=== PATIENT | female | born 1960 | race Caucasian/White ===

== ENCOUNTER → 2017-10-16 12:43 | Outpatient (CLI) | payer BC, SELFPAY ==
--- NOTE | 2017-10-16 12:49 | CT_ITS ---
CT lung screening EXAM: CT LUNG LOW DOSE WO CONTRAST HISTORY: Tobacco abuse, asymptomatic ITS.REASON: HX TOBACCO USE ORDERING PHYSICIAN: Geronimo Mueller MD PATIENT AGE: 56 years COMPARISON: None TECHNIQUE: The exam was performed on a GE Light Speed [address] scanner using 2.90 mGy CTDI. A low dose helical CT CHEST was performed on a multi-detector scanner. All CT scans at the facility use one or more dose reduction, viz: automated exposure control; ma/kV adjustment per patient size (including targeted exams where dose is matched to indication; i.e. head); or iterative reconstruction technique. The LDCT was performed in a facility that meets the criteria for the screening program. Data regarding this exam was submitted to ACR which is an approved registry. The order for this exam indicates that it came as a result of a lung cancer screening counseling shard decision-making visit that included all the elements required of such a visit including smoking cessation. The radiologist interpreting this exam meets the CMS criteria for the LDCT lung cancer screening program. The exam is reported using the Lung-RADS classification scale and reported to the ACR registry. NOTE: This study was performed for the specific purposes of lung cancer screening and is not an alternative to diagnostic chest CT. RADIATION DOSE: CTDI vol(CT dose Index-volume) = 2.90mG DLP (Dose Length Product) = 99.14 mGcm FINDINGS: Centrilobular and paraseptal emphysema No suspicious pulmonary nodules. No effusions or infiltrates. 2 mm well-circumscribed nodule superior segment left lower lobe and appears to contain a small focus of calcification. There are calcified nodes present in the hilum on the right and subcarinal region. IMPRESSION: 1. Lung RADS Category: 2, benign 2. Other findings: Centrilobular and paraseptal emphysema Old granulomatous disease RECOMMENDATIONS: 12 month LDCT follow-up
== END ==
PROVIDERS: Family Provider Family Medicine; PCP Family Medicine; Visit Provider Family Medicine
DX: Z12.2 Encounter for screening for malignant neoplasm of respiratory organs (principal); Z87.891 Personal history of nicotine dependence

== ENCOUNTER 2018-05-15 05:22 | Observation (INO) ==
[2018-05-15 06:02] LABS: Basophils % 0.4 % (0.1-2.0); Eosinophils # 0.1 K/mm3 (0.0-0.4); Eosinophils % 1.6 % (0.1-12.0); Hematocrit 38.4 % (37.0-47.0); Lymphocytes # 1.1 K/mm3 (0.7-4.5); Lymphocytes % 23.5 % (10-50); Mean Corpuscular HGB Conc 31.2 g/dL (31.8-35.4); Mean Corpuscular Hemoglobin 30.7 pg (27.0-31.2); Mean Corpuscular Volume 98.4 fl (81-99); Monocytes # 0.3 K/mm3 (0.1-1.0); Monocytes % 5.7 % (1.7-9.3); Neutrophils # 3.3 K/mm3 (1.8-7.8); Neutrophils % 68.8 % (37.0-80.0); Platelet Count 242 K/mm3 (142-424); Red Cell Distribution Width 12.8 % (11.5-17.5); White Blood Count 4.8 K/mm3 (4.8-10.8)
--- NOTE | 2018-05-15 06:13 | Emergency Department Note ---
ED Disposition Clinical Impression: Vertigo Disposition: Home, Self-Care Condition on Discharge: Good Instructions: DI for Nausea -- Adult Referrals: Geronimo Mueller MD [Primary Care Provider] - - Critical Care Critical Care Time: No Attestation: On 05/15/18, the high probability of a clinically significant, sudden or life threatening deterioration of the following system(s) required my full and direct attention, intervention and personal management. The time I documented below is in addition to time spent performing reported procedures but includes the following listed in this critical care notation. Medical Decision Making - Medical Records Medical records reviewed: Yes: I reviewed the patient's medical records. - [place] Inquiry Pt receiving controlled substance: No Vital Signs: 05/15/18 05:23 05/15/18 06:23 05/15/18 06:51 Temperature 98.9 F Temperature Source Oral Pulse Rate [Right Brachial] 76 56 L 59 L Respiratory Rate 15 Blood Pressure [Right Arm] 123/89 131/74 121/72 Blood Pressure Mean [Right Arm] 100 93 88 02 Sat by Pulse Oximetry 97 97 97 Oxygen Delivery Method Room Air - Lab Data Lab results reviewed: Yes: I reviewed the patient's lab results. Lab Results 05/15/18 05:46: WBC 4.8, RBC 3.90 L, Hgb 12.0 L, Hct 38.4, MCV 98.4, MCH 30.7, MCHC 31.2 L, RDW 12.8, Plt Count 242, MPV 7.0 L, Neut % (Auto) 68.8, Lymph % (Auto) 23.5, [place] % (Auto) 5.7, Eos % (Auto) 1.6, Baso % (Auto) 0.4, Neut # (Auto) 3.3, Lymph # (Auto) 1.1, [place] # (Auto) 0.3, Eos # (Auto) 0.1, Baso # (Auto) 0.0 05/15/18 05:46: Sodium 137, Potassium 3.4 L, Chloride 106, Carbon Dioxide 22, Anion Gap 12.4, BUN 17, Creatinine 0.63, Estimated Creat Clear 132, Estimated GFR 98, Est GFR ( Amer) 118, Glucose 85, Calcium 6.2 L, Total Bilirubin 0.2, AST 12 L, ALT 16, Alkaline Phosphatase 46, Troponin I < 0.02, C-Reactive Protein 0.2, Total Protein 5.0 L D, Albumin 2.3 L, Globulin 2.7, Albumin/Globulin Ratio 0.9 L, Amylase 72, Lipase 193 05/15/18 05:46: Influenza Type A Ag Negative, Influenza Type B Ag Negative 05/15/18 05:46: ESR 10 Result diagrams: 05/15/18 05:46 05/15/18 05:46 Orders (Tests/Meds): ED MEDICATIONS Generic Name Dose Route Start Last Admin Trade Name Freq PRN Reason Stop Dose Admin Sodium Chloride 1,000 mls @ 999 mls/hr 05/15/18 05:30 05/15/18 05:50 Sod Chlor 0.9% 1000ml Bag IV 05/15/18 06:30 999 mls/hr .Q1H1M BOZENA Administration Sodium Chloride 10 ml 05/15/18 05:29 Saline Flush 10ml Syringe IV 06/14/18 05:28 NEEDED PRN Maintain IV Site Discontinued Medications Generic Name Dose Route Start Last Admin Trade Name Freq PRN Reason Stop Dose Admin Famotidine 20 mg 05/15/18 05:30 05/15/18 05:50 Pepcid 20mg/2ml Vial IV 05/15/18 05:31 20 mg ONCE ONE Administration Ketorolac Tromethamine 30 mg 05/15/18 05:30 05/15/18 05:50 Toradol 30mg/Ml Vial IV 05/15/18 05:31 30 mg ONCE ONE Administration Meclizine HCl 25 mg 05/15/18 06:47 05/15/18 06:50 Antivert 25mg Tablet PO 05/15/18 06:48 25 mg ONCE ONE Administration Metoclopramide HCl 10 mg 05/15/18 05:30 05/15/18 05:50 Reglan 10mg/2ml Vial IVP 05/15/18 05:31 10 mg ONCE ONE Administration Ondansetron HCl 4 mg 05/15/18 05:30 05/15/18 05:50 Zofran 4mg/2ml Vial IV 05/15/18 05:31 4 mg ONCE ONE Administration ORDERS Category Date Time Status Urinalysis and Microscopic Stat Lab 05/15/18 05:30 Ordered - CT Data CT Scan: Head Time Received: 07:[address] Reviewed: Yes: I have viewed the radiologist's interpretation Preliminary Findings: Normal/NAD - Physician Consults Physician Consulted: cristina Reason -: Admission Dizzy HPI - General Chief Complaint: Nausea/Vomiting/Diarrhea Stated Complaint: nausea and vomiting, weakness Time Seen by Provider: 05/15/18 05:50 Mode of Arrival: EMS Source of Information: Patient, Spouse, EMS, Medical Record Limitations: No Limitations Description of Symptoms (Recalled from ER Triage Doc. by RN): Reports she woke up with nausea, vomiting, dizziness, and fever. Reports she thinks she could have an inner ear infection, or the flu. Denies abdominal, does c/o headache. Denies any other problems. - History of Present Illness HPI Narrative: acute onset of dizzyness and n/v with sx less on rt side and more moves and supine - no taylor or fever and no trauma or rash - no recent viral illness and no focal or speech or visual sx MD complaint: dizziness Onset (ago): hour(s) Timing: sudden onset Description: "room spinning", difficulty walking History of similar episodes: No History of trauma: No Severity: moderate Relieving factors: remaining still Exacerbating factors: movement Associated symptoms: denies other symptoms - Related Data Home Medications Medication Instructions Recorded Confirmed Citalopram Hydrobromide 20 mg PO DAILY 10/05/17 05/15/18 [Citalopram HBr] Estradiol 1 mg PO DAILY 10/05/17 05/15/18 Oxazepam [Serax 15mg capsule] 15 mg PO TIDP PRN 10/05/17 05/15/18 Rosuvastatin Calcium [Crestor] 20 mg PO HS 10/05/17 05/15/18 Allergies Allergy/AdvReac Type Severity Reaction Status Date / Time amitriptyline AdvReac Intermediate Hallucinati Verified 03/19/18 08:20 ng [facility] History - Hepatitis A Screen Drug use history?: No High risk sexual behaviors?: No History of sexually transmitted infection?: No Currently employed?: No Childcare worker?: No Do you have indoor plumbing?: Yes Do you have electricity?: Yes Attestation statement:: This patient has been screened for Hepatitis A risk factors. I have reviewed the patient's past medical history: Yes Medical History: Reports:: Anxiety, Chronic Obstructive Pulmonary Disease (COPD), Depression, Hyperlipidemia, Lung Disease Denies:: Cancer, Diabetes Mellitus Type 1, Diabetes Mellitus Type 2, Internal Pacemaker, MRSA, Seizures Other Medical History: Denies: Blood Transfusion Reaction Other Surgeries: Yes: Hysterectomy-Partial. No: Pacemaker Amputation: No Fractures: Yes (right wrist. pinky) - Social History Smoking Status: Former smoker Tobacco Type: cigarettes Alcohol Intake: never Alcohol Intake Frequency:: holidays/special occasions only - Psychiatric History Expresses thoughts of harming self/others: None Suicide Plan Description: No Plan Pschychiatric History:: Reports:: Anxiety, Depression Family Hx:: Unable to obtain ROS Obtained: Yes All systems reviewed & no additional complaints - Constitutional Constitutional: Denies fever(s) - Eyes Eyes: Denies change in vision, Denies photophobia - ENT Ears, Nose, Mouth, and Throat: Reports dizziness - Cardiovascular Cardiovascular: Denies chest pain - Respiratory Respiratory: No cough - Gastrointestinal Gastrointestingal: Reports: nausea, vomiting. Denies: abdominal pain, diarrhea - Genitourinary Female Genitourinary: Denies hematuria - Musculoskeletal Musculoskeletal: Denies joint pain, Denies neck pain - Integumentary/Breasts Skin/Breast: Denies rash - Neurologic Neurologic: Denies abnormal speech, Reports dizziness, Denies loss of vision, Denies seizure-like activity Physical Exam - General General appearance: alert, in no apparent distress, obese - Head Head exam: normocephalic - Eye Eye exam: Present: PERRL, EOMI, nystagmus, other (few beats of nystagmus with looking to rt ). Absent: scleral icterus - ENT ENT exam: Present: mucous membranes moist, other (no evid od tongue biting ) - Neck Neck exam: Present: trachea midline - Respiratory Respiratory exam: Absent: respiratory distress - Cardiovascular Cardiovascular exam: Present: regular rate, systolic murmur - Abdominal Exam Abdominal exam: Present: soft - Extremities Exam Extremities exam: Present: full ROM - Neurological Exam Neurological exam: Present: alert, oriented X3, motor sensory deficit - Psychiatric Psychiatric exam: Present: normal affect - Skin Skin exam: Absent: rash
[2018-05-15 06:21] LABS: Alanine Aminotransferase 16 U/L (12-78); Albumin Level 2.3 gm/dL (3.4-5.0); Albumin/Globulin Ratio 0.9 (1.1-1.8); Alkaline Phosphatase 46 U/L (46-116); Amylase 72 U/L (25-115); Anion Gap 12.4 mEq/L (5-15); Aspartate Amino Transferase 12 U/L (15-37); Bilirubin,Total 0.2 mg/dL (0.2-1.0); Blood Urea Nitrogen 17 mg/dL (7-18); C-Reactive Protein 0.2 mg/L (0.0-0.9); Carbon Dioxide 22 mmol/L (21.0-32.0); Chloride 106 mmol/L (98-107); Globulin 2.7 gm/dl (1.3-3.2); Glucose 85 mg/dL (74-106); Lipase 193 u/L (73-393); Potassium 3.4 mmoL/L (3.5-5.1); Sodium 137 mmol/L (136-145)
[2018-05-15 06:31] LABS: Calcium 6.2 mg/dL (8.5-10.1)
--- NOTE | 2018-05-15 09:38 | Progress Note ---
Internal Medicine - PN: Subj *Date: 05/15/18 Interval history: The patient awoke at 3:00 AM with severe dizziness and the room spinning. She has not had such episodes before. She presented in the emergency room where she received fluids and IV medications. She was admitted to the floor. Exam Vital signs and Labs for Last 24 Hours: Temp Pulse Resp BP Pulse Ox 98.4 F 54 L 15 134/73 95 05/15/18 08:37 05/15/18 09:12 05/15/18 09:12 05/15/18 08:37 05/15/18 09:12 Laboratory Results - last 24 hr 05/15/18 05:46: WBC 4.8, RBC 3.90 L, Hgb 12.0 L, Hct 38.4, MCV 98.4, MCH 30.7, MCHC 31.2 L, RDW 12.8, Plt Count 242, MPV 7.0 L, Neut % (Auto) 68.8, Lymph % (Auto) 23.5, [place] % (Auto) 5.7, Eos % (Auto) 1.6, Baso % (Auto) 0.4, Neut # (Auto) 3.3, Lymph # (Auto) 1.1, [place] # (Auto) 0.3, Eos # (Auto) 0.1, Baso # (Auto) 0.0 05/15/18 05:46: Sodium 137, Potassium 3.4 L, Chloride 106, Carbon Dioxide 22, Anion Gap 12.4, BUN 17, Creatinine 0.63, Estimated Creat Clear 132, Estimated GFR 98, Est GFR ( Amer) 118, Glucose 85, Calcium 6.2 L, Total Bilirubin 0 .2, AST 12 L, ALT 16, Alkaline Phosphatase 46, Troponin I < 0.02, C-Reactive Protein 0.2, Total Protein 5.0 L D, Albumin 2.3 L, Globulin 2.7, Albumin/Globulin Ratio 0.9 L, Amylase 72, Lipase 193 05/15/18 05:46: Influenza Type A Ag Negative, Influenza Type B Ag Negative 05/15/18 05:46: ESR 10 I & O for Last 24 hours: Intake & Output 05/12/18 05/13/18 05/14/18 05/15/18 11:59 11:59 11:59 11:59 Weight 172 lb - Constitutional mild distress - *Routine HEENT Exam Eye: Present: PERRL, nystagmus (Left beating nystagmus) ENT: Present: mucous membranes moist - *Routine Respiratory Exam Present: CTA bilaterally - *Routine Cardiovascular Exam Present: RRR Comments: No ectopics - *Routine Abdominal Exam Present: soft. Absent: tenderness - *Routine Neurological Exam Present: alert, oriented X3. Absent: motor deficit She has some left beating nystagmus. Yadiel maneuver was performed and her dizziness seemed to subside. Assessment and Plan (1) Labyrinthitis Current visit: Yes Status: Acute Category: Medical Code(s): H83.09 - Labyrinthitis, unspecified ear (2) Vertigo Current visit: Yes Status: Acute Category: Medical Code(s): R42 - Dizziness and giddiness - Assessment and plan all Dx Assessment and Plan for all problems:: It may be possible to discharge her later on.
--- NOTE | 2018-05-15 09:49 | History & Physical Report ---
*Admission Date: 05/15/18 *Chief complaint: Dizziness *History of present illness: Ms. Bonilla is a 57-year-old female with a history of IBS,GERD,hyperlipidemia and depression who presented to the [facility] emergency room for evaluation after experiencing dizziness. Patient states she awakened about 3 AM with dizzy and the room was spinning. She was unable to resolve this with change of position. She did become nauseated and did vomit. Her thus brought her to the emergency room. With evaluation in the ER she had a negative head CT. The vertigo persisted. She received a bolus of IV fluids, IV Pepcid, Toradol, Reglan, and Zofran as well as meclizine 25 mg p.o. She was then admitted for further evaluation and treatment. Dr. Mueller examined her after admission and performed the Yadiel maneuver with complete resolution of dizziness/vertigo. Nausea had subsided. She was going to eat breakfast. [facility] History Medical History: Reports:: Anxiety, Chronic Obstructive Pulmonary Disease (COPD), Depression, Gastroesophageal Reflux Disease(GERD), Hyperlipidemia, Lung Disease Denies:: Cancer, Diabetes Mellitus Type 1, Diabetes Mellitus Type 2, Internal Pacemaker, MRSA, Seizures Have you ever received a pneumonia vaccine?: No Have you received a flu vaccine this season?: No Other Medical History: Denies: Blood Transfusion Reaction Comment:: IBS Other Surgeries: Yes: Cardiac Catheterization, Hysterectomy-Partial, Tubal Ligation. No: Pacemaker Amputation: No Fractures: Yes (right wrist. pinky) - *Social History Educational Level: Completed High School Smoking Status: Former smoker Tobacco Type: cigarettes Alcohol Intake: never Alcohol Intake Frequency:: holidays/special occasions only Occupational Status: employed Housing: house Household Members: spouse Travel in the last 8 weeks: None - Psychiatric History Expresses thoughts of harming self/others: None Suicide Plan Description: No Plan Pschychiatric History:: Reports:: Anxiety, Depression *Family Hx:: Cancer, Coronary Artery Disease, Diabetes, Heart Attack, Hyperlipidemia, Hypertension Review of Systems - Constitutional Reports lack of energy, Denies fever(s) Comments: has been tired for the past 2 days - ENT Reports dizziness, Reports headache(s), Denies ear pain, Denies sore throat - *Cardiovascular Reports chest pain, Denies rapid, pounding, or irregular heartbeat - *Respiratory Denies chest congestion, Denies cough, Denies shortness of breath - *Gastrointestinal Reports nausea, Reports vomiting, Denies abdominal pain, Denies change in bowel habits - *Genitourinary Denies difficulty urinating, Denies painful urination - *Musculoskeletal Denies joint pain, Denies muscle weakness, Denies body aches - *Neurologic Reports dizziness, Denies abnormal speech, Denies loss of vision, Denies seizure-like activity Meds Home Medications Medication Instructions Recorded Confirmed Type Citalopram Hydrobromide 20 mg PO DAILY 10/05/17 05/15/18 History [Citalopram HBr] Estradiol 1 mg PO DAILY 10/05/17 05/15/18 History Oxazepam [Serax 15mg capsule] 15 mg PO TIDP PRN 10/05/17 05/15/18 History Rosuvastatin Calcium [Crestor] 20 mg PO HS 10/05/17 05/15/18 History Cholecalciferol (Vitamin D3) 1,000 unit PO DAILY 05/15/18 05/15/18 History [Vitamin D3 1,000 Unit Tab] Miscellaneous [Unknown Home 0 each NOTAPPLIC CONSULT PHARMACY 05/15/18 05/15/18 History Medication] Allergies Allergy/AdvReac Type Severity Reaction Status Date / Time amitriptyline AdvReac Intermediate Hallucinati Verified 03/19/18 08:20 ng Exam Vital signs and Labs for Last 24 Hours: Temp Pulse Resp BP Pulse Ox 98.4 F 54 L 15 134/73 95 05/15/18 08:37 05/15/18 09:12 05/15/18 09:12 05/15/18 08:37 05/15/18 09:12 Laboratory Results - last 24 hr 05/15/18 05:46: WBC 4.8, RBC 3.90 L, Hgb 12.0 L, Hct 38.4, MCV 98.4, MCH 30.7, MCHC 31.2 L, RDW 12.8, Plt Count 242, MPV 7.0 L, Neut % (Auto) 68.8, Lymph % (Auto) 23.5, [place] % (Auto) 5.7, Eos % (Auto) 1.6, Baso % (Auto) 0.4, Neut # (Auto) 3.3, Lymph # (Auto) 1.1, [place] # (Auto) 0.3, Eos # (Auto) 0.1, Baso # (Auto) 0.0 05/15/18 05:46: Sodium 137, Potassium 3.4 L, Chloride 106, Carbon Dioxide 22, Anion Gap 12.4, BUN 17, Creatinine 0.63, Estimated Creat Clear 132, Estimated GFR 98, Est GFR ( Amer) 118, Glucose 85, Calcium 6.2 L, Total Bilirubin 0.2, AST 12 L, ALT 16, Alkaline Phosphatase 46, Troponin I < 0.02, C-Reactive Protein 0.2, Total Protein 5.0 L D, Albumin 2.3 L, Globulin 2.7, Albumin/Globulin Ratio 0.9 L, Amylase 72, Lipase 193 05/15/18 05:46: Influenza Type A Ag Negative, Influenza Type B Ag Negative 05/15/18 05:46: ESR 10 I & O for Last 24 hours: Intake & Output 05/12/18 05/13/18 05/14/18 05/15/18 11:59 11:59 11:59 11:59 Weight 172 lb Radiology Reports for the Last 24 Hours: 05/15/2018 CT of the head IMPRESSION: No acute intracranial findings. - Constitutional no acute distress Comments: After Yadiel maneuver she felt fine - *Routine HEENT Exam Head: Present: normocephalic, atraumatic Eye: Present: PERRL, nystagmus (Left beating) ENT: Present: mucous membranes moist, oropharynx clear, nares patent - *Routine Neck Exam Present: supple, full ROM. Absent: carotid bruit, lymphadenopathy, thyromegaly - *Routine Respiratory Exam Present: CTA bilaterally (Anteriorly and posteriorly) - *Routine Cardiovascular Exam Present: RRR - *Routine Abdominal Exam Present: soft. Absent: normoactive bowel sounds, tenderness, distended - *Routine Extremities Exam Present: full ROM, pulses intact. Absent: edema, calf tenderness - *Routine Neurological Exam Present: alert, oriented X3 Assessment and Plan (1) Labyrinthitis Current visit: Yes Status: Acute Category: Medical Code(s): H83.09 - Labyrinthitis, unspecified ear (2) Vertigo Current visit: Yes Status: Acute Category: Medical Code(s): R42 - Dizziness and giddiness - Assessment and plan all Dx Assessment and Plan for all problems:: Will continue with radiation monitor and observe. Possibly home this p.m.. Potassium is 3.4 and will give her 1 dose of KCl 20 mEq p.o.
--- NOTE | 2018-05-15 12:02 | Pharmacy Consult Notes ---
[facility] Pharmacy VTE Monitoring - Patient Demographics Admission date: 05/15/18 Report Date: 05/15/18 Time: 12:02 Allergies/Adverse Reactions: Patient Allergies amitriptyline Adverse Reaction (Intermediate, Verified 03/19/18 08:20) Hallucinating Height: 1.59 m Weight: 78.018 kg Patient Problems: Current Active Problems Vertigo (Acute) Labyrinthitis (Acute) - VTE Risk Labs: VTE Related Lab Results Hgb 12.0 g/dL (12.2-16.2) L 05/15/18 05:46 Hct 38.4 % (37.0-47.0) 05/15/18 05:46 Plt Count 242 K/mm3 (142-424) 05/15/18 05:46 BUN 17 mg/dL (7-18) 05/15/18 05:46 Creatinine 0.63 mg/dL (0.55-1.02) 05/15/18 05:46 Estimated Creat Clear 132 mL/min (50-200) 05/15/18 05:46 VTE Score: 2 - Prophylaxis VTE Prophylaxis Ordered?: Yes Types of VTE Prophylaxis: TEDS Knee High Location of Applied Device: Bilateral Lower Extremeties - VTE Diagnosis Confirmed Treatment or plan recommended: Continue Current Treatment
--- NOTE | 2018-05-16 08:18 | Progress Note ---
Internal Medicine - PN: Subj *Date: 05/16/18 *Time: 08:15 Interval history: Patient states she is still getting dizzy this morning when changing positions however it is much better than it was yesterday. She now has control over her limbs and has been up moving around the room. She slept decently last night and ate breakfast this morning. She wants to go home. Exam Vital signs and Labs for Last 24 Hours: Temp Pulse Resp BP Pulse Ox 98.0 F 56 L 16 142/81 H 98 05/16/18 07:17 05/16/18 07:17 05/16/18 07:17 05/16/18 07:17 05/16/18 07:17 I & O for Last 24 hours: Intake & Output 05/13/18 05/14/18 05/15/18 05/16/18 11:59 11:59 11:59 11:59 Intake Total 240 / 240 2539 / 2539 Balance 240 / 240 2539 / 2539 Weight 172 lb 175 lb - Constitutional no acute distress - *Routine Respiratory Exam Present: CTA bilaterally - *Routine Cardiovascular Exam Present: RRR - *Routine Abdominal Exam Present: soft, normoactive bowel sounds. Absent: tenderness - *Routine Extremities Exam Absent: cyanosis, clubbing, edema - *Routine Neurological Exam Present: alert, oriented X3 Assessment and Plan (1) Labyrinthitis Current visit: Yes Status: Acute Category: Medical Code(s): H83.09 - Labyrinthitis, unspecified ear (2) Vertigo Current visit: Yes Status: Acute Category: Medical Code(s): R42 - Dizziness and giddiness (3) Hypokalemia Current visit: Yes Status: Acute Category: Medical Code(s): E87.6 - Hypokalemia (4) Hypocalcemia Current visit: Yes Status: Acute Category: Medical Code(s): E83.51 - Hypoc alcemia - Assessment and plan all Dx Assessment and Plan for all problems:: Patient symptoms have improved. Possibly discharge home today. She states she is supposed to be taking calcium at home but does not take her supplement. She will likely need to resume this due to hypocalcemia. May also need some potassium.
[2018-05-16 08:52] LABS: Anion Gap 20.1 mEq/L (5-15); Potassium 4.1 mmoL/L (3.5-5.1)
[2018-05-16 09:02] LABS: Basophils % 0.6 % (0.1-2.0); Eosinophils # 0.1 K/mm3 (0.0-0.4); Hematocrit 43.4 % (37.0-47.0); Hemoglobin 13.9 g/dL (12.2-16.2); Lymphocytes # 1.9 K/mm3 (0.7-4.5); Lymphocytes % 35.3 % (10-50); Mean Corpuscular Hemoglobin 31.7 pg (27.0-31.2); Mean Corpuscular Volume 99.1 fl (81-99); Mean Platelet Volume 8.2 fl (7.4-10.4); Monocytes # 0.2 K/mm3 (0.1-1.0); Monocytes % 3.7 % (1.7-9.3); Neutrophils # 3.1 K/mm3 (1.8-7.8); Neutrophils % 58.4 % (37.0-80.0); Platelet Count 293 K/mm3 (142-424); Red Blood Count 4.38 M/mm3 (4.20-5.40); Red Cell Distribution Width 12.9 % (11.5-17.5); White Blood Count 5.3 K/mm3 (4.8-10.8)
[2018-05-16 12:13] LABS: Calcium 8.1 mg/dL (8.5-10.1)
--- NOTE | 2018-05-17 22:04 | Discharge Summary ---
General - General Admission date:: 05/15/18 Discharge date: 05/16/18 HPI HPI: Ms. Bonilla is a 57-year-old female with a history of IBS, GERD, hyperlipidemia and depression who presented to the [facility] emergency room for evaluation after experiencing dizziness. Patient states she awakened about 3 AM with dizziness and the room was spinning. She was unable to resolve this with change of position. She did become nauseated and did vomit. Her thus brought her to the emergency room. With evaluation in the ER she had a negative head CT. The vertigo persisted. She received a bolus of IV fluids, IV Pepcid, Toradol, Reglan, and Zofran as well as meclizine 25 mg p.o. She was then admitted for further evaluation and treatment. Dr. Mueller examined her after admission and performed the Yadiel maneuver with complete resolution of dizziness/vertigo. Nausea had subsided. She was going to eat breakfast. Hospital Course Hospital Course: The patient continued with cardiac monitoring and observation. She was started on some potassium due to hypokalemia. Her calcium was low as well and she mentioned that she had calcium at home, she had just not been taking it. She did continue to become dizzy with change in position, however it was much improved from the dizziness she had on admission. She slept well and was tolerating a diet. She was anxious to go home. She was stable to be discharged home on meclizine and will follow-up in the office. Objective Vital signs: Temp Pulse Resp BP Pulse Ox 98.0 F 56 L 16 142/81 H 98 05/16/18 07:17 05/16/18 07:17 05/16/18 07:17 05/16/18 07:17 05/16/18 07:17 Narrative: - Constitutional no acute distress Comments: After Yadiel maneuver she felt fine - *Routine HEENT Exam Head: Present: normocephalic, atraumatic Eye: Present: PERRL, nystagmus (Left beating) ENT: Present: mucous membranes moist, oropharynx clear, nares patent - *Routine Neck Exam Present: supple, full ROM. Absent: carotid bruit, lymphadenopathy, thyromegaly - *Routine Respiratory Exam Present: CTA bilaterally (Anteriorly and posteriorly) - *Routine Cardiovascular Exam Present: RRR - *Routine Abdominal Exam Present: soft. Absent: normoactive bowel sounds, tenderness, distended - *Routine Extremities Exam Present: full ROM, pulses intact. Absent: edema, calf tenderness - *Routine Neurological Exam Present: alert, oriented X3 DS: Diagnosis - Discharge Diagnosis (1) Labyrinthitis Status: Acute (2) Vertigo Status: Acute (3) Hypokalemia Status: Acute (4) Hypocalcemia Status: Acute Discharge Plan - Patient Discharge Instructions ACTIVITY: Limited activity DIET: continue same diet Patient Instructions: DI for Vertigo, DI for Nausea -- Adult, DI for Vomiting -- Adult - Follow up Plan Follow up with: Geronimo Mueller MD [Primary Care Provider] - 05/18/18 Disposition: Home, Self-Usp Medications: Home Medications Medication Instructions Recorded Confirmed Type Citalopram Hydrobromide 20 mg PO DAILY 10/05/17 05/15/18 History [Citalopram HBr] Estradiol 1 mg PO DAILY 10/05/17 05/15/18 History Oxazepam [Serax 15mg capsule] 15 mg PO TIDP PRN 10/05/17 05/15/18 History Rosuvastatin Calcium [Crestor] 20 mg PO HS 10/05/17 05/15/18 History Cholecalciferol (Vitamin D3) 1,000 unit PO DAILY 05/15/18 05/15/18 History [Vitamin D3 1,000 Unit Tab] Meclizine HCl [Antivert 25mg 25 mg PO TIDP PRN #20 tablet 05/16/18 Rx tablet] Prescriptions/Medication Reconciliation: New Meclizine HCl [Antivert 25mg tablet] 25 mg PO TIDP PRN #20 tablet PRN Reason: dizziness Continue Rosuvastatin Calcium [Crestor] 20 mg PO HS Oxazepam [Serax 15mg capsule] 15 mg PO TIDP PRN PRN Reason: Anxiety Estradiol 1 mg PO DAILY Citalopram Hydrobromide [Citalopram HBr] 20 mg PO DAILY Cholecalciferol (Vitamin D3) [Vitamin D3 1,000 Unit Tab] 1,000 unit PO DAILY
== END 2018-05-16 12:52 | disposition home or self-care (01) ==
LOC: 2ND 05:22 → ER 05:22 → 2ND 08:21
PROVIDERS: ADMIT Family Medicine; ATTEND Family Medicine
CPT/HCPCS: 36415; 70450; 80048; 80053; 82150; 83690; 83735; 84484; 85025; 85651; 86140; 87275; 87276; 90686; 96365; 96375; 99284; G0378; J2405

== ENCOUNTER → 2018-05-22 09:38 | Outpatient (CLI) | payer BC, SELFPAY ==
--- NOTE | 2018-05-22 09:41 | CI_ITS ---
Cerebrovascular Exam Indications: 780.4 Dizziness and giddiness. Labyrinthitis IMPRESSIONS 1. The bilateral vertebral arteries are patent with normal antegrade flow. 2. Study suggests less than 20% stenosis involving the right internal carotid artery. 3. Study suggests 20-49% stenosis involving the left internal carotid artery. 4. Tortuous carotid arteries seen on left ICA Carotid duplex study. Complete study and Doppler flow study including spectral analysis, color and astorga scale imaging. Height: Height: 160cm. Height: 63in. Weight: Weight: 78kg. Weight: 171.6lb. Body mass index: BMI: 30.5kg/m^2. Body surface area: BSA: 1.89m^2. Location: Vascular laboratory. Patient status: Outpatient. Tables: Arterial flow: + +--------+--------+ Location V iris V ed + +--------+--------+ Right CCA - proximal 67.6cm/s 18.9cm/s + +--------+--------+ Right CCA - distal 74.6cm/s 23.6cm/s + +--------+--------+ Right ECA 77cm/s -------- + +--------+--------+ Right ICA - proximal 63.6cm/s 22cm/s + +--------+--------+ Right ICA - mid 53.4cm/s 21.2cm/s + +--------+--------+ Right ICA - distal 65.2cm/s 25.9cm/s + +--------+--------+ Right vertebral 26.7cm/s -------- + +--------+--------+ Left CCA - proximal 67.6cm/s 22.8cm/s + +--------+--------+ Left CCA - distal 82.5cm/s 29.9cm/s + +--------+--------+ Left ECA 69.9cm/s -------- + +--------+--------+ Left ICA - proximal 51.1cm/s 18.1cm/s + +--------+--------+ Left ICA - mid 90.9cm/s 34.1cm/s + +--------+--------+ Left ICA - distal 88.5cm/s 33.3cm/s + +--------+--------+ Left vertebral 39.3cm/s -------- + +--------+--------+ Velocity ratios: + + + + + + Right, V sys Right, V ed Left, V sys Left, V ed + + + + + + Max ICA/dist CCA 0.87 1.1 1.1 1.14 + + + + + + (Report amended ) Electronically signed by: Rafa Feng [id number]
== END ==
PROVIDERS: PCP Family Medicine; Visit Provider Family Medicine
DX: H83.09 Labyrinthitis, unspecified ear (principal)
CPT/HCPCS: 93880

== ENCOUNTER → 2018-06-13 11:28 | Outpatient (CLI) | payer BC, SELFPAY ==
[2018-06-13 15:02] VITALS: PULSE 79; PULSE 80
== END ==
PROVIDERS: PCP Family Medicine; Visit Provider Family Medicine
DX: R06.02 Shortness of breath (principal)
CPT/HCPCS: 94060; 94640; 94726; 94729

== ENCOUNTER → 2018-06-21 08:51 | Outpatient (CLI) | payer BC, SELFPAY ==
--- NOTE | 2018-06-21 08:59 | MM_ITS ---
MM Dig screening mamm BI w/CAD CAD Screening COMPARISON: Digital mammograms with CAD 05/22/2014 and 09/04/2012 INDICATION: There is a history of breast cancer patient maternal aunt and paternal aunt. There has been a previous biopsy left breast for benign disease. TECHNIQUE: Standard CC and MLO images were obtained. R2 CAD reviewed. FINDINGS: The breasts are composed primarily of fat with very minimal scattered fibroglandular densities in each breast. There are couple of benign-appearing calcifications right breast single benign-appearing calcification left breast. There are possible new asymmetric densities upper outer quadrant left breast. Recommend patient return for spot compression views in the MLO and CC projection, ultrasound may be necessary as well. There are no suspicious microcalcifications. IMPRESSION: Fatty type breast parenchyma with possible new asymmetric densities left breast BI-RADS Category: 0 Need Additional Imaging Evaluation RECOMMENDED FOLLOW-UP: IMM - IMMEDIATE FOLLOW-UP RECOMMENDED (A letter has been sent to the patient regarding results of the study.)
== END ==
PROVIDERS: PCP Family Medicine; Visit Provider Family Medicine
DX: Z12.31 Encounter for screening mammogram for malignant neoplasm of breast (principal)
CPT/HCPCS: 77067

== ENCOUNTER → 2018-07-09 12:49 | Outpatient (CLI) | payer BC, SELFPAY ==
--- NOTE | 2018-07-09 12:52 | MM_ITS ---
MM Dig mamm DX unilat LT CAD, US breast LT complete INDICATION: Follow-up abnormal mammogram ORDERING PHYSICIAN: Geronimo Mueller MD PATIENT AGE: 57 years COMPARISON: None TECHNIQUE: Problem-solving views performed along with left breast ultrasound. FINDINGS: The area of asymmetric density in the lateral aspect of the left breast appear to compress out as fibroglandular tissue. There is a residual benign-appearing nodule in this region laterally at 3 mm. There are multiple small nodular opacities noted on the MLO view in the retroareolar region which have benign appearance. Left breast ultrasound: There is a 3 mm cyst at 3:00 near the nipple. The wall slightly thickened and there is focal area of increased echogenicity centrally. No suspicious lesions evident. Small nodes are present in the axilla. IMPRESSION: Probably benign nodular lesion in the lateral aspect of the left breast as described above and may represent a complex cyst. Recommend 6 month mammographic and sonographic follow-up BI-RADS Category: 3 Probably Benign Finding Short Term Follow-up RECOMMENDED FOLLOW-UP: 6M - 6 MONTH FOLLOW-UP (A letter has been sent to the patient regarding results of the study.)
== END ==
PROVIDERS: PCP Family Medicine; Visit Provider Family Medicine
DX: R92.8 Other abnormal and inconclusive findings on diagnostic imaging of breast (principal)
CPT/HCPCS: 76641; 77065

== ENCOUNTER → 2019-01-22 13:34 | Outpatient (CLI) | payer BC, SELFPAY ==
--- NOTE | 2019-01-22 13:43 | MM_ITS ---
PROCEDURE: MM DIG MAMM DX UNILAT LT CAD US BREAST Left Ultrasound left breast complete, including axillary survey Patient Age:58Y CLINICAL INDICATION: 6 MONTH F/U Minimal asymmetric nodularity left breast suggested on previous study COMPARISON: DIG MAMMO BILAT SCREENING from 02/17/2011 DIG MAMMO BILAT SCREENING from 09/04/2012 DMDB DIG MAMM-DX WENDY from 05/22/2014 SCBI MM Dig screening mamm BI w/CAD from 06/21/2018 DXLT MM Dig mamm DX unilat LT CAD from 07/09/2018 BREASTLT US breast LT complete from 07/09/2018 US BREAST LT COMPLETE from 01/22/2019 TECHNIQUE: 90 degree, CC and MLO images left breast re obtained. R2 CAD reviewed. Additional spot views CC MLO view of lateral left breast FINDINGS: LEFT BREAST DIAGNOSTIC MAMMOGRAM with spot views Generalized fatty replacement the but minimal small areas of nodularity at the left breast are faintly seen. Subsequent ultrasound supports that these arm merely small debris-filled cyst with no suspicious nodule or findings particular when compared back to 2012 exam which showed some similar but slightly variable areas of nodularity again likely reflecting tiny cyst LEFT BREAST ULTRASOUND including axillary survey Entire breast was imaged.. Including axilla which demonstrates a few small axillary lymph nodes appeared unremarkable. On images of the breasts demonstrate no solid nodules and the the tiny debris-filled cyst seen previously, were not evident or appear appear to have regressed.. No new areas of concern. Patient may resume annual schedule IMPRESSION: Left mammogram views reveal no areas of significant concern. Subtle faint scattered areas of residual nodularity is similar to multiple old studies dating back to 2012. Left breast ultrasound reveals no areas of concern Patient may resume bilateral mammogram annual schedule in 6 months BI-RAD Category: 2 Benign Finding(s) FOLLOW-UP: Small areas of nodularity the (A letter has been sent to the patient regarding results of the study.) Dictated by: Jose Daniel MD 01/23/2019 08:00 Electronically signed by Jose Daniel MD in [place] 01/23/2019 08:00
== END ==
PROVIDERS: PCP Family Medicine; Visit Provider Family Medicine
DX: R92.8 Other abnormal and inconclusive findings on diagnostic imaging of breast (principal)
CPT/HCPCS: 76641; 77065

== ENCOUNTER → 2019-08-15 08:58 | Outpatient (CLI) | payer BC, SELFPAY ==
--- NOTE | 2019-08-15 09:01 | CA_ITS ---
APPROVED REPORT EXAM: Comprehensive 2D, Doppler, and color-flow Echocardiogram [employer] Agent: Mary Anne Gómez CRT Ht: 5 ft 2 in Wt: 188lbs BSA: 1.86 BP: 121/72 mmHg Indications: Chest Pain, COPD, Hypertension/HDD 2D Dimensions LVOT 1.80 cm (M/F) 1.5-2.5 M-Mode Dimensions RVDd 1.78 cm (0.9-2.6) LVDd 4.57 cm (3.5-5.7) LVDs 3.35 cm (3.5-5.7) IVSd 1.18 cm (0.6-1.1) PWd 0.93 cm (0.6-1.1) EF (Teich) 52.20% FS 26.70% EDV (Teich) 95.90 mL ESV (Teich) 45.80 mL LV Diastology E/A Ratio 0.80 Mitral Valve MV A Velocity 93.00 (40-130 cm/s) Left Ventricle Left atrium is mildly enlarged, left ventricle is normal size, mild concentric left ventricular hypertrophy, visually estimated ejection fraction 55% with no regional wall motion abnormality. Grade 1 diastolic dysfunction seen without tissue Doppler evidence of raise left atrial pressure. Right Ventricle Right atrium right ventricular normal size and contractility. Aortic Valve Valve is thickened and calcified, leaflet continue to display good mobility, there is no aortic stenosis, there is moderate aortic insufficiency. Mitral Valve Mitral valve is grossly normal, there is mild mitral regurgitation. Tricuspid Valve Tricuspid valve is grossly normal, there is mild tricuspid regurgitation. Tricuspid regurgitation jet velocity is inadequate for calculation of the right ventricular systolic pressure. Pulmonic Valve Pulmonic valve is poorly visualized. Great Vessels Aortic root is normal size. Pericardium No significant pericardial effusion noted. Conclusion 1. Mildly enlarged left atrium, normal left ventricular size, mild concentric left ventricular hypertrophy, visually estimated ejection fraction 55% with no regional wall motion abnormality, grade 1 diastolic dysfunction seen without tissue Doppler evidence of raise left atrial pressure. 2. Thickened and calcified aortic valve without aortic stenosis, there is moderate aortic insufficiency. 3. Mild mitral and tricuspid regurgitation. 4. No significant pericardial effusion noted. Electronically signed by : Vitaly Langley, 08/15/2019 12:38:40
--- NOTE | 2019-08-15 09:57 | ECG_ITS ---
APPROVED REPORT Exam: Resting ECG HR:61 bpm ECG Measurements Heart Rate 61 AXES GA 142 P 55 QRSd 84 QRS 36 QT 472 T 64 QTc 475 <Conclusion> Normal sinus rhythm Nonspecific T wave abnormality Prolonged QT Abnormal ECG Electronically signed by : Piotr Casey, 08/16/2019 08:05:56
--- NOTE | 2019-08-15 10:02 | XR_ITS ---
PROCEDURE: XR CHEST 2V CLINICAL HISTORY: CHEST DISCOMFORT COMPARISON: CXR2V XR chest 2V from 10/05/2017 FINDINGS: The cardiomediastinal silhouette and pulmonary vascularity are within normal limits. The lungs are clear without infiltrates, suspicious nodules, or pleural effusions. No acute bony abnormalities. IMPRESSION: No acute findings. Dictated by: Rafa Feng MD 08/15/2019 12:25 Electronically signed by Rafa Feng MD in [place] 08/15/2019 12:25
== END ==
PROVIDERS: PCP Family Medicine; Visit Provider Family Medicine
DX: R07.89 Other chest pain (principal)
CPT/HCPCS: 71046; 93005; 93306

== ENCOUNTER 2019-11-17 08:52 | Emergency (ER) | payer BC, SELFPAY ==
[2019-11-17 08:56] VITALS: BP 149/69; PULSE 67; RESP 18; TEMP 36.5; O2SAT 96; BMI 33.1
--- NOTE | 2019-11-17 09:08 | PC.NURSE ---
ANNE CALZADA at
--- NOTE | 2019-11-17 09:14 | XR_ITS ---
PROCEDURE: XR CHEST 2V CLINICAL HISTORY: chest pain COMPARISON: CXR2V XR chest 2V from 10/05/2017 XR CHEST 2V from 08/15/2019 FINDINGS: The cardiomediastinal silhouette and pulmonary vascularity are within normal limits. The lungs are clear without infiltrates, suspicious nodules, or pleural effusions. Thickening of the left major fissure as noted previously No acute bony abnormalities. IMPRESSION: No acute findings. Dictated by: Dr. Marciano Ayala MD 11/17/2019 10:[address] Marciano Ayala MD in [place] 11/17/2019 10:24
--- NOTE | 2019-11-17 09:18 | HMH.EDGENADL ---
ED Disposition Clinical Impression: Costochondral chest pain Disposition: Home, Self-Care Condition on Discharge: Good Instructions: DI for Acute Pain -- Adult Prescriptions: Cyclobenzaprine HCl [Cyclobenzaprine 5mg Tab] 5 mg PO Q8HP PRN #30 tab PRN Reason: spasm Transmission [id number] Ketorolac Tromethamine [Toradol 10mg tablet] 10 mg PO Q6H 5 Days #20 tab Transmission Status: [id number] Referrals: Geronimo Mueller MD [Primary Care Provider] - - Critical Care Critical Care Time: No Attestation: On 11/17/19, the high probability of a clinically significant, sudden or life threatening deterioration of the following system(s) required my full and direct attention, intervention and personal management. The time I documented below is in addition to time spent performing reported procedures but includes the following listed in this critical care notation. Medical Decision Making - Medical Records Medical records reviewed: Yes: I reviewed the patient's medical records. - [place] Inquiry Pt receiving controlled substance: No Vital Signs: 11/17/19 08:56 11/17/19 09:46 Temperature 97.7 F Temperature Source Tympanic Pulse Rate [Left Radial] 67 64 Respiratory Rate 18 Blood Pressure [Left Arm] 149/69 H 144/78 H Blood Pressure Mean [Left Arm] 95 100 Blood Pressure Source [Left Arm] Automatic Cuff Automatic Cuff Blood Pressure Position [Left Arm] Sitting Sitting 02 Sat by Pulse Oximetry 96 97 Oxygen Delivery Method Room Air Room Air - Lab Data Lab Results 11/17/19 09:35: WBC 5.8, RBC 4.19 L, Hgb 14.6, Hct 41.3, MCV 98.7, MCH 34.8 H, MCHC 35.3, RDW 13.2, Plt Count 243, MPV 7.2 L, Neut % (Auto) 72.0, Lymph % (Auto) 21.6, Riley % (Auto) 3.7, Eos % (Auto) 2.1, Baso % (Auto) 0.5, Neut # (Auto) 4.2, Lymph # (Auto) 1.3, Riley # (Auto) 0.2, Eos # (Auto) 0.1, Baso # (Auto) 0.0 11/17/19 09:35: Sodium 138, Potassium 4.0, Chloride 104, Carbon Dioxide 25, Anion Gap 13.0, BUN 15, Creatinine 1.20 H, Estimated Creat Clear 67, Estimated GFR 46 L, Est GFR ( Amer) 56 L, Glucose 129 H, Calcium 8.9, Troponin I < 0.01 Result diagrams: 11/17/19 09:35 11/17/19 09:35 Orders (Tests/Meds): ED MEDICATIONS Discontinued Medications Generic Name Dose Route Start Last Admin Trade Name Tay PRN Reason Stop Dose Admin Ketorolac Tromethamine 60 mg 11/17/19 09:15 11/17/19 09:45 Toradol 60mg/2ml Vial IM 11/17/19 09:16 60 mg ONCE ONE Administration Orphenadrine Citrate 60 mg 11/17/19 09:15 11/17/19 09:44 Norflex 60mg/2ml Vial IM 11/17/19 09:16 60 mg ONCE ONE Administration - Radiology Data #1 Image(s): Chest Image Reviewed: Yes I reviewed the patient's radiology image Preliminary Findings: Normal/NAD - ECG Data Tracing #1 vr 60bpm; NSR/NAD; no ischemia/infarct/hypertrophy; intervals WNL Normal Sinus Rhythm: Yes General Adult HPI - General Chief complaint: PAIN Stated complaint: muscular chest pain Time Seen by Provider: 11/17/19 09:10 Mode of Arrival: Ambulatory Source of Information: Patient Limitations: No Limitations Description of Symptoms (Recalled from ER Triage Doc. by RN): Pt reports pulled muscle type of pain under L breast in rib area. Pt reports pain began monday of last week, states pain worsened, she saw her PCP on monday of last week. Pt states she was told by her PCP she had lumps in that area. Pt reports pain is worsening, states get a sharp stabbing pain when trying to take a deep breath or coughing and also when bending over pain worsens. - History of Present Illness HPI narrative: This is a 59-year-old female who presents with 7-day history of chest wall tenderness under the left breast. Pain is constant aching with sharp intermittent pains exacerbated with deep inspiration and movement of the left upper extremity. Pain is rated at 3-4 out of 10 in intensity at current and intensifies
--- NOTE | 2019-11-17 09:21 | PC.NURSE ---
pt to xray
--- NOTE | 2019-11-17 09:31 | PC.NURSE ---
Pt returned from rad.
[2019-11-17 09:46] VITALS: BP 144/78; PULSE 64; O2SAT 97
[2019-11-17 09:48] LABS: Basophils % 0.5 % (0.1-2.0); Eosinophils # 0.1 K/mm3 (0.0-0.4); Eosinophils % 2.1 % (0.1-12.0); Hematocrit 41.3 % (37.0-47.0); Hemoglobin 14.6 g/dL (12.2-16.2); Lymphocytes # 1.3 K/mm3 (0.7-4.5); Lymphocytes % 21.6 % (10-50); Mean Corpuscular HGB Conc 35.3 g/dL (31.8-35.4); Mean Corpuscular Hemoglobin 34.8 pg (27.0-31.2); Mean Corpuscular Volume 98.7 fl (81-99); Mean Platelet Volume 7.2 fl (7.4-10.4); Monocytes # 0.2 K/mm3 (0.1-1.0); Monocytes % 3.7 % (1.7-9.3); Neutrophils # 4.2 K/mm3 (1.8-7.8); Platelet Count 243 K/mm3 (142-424); Red Blood Count 4.19 M/mm3 (4.20-5.40); Red Cell Distribution Width 13.2 % (11.5-17.5); White Blood Count 5.8 K/mm3 (4.8-10.8)
[2019-11-17 09:54] LABS: Chloride 104 mmol/L (98-107); Sodium 138 mmol/L (136-145)
[2019-11-17 09:57] LABS: Blood Urea Nitrogen 15 mg/dl (7-17); Carbon Dioxide 25 mmol/L (22.0-30.0); Creatinine Clearance Estimated 67 mL/min (50-200); Estimated Glomerular Filt Rate 46 ml/min (>60); GFR (African American) 56 ML/MIN (>60)
[2019-11-17 09:58] LABS: Calcium 8.9 mg/dl (8.4-10.2); Glucose 129 mg/dl (74-100)
[2019-11-17 10:12] LABS: Troponin I < 0.01 ng/ml (0.00-0.034)
--- NOTE | 2019-11-17 10:29 | ECG_ITS ---
APPROVED REPORT Exam: Resting ECG HR:60 bpm ECG Measurements Heart Rate 60 AXES [place] 150 P 63 QRSd 78 QRS 45 QT 452 T 69 QTc 452 <Conclusion> Normal sinus rhythm Nonspecific T wave abnormality Abnormal ECG Electronically signed by : Piotr Casey, 11/17/2019 20:58:26
--- NOTE | 2019-11-17 10:36 | PC.NURSE ---
Pt states that the blood pressure cuff hurts her arm and requests to not have v/s taken at this time.
[2019-11-17 10:46] VITALS: BP 142/73; PULSE 64; RESP 18; TEMP 36.5; O2SAT 95
== END 2019-11-17 10:47 | disposition home or self-care (01) ==
PROVIDERS: Emergency Provider Emergency Medicine; PCP Family Medicine
DX: R07.89 Other chest pain (principal); F41.8 Other specified anxiety disorders; E78.5 Hyperlipidemia, unspecified; J44.9 Chronic obstructive pulmonary disease, unspecified; K21.9 Gastro-esophageal reflux disease without esophagitis; Z87.891 Personal history of nicotine dependence; Z90.79 Acquired absence of other genital organ(s)
CPT/HCPCS: 71046; 80048; 84484; 85025; 93005; 96372; 99283

== ENCOUNTER → 2019-12-09 09:26 | Outpatient (CLI) | payer BC, SELFPAY ==
--- NOTE | 2019-12-09 09:30 | US_ITS ---
PROCEDURE: US ABDOMEN LIMITED CLINICAL INDICATION: LUQ ABD PAIN COMPARISON: US RUQ US RUQ-(ABD LTD)1ORGAN/QUAD/FU from 07/06/[address] abdomen pelvis w con from 03/19/2018 FINDINGS: Limited ultrasound performed of the left upper quadrant. The spleen size is normal at 8 x 4.5 cm. There are multiple splenic calcifications noted as seen on a previous CT of 03/19/2018. The left kidney has an unremarkable appearance. Left kidney measures 9 x 5 x 6 cm. No hydronephrosis. There is a reported palpable nodule in the left upper quadrant. These are not demonstrated by ultrasound. If there is indeed a palpable nodule then CT may provide further evaluation. IMPRESSION: Negative limited ultrasound of the left upper quadrant as detailed above Dictated b Rafa Feng MD 12/09/2019 11:29 Rafa Feng MD in [place] 12/09/2019 11:29
== END ==
PROVIDERS: PCP Family Medicine; Visit Provider Family Medicine
DX: R10.12 Left upper quadrant pain (principal)
CPT/HCPCS: 76705

== ENCOUNTER → 2020-01-27 09:31 | Outpatient (CLI) | payer BC, SELFPAY ==
[2020-01-27 09:38] LABS: MANUAL DIFFERENTIAL MANUAL DIFFERENTIAL (MANUAL DIFF); Microscopic, Urine URINE MICROSCOPIC (MICROSCOPIC)
--- NOTE | 2020-01-27 09:56 | XR_ITS ---
PROCEDURE: XR KUB CLINICAL INDICATION: L FLANK PAIN COMPARISON: CT ABDPELW CT abdomen pelvis w con from 03/19/2018 FINDINGS: Nonspecific nonobstructive bowel gas pattern. There are multiple splenic granulomas. There are nonspecific pelvic calcifications. No obvious renal or ureteral calculi. IMPRESSION: No acute findings. Dictated by: Rafa Feng MD 01/27/2020 17:34 Rafa Feng MD in [facility] 01/27/2020 17:34
[2020-01-27 10:35] LABS: Appearance,Urine CLEAR (Clear); Bilirubin,Urine Negative (Negative); Blood, Urine TRACE-I (Negative); Color,Urine STRAW (Yellow); Glucose,Urine (UA) Negative (Negative); Ketones,Urine Negative (Negative); Leukocyte Esterase,Urine Negative (Negative); Nitrate,Urine Negative (Negative); Protein,Urine Negative (Negative); Specific Gravity, Urine <= 1.005 (1.005-1.030); Urobilinogen,Urine 0.2 EU/dl (0.2)
[2020-01-27 10:57] LABS: Squamous Epithelial Cell,Urine Occasional #/hpf (0-5); WBC,Urine Occasional #/hpf (0-3)
[2020-01-27 10:58] LABS: Bacteria,Urine Trace /lpf
[2020-01-27 11:15] LABS: Basophils % 0.5 % (0.1-2.0); Eosinophils # 0.1 K/mm3 (0.0-0.4); Eosinophils % 2.1 % (0.1-12.0); Hematocrit 44.7 % (37.0-47.0); Hemoglobin 14.5 g/dL (12.2-16.2); Lymphocytes # 1.5 K/mm3 (0.7-4.5); Lymphocytes % 21.7 % (10-50); Mean Corpuscular HGB Conc 32.4 g/dL (31.8-35.4); Mean Corpuscular Hemoglobin 31.9 pg (27.0-31.2); Mean Corpuscular Volume 98.5 fl (81-99); Mean Platelet Volume 7.6 fl (7.4-10.4); Monocytes # 0.3 K/mm3 (0.1-1.0); Monocytes % 4.1 % (1.7-9.3); Neutrophils # 4.9 K/mm3 (1.8-7.8); Neutrophils % 71.6 % (37.0-80.0); Platelet Count 318 K/mm3 (142-424); Red Blood Count 4.53 M/mm3 (4.20-5.40); Red Cell Distribution Width 12.6 % (11.5-17.5); White Blood Count 6.9 K/mm3 (4.8-10.8)
[2020-01-27 11:45] LABS: Eosinophils % 3 % (0-3); Lymphocytes % 23 % (10-50); Monocytes % 5 % (2-9); Neutrophils % 69 % (42-76); Platelet Estimate Normal; RBC Morphology Normal; Total Cells Counted 100
[2020-01-27 11:55] LABS: Chloride 101 mmol/L (98-107); Potassium 4.7 mmoL/L (3.5-5.1); Sodium 137 mmol/L (136-145)
[2020-01-27 11:58] LABS: Alanine Aminotransferase 12 U/L (12-78); Albumin/Globulin Ratio 1.4 (1.1-1.8); Alkaline Phosphatase 72 U/L (38-126); Amylase 170 U/L (30-110); Anion Gap 13.7 mEq/L (5-15); Aspartate Amino Transferase 21 U/L (14-36); Bilirubin,Total 0.3 mg/dl (0.2-1.3); Blood Urea Nitrogen 17 mg/dl (7-17); Calcium 9.5 mg/dl (8.4-10.2); Carbon Dioxide 27 mmol/L (22.0-30.0); Estimated Glomerular Filt Rate 64 ml/min (>60); GFR (African American) 78 ML/MIN (>60); Globulin 2.9 g/dL (1.3-3.2); Glucose 93 mg/dl (74-100); Total Protein,Serum 6.9 g/dl (6.3-8.2)
[2020-01-27 12:26] LABS: Lipase 949 U/L (23-300)
== END ==
LOC: LAB 09:33 → RAD 09:52
PROVIDERS: PCP Family Medicine; Visit Provider Nurse Practitioner
DX: R10.9 Unspecified abdominal pain (principal)
CPT/HCPCS: 36415; 74018; 80053; 81001; 82150; 83690; 85007; 85014; 85018; 85048; 85049; 87086

== ENCOUNTER → 2020-01-28 07:55 | Outpatient (CLI) | payer BC, SELFPAY ==
--- NOTE | 2020-01-28 08:05 | US_ITS ---
PROCEDURE: US ABDOMEN LIMITED CLINICAL INDICATION: LT FLANK PAIN Elevated amylase COMPARISON: US US ABDOMEN LIMITED from 12/09/2019 FINDINGS: PANCREAS: Unremarkable. No obvious mass or abnormal fluid collection. No ductal dilatation LIVER: There is nonspecific slightly decreased heterogeneous echogenicity of the liver. No focal liver lesions are evident. RIGHT KIDNEY: Unremarkable. Normal size and echogenicity. No hydronephrosis GALLBLADDER: No gallstones, gallbladder wall thickening, pericholecystic fluid, or biliary dilatation. IMPRESSION: Slight heterogeneous decreased echogenicity of the liver otherwise negative limited abdominal ultrasound. Unremarkable appearing pancreas and gallbladder Dictated by: Rafa Feng MD 01/28/2020 15:33 Rafa Feng MD in [facility] 01/28/2020 15:33
== END ==
PROVIDERS: PCP Family Medicine; Visit Provider Nurse Practitioner
DX: R10.9 Unspecified abdominal pain (principal)
CPT/HCPCS: 76705

== ENCOUNTER → 2020-02-04 08:32 | Outpatient (CLI) | payer BC, SELFPAY ==
--- NOTE | 2020-02-04 08:42 | CT_ITS ---
PROCEDURE: CT ABDOMEN PELVIS WO/W CON CLINICAL INDICATION: ELEVATED AMYLASE AND LIPASE 170/949 left side abd pain x 2-3 weeks some bilat flank pain COMPARISON: CT ABDPELW CT abdomen pelvis w con from 03/19/2018 TECHNIQUE: IV Contrast: 75ML OPTIRAY 350 Oral Contrast None Axial images obtained with sagittal and coronal reformats. All CT scans at the facility use one or more dose reduction, viz: automated exposure control, ma/kV adjustment per patient size (including targeted exams where dose is matched to indication, i.e. head), or iterative reconstruction technique. FINDINGS: LOWER THORAX: No acute finding ABDOMEN & PELVIS: The liver, gallbladder, adrenal glands, pancreas, and kidneys have an unremarkable appearance. No renal or ureteral calculi. There are multiple splenic calcified granulomas. The pancreas has an unremarkable appearance. No pancreatic mass or peripancreatic fluid collections or inflammatory changes evident. Three-phase imaging was performed the pancreas. No pancreatic neoplasm apparent. The appendix is not clearly delineated. No secondary signs of appendicitis. There are post hysterectomy changes. There is velez colonic diverticulosis. No evidence of diverticulitis.. There is a mild amount of retained colonic feces. No acute bony findings. IMPRESSION: 1. No acute abdominal or pelvic findings. 2. Unremarkable appearing pancreas. 3. Pancolonic diverticulosis with mild amount of retained colonic feces. No evidence of diverticulitis. Dictated by: Rafa Feng MD 02/05/2020 11:46 Rafa Feng MD in [facility] 02/05/2020 11:46
[2020-02-04 08:52] LABS: Blood Urea Nitrogen 17 mg/dl (7-17); Estimated Glomerular Filt Rate 57 ml/min (>60); GFR (African American) 69 ML/MIN (>60)
== END ==
PROVIDERS: Visit Provider Family Medicine
DX: R74.8 Abnormal levels of other serum enzymes (principal)
CPT/HCPCS: 36415; 74178; 82565; 84520; Q9967

== ENCOUNTER 2020-02-04 17:29 | Inpatient (IN) | payer BC, SELFPAY ==
[2020-02-04 17:31] VITALS: BP 158/66; PULSE 89; RESP 19; TEMP 36.8; O2SAT 96; BMI 35.1
[2020-02-04 17:55] LABS: Basophils # 0.1 K/mm3 (0-0.2); Basophils % 0.8 % (0.1-2.0); Eosinophils # 0.2 K/mm3 (0.0-0.4); Eosinophils % 2.7 % (0.1-12.0); Hematocrit 45.7 % (37.0-47.0); Lymphocytes # 2.3 K/mm3 (0.7-4.5); Lymphocytes % 32.6 % (10-50); Mean Corpuscular HGB Conc 32.8 g/dL (31.8-35.4); Mean Corpuscular Hemoglobin 31.7 pg (27.0-31.2); Mean Corpuscular Volume 96.7 fl (81-99); Mean Platelet Volume 7.2 fl (7.4-10.4); Monocytes # 0.3 K/mm3 (0.1-1.0); Neutrophils # 4.3 K/mm3 (1.8-7.8); Neutrophils % 59.8 % (37.0-80.0); Platelet Count 286 K/mm3 (142-424); Red Blood Count 4.72 M/mm3 (4.20-5.40); Red Cell Distribution Width 12.4 % (11.5-17.5); White Blood Count 7.1 K/mm3 (4.8-10.8)
--- NOTE | 2020-02-04 18:06 | HMH.EDABDPAI ---
ED Disposition Clinical Impression: Pancreatitis Qualifiers: Chronicity: acute Pancreatitis type: unspecified pancreatitis type Acute pancreatitis complication: no infection or necrosis Qualified Code(s): K85.90 - Acute pancreatitis without necrosis or infection, unspecified Disposition: Admitted As Inpatient Condition on Discharge: Serious Instructions: DI for Acute Abdomen Referrals: Geronimo Mueller MD [Primary Care Provider] - - Critical Care Critical Care Time: No Attestation: On 02/04/20, the high probability of a clinically significant, sudden or life threatening deterioration of the following system(s) required my full and direct attention, intervention and personal management. The time I documented below is in addition to time spent performing reported procedures but includes the following listed in this critical care notation. Medical Decision Making - Eevrette Inquiry Pt receiving controlled substance: Yes [place] was queried for this patient: No Reason not queried -: Emergent pt cond-no time Risks and benefits of using a controlled substance: were discussed with pt by me Vital Signs: 02/04/20 17:31 02/04/20 18:26 Temperature 98.2 F Temperature Source Oral Pulse Rate [Left Radial] 89 76 Respiratory Rate 19 18 Blood Pressure [Right Arm] 158/66 H 144/84 H Blood Pressure Mean [Right Arm] 96 104 Blood Pressure Source [Right Arm] Automatic Cuff Automatic Cuff Blood Pressure Position [Right Arm] Sitting Sitting 02 Sat by Pulse Oximetry 96 97 Oxygen Delivery Method Room Air Room Air - Lab Data Lab Results 02/04/20 17:45: WBC 7.1, RBC 4.72, Hgb 15.0, Hct 45.7, MCV 96.7, MCH 31.7 H, MCHC 32.8, RDW 12.4, Plt Count 286, MPV 7.2 L, Neut % (Auto) 59.8, Lymph % (Auto) 32.6, [place] % (Auto) 4.0, Eos % (Auto) 2.7, Baso % (Auto) 0.8, Neut # (Auto) 4.3, Lymph # (Auto) 2.3, [place] # (Auto) 0.3, Eos # (Auto) 0.2, Baso # (Auto) 0.1 02/04/20 17:45: Sodium 136, Potassium 4.3, Chloride 102, Carbon Dioxide 27, Anion Gap 11.3, BUN 15, Creatinine 1.00, Estimated Creat Clear 82, Estimated GFR 57 L, Est GFR ( Amer) 69, Glucose 128 H, Calcium 9.6, Total Bilirubin 0.3, AST 24, ALT 15, Alkaline Phosphatase 98, Total Protein 7.6, Albumin 4.4, Globulin 3.2, Albumin/Globulin Ratio 1.4, Lipase 1272 H Result diagrams: 02/04/20 17:45 02/04/20 17:45 Orders (Tests/Meds): ED MEDICATIONS Generic Name Dose Route Start Last Admin Trade Name Freq PRN Reason Stop Dose Admin Sodium Chloride 1,000 mls @ 999 mls/hr 02/04/20 17:45 02/04/20 17:59 Sod Chlor 0.9% 1000ml Bag IV 02/04/20 18:45 999 mls/hr .[id number] BOZENA Administration Discontinued Medications Generic Name Dose Route Start Last Admin Trade Name Freq PRN Reason Stop Dose Admin Morphine Sulfate 4 mg 02/04/20 17:44 02/04/20 17:59 Morphine 4mg/Ml Syringe IV 02/04/20 17:45 4 mg ONCE ONE Administration Ondansetron HCl 4 mg 02/04/20 17:44 02/04/20 17:59 Ondansetron 4mg/2ml Vial IV 02/04/20 17:45 4 mg ONCE ONE Administration ORDERS Category Date Time Status Covid-19 IgG/IgM ([facility]) Routine Lab 02/04/20 18:51 Ordered Urinalysis and Microscopic Stat Lab 02/04/20 17:44 Ordered - CT Data CT Scan: Abdomen, Pelvis Time Received: 18:[address] Reviewed: Yes: I have reviewed the patient's CT results, I have viewed the radiologist's interpretation Findings Narrative: No acute intra-abdominal findings. Specifically liver is unremarkable. No masses. No intrahepatic biliary ductal dilation. - Reevaluation(s) Time: 18:56 Reevaluation #1: On reevaluation, the patient still endorses some pain. She is significantly elevated lipase concerning for pancreatitis. CT scan was unremarkable. Patient will be admitted to the hospital for further evaluation and treatment. Medical Decision Narrative: 59-year-old female presented to the emergency department with chronic abdominal pain. Patient has some mild tenderness in the left-sided epigas
[2020-02-04 18:19] LABS: Alanine Aminotransferase 15 U/L (12-78); Albumin Level 4.4 g/dl (3.5-5.0); Albumin/Globulin Ratio 1.4 (1.1-1.8); Alkaline Phosphatase 98 U/L (38-126); Anion Gap 11.3 mEq/L (5-15); Aspartate Amino Transferase 24 U/L (14-36); Bilirubin,Total 0.3 mg/dl (0.2-1.3); Blood Urea Nitrogen 15 mg/dl (7-17); Calcium 9.6 mg/dl (8.4-10.2); Carbon Dioxide 27 mmol/L (22.0-30.0); Chloride 102 mmol/L (98-107); Creatinine Clearance Estimated 82 mL/min (50-200); Estimated Glomerular Filt Rate 57 ml/min (>60); GFR (African American) 69 ML/MIN (>60); Globulin 3.2 g/dL (1.3-3.2); Glucose 128 mg/dl (74-100); Potassium 4.3 mmoL/L (3.5-5.1); Sodium 136 mmol/L (136-145); Total Protein,Serum 7.6 g/dl (6.3-8.2)
[2020-02-04 18:23] LABS: Lipase 1272 U/L (23-300)
--- NOTE | 2020-02-04 18:25 | PC.NURSE ---
lab called Lipase 1, dr billy
[2020-02-04 18:26] VITALS: BP 144/84; PULSE 76; RESP 18; O2SAT 97
[2020-02-04 19:02] VITALS: BP 105/54; PULSE 63; RESP 16; O2SAT 97
[2020-02-04 19:35] LABS: Coronavirus 19 IgG Antibody Negative (Negative); Coronavirus 19 IgM Antibody Negative (Negative)
[2020-02-04 20:05] LABS: Microscopic, Urine URINE MICROSCOPIC (MICROSCOPIC)
[2020-02-04 20:08] LABS: Appearance,Urine CLEAR (Clear); Bilirubin,Urine Negative (Negative); Blood, Urine Negative (Negative); Color,Urine YELLOW (Yellow); Glucose,Urine (UA) Negative (Negative); Ketones,Urine Negative (Negative); Leukocyte Esterase,Urine Negative (Negative); Nitrate,Urine Negative (Negative); Protein,Urine Negative (Negative); Specific Gravity, Urine <= 1.005 (1.005-1.030); Urobilinogen,Urine 0.2 EU/dl (0.2)
[2020-02-04 20:15] VITALS: BP 126/58; PULSE 66; RESP 16; TEMP 36.8; O2SAT 98
[2020-02-04 20:25] LABS: Bacteria,Urine 1+ /lpf
--- NOTE | 2020-02-04 21:07 | PC.NURSE ---
Addendum entered by Milly Cisse CNA 02/05/20 01:19: CORRECTION ARRIVAL TIME TO THE FLOOR WAS 2104 Original Note: PT ARRIVED TO THE FLOOR VIA W/C FROM ED W/STAFF FROM ED @
[2020-02-04 21:20] VITALS: BP 142/72; PULSE 61; RESP 20; TEMP 36.5; O2SAT 96; BMI 34.7
[2020-02-04 21:21] VITALS: PULSE 60
--- NOTE | 2020-02-04 22:48 | HMH.HP ---
*Admission Date: 02/04/20 *Chief complaint: Abdominal pain *History of present illness: This 59-year-old white female was admitted with abdominal pain and evidence of pancreatitis. This episode is been going on for about 2 weeks, but she wonders if some subtle symptoms have been present for much longer period of time. She has been seen in the office a [facility] for this. She had a CT scan which has not shown abnormality in the pancreas. She has been scheduled to see Dr. Baron. She describes the pain in the epigastrium but also in the left side. The pain is sharp and shooting but lately has been coming in waves. She had made some dietary changes which seemed to help a bit. The pain became more severe this evening and she presented in the emergency room. Her amylase and lipase have been elevated. [facility] History Medical History: Reports:: Anxiety, Chronic Obstructive Pulmonary Disease (COPD), Depression, Gastroesophageal Reflux Disease(GERD), Hyperlipidemia, Lung Disease Denies:: Cancer, Diabetes Mellitus Type 1, Diabetes Mellitus Type 2, Internal Pacemaker, MRSA, Seizures *Have you ever received a pneumonia vaccine?: No *Have you received a flu vaccine this season?: No Other Medical History: Denies: Blood Transfusion Reaction Comment:: She has a known Arnold Chiari malformation. She developed thrombophlebitis during . She has suffered esophageal reflux and irritable bowel. Other Surgeries: Yes: Cardiac Catheterization, Hysterectomy-Partial, Tubal Ligation (1993). No: Pacemaker Amputation: No Fractures: Yes (right wrist. pinky) - *Social History Last grade of school completed: Some college Smoking Status: Former smoker Tobacco Type: cigarettes # Packs/Day (cigarettes): 1 Alcohol Intake: never Alcohol Intake Frequency:: holidays/special occasions only Substance Use Type: denies use *Occupational Status:: employed Housing: house Household Members: spouse *Travel in the last 8 weeks: None - Psychiatric History Pschychiatric History:: Reports:: Anxiety, Depression Family Hx:: Coronary Artery Disease, Diabetes, Heart Attack, Hyperlipidemia Review of Systems - Constitutional Denies chills - Eyes Reports double vision (She has strabismus. Her left eye is her better eye. Prisms) - ENT Denies abnormal hearing - *Cardiovascular Denies chest pain (But pain through to the back.), Denies shortness of breath with activity, Denies radiating jaw, neck or arm pain - *Respiratory Denies chest congestion - *Gastrointestinal Reports abdominal pain, Reports bloating, Reports cramping, Reports heartburn, Denies change in stools, Denies vomiting - *Musculoskeletal Denies muscle weakness - *Neurologic Denies dizziness, Denies headache(s) - Psychiatric Reports anxiety - Endocrine Denies flushing - Hematologic/Lymphatic Denies easy bruising - Allergic/Immunologic Reports GI upset with certain foods Meds Home Medications Medication Instructions Recorded Confirmed Type Citalopram Hydrobromide 20 mg PO DAILY 10/05/17 02/04/20 History [Citalopram HBr] Oxazepam [Serax 15mg capsule] 15 mg PO TIDP PRN 10/05/17 02/04/20 History Rosuvastatin Calcium [Crestor] 20 mg PO HS 10/05/17 02/04/20 History estradioL [Estradiol] 1 mg PO DAILY 10/05/17 02/04/20 History buPROPion HCl [Zyban] 150 mg PO BID 02/04/20 02/04/20 History Allergies Allergy/AdvReac Type Severity Reaction Status Date / Time amitriptyline AdvReac Intermediate Hallucinati Verified 02/04/20 21:37 ng Exam Vital signs and Labs for Last 24 Hours: Temp Pulse Resp BP Pulse Ox 97.7 F 61 20 142/72 H 96 02/04/20 21:20 02/04/20 21:20 02/04/20 21:20 02/04/20 21:20 02/04/20 21:20 Laboratory Results - last 24 hr 02/04/20 17:45: WBC 7.1, RBC 4.72, Hgb 15.0, Hct 45.7, MCV 96.7, MCH 31.7 H, MCHC 32.8, RDW 12.4, Plt Count 286, MPV 7.2 L, Neut % (Auto) 59.8, Lymph % (Auto) 32.6, [place] % (Auto) 4.0, Eos % (Auto) 2.7, Baso %
[2020-02-04 22:58] LABS: Troponin I < 0.01 ng/ml (0.00-0.034)
[2020-02-05] VITALS (7 sets, daily range): BP systolic 96–140; BP diastolic 48–78; PULSE 50–66; RESP 16–18; TEMP 36.4–36.8; O2SAT 94–98; BMI 34.4
[2020-02-05 01:51] LABS: Troponin I < 0.01 ng/ml (0.00-0.034)
--- NOTE | 2020-02-05 04:36 | PC.NURSE ---
Pt A&OX4 lungs CTA. pt denies SOA. pt c/o LUQ pain medicated per JUN. BS active in all quads. Pt ambulates to BR independently. VSS
[2020-02-05 06:38] LABS: Basophils % 0.6 % (0.1-2.0); Eosinophils # 0.1 K/mm3 (0.0-0.4); Eosinophils % 2.2 % (0.1-12.0); Hematocrit 37.4 % (37.0-47.0); Lymphocytes # 1.4 K/mm3 (0.7-4.5); Lymphocytes % 32.2 % (10-50); Mean Corpuscular HGB Conc 32.5 g/dL (31.8-35.4); Mean Corpuscular Hemoglobin 31.9 pg (27.0-31.2); Mean Platelet Volume 7.2 fl (7.4-10.4); Monocytes # 0.3 K/mm3 (0.1-1.0); Monocytes % 5.9 % (1.7-9.3); Neutrophils # 2.6 K/mm3 (1.8-7.8); Neutrophils % 59.1 % (37.0-80.0); Platelet Count 235 K/mm3 (142-424); Red Blood Count 3.82 M/mm3 (4.20-5.40); Red Cell Distribution Width 12.4 % (11.5-17.5); White Blood Count 4.5 K/mm3 (4.8-10.8)
[2020-02-05 07:05] LABS: Chloride 108 mmol/L (98-107); Potassium 3.9 mmoL/L (3.5-5.1); Sodium 139 mmol/L (136-145)
[2020-02-05 07:07] LABS: Amylase 99 U/L (30-110); Blood Urea Nitrogen 13 mg/dl (7-17); Creatinine Clearance Estimated 100 mL/min (50-200); Estimated Glomerular Filt Rate 74 ml/min (>60); GFR (African American) 89 ML/MIN (>60); Lipase 136 U/L (23-300)
[2020-02-05 07:08] LABS: Alanine Aminotransferase 9 U/L (12-78); Albumin Level 3.2 g/dl (3.5-5.0); Albumin/Globulin Ratio 1.3 (1.1-1.8); Alkaline Phosphatase 64 U/L (38-126); Anion Gap 8.9 mEq/L (5-15); Aspartate Amino Transferase 21 U/L (14-36); Bilirubin,Total 0.3 mg/dl (0.2-1.3); Carbon Dioxide 26 mmol/L (22.0-30.0); Globulin 2.5 g/dL (1.3-3.2); Glucose 85 mg/dl (74-100); Total Protein,Serum 5.7 g/dl (6.3-8.2)
--- NOTE | 2020-02-05 07:34 | HMH.PHAVTE ---
[facility] Pharmacy VTE Monitoring - Patient Demographics Admission date: 02/04/20 Report Date: 02/05/20 Time: 07:35 Allergies/Adverse Reactions: Patient Allergies amitriptyline Adverse Reaction (Intermediate, Verified 02/04/20 21:37) Hallucinating Height: 1.55 m Weight: 82.9 kg Patient Problems: Current Active Problems Pancreatitis (Acute) Flank pain (Acute) Epigastric pain (Acute) - VTE Risk Labs: VTE Related Lab Results Hgb 15.0 g/dL (12.2-16.2) 02/04/20 17:45 Hct 37.4 % (37.0-47.0) 02/05/20 06:05 Plt Count 235 K/mm3 (142-424) 02/05/20 06:05 BUN 13 mg/dl (7-17) 02/05/20 06:05 Creatinine 0.80 mg/dl (0.52-1.04) 02/05/20 06:05 Estimated Creat Clear 100 mL/min (50-200) 02/05/20 06:05 Was VTE Risk Assessment Performed: Yes VTE Score: 2 VTE Risk Level: Very Low Risk - Prophylaxis VTE Prophylaxis Ordered?: Yes Types of VTE Prophylaxis: TEDS Knee High Location of Applied Device: Bilateral Lower Extremeties - VTE Diagnosis Confirmed Treatment or plan recommended: Continue Current Treatment
[2020-02-05 08:14] LABS: Hemoglobin 12.2 g/dL (12.2-16.2)
[2020-02-05 08:21] LABS: Calcium 8.2 mg/dl (8.4-10.2)
--- NOTE | 2020-02-05 09:08 | PC.NURSE ---
Notified Dr. Mueller face to face that Dr. Baron and his staff are not in house for a consult until monday. Dr. Mueller states that he will contact Dr. Baron to speak with him.
--- NOTE | 2020-02-05 09:19 | HMH.ACPN2 ---
Internal Medicine - PN: Subj *Date: 02/05/20 *Time: 09:19 Interval history: She feels better this morning. We were anxiously anticipating gastroenterology consult. They are not available today. Hyoscyamine added to the regimen. Exam Vital signs and Labs for Last 24 Hours: Temp Pulse Resp BP Pulse Ox 97.6 F 59 L 16 127/55 L 95 02/05/20 04:00 02/05/20 04:00 02/05/20 04:00 02/05/20 04:00 02/05/20 04:00 Laboratory Results - last 24 hr 02/04/20 17:45: WBC 7.1, RBC 4.72, Hgb 15.0, Hct 45.7, MCV 96.7, MCH 31.7 H, MCHC 32.8, RDW 12.4, Plt Count 286, MPV 7.2 L, Neut % (Auto) 59.8, Lymph % (Auto) 32.6, [place] % (Auto) 4.0, Eos % (Auto) 2.7, Baso % (Auto) 0.8, Neut # (Auto) 4.3, Lymph # (Auto) 2.3, [place] # (Auto) 0.3, Eos # (Auto) 0.2, Baso # (Auto) 0.1 02/04/20 17:45: Sodium 136, Potassium 4.3, Chloride 102, Carbon Dioxide 27, Anion Gap 11.3, BUN 15, Creatinine 1.00, Estimated Creat Clear 82, Estimated GFR 57 L, Est GFR ( Amer) 69, Glucose 128 H, Calcium 9.6, Total Bilirubin 0.3, AST 24, ALT 15, Alkaline Phosphatase 98, Total Protein 7.6, Albumin 4.4, Globulin 3.2, Albumin/Globulin Ratio 1.4, Lipase 1272 H 02/04/20 17:45: SARS-CoV-2 IgG Ab (Rapid) Negative, SARS-CoV-2 IgM Ab (Rapid) Negative 02/04/20 19:59: Urine Color Yellow, Urine Appearance Clear, Urine pH 6.0, Ur Specific [place] <= 1.005, Urine Protein Negative, Urine Glucose (UA) Negative, Urine Ketones Negative, Urine Blood Negative, Urine Nitrate Negative, Urine Bilirubin Negative, Urine Urobilinogen 0.2, Ur Leukocyte Esterase Negative, Ur Squamous Epith Cells 10-20, Urine Bacteria 1+ 02/04/20 22:19: Troponin I < 0.01 02/05/20 01:05: Troponin I < 0.01 02/05/20 06:05: WBC 4.5 L D, RBC 3.82 L, Hgb 12.2 D, Hct 37.4, MCV 98.0, MCH 31.9 H, MCHC 32.5, RDW 12.4, Plt Count 235, MPV 7.2 L, Neut % (Auto) 59.1, Lymph % (Auto) 32.2, [place] % (Auto) 5.9, Eos % (Auto) 2.2, Baso % (Auto) 0.6, Neut # (Auto) 2.6, Lymph # (Auto) 1.4, [place] # (Auto) 0.3, Eos # (Auto) 0.1, Baso # (Auto) 0.0 02/05/20 06:05: Sodium 139, Potassium 3.9, Chloride 108 H, Carbon Dioxide 26, Anion Gap 8.9, BUN 13, Creatinine 0.80, Estimated Creat Clear 100, Estimated GFR 74, Est GFR ( Amer) 89 D, Glucose 85 D, Calcium 8.2 L D, Total Bilirubin 0.3, AST 21, ALT 9 L D, Alkaline Phosphatase 64, Total Protein 5.7 L, Albumin 3.2 L D, Globulin 2.5, Albumin/Globulin Ratio 1.3, Amylase 99 02/05/20 06:05: Lipase 136 I & O for Last 24 hours: Intake & Output 02/02/20 02/03/20 02/04/20 02/05/20 11:59 11:59 11:59 11:59 Intake Total 1633 / 1633 Balance 1633 / 1633 Weight 182 lb 12.211 oz - Constitutional no acute distress - *Routine Respiratory Exam Present: CTA bilaterally - *Routine Cardiovascular Exam Present: RRR - *Routine Abdominal Exam Present: soft, tenderness - *Routine Extremities Exam Absent: edema - *Routine Neurological Exam Present: alert, oriented X3 Assessment and Plan (1) Pancreatitis Status: Acute Qualifiers: Chronicity: acute Pancreatitis type: unspecified pancreatitis type Acute pancreatitis complication: no infection or necrosis Qualified Code(s): K85.90 - Acute pancreatitis without necrosis or infection, unspecified Category: Medical Code(s): K85.90 - Acute pancreatitis without necrosis or infection, unspecified (2) Flank pain Status: Acute Category: Medical Code(s): R10.9 - Unspecified abdominal pain (3) Epigastric pain Status: Acute Category: Medical Code(s): R10.13 - Epigastric pain - Assessment and plan all Dx Assessment and Plan for all problems:: Add hyoscyamine.
--- NOTE | 2020-02-05 15:36 | PC.NURSE ---
Called Dr. Mueller's office. Left message with the nurse saying the patient would like her home medications reordered. She has been having hot flashes and sweating. She said she would pass the message along.
--- NOTE | 2020-02-05 18:25 | PC.NURSE ---
Called Dr. Mueller to check on ordering home meds for patient and see how changing the patient's diet since she didn't see Dr. Baron today. He stated we could reorder her home meds and give them. He also said to order a low fat diet and that patient would probably go home tomorrow and follow up w Dr. Baron in the office. Dinner tray ordered for patient.
--- NOTE | 2020-02-05 19:00 | PC.NURSE ---
A&OX4. PT HAS TOLERATED ROOM AIR WELL THROUGHOUT SHIFT. RESPIRATIONS REGULAR AND UNLABORED. LUNG SOUNDS BILATERALLY CLEAR. HAND SOILED LINEN DISTRIBUTOR EQUAL. NO EDEMA NOTED. SOFT AND NONTENDER ABDOMEN. PT HAS REPORTED 6 BROWN GREASY BM THIS SHIFT. PT VOIDS INDEPENDENTLY PER BATHROOM. ACTIVE BOWEL SOUNDS HEARD IN ALL 4 QUADRANTS. PT HAS REMAINED NPO MOST OF SHIFT. LOW FAT DIET TOWARDS END OF SHIFT AND PT TOLERATED DIET WELL. PT COMPLAINED OF PAIN ONCE. SHE RECEIVED TYLENOL AFTER THE MORPHINE DUE TO A HEADACHE. A NEW IV WAS INSERTED BECAUSE HER OTHER ONE WENT BAD. NS INFUSING AT 100ML/HR. PT HAS REMAINED ON TELE THROUGHOUT SHIFT. PT IS CURRENTLY RESTING IN BED W CALL LIGHT WITHIN REACH. BED IN LOWEST POSITION. VSS. WILL CONTINUE TO MONITOR.
--- NOTE | 2020-02-06 03:20 | PC.NURSE ---
Pt A&OX4 lungs CTA. pt denies SOA. pt c/o abd pain once medicated per JUN. BS active in all quads. Pt has tolerated diet well. pt ambulates independently to BR.
[2020-02-06 04:32] VITALS: BP 124/61; PULSE 63; RESP 18; TEMP 36.7; O2SAT 96
[2020-02-06 06:30] VITALS: BMI 35.5
--- NOTE | 2020-02-06 07:30 | PC.NURSE ---
ALL CHARTING AND CARE DONE UNDER MY DIRECT SUPERVISION
[2020-02-06 07:57] VITALS: BP 156/66; PULSE 67; RESP 18; TEMP 37; O2SAT 96
[2020-02-06 08:05] VITALS: O2SAT 96
[2020-02-06 08:56] LABS: Chloride 108 mmol/L (98-107); Potassium 4.1 mmoL/L (3.5-5.1); Sodium 137 mmol/L (136-145)
[2020-02-06 08:58] LABS: Lipase 134 U/L (23-300)
[2020-02-06 08:59] LABS: Alanine Aminotransferase 14 U/L (12-78); Albumin Level 3.3 g/dl (3.5-5.0); Albumin/Globulin Ratio 1.3 (1.1-1.8); Alkaline Phosphatase 62 U/L (38-126); Amylase 134 U/L (30-110); Anion Gap 9.1 mEq/L (5-15); Aspartate Amino Transferase 22 U/L (14-36); Bilirubin,Total 0.3 mg/dl (0.2-1.3); Blood Urea Nitrogen 11 mg/dl (7-17); Calcium 8.5 mg/dl (8.4-10.2); Carbon Dioxide 24 mmol/L (22.0-30.0); Creatinine Clearance Estimated 103 mL/min (50-200); Estimated Glomerular Filt Rate 74 ml/min (>60); GFR (African American) 89 ML/MIN (>60); Globulin 2.6 g/dL (1.3-3.2); Glucose 139 mg/dl (74-100); Total Protein,Serum 5.9 g/dl (6.3-8.2)
--- NOTE | 2020-02-06 10:14 | P.PN_ITS ---
Internal Medicine - PN: Subj *Date: 02/06/20 *Time: 10:14 Interval history: She felt good yesterday but today has had recurrent abdominal pain after eating yesterday. Her amylase has elevated slightly this morning. I have tried to contact Dr. Baron for some guidance on her case. He would be available to see her tomorrow in the hospital or as outpatient. She is anxious for some resolution because she has upcoming vacation time and a trip to [place]. Exam Vital signs and Labs for Last 24 Hours: Temp Pulse Resp BP Pulse Ox 98.6 F 67 18 156/66 H 96 02/06/20 07:57 02/06/20 07:57 02/06/20 07:57 02/06/20 07:57 02/06/20 08:05 Laboratory Results - last 24 hr 02/06/20 08:40: Sodium 137, Potassium 4.1, Chloride 108 H, Carbon Dioxide 24, Anion Gap 9.1, BUN 11, Creatinine 0.80, Estimated Creat Clear 103, Estimated GFR 74, Est GFR ( Amer) 89, Glucose 139 H, Calcium 8.5, Total Bilirubin 0.3, AST 22, ALT 14 D, Alkaline Phosphatase 62, Total Protein 5.9 L, Albumin 3.3 L, Globulin 2.6, Albumin/Globulin Ratio 1.3, Amylase 134 H 02/06/20 08:40: Lipase 134 I & O for Last 24 hours: Intake & Output 02/03/20 02/04/20 02/05/20 02/06/20 11:59 11:59 11:59 11:59 Intake Total 1633 / 1633 2101 Balance 1633 / 1633 2101 Weight 182 lb 12.211 oz 188 lb 1 oz - Constitutional no acute distress - *Routine HEENT Exam Head: Present: normocephalic Eye: Present: PERRL - *Routine Respiratory Exam Present: CTA bilaterally - *Routine Cardiovascular Exam Present: RRR - *Routine Abdominal Exam Present: soft, tenderness (Mild tenderness epigastrium, left upper quadrant) - *Routine Extremities Exam Absent: edema - *Routine Neurological Exam Present: alert, oriented X3 Assessment and Plan (1) Pancreatitis Status: Acute Qualifiers: Chronicity: acute Pancreatitis type: unspecified pancreatitis type Acute pancreatitis complication: no infection or necrosis Qualified Code(s): K85.90 - Acute pancreatitis without necrosis or infection, unspecified Category: Medical Code(s): K85.90 - Acute pancreatitis without necrosis or infection, unspecified (2) Flank pain Status: Acute Category: Medical Code(s): R10.9 - Unspecified abdominal pain (3) Epigastric pain Status: Acute Category: Medical Code(s): R10.13 - Epigastric pain - Assessment and plan all Dx Assessment and Plan for all problems:: I am delaying my decision until I hear from Dr. Baron today.
[2020-02-06 16:00] VITALS: BP 148/71; PULSE 63; RESP 17; TEMP 36.8; O2SAT 93
--- NOTE | 2020-02-06 16:25 | PC.NURSE ---
Pain control was an issue this shift. Patient needed additional medication to keep pain manageable. Epigastric pain and left sided abdominal pain. Called Dr. Cardozo (pay station department manager) to request additional medication. one time dose of morphine 2mg and phenergan ordered for pain and accompanying nausea. Medication given and pain relieved to a manageable level. Bowel sounds active and lungs clear in all barrios. No other changes this shift.
[2020-02-06 20:00] VITALS: BP 123/63; PULSE 68; RESP 16; TEMP 36.6; O2SAT 93
[2020-02-07 04:00] VITALS: BP 107/54; PULSE 65; RESP 16; TEMP 36.8; O2SAT 93
--- NOTE | 2020-02-07 04:03 | PC.NURSE ---
shift summary, no acute changes since prior assessment, pt has rested well t/o second half of shift, no complaints of pain, N/V, SOA or chest pain, pt has remained afebrile
[2020-02-07 05:09] VITALS: BMI 36.0
[2020-02-07 06:51] LABS: Chol/HDL Ratio 2.8 (1-3.5); Cholesterol 152 mg/dl (140-200); HDL Cholesterol 55 mg/dl (40-60); Triglycerides 103 mg/dl (30-150); VLDL Cholesterol 21 mg/dL (0-40)
[2020-02-07 07:02] LABS: Direct LDL Cholesterol 71.06 mg/dL (100-129)
[2020-02-07 08:00] VITALS: BP 146/77; PULSE 77; RESP 16; TEMP 37; O2SAT 95; O2SAT 98
[2020-02-07 08:15] LABS: Amylase 78 U/L (30-110); Lipase 57 U/L (23-300)
--- NOTE | 2020-02-07 09:16 | HMH.ACPN2 ---
Internal Medicine - PN: Subj *Date: 02/07/20 *Time: 09:16 Interval history: She had a relatively quiet night. She does still have some discomfort especially when she eats. Dr. Baron is here this morning and will be seeing her. Exam Vital signs and Labs for Last 24 Hours: Temp Pulse Resp BP Pulse Ox 98.6 F 77 16 146/77 H 95 02/07/20 08:00 02/07/20 08:00 02/07/20 08:00 02/07/20 08:00 02/07/20 08:00 Laboratory Results - last 24 hr 02/07/20 06:00: Triglycerides 103, Cholesterol 152, LDL Cholesterol Direct 71.06 L, VLDL Cholesterol 21, HDL Cholesterol 55, Cholesterol/HDL Ratio 2.8 02/07/20 07:50: Amylase 78 D, Lipase 57 I & O for Last 24 hours: Intake & Output 02/04/20 02/05/20 02/06/20 02/07/20 11:59 11:59 11:59 11:59 Intake Total 1633 / 1633 2102 / 2 2640 / 2640 Balance 1633 / 1633 210 / 2102 2640 / 2640 Weight 182 lb 12.211 oz 188 lb 1 oz 191 lb - Constitutional no acute distress - *Routine HEENT Exam Head: Present: normocephalic Eye: Present: PERRL - *Routine Cardiovascular Exam Present: RRR - *Routine Abdominal Exam Present: soft, tenderness - *Routine Extremities Exam Absent: edema Assessment and Plan (1) Pancreatitis Status: Acute Qualifiers: Chronicity: acute Pancreatitis type: unspecified pancreatitis type Acute pancreatitis complication: no infection or necrosis Qualified Code(s): K85.90 - Acute pancreatitis without necrosis or infection, unspecified Category: Medical Code(s): K85.90 - Acute pancreatitis without necrosis or infection, unspecified (2) Flank pain Status: Acute Category: Medical Code(s): R10.9 - Unspecified abdominal pain (3) Epigastric pain Status: Acute Category: Medical Code(s): R10.13 - Epigastric pain - Assessment and plan all Dx Assessment and Plan for all problems:: Looking forward to Dr. Baron assessment and plan.
--- NOTE | 2020-02-07 11:40 | MR_ITS ---
PROCEDURE: MR ABDOMEN WO CON CLINICAL INDICATION: PANCREATITIS COMPARISON: CT CT ABDOMEN PELVIS WO/W CON from 02/04/2020 TECHNIQUE: Routine multiplanar multi echo sequences are performed without gadolinium enhancement. FINDINGS: The liver contains a small cyst along the lower aspect of the right hepatic lobe in the subcapsular region. This measures approximately 1 cm. Gallbladder has an unremarkable appearance. The common bile duct biliary radicles and pancreatic duct are unremarkable. There is a mild degree of motion artifact which somewhat obscures fine detail. No pancreatic mass cyst or fluid collection is evident. No peripancreatic edema. MRCP images are unremarkable. IMPRESSION: No acute finding. The pancreas, gallbladder, and biliary tree have an unremarkable appearance. Dictated by: Rafa Feng MD 02/07/2020 16:43 Rafa Feng MD in [facility] 02/07/2020 16:43
--- NOTE | 2020-02-07 14:50 | HMH.GEROBB ---
Gastroenterology Consult Consult:: Gastroenterology Consultation Date of Service-February 07, 2020 History of Present Illness: Mrs. Bonilla is a 59-year-old female who is here for hospitalization because of some chronic left upper quadrant abdominal pain that radiates into the flank. She has moderate bloating. She has bowel irregularity that has been long-term with constipation alternating with diarrhea. At the time of her initial admission, her amylase level was minimally elevated at 134. Her alkaline phosphatase was 62. Her CAT scan showed no pancreatic inflammation, pancreatic mass or any evidence of peripancreatic fat stranding. There was no evidence of pancreatitis. There was a moderate amount of retained stool in the colon with colonic diverticulosis. There was no evidence of diverticulitis. The patient did have normal liver chemistries (ALT 14 and alkaline phosphatase 62. The patient does have moderate stress and anxiety. The patient reports no rectal bleeding. She did have a colonoscopy (Dr. Eder Burnette M.D.) last year. The patient's blood work showed normal triglycerides. Past Medical History: 1. COPD 2. Hyperlipidemia 3. Anxiety disorder Past Surgical History: 1. Hysterectomy/tubal ligation Medications: 1. Citalopram 2. Serax as needed 3. Crestor 4. Bupropion 5. Estradiol ALLERGIES: Amitriptyline Social History: Former smoker/no alcohol. The patient is Family History: See chart Review of Systems: See chart Physical Examination: Gen.: The patient is a well-developed well-nourished individual in no acute distress HEENT: Normocephalic/atraumatic extraocular movements are intact anicteric Neck: Supple no lymphadenopathy Chest: Clear to auscultation Cardiovascular: Regular rate and rhythm Abdomen: Normoactive bowel sounds soft, mild tenderness in the left upper and left lower quadrant with palpable stool and gas, minimal distention, no hepatosplenomegaly Extremities: No edema Labs: Amylase 134, alkaline phosphatase 62, albumin 3.3, ALT 14, total bilirubin 0.3, creatinine 0.8, Radiology: MRCP today shows normal pancreatogram Impression/Plan: 1. Left upper quadrant abdominal pain. 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 Most people have chronic symptoms of IBS which the patient has. The pain component is often termed visceral sensitivity. I would avoid opiates. Certainly benzodiazepines are useful with visceral sensitivity and splenic flexure syndrome. I would use the oxazepam or lorazepam as needed. I would add buspirone 10 mg p.o. twice daily which can help with visceral sensitivity and colonic accommodation. I do not feel that the patient has acute or chronic pancreatitis based upon these labs and CAT scan and MRCP. Acute pancreatitis is defined as having amylase greater than 3 times the upper limit of normal with changes on CAT scan as well as high clinical suspicion (periumbilical abdominal pain). The patient does not have these criteria and certainly does not have chronic pancreatitis. I do feel that she would benefit from a fiber bowel regimen and dietary measures and I would recommend that she follow-up as an outpatient.
[2020-02-07 16:00] VITALS: BP 131/82; PULSE 71; RESP 18; TEMP 36.8; O2SAT 94
--- NOTE | 2020-02-08 09:24 | HMH.DCSUM ---
General - General Admission date:: 02/04/20 Discharge date: 02/07/20 HPI HPI: This 59-year-old white female was admitted with abdominal pain and evidence of pancreatitis. This episode had been going on for about 2 weeks, but she wondered if some subtle symptoms had been present for a much longer period of time. She was seen in the office of [facility] for this. She had a CT scan which did not shown abnormality in the pancreas. She was scheduled to see Dr. Baron. She described the pain in the epigastrium but also in the left side. The pain was sharp and shooting but lately had been coming in waves. She had made some dietary changes which seemed to help a bit. The pain became more severe and she presented in the emergency room. Her amylase and lipase were elevated. Hospital Course Hospital Course: Patient was started on IV fluids at 100 an hour. She received both Zofran and Phenergan for her nausea. She received morphine for pain and was initially on Levsin and switched to . Her pain occurred after eating. Labs were monitored. See data for results. She had a MRI of the abdomen which showed no acute findings. She was seen by Dr. Baron, registered respiratory therapist, with the following impression/plan: 1. Left upper quadrant abdominal pain. 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 Most people have chronic symptoms of IBS which the patient has. The pain component is often termed visceral sensitivity. I would avoid opiates. Certainly benzodiazepines are useful with visceral sensitivity and splenic flexure syndrome. I would use the oxazepam or lorazepam as needed. I would add buspirone 10 mg p.o. twice daily which can help with visceral sensitivity and colonic accommodation. I do not feel that the patient has acute or chronic pancreatitis based upon these labs and CAT scan and MRCP. Acute pancreatitis is defined as having amylase greater than 3 times the upper limit of normal with changes on CAT scan as well as high clinical suspicion (periumbilical abdominal pain). The patient does not have these criteria and certainly does not have chronic pancreatitis. I do feel that she would benefit from a fiber bowel regimen and dietary measures and I would recommend that she follow-up as an outpatient. Buspirone was added to meds. Patient tolerating her diet although she did have more abdominal discomfort after eating. She ambulated independently. She was voiding QS. On 02/07/2020 after being seen by gastroenterology patient was stable to be discharged. Discharged home in stable and satisfactory condition. Meds as per medication reconciliation sheet.. She is to follow-up with gastroenterology on 04/20/2020. She is to continue with a low-fat low-cholesterol diet Objective Vital signs: Temp Pulse Resp BP Pulse Ox 98.2 F 71 18 131/82 94 L 02/07/20 16:00 02/07/20 16:00 02/07/20 16:00 02/07/20 16:00 02/07/20 16:00 Narrative: Exam Vital signs and Labs for Last 24 Hours: Temp Pulse Resp BP Pulse Ox 98.6 F 77 16 146/77 H 95 02/07/20 08:00 02/07/20 08:00 02/07/20 08:00 02/07/20 08:00 02/07/20 08:00 Laboratory Results - last 24 hr 02/07/20 06:00: Triglycerides 103, Cholesterol 152, LDL Cholesterol Direct 71.06 L, VLDL Cholesterol 21, HDL Cholesterol 55, Cholesterol/HDL Ratio 2.8 02/07/20 07:50: Amylase 78 D, Lipase 57 I & O for Last 24 hours: Intake & Output 02/04/20 02/05/20 02/06/20 02/07/20 11:59 11:59 11:59 11:59 Intake Total 1633 / 1633 2102 / 2102 2640 / 2640 Balance 1633 / 1633 2102 / 2102 2640 / 2640 Weight 182 lb 12.211 oz 188 lb 1 oz 191 lb - Constitutional no acute distress - *Routine HEENT Exam Head: Present: normocephalic Eye: Present: PERRL - *Routine Cardiovascular Exam Present: RRR - *Routine Abdominal Exam Present: soft, tenderness - *Routine Extremities Exam Absent: edema
== END 2020-02-07 18:40 | disposition home or self-care (01) | DRG 391 ==
LOC: ER 18:57 → 2ND 20:47
PROVIDERS: Admitting Provider Family Medicine; Emergency Provider Emergency Medicine; PCP Family Medicine; Visit Provider Family Medicine
DX: R10.13 Epigastric pain (principal); K85.90 Acute pancreatitis without necrosis or infection, unspecified; Z87.891 Personal history of nicotine dependence; Z79.890 Hormone replacement therapy; Z79.899 Other long term (current) drug therapy; F41.8 Other specified anxiety disorders
CPT/HCPCS: 36415; 74181; 76376; 80053; 80061; 81001; 82150; 82670; 83690; 84484; 85025; 86328; 96365; 96375; 99284; J2405

== ENCOUNTER → 2020-09-21 08:41 | Outpatient (CLI) | payer BC, SELFPAY ==
--- NOTE | 2020-09-21 08:46 | MM_ITS ---
PROCEDURE INFORMATION: Exam: MG Screening 3D Mammography Exam date and time: 09/21/2020 8:46 AM Age: 59 years old Clinical indication: Encounter for screening mammogram for malignant neoplasm of breast. Family history of breast carcinoma TECHNIQUE: Imaging protocol: Screening tomosynthesis and 2D mammography including computer-aided detection (CAD) when performed. COMPARISON: 1. MG MM DIG MAMM DX UNILAT LT CAD 01/22/2019 1:58 PM 2. MG DXLT MM Dig mamm DX unilat LT CAD 07/09/2018 1:10 PM 3. MG SCBI MM Dig screening mamm BI w/CAD 06/21/2018 9:25 AM 4. MG DMDB DIG MAMM-DX WENDY 05/22/2014 1:24 PM FINDINGS: MAMMOGRAPHY: Breast composition: The breasts are almost entirely fatty. Mass: No new suspicious masses. Architectural distortion: No suspicious distortion. Calcifications: No suspicious calcifications. Asymmetric density: None. Skin thickening: None. Axillary adenopathy: None. IMPRESSION: No mammographic evidence of malignancy. Annual screening is recommended unless otherwise clinically indicated. ASSESSMENT: BI-RADS Category 1: Negative
== END ==
PROVIDERS: PCP Family Medicine; Visit Provider Family Medicine
DX: Z12.31 Encounter for screening mammogram for malignant neoplasm of breast (principal)
CPT/HCPCS: 77063; 77067

== ENCOUNTER → 2020-09-23 10:19 | Outpatient (CLI) | payer BC, SELFPAY ==
--- NOTE | 2020-09-23 10:25 | CA_ITS ---
APPROVED REPORT Tubing Drier: Tianna Laughlin RVT Laterality: Bilateral Study Quality: Good Indications: TRENT Risk Factors Hyperlipidemia Smoking Doppler Spectral Velocity Analysis ECA (R) 119.00/15.70 cm/s ECA (L) 80.90/17.30 cm/s dICA (R) 73.10/25.10 cm/s dICA (L) 106.00/29.10 cm/s Renita (R) 76.20/25.90 cm/s Renita (L) 87.20/31.40 cm/s pICA (R) 71.50/26.70 cm/s pICA (L) 79.40/17.30 cm/s dCCA (R) 81.70/22.80 cm/s dCCA (L) 91.10/25.90 cm/s pCCA (R) 99.80/22.80 cm/s pCCA (L) 98.20/18.90 cm/s Vert (R) 64.40/18.90 cm/s Vert (L) 40.90/12.60 cm/s ICA/CCA 0.93 ICA/CCA 1.16 Findings Study suggests less than 20% stenosis of the right internal cartoid artery. Study suggets 20-49% stenosis of the left internal cartoid artery (lower end of scale). Antegrade flow seen bilateral vertebral arteries. Conclusion Study suggests less than 20% stenosis of the right internal cartoid artery. Study suggets 20-49% stenosis of the left internal cartoid artery (lower end of scale). Antegrade flow seen bilateral vertebral arteries. Electronically signed by : Rafa Feng MD 09/23/2020 16:32:28
== END ==
PROVIDERS: PCP Family Medicine; Visit Provider Family Medicine
DX: I65.22 Occlusion and stenosis of left carotid artery (principal)
CPT/HCPCS: 93880

== ENCOUNTER → 2020-12-02 13:54 | Outpatient (CLI) | payer OTHER, SELFPAY ==
--- NOTE | 2020-12-02 14:04 | XR_ITS ---
PROCEDURE: XR LUMBAR SPINE MIN 4V CLINICAL INDICATION: SACROILIAC JOINT PAIN COMPARISON: No exams were available for comparison FINDINGS: There is normal alignment. No acute fracture or dislocation is evident. There is mild degenerative disc disease at L1-L2 L2-L3 and L5-S1. Mild facet arthritic changes are present at L5-S1. Numerous calcifications are present in the left upper quadrant consistent with splenic granulomas. Abdominal aortic calcifications also noted. The SI joints have an unremarkable appearance. There are bilateral tubal ligation clips. IMPRESSION: Mild lumbar spondylosis as described above. Dictated by: Rafa Feng MD 12/02/2020 14:55 Rafa Feng MD in [place] 12/02/2020 14:55
== END ==
PROVIDERS: PCP Family Medicine; Visit Provider Family Medicine
DX: M53.3 Sacrococcygeal disorders, not elsewhere classified (principal)
CPT/HCPCS: 72110

== ENCOUNTER → 2020-12-07 14:30 | Outpatient (CLI) | payer OTHER, SELFPAY | PROVIDERS: PCP Family Medicine; Visit Provider Family Medicine | DX: Z20.822 Contact with and (suspected) exposure to COVID-19 (principal) | CPT/HCPCS: U0003 ==

== ENCOUNTER → 2021-11-16 11:14 | Outpatient (CLI) | payer OTHER, SELFPAY ==
--- NOTE | 2021-11-16 11:19 | XR_ITS ---
FINAL REPORT CLINICAL HISTORY: COVID OUTPATIENT COMPARISON: Earlier the same day FINDINGS: A single portable view of the chest was obtained. The heart size and pulmonary vascularity are within normal limits. The mediastinum is within normal limits. No acute pulmonary abnormality is identified. The bony thorax is intact. IMPRESSION: No active cardiopulmonary disease. Reviewed, Interpreted and Dictated by Mckinley West III, MD Transcribed by Tg Meyer Authenticated and [facility]
[2021-11-16 11:53] LABS: Basophils % 0.5 % (0.1-2.0); Eosinophils # 0.1 K/mm3 (0.0-0.4); Eosinophils % 2.3 % (0.1-12.0); Hematocrit 40.9 % (37.0-47.0); Lymphocytes # 1.2 K/mm3 (0.7-4.5); Lymphocytes % 23.9 % (10-50); Mean Corpuscular HGB Conc 34.2 g/dL (31.8-35.4); Mean Corpuscular Hemoglobin 31.3 pg (27.0-31.2); Mean Corpuscular Volume 91.6 fl (81-99); Mean Platelet Volume 7.1 fl (7.4-10.4); Monocytes # 0.2 K/mm3 (0.1-1.0); Monocytes % 4.4 % (1.7-9.3); Neutrophils # 3.5 K/mm3 (1.8-7.8); Neutrophils % 68.8 % (37.0-80.0); Platelet Count 262 K/mm3 (142-424); Red Blood Count 4.46 M/mm3 (4.20-5.40); Red Cell Distribution Width 12.7 % (11.5-17.5); White Blood Count 5.1 K/mm3 (4.8-10.8)
[2021-11-16 13:11] LABS: Iron 59 ug/dL (37-170)
[2021-11-16 13:20] LABS: Total Iron Binding Capacity 239 ug/dL (265-497)
== END ==
PROVIDERS: PCP Family Medicine; Visit Provider Nurse Practitioner
DX: U07.1 COVID-19 (principal); J06.9 Acute upper respiratory infection, unspecified; D64.9 Anemia, unspecified; R06.2 Wheezing
CPT/HCPCS: 71045; 83540; 83550; 85025; C9803; U0003; U0005

== ENCOUNTER 2021-11-26 13:34 | Emergency (ER) | payer OTHER, SELFPAY ==
[2021-11-26 13:27] VITALS: BP 134/87; PULSE 71; RESP 16; TEMP 36.7; O2SAT 96; BMI 32.9
[2021-11-26 13:28] VITALS: BMI 32.9
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
--- NOTE | 2021-11-26 13:58 | PC.NURSE ---
Pt has been to rad and returned back to room. Family at bedside.
--- NOTE | 2021-11-26 14:31 | PC.NURSE ---
Assisted pt to bathroom via w/c. Pt was able to bare weight on rt leg.
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
--- NOTE | 2021-11-26 14:59 | PC.NURSE ---
rounded on pt at this time, pt sitting up in bed, family at BS. Notified pt her xray has been read, ER MD needs to review it. Pt given call light, will continue to monitor
[2021-11-26 15:20] VITALS: BP 0/0; PULSE 87; RESP 15; TEMP 36.8; O2SAT 98
--- NOTE | 2021-11-26 15:20 | PC.NURSE ---
Pt refused to allow nurse to retake BP upon D/C.
== END 2021-11-26 15:20 | disposition home or self-care (01) ==
PROVIDERS: Emergency Provider Emergency Medicine; PCP Family Medicine
DX: S80.11XA Contusion of right lower leg, initial encounter (principal); M79.604 Pain in right leg; K21.9 Gastro-esophageal reflux disease without esophagitis; E78.5 Hyperlipidemia, unspecified; G93.5 Compression of brain; J98.4 Other disorders of lung; J44.9 Chronic obstructive pulmonary disease, unspecified; F32.A Depression, unspecified; F41.9 Anxiety disorder, unspecified; Z79.890 Hormone replacement therapy; Z88.8 Allergy status to other drugs, medicaments and biological substances; Z87.891 Personal history of nicotine dependence; Z82.49 Family history of ischemic heart disease and other diseases of the circulatory system; Z83.3 Family history of diabetes mellitus
CPT/HCPCS: 73590; 99283

== ENCOUNTER → 2021-11-30 07:23 | Outpatient (CLI) | payer OTHER, SELFPAY ==
--- NOTE | 2021-11-30 07:26 | CT_ITS ---
FINAL REPORT CLINICAL HISTORY: lung cancer screening former smoker. quit 9 years ago. smoked 2 ppd x 30 years. family hx of lung cancer. FINDINGS: Low-Dose Chest CT Axial images were obtained from the lung apex to the mid abdomen by computed tomography. Low-dose protocol was utilized. CTDI vol (mGy): 2.90 DLP (mGy-cm): 96.38 There is no axillary adenopathy. There is no hilar or mediastinal adenopathy. The heart is proper size. There is ectasia of the ascending aorta measuring up to 3.7 cm. There is no pericardial or pleural effusion. Limited images of the upper abdomen are unremarkable. Lung window images demonstrate moderate changes of emphysema with mild pulmonary scarring. There is a ground-glass nodule in the right upper lobe measuring 9 mm on image 17. There is a calcified granuloma in the left lower lobe. IMPRESSION: 9 mm ground-glass nodule in the right upper lobe. Ectasia of the ascending aorta up to 3.7 cm. Lung RADS category 2. Recommend 12 month follow-up low-dose chest CT. Reviewed, Interpreted and Dictated by Mckinley West III, MD Transcribed by Tg Meyer Authenticated and . [facility]
--- NOTE | 2021-11-30 07:26 | XR_ITS ---
FINAL REPORT TECHNIQUE: Bone mineral density was calculated of the lumbar spine and hip. CLINICAL HISTORY: .post menopausal FINDINGS: Using L1-4, the bone mineral density of the spine is is 0.900 g/cm2, corresponding to T-score of -1.3. Using the right hip, the bone mineral density of the femoral neck is 0.633 g/cm2, corresponding to a T-score of -1.9. IMPRESSION: Diminished bone mineral density of the lumbar spine and right hip consistent with osteopenia. FRAX data is not provided due to patient being treated for osteoporosis. Reviewed, Interpreted and Dictated by Mckinley West III, MD Transcribed by Jah Smith Authenticated and [facility]
== END ==
PROVIDERS: PCP Family Medicine; Visit Provider Family Medicine
DX: Z87.891 Personal history of nicotine dependence (principal); Z12.2 Encounter for screening for malignant neoplasm of respiratory organs; Z78.0 Asymptomatic menopausal state
CPT/HCPCS: 71271; 77080

== ENCOUNTER 2021-12-04 15:24 | Emergency (ER) | payer OTHER, SELFPAY ==
[2021-12-04 15:45] VITALS: BP 141/72; PULSE 82; RESP 18; TEMP 36.6; O2SAT 97; BMI 27.9
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
[2021-12-04 16:09] VITALS: BP 141/72; PULSE 82; RESP 18; TEMP 36.6; O2SAT 97
== END 2021-12-04 16:11 | disposition home or self-care (01) ==
PROVIDERS: Emergency Provider Nurse Practitioner Family; PCP Family Medicine
DX: L03.115 Cellulitis of right lower limb (principal)
CPT/HCPCS: 99212; G0463

== ENCOUNTER → 2021-12-06 15:07 | Outpatient (CLI) | payer OTHER, SELFPAY ==
--- NOTE | 2021-12-06 15:14 | CA_ITS ---
FINAL REPORT TECHNIQUE: Color Doppler, duplex Doppler and compression sonography of the right lower extremity venous system was performed. CLINICAL HISTORY: RLE hematoma, cellulitis, edema, Varicosities. FINDINGS: There is no evidence of deep venous thrombosis from the level of the groin to the calf. The veins are patent and compressible. IMPRESSION: No evidence of deep venous thrombosis right lower extremity. Reviewed, Interpreted and Dictated by Mckinley West III, MD Transcribed by Tg Meyer Authenticated and [facility]
--- NOTE | 2021-12-06 15:36 | US_ITS ---
FINAL REPORT CLINICAL HISTORY: RLE hematoma, cellulitis, edema FINDINGS: US EXTREMITY, NONVASCULAR Limited sonographic images were obtained of the medial right ankle. At the area of interest is a fluid collection measuring approximately 13 x 3.8 x 1.2 cm. IMPRESSION: Fluid collection at the area of interest that may represent a hematoma or abscess. Reviewed, Interpreted and Dictated by Mckinley West III, MD Transcribed by Jah Smith Authenticated and [facility]
== END ==
PROVIDERS: PCP Family Medicine; Visit Provider Nurse Practitioner
DX: L08.9 Local infection of the skin and subcutaneous tissue, unspecified (principal); R60.0 Localized edema; S80.11XD Contusion of right lower leg, subsequent encounter; L03.115 Cellulitis of right lower limb
CPT/HCPCS: 76882; 93971

== ENCOUNTER → 2021-12-28 08:29 | Outpatient (CLI) | payer OTHER, SELFPAY ==
--- NOTE | 2021-12-28 08:33 | MM_ITS ---
PROCEDURE INFORMATION: Exam: MG Bilateral Screening 3D Mammography Exam date and time: 12/28/2021 8:27 AM Age: 61 years old Clinical indication: Screening examination TECHNIQUE: Imaging protocol: Bilateral Screening tomosynthesis and 2D mammography including computer-aided detection (CAD) when performed. COMPARISON: 1. MG MM DIG SCREENING MAMM BI W/CAD 09/21/2020 8:48 AM 2. MG MM DIG MAMM DX UNILAT LT CAD 01/22/2019 1:58 PM FINDINGS: MAMMOGRAPHY: Breast composition: The breasts are almost entirely fatty. Mass: None. Architectural distortion: None. Calcifications: No suspicious calcifications. Asymmetric density: None. Skin thickening: None. Axillary adenopathy: None. IMPRESSION: No mammographic evidence of malignancy. Annual screening is recommended unless otherwise clinically indicated. ASSESSMENT: BI-RADS Category 1: Negative
== END ==
PROVIDERS: PCP Family Medicine; Visit Provider Family Medicine
DX: Z12.31 Encounter for screening mammogram for malignant neoplasm of breast (principal)
CPT/HCPCS: 77063; 77067

== ENCOUNTER → 2022-09-22 12:51 | Outpatient (CLI) | payer OTHER, SELFPAY ==
--- NOTE | 2022-09-22 12:54 | CA_ITS ---
FINAL REPORT TECHNIQUE: Color Doppler, duplex Doppler and astorga scale sonography of the bilateral neck arterial vasculature was performed. Velocities were measured in the carotid arteries. Stenosis evaluation based on the validated velocity criteria. CLINICAL HISTORY: TRENT,DIZZINESS,EXSMOKER COMPARISON: None FINDINGS: The peak systolic velocity of the right common carotid artery is 99 cm/s. The peak systolic velocity of the right internal carotid artery is 72 cm/s and end diastolic velocity 21 cm/s. The ICA/CCA ratio is 1.0. A mild amount of plaque is present. The right external carotid artery is patent. The right vertebral artery is patent with antegrade flow. The peak systolic velocity of the left common carotid artery is 82 cm/s. The peak systolic velocity of the left internal carotid artery is 112 cm/s and end diastolic velocity 30 cm/s. The ICA/CCA ratio is 1.4. A mild amount of plaque is present. The left external carotid artery is patent.The left vertebral artery is patent with antegrade flow. IMPRESSION: Less than 50% bilateral carotid stenoses. Bilateral patent vertebral arteries with antegrade flow. If indicated, CTA or MRA could further evaluate. Reviewed, Interpreted and Dictated by Mckinley West III, MD Transcribed by Yuki Malik Authenticated and [facility]
== END ==
PROVIDERS: PCP Family Medicine; Visit Provider Physician Assistant
DX: I65.22 Occlusion and stenosis of left carotid artery (principal)
CPT/HCPCS: 93880

== ENCOUNTER 2022-11-04 08:00 | Outpatient (RCR) | payer OTHER, SELFPAY ==
--- NOTE | 2022-09-28 14:00 | HMH.PTOPEV ---
PT Outpatient Evaluation Rehab PT Outpatient Evaluation Start: 09/28/22 13:03 Freq: Status: Active Protocol: Document 09/28/22 13:03 SOLE (Rec: 09/28/22 13:59 SOLE [id number]) E-signed By Jeanine Hughes, PT Outpatient Therapy Subjective History Subjective History Pt is a 61 y/o female who reports chronic neck pain for years and years. Pt denies recent trauma or injury. Pt reports insidious worsening of muscle spasms L>R upper trapezius that is agravated by rotating her head. Pt also reports intermittent right- sided occipital headaches that radiate anteriorly to her orbital region described as dull pain. Pt reports headaches occur ~2x/week and last for the entire day. Pt denies n/v, light/noise sensitivity with headaches but does report occasional dizziness and paresthesia of the R>L arm with headaches. Pt reports she has taken steroids and is currently taking muscle relaxers which help with neck pain. Pt reports she is currently only sleeping 2-3 hours at a time due to having to reposition because of pain, states she has to sleep on a wedge due to pressure of her left scapula. Pt denies further comorbidities to report. 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
--- NOTE | 2022-11-04 08:37 | HMH.RHREAS ---
Rehab Reassessment Rehab OP Re-assessment Start: 09/28/22 13:03 Freq: Status: Active Protocol: Document 11/04/22 08:29 SOLE (Rec: 11/04/22 08:35 SOLE [id number]) E-signed By Jeanine Hughes PT Rehab Re-assessment Subjective Subjective Pt reports she feels 85-90% improved since starting PT. Pt reports she still has some tightness of the L upper trapezius and achey pain rated 2/10 at worst. Pt reports she has been compliant with her stretches and also getting massages. Objective Objective Notes Cervical AROM: flex 45, ext 50 , RLF 40, LLF 50, L rotation 70, R rotation 70 Scap strength: 4+/5 grossly Assessment Progress Assessment Progressing as Expected Assessment Notes Pt has attended 5 PT visits consisting of cervical mobility, cervical stretching, scapular strengthening, manual therapy and modalities with good tolerance. Pt demonstrated improved cervical AROM and scapular strength this date compared to the initial evaluation. Pt met most PT goals and is appropriate to d/c to independent HEP. Patient goals met ST/5 LT/5 Goals Not Met cervical right lateral flexion AROM Revised Goals n/a Plan Plan Discharge to independent HEP Frequency of Therapy 0 Duration of therapy 0 Time and Billing Re-Eval Time 9 Re-Eval Billing Units 1 PHYSICIAN CERTIFICATION: I certify the specified therapy services for Dayana Bonilla are required, authorized, and reviewed every 30 days.
== END 2022-11-04 08:05 | disposition home or self-care (01) ==
LOC: PT 08:00
PROVIDERS: PCP Family Medicine; Visit Provider Physician Assistant
DX: M54.2 Cervicalgia (principal); M62.838 Other muscle spasm
CPT/HCPCS: 97010; 97014; 97035; 97110; 97140; 97163; 97164; G0283

== ENCOUNTER → 2022-12-19 11:49 | Outpatient (CLI) | payer OTHER, SELFPAY ==
--- NOTE | 2022-12-19 11:56 | XR_ITS ---
FINAL REPORT CLINICAL HISTORY: CHEST PAIN, pain after cough FINDINGS: RIGHT RIBS 2 views of the right ribs were obtained. There is a fracture of the right fifth rib. No other bony abnormality is identified. There is no pneumothorax. IMPRESSION: Right fifth rib fracture without pneumothorax. Reviewed, Interpreted and Dictated by Ry Vegas MD Transcribed by Shawna Webb Authenticated and [facility]
--- NOTE | 2022-12-19 11:56 | XR_ITS ---
FINAL REPORT CLINICAL HISTORY: CHEST PAIN FINDINGS: 2 views of the chest were obtained . The heart is normal in size. The mediastinum is within normal limits. The lungs are clear. There is no pneumothorax. Osseous structures demonstrate nondisplaced right fifth rib fracture. IMPRESSION: No acute cardiopulmonary process. Right fifth rib fracture without pneumothorax. Reviewed, Interpreted and Dictated by Ry Vegas MD Transcribed by Shawna Webb Authenticated and [facility]
== END ==
PROVIDERS: PCP Family Medicine; Visit Provider Family Medicine
DX: R07.89 Other chest pain (principal)
CPT/HCPCS: 71046; 71100

== ENCOUNTER 2023-05-12 09:52 | Outpatient (CLI) | payer OTHER, SELFPAY ==
--- NOTE | 2023-05-12 10:08 | XR_ITS ---
FINAL REPORT CLINICAL HISTORY: KNEE EFFUSION, RIGHT COMPARISON: None FINDINGS: Three views of the right knee reveal no evidence of fracture or dislocation. The bony alignment is normal. The joint spaces are preserved. There is no evidence of joint effusion. No localized soft tissue abnormality is identified. IMPRESSION: No acute abnormality identified. Reviewed, Interpreted and Dictated by Mckinley Wset III, MD Transcribed by Latonia Blum Authenticated and [facility]
== END 2023-05-12 23:59 ==
LOC: RAD 09:53
PROVIDERS: PCP Family Medicine; Visit Provider Physician Assistant
DX: M25.461 Effusion, right knee (principal)
CPT/HCPCS: 73562

== ENCOUNTER 2023-05-25 13:01 | Outpatient (CLI) | payer OTHER, SELFPAY ==
--- NOTE | 2023-05-25 13:25 | CA_ITS ---
APPROVED REPORT EXAM: Comprehensive 2D, Doppler, and color-flow Echocardiogram Global Professional: JESIKA Kiran, RVS Ht: 5 ft 6 in Wt: 176lbs BSA: 1.89 BP: 130/78 mmHg Indications: Murmurs, Aortic sclerosis without stenosis, Aortic insufficiency, Mitral regurgitation, SOA Echo Enhancing Agent Comments: TDS: due to extreme chest circumference 2D Dimensions Left Atrium 3.33 cm F: 2.7 - 3.8 LA Volume 66.70 mL LA Volume Index 35.11 mL/m2 (M/F) 16-34 M-Mode Dimensions RVDd 1.53 cm (0.9-2.6) LA Diam 3.23 cm (1.9-4.0) LVDd 4.91 cm (3.5-5.7) LVDs 3.26 cm (3.5-5.7) IVSd 0.84 cm (0.6-1.1) PWd 0.84 cm (0.6-1.1) EF (Teich) 62.30% EPSs 0.28 cm FS 33.60% EDV (Teich) 113.40 mL TAPSE 2.55 (<1.7) ESV (Teich) 42.80 mL LV Diastology E Decel Time 180 (160-240 msec) E/A Ratio 0.75 MED A' 10.80 cm/s LAT A' 9.60 cm/s Aortic Valve EMILI Index 1.10 cm2/m2 AoV Peak Chuck. 156.0 (50-130 cm/s) AI PHT 525.00 ms AO Peak GR. 9.80 mmHg AO Mean GR. 4.90 (<5 mmHg) AO VTI 36.5 (18-25 cm) EMILI (VTI) 2.14 (2.5-4.5 cm2) Mitral Valve MV A Velocity 75.0 (40-130 cm/s) E/A Ratio 0.75 Tricuspid Valve TR P. Velocity 213.00 cm/s RAP Estimate 10.00 mmHg RVSP 28.20 mmHg Left Ventricle The left ventricle is normal size (LVEDd=4.5 cm, LVESd=2.0 cm). The left ventricular systolic function is normal. The left ventricular ejection fraction is within the normal range. There is increased LV wall thickness. There is normal LV segmental wall motion. The left ventricular diastolic function is normal. LVEF is 55%. Right Ventricle The right ventricle is normal size. The right ventricular systolic function is normal. Atria The left atrium size is normal. The right atrium size is normal. There is no Doppler evidence of interatrial shunt. Aortic Valve The aortic valve leaflets are mildly thickened. There is no aortic valvular stenosis. Moderate aortic regurgitation. Mitral Valve The mitral valve is normal in structure. No evidence of mitral valve stenosis. Mild mitral regurgitation. Tricuspid Valve The tricuspid valve leaflets are thin and pliable. Trace tricuspid regurgitation. There is insufficient TR jet to estimate RVSP. Pulmonic Valve The pulmonary valve is normal in structure. Trace pulmonic regurgitation. Great Vessels The aortic root is normal in size. The ascending aorta is normal in size. IVC is normal in size and collapses >50% with inspiration. Pericardium There is no pericardial effusion. Other Information Study Quality: Fair Conclusion Normal LV size and function (LVEDd=4.5 cm, LVESd=2.0 cm). Normal RV size and function. Moderate AI. Mild MR. Compared to prior study from 07/2019, the AI severity is still in the moderate range and the LV dimensions are still within normal limits. Serial TTE evaluations are recommended. Electronically signed by : Suad Smart MD 05/29/2023 11:15:15
[2023-05-25 13:50] VITALS: PULSE 65
[2023-05-25] MEDS: ALBUTEROL 0.083% 2.5 MG/3 ML NEB IH (13:50)
== END 2023-05-25 23:59 ==
LOC: RT 13:01
PROVIDERS: PCP Family Medicine; Visit Provider Physician Assistant
DX: R06.02 Shortness of breath (principal)
CPT/HCPCS: 93306; 94060; 94640; 94726; 94729

== ENCOUNTER 2023-05-29 14:53 | Outpatient (CLI) | payer OTHER, SELFPAY ==
[2023-05-29 15:21] LABS: Basophils # 0.1 K/mm3 (0-0.2); Basophils % 0.6 % (0.1-2.0); Eosinophils # 0.2 K/mm3 (0.0-0.4); Eosinophils % 2.3 % (0.1-12.0); Hematocrit 41.5 % (37.0-47.0); Hemoglobin 14.1 g/dL (12.2-16.2); Lymphocytes # 2.5 K/mm3 (0.7-4.5); Lymphocytes % 33.5 % (10-50); Mean Corpuscular HGB Conc 33.9 g/dL (31.8-35.4); Mean Corpuscular Hemoglobin 31.8 pg (27.0-31.2); Mean Corpuscular Volume 93.8 fl (81-99); Mean Platelet Volume 7.5 fl (7.4-10.4); Monocytes # 0.4 K/mm3 (0.1-1.0); Monocytes % 5.3 % (1.7-9.3); Neutrophils # 4.3 K/mm3 (1.8-7.8); Neutrophils % 58.2 % (37.0-80.0); Platelet Count 310 K/mm3 (142-424); Red Blood Count 4.43 M/mm3 (4.20-5.40); Red Cell Distribution Width 13.1 % (11.5-17.5); White Blood Count 7.4 K/mm3 (4.8-10.8)
[2023-05-29 15:38] LABS: Alanine Aminotransferase 14 U/L (12-78); Albumin Level 3.9 g/dl (3.5-5.0); Alkaline Phosphatase 62 U/L (38-126); Anion Gap 9.2 mEq/L (5-15); Aspartate Amino Transferase 28 U/L (14-36); Bilirubin,Direct 0.2 mg/dl (0.0-0.4); Bilirubin,Total 0.2 mg/dl (0.2-1.3); Blood Urea Nitrogen 17 mg/dl (7-17); Calcium 9.2 mg/dl (8.4-10.2); Carbon Dioxide 30 mmol/L (22.0-30.0); Chloride 103 mmol/L (98-107); Chol/HDL Ratio 3.8 (1-3.5); Cholesterol 249 mg/dl (140-200); Estimated Glomerular Filt Rate 64 ml/min (>60); GFR (African American) 77 ML/MIN (>60); Glucose 76 mg/dl (74-100); HDL Cholesterol 66 mg/dl (40-60); Magnesium 1.9 mg/dl (1.6-2.3); Potassium 4.2 mmoL/L (3.5-5.1); Sodium 138 mmol/L (136-145); Total Protein,Serum 6.4 g/dl (6.3-8.2); Triglycerides 156 mg/dl (30-150); VLDL Cholesterol 31 mg/dL (0-40)
[2023-05-29 15:49] LABS: Direct LDL Cholesterol 123.01 mg/dL (100-129)
[2023-05-29 15:54] LABS: Free T4 (Free Thyroxine) 0.83 ng/dl (0.78-2.19)
== END 2023-05-29 23:59 ==
LOC: LAB 14:53
PROVIDERS: PCP Family Medicine; Visit Provider Physician Assistant
DX: R06.00 Dyspnea, unspecified (principal); I10 Essential (primary) hypertension; I20.0 Unstable angina; Z82.49 Family history of ischemic heart disease and other diseases of the circulatory system; Z79.899 Other long term (current) drug therapy
CPT/HCPCS: 36415; 80048; 80061; 80076; 83735; 84439; 84443; 85025

== ENCOUNTER 2023-06-19 08:26 | Day surgery (SDC) | payer OTHER, SELFPAY ==
[2023-06-19] VITALS (20 sets, daily range): BP systolic 124–199; BP diastolic 65–109; PULSE 51–65; RESP 15–19; TEMP 36.1; O2SAT 95–99; BMI 34.5
--- NOTE | 2023-06-19 07:54 | IR_ITS ---
APPROVED REPORT Patient Location: Outpatient [place]: DAVID Brumfield RT (R) PROCEDURES Left heart catheterization Left ventriculogram Selective coronary angiogram Selective engagement of the right subclavian artery Right subclavian artery selective angiogram Selective engagement of the left subclavian artery Left subclavian artery selective angiogram Bilateral selective renal angiography INDICATION Angina pectoris, Possible bilateral subclavian artery stenosis, Malignant hypertension suspect renovascular hypertension from renal artery stenosis Informed consent was obtained prior to the procedure. COMPLICATIONS None Estimated Blood Loss: Less than 10 mls TECHNIQUE One percent lidocaine was used to anesthetize the right groin. The right femoral artery was accessed via the Seldinger technique. A 4-Estonian sheath was placed in the right femoral artery. The JL-4 and JR-4 catheter was also used to perform left heart catheterization left ventriculogram and selective coronary angiogram. The same JR4 catheter was used to selectively intubate each bilateral subclavian artery and perform selective subclavian artery angiography. The JR4 catheter was also used to perform bilateral selective renal angiography. At the end of the procedure the patient was transferred to the post-op holding area in stable condition for arterial sheath removal. ANGIOGRAPHIC RESULTS The left main artery Normal The left anterior descending artery Is a small caliber vessel with a proximal mostly eccentric 30% stenosis with remaining vessel widely patent The circumflex artery Nondominant with mild 10% luminal irregularities The right coronary artery Dominant with proximal mid vessel and distal diffuse 10% luminal irregularities The CROSS ventriculogram reveals Normal 65% The left ventricular end-diastolic pressure 10 mmHg Widely patent innominate artery Right subclavian and right axillary artery widely patent Left subclavian artery and left axillary artery widely patent Right renal artery singular normal Left renal artery singular normal IMPRESSION Mild nonflow limiting coronary artery disease Normal ejection fraction Normal left ventricular end-diastolic pressure Widely patent bilateral subclavian and bilateral axillary arteries Widely patent and normal bilateral renal arteries PLAN 1. LDL less than 55 to be achieved with high intensity statin 2. Avoidance of tobacco products 3. Risk factor modification 4. Medical management Electronically signed by : Dallin Crump MD 06/19/2023 13:55:26
[2023-06-19 08:53] LABS: Basophils % 0.5 % (0.1-2.0); Eosinophils # 0.2 K/mm3 (0.0-0.4); Hematocrit 44.2 % (37.0-47.0); Hemoglobin 14.9 g/dL (12.2-16.2); Lymphocytes # 1.7 K/mm3 (0.7-4.5); Lymphocytes % 29.5 % (10-50); Mean Corpuscular HGB Conc 33.6 g/dL (31.8-35.4); Mean Corpuscular Hemoglobin 31.6 pg (27.0-31.2); Mean Corpuscular Volume 93.9 fl (81-99); Mean Platelet Volume 7.4 fl (7.4-10.4); Monocytes # 0.3 K/mm3 (0.1-1.0); Monocytes % 4.3 % (1.7-9.3); Neutrophils # 3.6 K/mm3 (1.8-7.8); Neutrophils % 62.6 % (37.0-80.0); Platelet Count 331 K/mm3 (142-424); Red Blood Count 4.71 M/mm3 (4.20-5.40); Red Cell Distribution Width 12.9 % (11.5-17.5); White Blood Count 5.7 K/mm3 (4.8-10.8)
[2023-06-19 08:57] LABS: Chloride 104 mmol/L (98-107); Sodium 136 mmol/L (136-145)
[2023-06-19 08:58] LABS: Potassium 4.5 mmoL/L (3.5-5.1)
[2023-06-19 09:01] LABS: Anion Gap 5.5 mEq/L (5-15); Blood Urea Nitrogen 13 mg/dl (7-17); Calcium 9.1 mg/dl (8.4-10.2); Carbon Dioxide 31 mmol/L (22.0-30.0); Creatinine Clearance Estimated 80 mL/min (50-200); Estimated Glomerular Filt Rate 64 ml/min (>60); GFR (African American) 77 ML/MIN (>60); Glucose 101 mg/dl (74-100)
[2023-06-19] MEDS: diphenhydrAMINE 50MG/ML VIAL 50 MG IV (10:36)
[2023-06-19] MEDS: HEPARIN 1,000 UNITS/500ML NS (CATH LAB) 3000 UNIT IV (10:37)
[2023-06-19] MEDS: 0.9 % SODIUM CHLORIDE 500 ML 25 ML IV (10:37)
[2023-06-19] MEDS: LIDOCAINE 1% 10ML MDV 20 ML IJ (10:37)
[2023-06-19] MEDS: MIDAZOLAM HCL 1MG/1ML 5ML VIAL 1 MG IV (10:38)
[2023-06-19] MEDS: FENTANYL 100MCG/2ML VIAL 50 MCG IV (10:39)
[2023-06-19] MEDS: IOPAMIDOL-370 (76%);100ML BOTTLE 90 ML IV (11:23)
== END 2023-06-19 14:39 | disposition home or self-care (01) ==
PROVIDERS: PCP Family Medicine; Visit Provider Internal Medicine
DX: I25.110 Atherosclerotic heart disease of native coronary artery with unstable angina pectoris (principal); I10 Essential (primary) hypertension; R06.00 Dyspnea, unspecified; Z82.49 Family history of ischemic heart disease and other diseases of the circulatory system; Z79.899 Other long term (current) drug therapy; Z87.891 Personal history of nicotine dependence
CPT/HCPCS: 36225; 36252; 80048; 85025; 93458; 99152; C1725; C1769; J1644; Q9967

== ENCOUNTER 2023-06-27 07:58 | Outpatient (CLI) | payer OTHER, SELFPAY ==
--- NOTE | 2023-06-27 08:01 | MM_ITS ---
PROCEDURE INFORMATION: Exam: MG Bilateral Screening 3D Mammography Exam date and time: 06/27/2023 7:54 AM Age: 62 years old Clinical indication: Screening mammogram TECHNIQUE: Imaging protocol: Bilateral Screening tomosynthesis and 2D mammography including computer-aided detection (CAD) when performed. COMPARISON: 1. MG MM DIG SCREENING MAMM BI W/CAD 12/28/2021 8:27 AM 2. MG MM DIG SCREENING MAMM BI W/CAD 09/21/2020 8:48 AM 3. MG MM DIG MAMM DX UNILAT LT CAD 01/22/2019 1:58 PM 4. MG DXLT MM Dig mamm DX unilat LT CAD 07/09/2018 1:10 PM FINDINGS: MAMMOGRAPHY: Breast composition: There are scattered areas of fibroglandular density. Mass: None. Architectural distortion: No new or suspicious architectural distortion. Calcifications: No new or suspicious calcifications are present Asymmetric density: No new or suspicious asymmetric density is present Skin thickening: None. Axillary adenopathy: None. IMPRESSION: No mammographic evidence of malignancy. Recommend annual screening mammography unless otherwise clinically indicated. ASSESSMENT: BI-RADS category 1: Negative
== END 2023-06-27 23:59 ==
LOC: RAD 07:58
PROVIDERS: PCP Family Medicine; Visit Provider Family Medicine
DX: Z12.31 Encounter for screening mammogram for malignant neoplasm of breast (principal)
CPT/HCPCS: 77063; 77067

== ENCOUNTER 2023-07-14 10:58 | Outpatient (CLI) | payer OTHER, SELFPAY ==
--- NOTE | 2023-07-14 10:59 | CT_ITS ---
FINAL REPORT TECHNIQUE: Pre-and postcontrast axial CT images of the abdomen were obtained. Coronal and sagittal reformatted images were also obtained and reviewed. This study was performed with techniques to keep radiation doses as low as reasonably achievable (ALARA). Individualized dose reduction techniques using automated exposure control or adjustment of mA and/or kV according to the patient's size were employed. CLINICAL HISTORY: abnormal granulomas seen on [facility] COMPARISON: None FINDINGS: CT ABDOMEN WITH AND WITHOUT CONTRAST: There is mild scarring or atelectasis present in the lung bases. There is a 12 mm low-attenuation mass present in the inferomedial right hepatic lobe, favor a cyst. The pancreas and adrenal glands are unremarkable in appearance. There are multiple splenic calcified granulomas present. There is a small right renal cyst. No evidence of hydronephrosis is seen. The appendix is normal in appearance. No abdominal mass or inflammation is identified. There are moderate vascular calcifications present. There is a small umbilical hernia present containing fat. IMPRESSION: Multiple calcified granulomas present in the spleen. Low-attenuation 12 mm mass in the inferomedial right hepatic lobe, favor a cyst. Small right renal cyst. Reviewed, Interpreted and Dictated by Mckinley West III, MD Transcribed by Latonia Blum Authenticated and . [facility]
[2023-07-14] MEDS: SODIUM CHLORIDE 0.9% 10ML SYR (RAD ONLY) 10 ML IV (12:12)
[2023-07-14] MEDS: IOPAMIDOL-370 (76%);100ML BOTTLE 75 ML IV (12:12)
== END 2023-07-14 23:59 ==
LOC: RAD 10:59
PROVIDERS: PCP Family Medicine; Visit Provider Nurse Practitioner Family
DX: I11.9 Hypertensive heart disease without heart failure (principal); I25.10 Atherosclerotic heart disease of native coronary artery without angina pectoris; R06.00 Dyspnea, unspecified; Z82.49 Family history of ischemic heart disease and other diseases of the circulatory system; F17.210 Nicotine dependence, cigarettes, uncomplicated
CPT/HCPCS: 74170; Q9967

== ENCOUNTER 2023-07-20 11:57 | Outpatient (CLI) | payer OTHER, SELFPAY ==
--- NOTE | 2023-07-20 12:01 | XR_ITS ---
FINAL REPORT CLINICAL HISTORY: dyspnea, hx of aortic aneurysm and nodule on right side COMPARISON: 12/19/2022 FINDINGS: 2 views of the chest were obtained . The heart is normal in size. The mediastinum is within normal limits. The lungs are clear. There is no pneumothorax. Osseous structures are unremarkable. IMPRESSION: No acute cardiopulmonary process. Reviewed, Interpreted and Dictated by Mckinley West III, MD Transcribed by Shawna Webb Authenticated and [facility]
== END 2023-07-20 23:59 ==
LOC: RAD 11:58
PROVIDERS: PCP Family Medicine; Visit Provider Nurse Practitioner Family
DX: N64.9 Disorder of breast, unspecified (principal); D73.89 Other diseases of spleen; E78.5 Hyperlipidemia, unspecified; I25.10 Atherosclerotic heart disease of native coronary artery without angina pectoris; R06.09 Other forms of dyspnea; I11.9 Hypertensive heart disease without heart failure; I77.810 Thoracic aortic ectasia; R91.1 Solitary pulmonary nodule; Z82.49 Family history of ischemic heart disease and other diseases of the circulatory system; Z87.891 Personal history of nicotine dependence
CPT/HCPCS: 71046

== ENCOUNTER 2023-07-31 08:11 | Outpatient (CLI) | payer OTHER, SELFPAY ==
[2023-07-31 08:15] VITALS: BP 147/81; PULSE 68; RESP 16; TEMP 36.2; O2SAT 95
[2023-07-31] MEDS: INCLISIRAN SODIUM 284 MG/1.5 ML SYRINGE SQ (08:26)
== END 2023-07-31 08:44 | disposition home or self-care (01) ==
LOC: INF 08:12
PROVIDERS: PCP Internal Medicine; Visit Provider Nurse Practitioner Family
DX: E78.5 Hyperlipidemia, unspecified (principal)
CPT/HCPCS: 96372; J1306

== ENCOUNTER 2023-08-14 13:22 | Outpatient (CLI) | payer OTHER, SELFPAY ==
--- NOTE | 2023-08-14 13:30 | CT_ITS ---
FINAL REPORT TECHNIQUE: The patient was injected with IV contrast. Axial images were obtained through the chest in a PE protocol. 3-D reconstruction images were also performed. Individualized dose reduction techniques using automated exposure control or adjustment of the MA and/or KV according to patient's size were employed. CLINICAL HISTORY: right lung nodule PT STATES HX OF ANEURYSM FINDINGS: Mediastinal vasculature is adequately opacified. No pulmonary artery filling defects are identified to suggest PE. There is no aortic dissection or aneurysm. There is no axillary adenopathy. There is no hilar or mediastinal adenopathy. The heart size is normal. There is no pericardial or pleural effusion. No suspicious infiltrate or nodule is identified. There are moderate changes of centrilobular emphysema. There is scarring at the lung bases. Limited images of the upper abdomen demonstrate calcified granulomas in the spleen. IMPRESSION: No pulmonary embolus or dissection. No suspicious pulmonary mass or nodule. Moderate centrilobular emphysema. Reviewed, Interpreted and Dictated by Ry Vegas MD Transcribed by Magui Barbosa Authenticated and [facility]
[2023-08-14 14:14] LABS: Blood Urea Nitrogen 16 mg/dl (7-17); Estimated Glomerular Filt Rate 56 ml/min (>60); GFR (African American) 68 ML/MIN (>60)
[2023-08-14] MEDS: IOPAMIDOL-370 (76%);100ML BOTTLE 100 ML IV (14:45)
[2023-08-14] MEDS: 0.9 % SODIUM CHLORIDE 50 ML VIAL IV (14:45)
[2023-08-14] MEDS: SODIUM CHLORIDE 0.9% 10ML SYR (RAD ONLY) 10 ML IV (14:45)
== END 2023-08-14 23:59 | disposition home or self-care (01) ==
LOC: RAD 13:22
PROVIDERS: PCP Internal Medicine; Visit Provider Internal Medicine
DX: I11.9 Hypertensive heart disease without heart failure (principal); I25.10 Atherosclerotic heart disease of native coronary artery without angina pectoris; R06.09 Other forms of dyspnea; E78.5 Hyperlipidemia, unspecified; D73.89 Other diseases of spleen; N64.9 Disorder of breast, unspecified; I77.810 Thoracic aortic ectasia; R91.1 Solitary pulmonary nodule; F17.210 Nicotine dependence, cigarettes, uncomplicated; Z82.49 Family history of ischemic heart disease and other diseases of the circulatory system
CPT/HCPCS: 36415; 71275; 82565; 84520; Q9967

== ENCOUNTER 2023-08-23 08:52 | Outpatient (CLI) | payer OTHER, SELFPAY ==
--- NOTE | 2023-08-23 08:57 | XR_ITS ---
FINAL REPORT CLINICAL HISTORY: OSTEOPEN;IA COMPARISON: 11/30/2021 FINDINGS: Using L1-4, the bone mineral density of the spine is 0.909 g/cm2, corresponding to T-score of -1.3. Using the left hip, the bone mineral density of the femoral neck is 0.726 g/cm2, corresponding to a T-score of -1.8. Using the right hip, the bone mineral density of the right femoral neck is 0.703 g/cm?, corresponding to a T-score of -1.3. NOTE: T-score: Standard deviation compared with peak bone mass of young adult mean. *Following the recommendations of the International Society of Bone densitometry, classification of hip BMD is based on the lower of two T-scores; total hip or femoral neck. IMPRESSION: Consistent with low bone mineral density in the femoral necks and lumbar spine, stable. Reviewed, Interpreted and Dictated by Ry Vegas MD Transcribed by Latonia Blum Authenticated and [facility]
== END 2023-08-23 23:59 | disposition home or self-care (01) ==
LOC: RAD 08:53
PROVIDERS: PCP Family Medicine; Visit Provider Family Medicine
DX: M85.80 Other specified disorders of bone density and structure, unspecified site (principal)
CPT/HCPCS: 77080

== ENCOUNTER 2023-08-24 09:55 | Outpatient (CLI) | payer OTHER, SELFPAY ==
--- NOTE | 2023-08-24 09:56 | CT_ITS ---
FINAL REPORT TECHNIQUE: Axial images were obtained from the lung apex to the mid abdomen by computed tomography. Low-dose protocol was utilized. CLINICAL HISTORY: lung cancer screening FORMER SMOKER QUIT 10 YEARS AGO 2PPD X38 YEARS WHEN SMOKING COMPARISON: 08/14/2023 FINDINGS: DOSE: CTDIvol: 2.9 mGy, DLP: 96.38 mGy*cm There is no axillary adenopathy. There is no hilar or mediastinal adenopathy. There are densely calcified subcarinal and right hilar lymph nodes. The heart is proper size. There is no pericardial or pleural effusion. Limited images of the upper abdomen demonstrate calcified granulomas within the spleen, otherwise unremarkable. No suspicious infiltrate or nodule identified. IMPRESSION: No suspicious nodule identified. LUNG RADS CATEGORY 1 RECOMMENDATION: 12 month LDCT follow up Reviewed, Interpreted and Dictated by Ry Vegas MD Transcribed by NILO Bray Authenticated and [facility]
== END 2023-08-24 23:59 | disposition home or self-care (01) ==
LOC: RAD 09:56
PROVIDERS: PCP Internal Medicine; Visit Provider Internal Medicine
DX: F17.219 Nicotine dependence, cigarettes, with unspecified nicotine-induced disorders (principal); Z12.2 Encounter for screening for malignant neoplasm of respiratory organs
CPT/HCPCS: 71271

== ENCOUNTER 2023-08-28 15:42 | Outpatient (CLI) | payer OTHER, SELFPAY ==
[2023-08-30 20:30] LABS: QuantiFERON-TB Gold Plus Negative (Negative)
[2023-09-02 16:39] LABS: Aspergillus flavus Negative (Neg:<1:1); Aspergillus fumigatus Negative (Neg:<1:1); Aspergillus niger Negative (Neg:<1:1); Blastomyces Antibody Negative (Neg:<1:1); Histoplasma Antibody Quant Negative (Neg:<1:1)
[2023-09-04 10:08] LABS: D001-IgE D pteronyssinus <0.10 kU/L (Class 0); D002-IgE D farinae <0.10 kU/L (Class 0); E001-IgE Cat Dander <0.10 kU/L (Class 0); E005-IgE Dog Dander <0.10 kU/L (Class 0); E072-IgE Mouse Urine <0.10 kU/L (Class 0); G002-IgE Bermuda Grass <0.10 kU/L (Class 0); G006-IgE Timothy Grass <0.10 kU/L (Class 0); I006-IgE Cockroach, German <0.10 kU/L (Class 0); Immunoglobulin E, Total 41 IU/mL (6-495); M001-IgE Penicillium chrysogen <0.10 kU/L (Class 0); M002-IgE Cladosporium herbarum <0.10 kU/L (Class 0); M003-IgE Aspergillus fumigatus <0.10 kU/L (Class 0); M006-IgE Alternaria alternata <0.10 kU/L (Class 0); T001-IgE Maple/Box Elder <0.10 kU/L (Class 0); T003-IgE Common Silver Birch <0.10 kU/L (Class 0); T006-IgE Cedar, Mountain <0.10 kU/L (Class 0); T007-IgE Oak, White <0.10 kU/L (Class 0); T008-IgE Elm, American <0.10 kU/L (Class 0); T010-IgE Walnut <0.10 kU/L (Class 0); T011-IgE Maple Leaf Sycamore <0.10 kU/L (Class 0); T014-IgE Cottonwood <0.10 kU/L (Class 0); T015-IgE Ash, White <0.10 kU/L (Class 0); T022-IgE Pecan, Hickory <0.10 kU/L (Class 0); T070-IgE White Mulberry <0.10 kU/L (Class 0); W001-IgE Ragweed, Short <0.10 kU/L (Class 0); W011-IgE Thistle, Russian <0.10 kU/L (Class 0); W014-IgE Pigweed, Common <0.10 kU/L (Class 0); W018-IgE Sheep Sorrel <0.10 kU/L (Class 0)
== END 2023-08-28 23:59 | disposition home or self-care (01) ==
LOC: LAB 15:44
PROVIDERS: PCP Internal Medicine; Visit Provider Internal Medicine Pulmonary Disease
DX: R93.89 Abnormal findings on diagnostic imaging of other specified body structures (principal); J30.9 Allergic rhinitis, unspecified; J84.10 Pulmonary fibrosis, unspecified; R91.1 Solitary pulmonary nodule
CPT/HCPCS: 36415; 82785; 86003; 86480; 86606; 86612; 86698

== ENCOUNTER 2023-11-16 11:56 | Outpatient (CLI) | payer OTHER, SELFPAY ==
[2023-11-16 12:01] LABS: Microscopic, Urine URINE MICROSCOPIC (MICROSCOPIC)
[2023-11-16 12:30] LABS: Appearance,Urine CLEAR (Clear); Bilirubin,Urine Negative (Negative); Blood, Urine Negative (Negative); Color,Urine YELLOW (Yellow); Glucose,Urine (UA) Negative (Negative); Ketones,Urine Negative (Negative); Leukocyte Esterase,Urine Negative (Negative); Nitrate,Urine Negative (Negative); Protein,Urine Negative (Negative); Specific Gravity, Urine <= 1.005 (1.005-1.030); Urobilinogen,Urine 0.2 EU/dl (0.2)
[2023-11-16 12:52] LABS: Basophils # 0.1 K/mm3 (0-0.2); Basophils % 0.8 % (0.1-2.0); Eosinophils # 0.1 K/mm3 (0.0-0.4); Eosinophils % 2.3 % (0.1-12.0); Hematocrit 43.3 % (37.0-47.0); Hemoglobin 14.5 g/dL (12.2-16.2); Lymphocytes # 1.6 K/mm3 (0.7-4.5); Lymphocytes % 25.7 % (10-50); Mean Corpuscular HGB Conc 33.6 g/dL (31.8-35.4); Mean Corpuscular Hemoglobin 31.8 pg (27.0-31.2); Mean Corpuscular Volume 94.6 fl (81-99); Mean Platelet Volume 7.7 fl (7.4-10.4); Monocytes # 0.3 K/mm3 (0.1-1.0); Neutrophils % 66.2 % (37.0-80.0); Platelet Count 337 K/mm3 (142-424); Red Blood Count 4.57 M/mm3 (4.20-5.40); Red Cell Distribution Width 14.1 % (11.5-17.5); White Blood Count 6.1 K/mm3 (4.8-10.8)
[2023-11-16 12:54] LABS: Squamous Epithelial Cell,Urine Occasional #/hpf (0-5)
[2023-11-16 14:28] LABS: Anion Gap 11.5 mEq/L (5-15); Blood Urea Nitrogen 16 mg/dl (7-17); Calcium 9.4 mg/dl (8.4-10.2); Carbon Dioxide 30 mmol/L (22.0-30.0); Chloride 95 mmol/L (98-107); Estimated Glomerular Filt Rate 63 ml/min (>60); GFR (African American) 77 ML/MIN (>60); Glucose 86 mg/dl (74-100); Potassium 3.5 mmoL/L (3.5-5.1); Sodium 133 mmol/L (136-145)
[2023-11-17 09:02] LABS: Alanine Aminotransferase 18 U/L (12-78); Alkaline Phosphatase 75 U/L (38-126); Aspartate Amino Transferase 29 U/L (14-36); Bilirubin,Indirect 0.5 mg/dL (0.0-0.9); Bilirubin,Total 0.5 mg/dl (0.2-1.3); Bilirubin,Unconjugated 0.5 mg/dL (0.0-1.1); Chol/HDL Ratio 2.6 (1-3.5); Cholesterol 215 mg/dl (140-200); HDL Cholesterol 83 mg/dl (40-60); Triglycerides 70 mg/dl (30-150); VLDL Cholesterol 14 mg/dL (0-40)
[2023-11-17 09:03] LABS: Albumin Level 4.3 g/dl (3.5-5.0)
== END 2023-11-16 23:59 | disposition home or self-care (01) ==
LOC: LAB 11:56
PROVIDERS: Physician Assistant; PCP Internal Medicine; Visit Provider Nurse Practitioner Family
DX: R82.90 Unspecified abnormal findings in urine (principal); I25.10 Atherosclerotic heart disease of native coronary artery without angina pectoris; I10 Essential (primary) hypertension; E78.5 Hyperlipidemia, unspecified
CPT/HCPCS: 36415; 80048; 80061; 80076; 81001; 85025

== ENCOUNTER 2024-01-11 11:39 | Outpatient (CLI) | payer OTHER, SELFPAY ==
[2024-01-11 11:46] VITALS: BP 127/57; PULSE 64; RESP 16; O2SAT 98; BMI 28.3
[2024-01-11] MEDS: INCLISIRAN SODIUM 284 MG/1.5 ML SYRINGE SQ (11:51)
== END 2024-01-11 11:52 | disposition home or self-care (01) ==
LOC: INF 11:40
PROVIDERS: PCP Internal Medicine; Visit Provider Nurse Practitioner Family
DX: E78.5 Hyperlipidemia, unspecified (principal)
CPT/HCPCS: 96372; J1306

== ENCOUNTER 2024-03-26 10:31 | Outpatient (CLI) | payer OTHER, SELFPAY ==
--- NOTE | 2024-03-26 10:35 | XR_ITS ---
FINAL REPORT CLINICAL HISTORY: Low back/hip pain COMPARISON: None FINDINGS: SINGLE VIEW PELVIS: A single view of the pelvis was obtained. There is no acute fracture or dislocation. Vizualized joint spaces are normally aligned. There is sclerosis involving the symphysis pubis, consistent with osteitis pubis. Soft tissues are unremarkable. IMPRESSION: Sclerosis of the symphysis pubis, consistent with osteitis pubis. No acute bony abnormality is identified. Reviewed, Interpreted and Dictated by Qian Velazco MD Transcribed by Latonia Blum Authenticated and [facility]
--- NOTE | 2024-03-26 10:35 | US_ITS ---
FINAL REPORT TECHNIQUE: Sonographic images of the thyroid gland were obtained in the longitudinal and transverse planes. CLINICAL HISTORY: Suspected bump in thyroid COMPARISON: None FINDINGS: The right lobe measures 1.1 x 3.2 x 1.4 cm. The right lobe is homogeneous. There are no cystic or solid nodules. The left lobe measures 0.8 x 2.7 x 0.9 cm. The left lobe is homogeneous. There are no cystic or solid nodules. The isthmus measures 3 mm. This is normal. IMPRESSION: No concerning nodules. Reviewed, Interpreted and Dictated by Qian Velazco MD Transcribed by Yuki Malik Authenticated and [facility]
--- NOTE | 2024-03-26 10:35 | XR_ITS ---
FINAL REPORT CLINICAL HISTORY: Low back/hip pain COMPARISON: None FINDINGS: AP and lateral views of the lumbar spine were obtained. There is no prior exam for comparison. There is no acute fracture or malalignment. Vertebral body height is preserved. There is mild degenerative disc disease present. No acute paraspinal abnormality. IMPRESSION: There is mild degenerative disc disease present, without acute bony abnormality. Reviewed, Interpreted and Dictated by Qian Velazco MD Transcribed by Latonia Blum Authenticated and [facility]
== END 2024-03-26 23:59 | disposition home or self-care (01) ==
LOC: RAD 10:32
PROVIDERS: PCP Internal Medicine; Visit Provider Internal Medicine
DX: M54.50 Low back pain, unspecified (principal); M25.559 Pain in unspecified hip; E07.9 Disorder of thyroid, unspecified
CPT/HCPCS: 72100; 72170; 76536

== ENCOUNTER 2024-04-25 10:00 | Outpatient (RCR) | payer OTHER, SELFPAY ==
--- NOTE | 2024-03-21 09:14 | HMH.PTOPEV ---
PT Outpatient Evaluation Rehab PT Outpatient Evaluation Start: 03/21/24 07:59 Freq: Status: Active Protocol: Document 03/21/24 08:53 AILYN (Rec: 03/21/24 09:13 AILYN [id number]) E-signed By Duran Becker, PT Outpatient Therapy Subjective History Subjective History The pt is a 63 yof who presents to outpatient physical therapy with reports of low back and R hip pain. She reports that she has been dealing with the hip pain for many years, but the low back pain has only been going on for about 1 month. She reports that the pain is not constant and only occurs a couple of times per week. She reports she has not noticed a particular action or position that provokes the pain. She reports that her back will catch and lock up and the pain becomes very severe for just a few minutes. She reports the pain occasionally goes into one of her legs but not always the same leg. She reports one time she had numbness into her L leg. The patient reports she sometimes has orthostatic hypotension as well due to her BP medication . New diagnosis of cancer in past 12 No months? Chief Complaint Pain,Stiff,Catches/Locks Symptom Type Sharp,Shooting Symptoms Relieved By Rest/Positioning,Heat,Ice Symptoms Aggravated By Sitting,Standing,Bending/ Stooping,Physical Activity, Twisting,Walking,Lifting Prior Functional Limitations None Current Functional Limitations Lifting,Housework,Driving, Standing,Sitting,Squatting, Walking,Stairs,Bending/ Stooping Level of pain today (0-10) 1 Pain scale - at its best (0-10) 0 Pain scale - at its worst (0-10) 8 Lumbopelvic Eval Posture Thoracic Spine Posture Standing Position Neutral Lumbar Spine Posture Standing Position Neutral Assistive device Assistive Devices None / NA Palapation tenderness bilateral thoracic spinal tenderness No lumbar spinal tenderness Yes: R TTP 3/4 paraspinal tenderness Yes: R TTP 3/4 buttock tenderness No tenderness over symphysis pubis No Lumbar/Sacral Palpation Findings None/Normal Accessory Movement L2 right L3 right L4 right Range of Motion Lumbar Spine Active Flexion Range of 100% Motion (degrees) Lumbar Spine Active Extension Range of 100% Motion (degrees) Left Lumbar Spine Lateral Flexion Active 50% Range of Motion (degrees) Right Lumbar Spine Lateral Flexion 100% Active Range of Motion (degrees) Lumbar Spine ROM Limitations Soft Tissue Tightness Manual Muscle Test Bilateral Knee Extension Strength Grade 4 Good Knee Flexion Strength Grade 4 Good Hip Flexion Strength Grade 4- Good- Hip Abduction Strength Grade 3+ Fair+ Hip Extension Strength Grade 3+ Fair+ DTR Rt Patellar 2+ Lt Patellar 2+ Rt Gastroc/Soleus 2+ Lt Gastroc/Soleus 2+ Special Tests Lumbar Spine Screen Positive Anterior/Posterior Rib Compression Test Negative Right Forward Bending Test- Standing Negative Left,Negative Right Hip Scouring (Quadrant) Test Positive Right Hip Pardeep (HERNAN) Test Positive Right Sciatic Nerve Tension Test Negative Left,Negative Right Unilateral Straight Leg Raise (Lasegue) Negative Left,Negative Right Test Sacroiliac Joint Compression Test Negative Left,Negative Right Sacroiliac Joint Distraction Test Negative Left,Negative Right Lumbar Spine Abrams Test Negative Left,Negative Right Oswestry Index Section 1 Pain Intensity The pain comes and goes and is severe Section 2 Personal Care (Washing,Dresing) change my way of washing or dressing in order to avoid pain Section 3 Lifting I can lift heavy weights without extra pain Section 4 Walking I cannot walk more than one mile wihtout increasing pain Section 5 Sitting Pain prevents me from sitting for more than one hour Section 6 Standing I cannot stand more than 1 hour without increasing pain Section 7 Sleeping Because of my pain, my normal night's sleep is less than 6 hours sleep Section 8 Social Life Pain has no significant effect on my social life apart from limiting Section 9 Traveling I get extra pain while traveling, but it does not compel me to seek al Section 10 Changing Degreee of Pain My pain is gradually getting worse Score and Risk Level Oswestry Sc 20 Oswestry Risk Level Moderate Disability Outpatient Therapy Assessment Impairments Problems/Impairmments Palpation Tenderness,Impaired Standing,Impaired Lifting, Impaired Squatting,Impaired Running,Impaired Balance, Subjective C/O Pain Prognosis Rehab Potential Good Comment Pt demonstrates hypomobility to L2-L4 with PA pressures both centrally and unilaterally (R). Pt demonstrated weakness into the hip/knee musculature bilaterally. These signs and symptoms are consistent with LBP with mobility deficits. Skilled PT is indicated for this pt. Clinical Impression Consistent with Diagnosis Yes Short Term Goals Number of Weeks 4 Decreased Palpation Tenderness Yes: 1/4 Increase Strength Yes: 4/5 to B hip/knees Increase Ability to Stand Yes: 30 minutes no pain Improve Oswestry Score Yes: Mild Disability Decrease Subjective C/O Pain Yes: 5/10 at worst Patient to be Ind w/ HEP Yes Fpc Goals Number of Weeks 8 Decreased Palpation Tenderness Yes: 0/4 Increase Strength Yes: 5/5 to B hip/knees Increase Ability to Stand Yes: 1 hour no pain Decrease Subjective C/O Pain Yes: 10 at worst Patient to be Ind w/ Advanced HEP Yes Outpatient Therapy Plan of Care Treatment Plan May Include Therapeutic Exercise Including Home Yes Exercise Program Manual Therapy Techniques Yes Neuromuscular Re-education Yes Therapeutic Activities to Return to Yes Previous Functional/Work Level Gait Training Yes ADL/Self Care Education Yes Mechanical Traction Yes Dry Needling Yes Thermal Modalities Yes Electrical Stimulation Yes Ultrasound/Phonophoresis Yes Eval/Re-Eval Yes Frequency Times per week 2 Duration Number of Weeks 8 Addendums This patient is a candidate for social No or vocational rehab? Patient/Guardian verbally acknowledges Yes understanding of treatment program and consents to further treatment? Patient/Guardian verbally acknowledges Yes understanding of diagnosis, prognosis and goals for treatment? Eval Complexity PT Charges 92182 - Low Complexity Shoulder/Elbow Eval Shoulder Objective Measurements Elbow Objective Measurements PHYSICIAN CERTIFICATION: I certify the specified therapy services for Dayana Bonilla are required, authorized, and reviewed every 30 days.
--- NOTE | 2024-04-25 11:09 | HMH.RHREAS ---
Rehab Reassessment Rehab OP Re-assessment Start: 03/21/24 07:59 Freq: Status: Active Protocol: Document 04/25/24 10:10 AILYN (Rec: 04/25/24 11:08 AILYN [id number]) E-signed By Duran Becker, PT Oswestry Index Section 1 Pain Intensity The pain comes and goes and is moderate Section 2 Personal Care (Washing,Dresing) change my way of washing or dressing in order to avoid pain Section 3 Lifting lifting heavy weights off the floor, but I can manage if they are Section 4 Walking I have no pain when walking Section 5 Sitting Pain prevents me from sitting for more than 1/2 hour Section 6 Standing I have some pain on standing, but it does not increase with time Section 7 Sleeping Because of my pain, my normal night's sleep is less than 4 hours Section 8 Social Life My social life is normal and gives me no extra pain Section 9 Traveling I get extra pain while traveling, but it does not compel me to seek al Section 10 Changing Degreee of Pain My pain fluctuates, but overall is definitely getting better Score and Risk Level Oswestry Sc 15 Oswestry Risk Level Moderate Disability Rehab Re-assessment Subjective Subjective Pt reports that overall she would estimate that she is about 60% better since beginning Physical Therapy. She reports that the pain in her back has improved drastically, but she does continue to have some pain into her R hip. She reports that in the past two weeks, the worst her pain has reached is a 5/10 pain. She reports that her balance has improved some but she still has some difficulty rising out of a chair, sitting for longer periods, and squatting. She reports that she would like to utilize the fitness center at the clinic more often. Objective Objective Notes DU: 15 (improved from 20) Strength: B Hip Flexion: 5/5 B Knee Extension: 5/5 B Knee Flexion: 5/5 B hip abduction: 4/5 B hip extension: 4/5 TTP: 05/04 to Lumbar Spine (R Paraspinals) Assessment Progress Assessment Progressing as Expected Assessment Notes The pt has demonstrated progress in her pain levels, strength, and overall perceived level of improvement . However, she continues to present below baseline in the areas and would continue to benefit from skilled PT to address her current impairments. Patient goals met ST,2,3,5,[address] LT [address] Not Met ST LT,2,4,5,6 Plan Plan Continue as per initial POC Frequency of Therapy 1-2/week Duration of therapy 4 weeks Time and Billing Re-Eval Time 12 Re-Eval Billing Units 1 Charge for PT reassessment? Yes PHYSICIAN CERTIFICATION: I certify the specified therapy services for Dayana Bonilla are required, authorized, and reviewed every 30 days.
== END 2024-04-25 23:59 | disposition home or self-care (01) ==
LOC: PT 10:00
PROVIDERS: Visit Provider Internal Medicine
DX: M54.50 Low back pain, unspecified (principal); M25.551 Pain in right hip
CPT/HCPCS: 97010; 97014; 97110; 97140; 97163; 97164; 97530; G0283

== ENCOUNTER 2024-05-03 09:55 | Outpatient (RCR) | payer OTHER, SELFPAY | END 2024-05-03 23:59 | disposition home or self-care (01) | LOC: PT 09:55 | PROVIDERS: Visit Provider Internal Medicine | DX: M54.50 Low back pain, unspecified (principal); M25.559 Pain in unspecified hip | CPT/HCPCS: 97110; 97530 ==

== ENCOUNTER 2024-06-03 10:07 | Outpatient (CLI) | payer OTHER, SELFPAY ==
[2024-06-03 12:16] LABS: Free T4 (Free Thyroxine) 0.92 ng/dl (0.78-2.19)
[2024-06-03 12:30] LABS: Thyroid Stimulating Hormone 1.16 uIU/mL (0.465-4.68)
== END 2024-06-03 23:59 | disposition home or self-care (01) ==
LOC: LAB 10:09
PROVIDERS: PCP Internal Medicine; Visit Provider Internal Medicine
DX: E03.9 Hypothyroidism, unspecified (principal); Z13.29 Encounter for screening for other suspected endocrine disorder
CPT/HCPCS: 36415; 84439; 84443

== ENCOUNTER 2024-07-10 13:51 | Outpatient (CLI) | payer OTHER, SELFPAY ==
[2024-07-10] MEDS: INCLISIRAN SODIUM 284 MG/1.5 ML SYRINGE SUBCUT (14:05)
[2024-07-10 14:10] VITALS: BP 125/76; PULSE 65; RESP 18; O2SAT 96
== END 2024-07-10 14:10 | disposition home or self-care (01) ==
LOC: INF 13:52
PROVIDERS: PCP Internal Medicine; Visit Provider Nurse Practitioner Family
DX: E78.5 Hyperlipidemia, unspecified (principal)
CPT/HCPCS: 96372; J1306

== ENCOUNTER 2024-08-26 10:38 | Outpatient (CLI) | payer OTHER, SELFPAY ==
--- NOTE | 2024-08-26 10:39 | CT_ITS ---
FINAL REPORT CLINICAL HISTORY: lung cancer screening.SMOKER. 2PPD FOR 50 YEARS COMPARISON: 08/24/2023 FINDINGS: Axial images were obtained from the lung apex to the mid abdomen by computed tomography. Low-dose protocol was utilized. CTDl vol(mGy): 2.90 DLP (mGy-cm): 98.47 FINDINGS: There is no axillary adenopathy. There is no hilar or mediastinal adenopathy. The heart size is normal. There is no pericardial or pleural effusion. Limited images of the upper abdomen are unremarkable. Lung window images demonstrate a stable, 2 mm nodule in the left lower lobe seen on image 33 of series 604. IMPRESSION: Lung RADS category 2. Recommend 12 month follow-up low-dose chest CT. Reviewed, Interpreted and Dictated by Ry Vegas MD Transcribed by Magui Barbosa Authenticated and [facility]
== END 2024-08-26 23:59 | disposition home or self-care (01) ==
LOC: RAD 10:39
PROVIDERS: PCP Internal Medicine; Visit Provider Internal Medicine Pulmonary Disease
DX: F17.210 Nicotine dependence, cigarettes, uncomplicated (principal)
CPT/HCPCS: 71271

== ENCOUNTER 2024-10-03 11:00 | Outpatient (CLI) | payer OTHER, SELFPAY ==
[2024-10-03 14:12] LABS: Basophils % 0.6 % (0.1-2.0); Eosinophils # 0.1 Kmm3 (0.0-0.4); Eosinophils % 1.9 % (0.1-12.0); Hemoglobin 13.8 g/dL (12.2-16.2); Immature Granulocytes # 0.04 10^3uL; Immature Granulocytes % 0.6 %; Lymphocytes # 1.5 K/mm3 (0.7-4.5); Lymphocytes % 24.1 % (10-50); Mean Corpuscular HGB Conc 34.5 g/dL (31.8-35.4); Mean Corpuscular Hemoglobin 31.2 pg (27.0-31.2); Mean Corpuscular Volume 90.5 fl (81-99); Mean Platelet Volume 9.4 fl (7.4-10.4); Monocytes # 0.5 K/mm3 (0.1-1.0); Monocytes % 7.3 % (1.7-9.3); Neutrophils # 4.2 K/mm3 (1.8-7.8); Neutrophils % 65.5 % (37.0-80.0); Nucleated Red Blood Cells # 0 10^3/uL; Nucleated Red Blood Cells % 0 %; Platelet Count 338 K/mm3 (142-424); Red Blood Count 4.42 M/mm3 (4.20-5.40); Red Cell Distribution Width 12.4 % (11.5-17.5); Red Cell Distribution Width-SD 41.5 fL; White Blood Count 6.4 K/mm3 (4.8-10.8)
[2024-10-03 15:57] LABS: Alanine Aminotransferase 15 U/L (12-78); Albumin Level 4.3 g/dl (3.5-5.0); Albumin/Globulin Ratio 1.7 (1.1-1.8); Alkaline Phosphatase 68 U/L (38-126); Anion Gap 13.5 mEq/L (5-15); Aspartate Amino Transferase 28 U/L (14-36); Bilirubin,Total 0.5 mg/dl (0.2-1.3); Blood Urea Nitrogen 16 mg/dl (7-17); Carbon Dioxide 28 mmol/L (22.0-30.0); Chloride 96 mmol/L (98-107); Chol/HDL Ratio 2.3 (1-3.5); Cholesterol 204 mg/dl (140-200); Estimated Glomerular Filt Rate 56 ml/min (>60); GFR (African American) 68 ML/MIN (>60); Globulin 2.6 g/dL (1.3-3.2); Glucose 97 mg/dl (74-100); HDL Cholesterol 89 mg/dl (40-60); Potassium 3.5 mmoL/L (3.5-5.1); Sodium 134 mmol/L (136-145); Total Protein,Serum 6.9 g/dl (6.3-8.2); Triglycerides 84 mg/dl (30-150); VLDL Cholesterol 17 mg/dL (0-40)
[2024-10-03 16:06] LABS: Hemoglobin A1C 5.4 % (4.0-6.0)
[2024-10-03 16:07] LABS: 25-OH Vitamin D, Total 35.3 ng/mL (30-100)
[2024-10-03 17:02] LABS: Total Iron Binding Capacity 283 ug/dL (265-497)
[2024-10-03 17:29] LABS: Ferritin 35.3 ng/ml (11.1-264)
[2024-10-03 20:57] LABS: Iron 76 ug/dL (37-170)
--- OUTSIDE RECORDS SUMMARY | 2024-10-04 13:09 | XMS_ITS | Encounter Summary ---
Author Organization [employer] Address [address] [place] [address] Care Team Providers Care Automatic Typewriter Inspector Name Role Phone Unavailable Primary Care Provider Unavailabl e Encounter Details Date Type Department Care Team (Late st Contact Info) Description 03/11/2021 Transcribed Document [facility] [place] Family Medicine [address] [place] [address] ProviderAlexis MD [facility] [place], [place] [id number] Social History Tobacco Use Types Packs/Day Years Used Date Smoking Tobacco: Never Assessed Comments Unknown Sex and Gender Information Value Date Recorded Sex Assigned at Not on file Legal Sex Female 5:40 PM CDT Gender Identity Not on file Sexual Orientation Not on file documented as of this encounter Miscellaneous Notes * Cerner Conversion Note - Alexis ProviderMD - 03/11/2021 8:09 AM AEROLOGIST UM Authorization Entered On: 03/11/2021 8:20 EST Performed On: 03/11/2021 8:09 EST by CHRISTIAN ARMENTA RN Primary Insurance Authorization Authorization and Policy Numbers : Insurance 1 Health Plan: [facility] [employer] Policy Number: [id number] Authorization Number: [id number] Insurance Primary Name : [facility] Policy Number: [id number] Authorization Status-Primary : Admit approved Number of Days Authorized-Primary : 4 Day(s) Authorized Service Begin Date-Primary : 03/10/2021 EST Authorized Service End Date-Primary : 03/14/2021 EST Authorization Comments-Primary : IP admit approved from 03/10 to 03/14 per [facility] website Historical Authorization Comments-Primary : No Authorization Comments Found CHRISTIAN ARMENTA RN - 03/11/2021 8:09 EST Electronically signed by [facility] Conversion Plate Glass Polisher Cerner at 08/19/2022 6:10 PM CDT documented in this encounter Plan of Treatment Not on file documented as of this encounter Visit Diagnoses Not on filedocumented in this encounter
--- OUTSIDE RECORDS SUMMARY | 2024-10-04 13:09 | XMS_ITS | Encounter Summary ---
Author Organization [facility] Address [address] [place] [address] Care Team Providers Care Aircraft Instrument Mechanic Name Role Phone Unavailable Primary Care Provider Unavailabl e Encounter Details Date Type Department Care Team (Late st Contact Info) Description 03/11/2021 Transcribed Document [facility] [place] Family Medicine [facility] [place] [address] ProviderAlexis MD [address] [place] [id number] Social History Tobacco Use Types Packs/Day Years Used Date Smoking Tobacco: Never Assessed Comments Unknown Sex and Gender Information Value Date Recorded Sex Assigned at Not on file Legal Sex Female 5:40 PM CDT Gender Identity Not on file Sexual Orientation Not on file documented as of this encounter Miscellaneous Notes * Cerner Conversion Note - Alexis ProviderMD - 03/11/2021 1:29 PM DRAWER FITTER Patient Resource Center Entered On: 03/11/2021 13:30 EST Performed On: 03/11/2021 13:29 EST by Angelique Pozo, Hire Car Driver Patient Resource Center Provider Status : EST Other Established Provider Name : ARMANDO OWENS Patient Phone Number : [phone] Patient Insurance Type : Commercial (ex. [employer] PPO, [employer] HMO) Source of Referral : Case management Location of Patient : Case management referral Primary Care Scheduled : Yes Primary Care Scheduled Type : Non CMG Primary Care Provider Name : ARMANDO OWENS Primary Care Appointment Date/Time : 03/30/2021 13:15 EST Specialty Care Scheduled : Yes Specialty Type Scheduled1 : Colorectal Surgery Colorectal Provider Name : ARMANDO ENGLAND Colorectal Appointment Date/Time : 03/18/2021 14:00 EST Qualify for Diabetes and/or Nutrition Referral : No Wound Care Appointment Made : No Why Patient Visited ED- Specialty spent : Other How Patient Arrived at ED : Other Primary Language : Ukrainian Patient Resource Center Comment : Patient needs follow up appointments. Called offices and scheduled appointments with Dr. England and Dr. Owens Follow Up Needed : No Angelique Pozo, Hire Car Driver - 03/11/2021 13:29 EST documented in this encounter Plan of Treatment Not on file documented as of this encounter Visit Diagnoses Not on filedocumented in this encounter
--- OUTSIDE RECORDS SUMMARY | 2024-10-04 13:09 | XMS_ITS | Encounter Summary ---
Author Organization [employer] Address [address] [place] [address] Care Team Providers Care Cash Management Coordinator Name Role Phone Unavailable Primary Care Provider Unavailabl e Encounter Details Date Type Department Care Team (Late st Contact Info) Description 03/11/2021 Transcribed Document [facility] [place] [address] [place] [address] ProviderAlexis MD [facility] [place] [address] Social History Tobacco Use Types Packs/Day Years Used Date Smoking Tobacco: Never Assessed Comments Unknown Sex and Gender Information Value Date Recorded Sex Assigned at Not on file Legal Sex Female 5:40 PM CDT Gender Identity Not on file Sexual Orientation Not on file documented as of this encounter Miscellaneous Notes * Cerner Conversion Note - Historical ProviderMD - 03/11/2021 6:39 AM PET CARE ASSOCIATE Patient: DAYANA BONILLA Age: 60 Years Sex: Female : 1960 CSGA POST OP NOTE Subjective: Objective: Vitals Signs (last 24 hrs) Last Charted Minimum Maximum Temp 98.1 (MAR 11 02:00) 97 (MAR 10:) 98.3 (MAR 10 14:50) Mon HR 74 (MAR 11 02:00) 61 (MAR 10 14:50) 74 (MAR 10 16:29) Resp Rate 16 (MAR 11 02:00) 16 (MAR 10 14:50) 18 (MAR 10:) SBP 129 (MAR 11 02:00) 101 (MAR 10 22:03) H 154 (MAR 10 10:25) DBP 63 (MAR 11 02:00) L 40 (MAR 10 16:29) 81 (MAR 10 10:05) MAP 78 (MAR 11 02:00) 58 (MAR 10 16:29) 105 (MAR 10 10:05) SpO2 99 (MAR 11 02:00) L 92 (MAR 10 15:05) 100 (MAR 10 10:25) IV Fluids & Drains Last 24 Hours (7a-7a) Intake (1) Dextrose 5% with 0.45% NaCl and KCl 20 mEq/L 1,000 mL 1875 mL Intake Total: 1875mL Output (0) No drain output events found in the last 24 hours. Exam: Abdomen soft. Wounds clean and intact. Impression: S/P robotic low anterior resection for diverticulitis. Patient progressing well postoperatively and having no issues. She has been up and walking. Pain is in good control. She has tolerated p.o.'s and moved her bowels. Mcdaniel catheter has been removed. Plan: Soft GI Diet. D/C mcdaniel. Done Up and walking 4 times daily. Limit IV narcotic pain medicine. Decrease IVF to 75ml/hr. May shower. If doing well after lunch may D/C home. Follow up with Dr. England in the office in 1 week. May shower at home. Have left a prescription for Percocet on the chart. documented in this encounter Plan of Treatment Not on file documented as of this encounter Visit Diagnoses Not on filedocumented in this encounter
--- OUTSIDE RECORDS SUMMARY | 2024-10-04 13:09 | XMS_ITS | Encounter Summary ---
Author Organization [employer] Address [address] [place] [address] Care Team Providers Care Sales Administrator Name Role Phone Unavailable Primary Care Provider Unavailabl e Encounter Details Date Type Department Care Team (Late st Contact Info) Description 03/10/2021 Transcribed Document [facility] [place] Family Medicine [facility] [place] [address] ProviderAlexis MD [address] [place] [id number] Social History Tobacco Use Types Packs/Day Years Used Date Smoking Tobacco: Never Assessed Comments Unknown Sex and Gender Information Value Date Recorded Sex Assigned at Not on file Legal Sex Female 5:40 PM CDT Gender Identity Not on file Sexual Orientation Not on file documented as of this encounter Miscellaneous Notes * Cerner Conversion Note - Alexis ProviderMD - 03/10/2021 2:34 PM KENNEL AIDE Patient: DAYANA BONILLA Age: 60 Years Sex: Female : 1960 CSGA Pre Op Diagnosis: Diverticulitis, possible appendicitis Post Op Diagnosis: Diverticulitis Procedure: Robotic low anterior resection. Dry Clipper Tender: Vazquez Indications: This is a pleasant 60-year-old female who has symptoms of chronic abdominal distention pain and constipation type symptoms. I performed a colonoscopy was unable to get the scope beyond a severely kinked area of sigmoid colon that was riddled with diverticular disease. Patient has had a previous vaginal hysterectomy and tubal ligation. Prior to surgery patient also had symptoms of gastritis and underwent an EGD to rule out an ulcer. This was all negative though she did have gastritis. At this point I talked with the patient about proceeding to the OR for sigmoid resection as she has had recurrent episodes of left lower quadrant abdominal pain with associated constipation all consistent with diverticulitis based on my endoscopic findings. Findings: At time of surgery patient had minimal adhesions throughout the abdomen. She had her sigmoid colon folded back on itself and stuck to the vaginal cuff. There were a number of diverticuli seen but nothing that appeared to be acutely infected. Her appendix appeared unremarkable. Her small bowel was also unremarkable. I felt she be best served with sigmoid resection and we proceeded along these lines. This would help both to straighten out her colon to remove the kink and remove the diseased sigmoid colon. This will allow for future endoscopy. EBL: Minimal Fluids: 1 L Specimen: Sigmoid colon. Sponge, needle, and instrument count: Correct by nursing count at end of case. Procedure in Detail: Patient was correctly identified, brought to the operating room, placed in a supine position on the OR table. They underwent induction of anesthesia and were intubated. An OG tube and Camarena catheter were placed for the case. Legs were positioned in Yellow Fin stirrups and all pressure points were checked. Pt. was prepped and draped in the usual sterile fashion. An appropriate timeout performed. The procedure began with placement of an Optiview port in the right midabdomen through which a pneumoperitoneum was achieved under direct vision. Subsequent to this the remaining robotic ports were placed. An initial survey of the abdomen was performed which confirmed that the procedure could be done. The patient was tipped in Trendelenburg position and slight right side down. The small bowel was swept out of the pelvis and the omentum flipped over the transverse colon. The robot was docked to the patient. I went to the console and began a medial to lateral dissection. I began by incising the medial peritoneum underneath the LESTER pedicle, identifying the left ureter and gonadal vessels. The LESTER was isolated and divided with vessel seal. Subsequent to this I continued a medial to lateral dissection over Gerota's fascia up to the splenocolic ligaments. These were divided with vessel seal allowing the splenic flexure to be freed up. I carried dissection medial to lateral down toward the pelvic brim. At this point I, I had to spend some time dissecting the sigmoid colon off of the vaginal cuff where it was densely adherent. There was also a densely here and back on itself. Once I had freed it off the vaginal cuff and the left pelvic sidewall and remove the adhesions where it was kinked back on itself I was able to pull the rectum up out of the pelvis. At this point I was able to carry my dissection over the sacral promontory and dissect the mesorectum. Finally, I released all of the lateral attachments of the rectum and left colon from the splenic flexure down to the low rectum. A rectal sizer was placed into the rectum and a suitable spot was chosen for dividing the rectum at the splaying of the Tinia. Vessel seal was used to divide the mesorectum. A 45 thick tissue load robotic stapler was used to come across the rectum. At this point I chose a suitable spot in the descending colon for an anastomosis. The colon was soft and supple in this area. The mesocolon was divided with vessel seal up to this point. 5 mL of Isonene Green was injected and FireFly turned on. Good blood supply was confirmed to the descending colon. An enterotomy was made in our specimen and the anvil of a 28 CEA stapler was passed into the descending colon and the colon divided with a robotic 45 thick tissue load robotic stapler. The anvil was advanced through this staple line so that it would seat nicely at the end of the descending colon. The enterotomy in the specimen was closed with a 3-0 V-lock stitch. The specimen moved off to the right lower quadrant. An end to end anastomosis was then made with the descending colon to the rectum. This was done without twists, tension, and good blood supply in both segments of bowel as determined by an additional injection of 5 mL of Isonene Green and use of FireFly. Once the anastomosis was made, it was leak tested under water and found to be of good integrity without air leak. I also inspected via proctoscopy and noted that there was a circumferentially intact staple line and healthy bowel on both sides of the anastomosis. Once a good anastomosis was confirmed, the robot was undocked from the patient, the specimen was removed through an extraction site in the right lower quadrant containing a wound protector, and pneumoperitoneum reachieved. I did a thorough irrigation of the abdomen with 1 L fluid. There was clear return and no bleeding noted. Pneumoperitoneum was released and the extraction site was closed in 2 layers. First, we closed the peritoneal layer with a #1 Vicryl in a running fashion. Second, we closed the fascia with a #1 PDS in a running fashion. All wounds were closed with 3-0 Monocryl sutures in a running subcuticular fashion and Perineo dressings placed. The patient was awakened, extubated, and brought to recovery room in good condition. Electronically signed by Sandor Carvajal Conversion Academic Success Coordinator Cerner at 08/19/2022 6:22 PM CDT documented in this encounter Plan of Treatment Not on file documented as of this encounter Visit Diagnoses Not on filedocumented in this encounter
--- OUTSIDE RECORDS SUMMARY | 2024-10-04 13:09 | XMS_ITS | Encounter Summary ---
Author Organization [employer] Address [address] [place] [address] Care Team Providers Care Packing Attendant Name Role Phone Unavailable Primary Care Provider Unavailabl e Encounter Details Date Type Department Care Team (Late st Contact Info) Description 03/11/2021 Transcribed Document [facility] [place] [address] [place] [address] ProviderAlexis MD [facility] [place], [place] [id number] Social History Tobacco Use Types Packs/Day Years Used Date Smoking Tobacco: Never Assessed Comments Unknown Sex and Gender Information Value Date Recorded Sex Assigned at Not on file Legal Sex Female 5:40 PM CDT Gender Identity Not on file Sexual Orientation Not on file documented as of this encounter Miscellaneous Notes * Cerner Conversion Note - Historical ProviderMD - 03/11/2021 6:00 AM SPRING ASSEMBLER SUPERVISOR Pain Assessment Entered On: 03/11/2021 8:25 EST Performed On: 03/11/2021 7:13 EST by Sarah Sahu RN Intervention Information: ketorolac Performed by Krys Meyer Lpn on 03/11/2021 06:43:00 EST ketorolac,15mg IV Push,Left Lower Forearm Pain Assessment Pain Assessment : Initial assessment Pain Scale Goal : 6 Pain Scale Used : 0-10 Scale Sarah Sahu RN - 03/11/2021 8:25 EST Pain Scale Intensity : 2 Sarah Sahu RN - 03/11/2021 8:25 EST Image 4 - Images currently included in the form version of this document have not been included in the text rendition version of the form. documented in this encounter Plan of Treatment Not on file documented as of this encounter Visit Diagnoses Not on filedocumented in this encounter
--- OUTSIDE RECORDS SUMMARY | 2024-10-04 13:09 | XMS_ITS | Encounter Summary ---
Author Organization [employer] Address [address] [place] [address] Care Team Providers Care Water And Fire Technician Name Role Phone Unavailable Primary Care Provider Unavailabl e Encounter Details Date Type Department Care Team (Late st Contact Info) Description 03/11/2021 Transcribed Document [facility] [place] [address] [place] [address] ProviderAlexis MD [facility] [place], [place] [address] Social History Tobacco Use Types Packs/Day Years Used Date Smoking Tobacco: Never Assessed Comments Unknown Sex and Gender Information Value Date Recorded Sex Assigned at Not on file Legal Sex Female 5:40 PM CDT Gender Identity Not on file Sexual Orientation Not on file documented as of this encounter Miscellaneous Notes * Cerner Conversion Note - Alexis ProviderMD - 03/11/2021 9:10 AM SUPERINTENDENT TRANSPORTATION Initial Discharge Planning Entered On: 03/11/2021 9:12 EST Performed On: 03/11/2021 9:10 EST by DERREK MASTERS RN-Speech Lang Path Therapist Initial Assessment I Previously Documented Living Environment : No qualifying data available. Living Situation : Home Patient Lives With : Spouse Is the Patient a Caregiver at Home? : No Emergency Contact #1 : Jean Bonilla Emergency Contact #1 Emergency Contact #1 Relationship : spouse Emergency Contact #2 : , Emergency Contact #2 Phone Number : , Emergency Contact #2 Relationship : , Enter Doctors Name : Leroy Mueller Does Patient have PCP Listed? : Yes Legal Guardian : No Is Guardianship Needed : No DERREK MASTERS RN-Speech Lang Path Therapist - 03/11/2021 9:10 EST Initial Assessment II Sensory and Motor Deficits : None Current Home Treatments and Equipment : None DERREK MASTERS RN-Speech Lang Path Therapist - 03/11/2021 9:10 EST Discharge Needs I Anticipated Discharge Date : 03/13/2021 EST Anticipated Discharge To, CM : Home with family care Current Home Treatment/Equipment : Current Home Treatment/Equipment No qualifying data available. Post Acute/Home Treatments : None Documentation Status Complete : Yes DERREK MASTERS RN-Speech Lang Path Therapist - 03/11/2021 9:10 EST Discharge Needs II Professional Skilled Services : Professional Skilled Services No qualifying data available. Needs Assistance with Transportation : No Patient Discharge Goal : Home DERREK MASTERS RN-Speech Lang Path Therapist - 03/11/2021 9:10 EST Narrative Note Narrative Note : Received from PACU s/p robotic LAR. Met with Pt at the bedside, up and about in the room. Role of CM explained. Pt states that she is ADL independent, lives with her . Plans are to return home when discharged. Pt states that Dr England said she could probably leave after lunch. No needs anticipated/verbalized at this time. RRS is low @ 27. CM will follow. DERREK MASTERS RN-Speech Lang Path Therapist - 03/11/2021 9:10 EST Electronically signed by Sandor Carvajal Conversion Mechanic General Operational Test Aysha at 08/19/2022 6:14 PM CDT documented in this encounter Plan of Treatment Not on file documented as of this encounter Visit Diagnoses Not on filedocumented in this encounter
--- OUTSIDE RECORDS SUMMARY | 2024-10-04 13:09 | XMS_ITS | Encounter Summary ---
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 Name Role Phone Unavailable Primary Care Provider Unavailabl e Encounter Details Date Type Department Care Team (Late st Contact Info) Description 03/11/2021 Transcribed Document [facility] [address] [place] [address] ProviderAlexis MD [address] [place] [id number] Social History Tobacco Use Types Packs/Day Years Used Date Smoking Tobacco: Never Assessed Comments Unknown Sex and Gender Information Value Date Recorded Sex Assigned at Not on file Legal Sex Female 5:40 PM CDT Gender Identity Not on file Sexual Orientation Not on file documented as of this encounter Miscellaneous Notes * Cerner Conversion Note - Alexis Livingston MD - 03/11/2021 1:36 PM LENS COATER [facility] [place] [address] DAYANA BONILLA :1960 Visit Time:03/10/2021 Your Visit Summary Your Care Team Admitting Physician - ARMANDO ZAVALA MD-PRO Attending Physician - TRINITY NAVA MD-INT Primary Care Physician - ARMANDO OWENS MD-KATHRYN Referring Physician - ARMANDO OWENS MD-FAM Your Diagnosis Diverticulitis, Diverticulitis of intestine, part unspecified, without perforation or abscess without bleeding, Diverticulitis of intestine, part unspecified, without perforation or abscess without bleeding These Are Your Goals Patient Discharge Goal Patient Discharge Goal: Home What to do next Instructions From Your Care Team Discharge Activity: No strenuous activities Discharge Diet: GI Soft/Low Residue/Low Fiber Follow-Up Appointments Follow Up with ARMANDO OWENS MD-FAM When 03/30/2021 01:15 PM EST Comments PCP follow up Appointment has been made. Bring discharge instructions with you. Where: [address] [place] [address]- Follow Up with ARMANDO ZAVALA MD-PRO When 03/18/2021 02:00 PM EST Comments Colorectal Surgical follow up Appointment has been made. Bring discharge instructions with you. Where: [address] [facility] [address] [place] [id number]- Medications What How Much When Instructions Next Dose acetaminophen (acetaminophen 500 mg oral tablet) 2 Tablet(s) Oral Two Times A Day Duration: 5 Day(s) not to exceed 3000 mg/ day this evening acetaminophen-oxyCODONE (Percocet 5 mg-325 mg oral tablet) 1 Tablet(s) Oral Every 6 Hours as needed for as needed for pain Pickup at [facility] 591 as needed baclofen (baclofen 5 mg oral tablet) 1 Tablet(s) Oral Three Times A Day due at 3:00pm buPROPion (buPROPion 150 mg/ 12 hours (SR) oral tablet, extended release) Oral Two Times A Day this evening citalopram (citalopram 20 mg oral tablet) Oral Every Day tomorrow cyanocobalamin (Vitamin B12 1000 mcg oral tablet) 1 Tablet(s) Oral Every Day tomorrow estradiol (estradiol 1 mg oral tablet) 1 Tablet(s) Oral Every Day you have not had this today omeprazole 20 Milligram(s) Oral Two Times A Day this evening rosuvastatin (rosuvastatin 20 mg oral tablet) Oral At Bedtime at bedtime Pharmacy Information [facility]: [address] [address] [phone] Take your medications faithfully. Do NOT skip medication. Do NOT stop taking medications without the direction of a physician. Carry a list of your medications with you at all times, and take this medication list with you to your first follow up visit. Report any side effects. Avoid herbal remedies unless discussed with your physician. As part of your treatment plan, your physician may have prescribed a limited course of a controlled substance. This medication may be given to help people with moderate or severe pain or for other medical conditions, but there are risks involved with treatment. Common side effects may include nausea, constipation, drowsiness, sweating, itching, dry mouth, and rash. More serious side effects may include cognitive and motor impairment, like problems with thinking, concentrating, alertness, and movement (e.g. slowed reflexes), and driving and operating heavy machinery can be dangerous. It is important for you to talk to your physician if you have these side effects or questions. These controlled substances can produce physical dependence and be habit-forming if taken for an extended period of time, which means that the body has gotten used to them and may experience withdrawal symptoms if they are abruptly stopped. Withdrawal symptoms can include runny nose, sweating, goose bumps, diarrhea, abdominal cramping, rapid heartbeat, difficulty sleeping, and nervousness. Please dispose of unused and medications per your retail pharmacy guidance. Allergies Benadryl Latex (Rash, skin) amitriptyline Immunizations This Visit No Immunizations Found Education Materials Diverticulitis Diverticulitis is when small pouches in your colon (large intestine) get infected or swollen. This causes pain in the belly (abdomen) and watery poop (diarrhea). These pouches are called diverticula. The pouches form in people who have a condition called diverticulosis. What are the causes? This condition may be caused by poop (stool) that gets trapped in the pouches in your colon. The poop lets germs (bacteria) grow in the pouches. This causes the infection. What increases the risk? You are more likely to get this condition if you have small pouches in your colon. The risk is higher if: ??? You are overweight or very overweight (obese). ??? You do not exercise enough. ??? You drink alcohol. ??? You smoke or use products with tobacco in them. ??? You eat a diet that has a lot of red meat such as beef, pork, or knapp. ??? You eat a diet that does not have enough fiber in it. ??? You are older than 40 years of age. What are the signs or symptoms? Pain in the belly. Pain is often on the left side, but it may be in other areas. ??? Fever and feeling cold. ??? Feeling like you may vomit. ??? Vomiting. ??? Having cramps. ??? Feeling full. ??? Changes to how often you poop. ??? Blood in your poop. How is this treated? Most cases are treated at home by: ??? Taking pcuo-ghl-ttnjjnj pain medicines. ??? Following a clear liquid diet. ??? Taking antibiotic medicines. ??? Resting. Very bad cases may need to be treated at a hospital. This may include: ??? Not eating or drinking. ??? Taking prescription pain medicine. ??? Getting antibiotic medicines through an IV tube. ??? Getting fluid and food through an IV tube. ??? Having surgery. When you are feeling better, your doctor may tell you to have a test to check your colon (colonoscopy). Follow these instructions at home: Medicines ??? Take lnhr-xii-zzxqvwa and prescription medicines only as told by your doctor. These include: ? Antibiotics. ? Pain medicines. ? Fiber pills. ? Probiotics. ? Stool softeners. ??? If you were prescribed an antibiotic medicine, take it as told by your doctor. Do not stop taking the antibiotic even if you start to feel better. ??? Ask your doctor if the medicine prescribed to you requires you to avoid driving or using machinery. Eating and drinking ??? Follow a diet as told by your doctor. ??? When you feel better, your doctor may tell you to change your diet. You may need to eat a lot of fiber. Fiber makes it easier to poop (have a bowel movement). Foods with fiber include: ? Berries. ? Beans. ? Lentils. ? Green vegetables. ??? Avoid eating red meat. General instructions ??? Do not use any products that contain nicotine or tobacco, such as cigarettes, e-cigarettes, and chewing tobacco. If you need help quitting, ask your doctor. ??? Exercise 3 or more times a week. Try to get 30 minutes each time. Exercise enough to sweat and make your heart beat faster. ??? Keep all follow-up visits as told by your doctor. This is important. Contact a doctor if: ??? Your pain does not get better. ??? You are not pooping like normal. Get help right away if: ??? Your pain gets worse. ??? Your symptoms do not get better. ??? Your symptoms get worse very fast. ??? You have a fever. ??? You vomit more than one time. ??? You have poop that is: ? Bloody. ? Black. ? Tarry. Summary ??? This condition happens when small pouches in your colon get infected or swollen. ??? Take medicines only as told by your doctor. ??? Follow a diet as told by your doctor. ??? Keep all follow-up visits as told by your doctor. This is important. This information is not intended to replace advice given to you by your health care provider. Make sure you discuss any questions you have with your health care provider. Document Revised: 01/27/2020 Document Reviewed: 01/27/2020 [employer] Patient Education ?? 2020 [employer] Minimally Invasive Total Colectomy, Care After This sheet gives you information about how to care for yourself after your procedure. Your health care provider may also give you more specific instructions. If you have problems or questions, contact your health care provider. What can I expect after the procedure? After your procedure, it is common to have the following: ??? Pain in your abdomen, especially in the incision areas. You will be given medicine to control the pain. ??? Tiredness. This is a normal part of the recovery process. Your energy level will return to normal over the next several weeks. ??? Changes in your bowel movements, especially having bowel movements more often. Talk with your health care provider about how to manage this. Follow these instructions at home: Medicines ??? Take unqg-zhj-nhpcwxr and prescription medicines only as told by your health care provider. ??? If you were prescribed an antibiotic medicine, take it as told by your health care provider. Do not stop using the antibiotic even if you start to feel better. ??? Ask your health care provider if the medicine prescribed to you requires you to avoid driving or using machinery. Eating and drinking ??? Follow instructions from your health care provider about what you can eat after surgery. You may be asked to begin with a diet that is low in fiber. ??? Do not drink alcohol if: ? Your health care provider tells you not to drink. ? You are , may be , or are planning to become . ??? If you drink alcohol: ? Limit how much you use to: ? 0???1 drink a day for women. ? 0???2 drinks a day for men. ? Be aware of how much alcohol is in your drink. In the [place] one drink equals one 12 oz bottle of beer (355 mL), one 5 oz glass of wine (148 mL), or one 1?? oz glass of hard liquor (44 mL). Incision care ??? Follow instructions from your health care provider about how to take care of your incisions. Make sure you: ? Wash your hands with soap and water for at least 20 seconds before and after applying medicine to the area, and before and after changing your bandage (dressing). If soap and water are not available, use hand bioinformatics programmer. ? Change your dressing as told by your health care provider. ? Leave stitches (sutures) or jose in place. These skin closures may need to stay in place for 2 weeks or longer. If adhesive strip edges start to loosen and curl up, you may trim the loose edges. Do not remove adhesive strips completely unless your health care provider tells you to do that. ??? Keep your incisions clean and dry. ??? Do not wear tight clothing over the incisions. Tight clothing may rub and irritate the incision areas, which may cause the incisions to open. ??? Do not take baths, swim, or use a hot tub until your health care provider approves. Ask your health care provider if you may take showers. You may only be allowed to take sponge baths. ??? Check your incision area every day for signs of infection. Check for: ? More redness, swelling, or pain. ? Fluid or blood. ? Warmth. ? Pus or a bad smell. Activity ??? Rest as told by your health care provider. ??? Avoid sitting for a long time without moving. Get up to take short walks every 1???2 hours. This is important to improve blood flow and breathing. Ask for help if you feel weak or unsteady. ??? Do not lift anything that is heavier than 10 lb (4.5 kg), or the limit that you are told, until your health care provider says that it is safe. ??? Return to your normal activities as told by your health care provider. Ask your health care provider what activities are safe for you. General instructions ??? Keep all follow-up visits as told by your health care provider. This is important. You may need a follow-up visit to remove sutures or jose. Contact a health care provider if: ??? You have more redness, swelling, or pain around your incisions. ??? You have fluid or blood coming from the incisions. ??? Your incisions feel warm to the touch. ??? You have pus or a bad smell coming from your incisions or your dressing. ??? You have a fever. ??? Your incisions break open after sutures or jsoe have been removed. Get help right away if: ??? You develop a rash. ??? You have chest pain or difficulty breathing. ??? You have pain or swelling in your legs. ??? You feel light-headed or you faint. ??? Your abdomen swells (becomes distended). ??? You have nausea or vomiting. ??? You have blood in your stool. Summary ??? After the procedure, it is common to have pain in the abdomen, tiredness, or changes in bowel movements. ??? Follow instructions from your health care provider about how to care for your incisions. ??? Begin your diet with low-fiber foods. Your health care provider will tell you when to resume your regular diet. ??? Contact a health care provider if you have any signs of infection, such as a fever, more redness, swelling, or pain around your incisions, or a bad smell coming from your incisions. ??? Get help right away if you have a rash, nausea, chest pain, pain or swelling in your legs, or blood in your stool. This information is not intended to replace advice given to you by your health care provider. Make sure you discuss any questions you have with your health care provider. Document Revised: 03/25/2020 Document Reviewed: 03/25/2020 [employer] Patient Education ?? 2020 [employer] Low Residue Diet A low residue diet is a diet often used to reduce the frequency and volumes of bowel movements (stools) while prolonging intestinal transit times ( the amount of time it takes for food to pass from our bodies). It is similar to a low fiber diet, but usually restricts foods that increase bowel activity. A low residue diet typically contains less than 7-10 grams of fiber per day. group home use of this diet may not provide needed nutrients due to its emphasis on processed foods and reduced intake of fruits and vegetables. Conditions that may require a low residue diet: Gastroparesis Before and after abdominal or intestinal surgery Bowel inflammation Perla???s disease Diverticulitis Ulcerative colitis Radiation therapy to the pelvis and lower bowel General guidelines Foods that are included: White bread, pastas, cereals and white rice Limited servings of canned or well-cooked vegetables that do NOT include skins Moderate amounts of fresh fruits without peels or seeds, some canned or well-cooked fruits Tender, ground, well cooked meat, fish, eggs and poultry Milk and yogurt (usually limited to 2 cups per day) mild cheese, ricotta, cottage cheese Butter, mayonnaise, vegetable oils, margarine, plain gravies and dressings Broth and strained soups from allowed foods Pulp free, strained or clear juices Foods to avoid: Whole grain breads & pastas, corn bread, products made with whole grain products or bran Strong cheeses or yogurt containing fruit skins or seeds Raw vegetables, except lettuce and other leaves Tough meat or meat with gristle Peanut butter (however up to 2 tablespoons a day of creamy peanut butter is generally allowed) [place], buckwheat, flax, oatmeal Dried beans, peas, and legumes Dried fruits, berries or other fruits with skin or seeds Chocolate with cocoa powder (white chocolate has no fiber) Food containing whole coconut Juices with pulp Highly spiced food and dressings, pepper, hot sauces Coffee and other foods with caffeine Popcorn, nuts and seeds Low-Fiber Eating Plan Fiber is found in fruits, vegetables, whole grains, and beans. Eating a diet low in fiber helps to reduce how often you have bowel movements and how much you produce during a bowel movement. A low-fiber eating plan may help your digestive system heal if: ??? You have certain conditions, such as Crohn's disease or diverticulitis. ??? You recently had radiation therapy on your pelvis or bowel. ??? You recently had intestinal surgery. ??? You have a new surgical opening in your abdomen (colostomy or ileostomy). ??? Your intestine is narrowed (stricture). Your health care provider will determine how long you need to stay on this diet. Your health care provider may recommend that you work with a diet and document management specialist (dietitian). What are tips for following this plan? General guidelines ??? Follow recommendations from your dietitian about how much fiber you should have each day. ??? Most people on this eating plan should try to eat less than 10 grams (g) of fiber each day. Your daily fiber goal is g. ??? Take vitamin and mineral supplements as told by your health care provider or dietitian. Chewable or liquid forms are best when on this eating plan. Reading food labels ??? Check food labels for the amount of dietary fiber. ??? Choose foods that have less than 2 grams of fiber in one serving. Cooking ??? Use white flour and other allowed grains for baking and cooking. ??? Cook meat using methods that keep it tender, such as braising or poaching. ??? Cook eggs until the yolk is completely solid. ??? Cook with healthy oils, such as olive oil or canola oil. Meal planning ??? Eat 5-6 small meals throughout the day instead of 3 large meals. ??? If you are lactose intolerant: ? Choose low-lactose dairy foods. ? Do not eat dairy foods, if told by your dietitian. ??? Limit fat and oils to less than 8 teaspoons a day. ??? Eat small portions of desserts. What foods are allowed? The items listed below may not be a complete list. Talk with your dietitian about what dietary choices are best for you. Grains All bread and crackers made with white flour. Waffles, pancakes, and [place] toast. Bagels. Pretzels. [place] toast, zwieback, and matzoh. Cooked and dried cereals that do not contain whole grains, added fiber, seeds, or dried fruit. Cornmeal. [place]. Hot and cold cereals made with refined corn, wheat, rice, or oats. Plain pasta and noodles. White rice. Vegetables Well-cooked or canned vegetables without skin, seeds, or stems. Cooked potatoes without skins. Vegetable juice. Fruits Soft-cooked or canned fruits without skin and seeds. Peeled ripe banana. Applesauce. Fruit juice without pulp. Meats and other protein foods Ground meat. Tender cuts of meat or poultry. Eggs. Fish, seafood, and shellfish. Smooth nut butters. Tofu. Dairy All milk products and drinks. Lactose-free milks, including rice, soy, and almond milks. Yogurt without fruit, nuts, chocolate, or granola mix-ins. Sour cream. Cottage cheese. Cheese. Beverages Decaf coffee. Fruit and vegetable juices or smoothies (in small amounts, with no pulp or skins, and with fruits from allowed list). Sports drinks. Herbal tea. Fats and oils [place] oil, canola oil, sunflower oil, flaxseed oil, and grapeseed oil. Mayonnaise. Cream cheese. Margarine. Butter. Sweets and desserts Plain cakes and cookies. Cream pies and pies made with allowed fruits. Pudding. Custard. Fruit gelatin. Sherbet. Popsicles. Ice cream without nuts. Plain hard candy. Honey. Jelly. Molasses. Syrups, including chocolate syrup. Chocolate. Marshmallows. Gumdrops. Seasoning and other foods Bouillon. Broth. Cream soups made from allowed foods. Strained soup. Casseroles made with allowed foods. Ketchup. Mild mustard. Mild salad dressings. Plain gravies. Vinegar. Spices in moderation. Salt. Sugar. What foods are not allowed? The items listed below may not be a complete list. Talk with your dietitian about what dietary choices are best for you. Grains Whole wheat and whole grain breads and crackers. Multigrain breads and crackers. [place] bread. Whole grain or multigrain cereals. Cereals with nuts, raisins, or coconut. Bran. Coarse wheat cereals. Granola. High-fiber cereals. Cornmeal or corn bread. Whole grain pasta. Wild or brown rice. Quinoa. Popcorn. Buckwheat. Wheat germ. Vegetables Potato skins. Raw or undercooked vegetables. All beans and reyes sprouts. Cooked greens. [place]. Peas. Cabbage. Beets. Broccoli. [place] sprouts. Cauliflower. Mushrooms. Onions. Peppers. Parsnips. Okra. Sauerkraut. Fruit Raw or dried fruit. Berries. Fruit juice with pulp. Prune juice. Meats and other protein foods Tough, fibrous meats with gristle. Fatty meat. Poultry with skin. Fried meat, poultry, or fish. Deli or lunch meats. Sausage, witt, and hot dogs. Nuts and chunky nut butter. Dried peas, beans, and lentils. Dairy Yogurt with fruit, nuts, chocolate, or granola mix-ins. Beverages Caffeinated coffee and teas. Fats and oils Avocado. Coconut. Sweets and desserts Desserts, cookies, or candies that contain nuts or coconut. Dried fruit. Jams and preserves with seeds. Marmalade. Any dessert made with fruits or grains that are not allowed. Seasoning and other foods [place] tortilla chips. Soups made with vegetables or grains that are not allowed. Relish. Horseradish. Pickles. Olives. Summary ??? Most people on a low-fiber eating plan should eat less than 10 grams of fiber a day. Follow recommendations from your dietitian about how much fiber you should have each day. ??? Always check food labels to see the dietary fiber content of packaged foods. In general, a low-fiber food will have fewer than 2 grams of fiber per serving. ??? In general, try to avoid whole grains, raw fruits and vegetables, dried fruit, tough cuts of meat, nuts, and seeds. ??? Take a vitamin and mineral supplement as told by your health care provider or dietitian. This information is not intended to replace advice given to you by your health care provider. Make sure you discuss any questions you have with your health care provider. Document Revised: 08/09/2019 Document Reviewed: 06/20/2017 [employer] Patient Education ?? 2020 [employer] acetaminophen and oxycodone (a SEET a MIN oh fen and OX i KOE done) Endocet 10/325, Endocet 2.5/325, Endocet 5/325, Endocet 7.5/325, Nalocet, Percocet, Primlev What is the most important information I should know about acetaminophen and oxycodone? MISUSE OF OPIOID MEDICINE CAN CAUSE ADDICTION, OVERDOSE, OR . Keep the medication in a place where others cannot get to it. Taking opioid medicine during may cause life-threatening withdrawal symptoms in the . Fatal side effects can occur if you use opioid medicine with alcohol, or with other drugs that cause drowsiness or slow your breathing. Stop taking this medicine and call your doctor right away if you have skin redness or a rash that spreads and causes blistering and peeling. What is acetaminophen and oxycodone? Acetaminophen and oxycodone is a combination medicine used to relieve moderate to severe pain. Acetaminophen and oxycodone contains an opioide medicine and may be habit-forming. Acetaminophen and oxycodone may also be used for purposes not listed in this medication guide. What should I discuss with my healthcare provider before taking acetaminophen and oxycodone? You should not use this medicine if you are allergic to acetaminophen or oxycodone, or if you have: ?? severe asthma or breathing problems; or ?? a blockage in your stomach or intestines. Tell your doctor if you have ever had: ?? breathing problems, sleep apnea; ?? liver disease; ?? a drug or alcohol addiction; ?? kidney disease; ?? a head injury or seizures; ?? urination problems; or ?? problems with your thyroid, pancreas, or gallbladder. If you use opioid medicine while you are , your baby could become dependent on the drug. This can cause life-threatening withdrawal symptoms in the baby after it is born. Babies born dependent on opioids may need medical treatment for several weeks. Ask a doctor before using opioid medicine if you are . Tell your doctor if you notice severe drowsiness or slow breathing in the nursing baby. How should I take acetaminophen and oxycodone? Follow all directions on your prescription label. Never take this medicine in larger amounts, or for longer than prescribed. An overdose can damage your liver or cause . Tell your doctor if you feel an increased urge to use more of this medicine. Never share opioid medicine with another person, especially someone with a history of drug abuse or addiction. MISUSE CAN CAUSE ADDICTION, OVERDOSE, OR . Keep the medicine in a place where others cannot get to it. Selling or giving away opioid medicine is against the law. Measure liquid medicine carefully. Use the dosing syringe provided, or use a medicine dose-measuring device (not a kitchen spoon). If you need surgery or medical tests, tell the doctor ahead of time that you are using this medicine. You should not stop using this medicine suddenly. Follow your doctor's instructions about tapering your dose. Store at room temperature away from moisture and heat. Keep track of your medicine. You should be aware if anyone is using it improperly or without a prescription. Do not keep leftover opioid medication. Just one dose can cause in someone using this medicine accidentally or improperly. Ask your pharmacist where to locate a drug take-back disposal program. If there is no take-back program, flush the unused medicine down the toilet. What happens if I miss a dose? Since this medicine is used for pain, you are not likely to miss a dose. Skip any missed dose if it is almost time for your next dose. Do not use two doses at one time. What happens if I overdose? Seek emergency medical attention or call the Poison Help line at . An overdose of this medicine can be fatal, especially in a child or other person using the medicine without a prescription. Overdose symptoms may include nausea, vomiting, sweating, severe drowsiness, pinpoint pupils, slow breathing, or no breathing. Your doctor may recommend you get naloxone (a medicine to reverse an opioid overdose) and keep it with you at all times. A person caring for you can give the naloxone if you stop breathing or don't wake up. Your caregiver must still get emergency medical help and may need to perform CPR (cardiopulmonary resuscitation) on you while waiting for help to arrive. Anyone can buy naloxone from a pharmacy or local health department. Make sure any person caring for you knows where you keep naloxone and how to use it. What should I avoid while taking acetaminophen and oxycodone? Avoid driving or operating machinery until you know how this medicine will affect you. Dizziness or drowsiness can cause falls, accidents, or severe injuries. Do not drink alcohol. Dangerous side effects or could occur. Ask a doctor or pharmacist before using any other medicine that may contain acetaminophen (sometimes abbreviated as APAP). Taking certain medications together can lead to a fatal overdose. What are the possible side effects of acetaminophen and oxycodone? Get emergency medical help if you have signs of an allergic reaction: hives; difficulty breathing; swelling of your face, lips, tongue, or throat. Opioid medicine can slow or stop your breathing, and may occur. A person caring for you should give naloxone and/or seek emergency medical attention if you have slow breathing with long pauses, blue colored lips, or if you are hard to wake up. In rare cases, acetaminophen may cause a severe skin reaction that can be fatal. This could occur even if you have taken acetaminophen in the past and had no reaction. Stop taking this medicine and call your doctor right away if you have skin redness or a rash that spreads and causes blistering and peeling. Call your doctor at once if you have: ?? noisy breathing, sighing, shallow breathing, breathing that stops; ?? a light-headed feeling, like you might pass out; ?? weakness, tiredness, fever, unusual bruising or bleeding; ?? confusion, unusual thoughts or behavior; ?? problems with urination; ?? liver problems--nausea, upper stomach pain, tiredness, loss of appetite, dark urine, isma-colored stools, jaundice (yellowing of the skin or eyes); ?? low cortisol levels-- nausea, vomiting, loss of appetite, dizziness, worsening tiredness or weakness; or ?? high levels of serotonin in the body--agitation, hallucinations, fever, sweating, shivering, fast heart rate, muscle stiffness, twitching, loss of coordination, nausea, vomiting, diarrhea. Serious breathing problems may be more likely in older adults and in those who are debilitated or have wasting syndrome or chronic breathing disorders. Common side effects include: ?? dizziness, drowsiness, feeling tired; ?? feelings of extreme happiness or sadness; ?? nausea, vomiting, stomach pain; ?? constipation; or ?? headache. This is not a complete list of side effects and others may occur. Call your doctor for medical advice about side effects. You may report side effects to FDA at 5-524-SWI-9524. What other drugs will affect acetaminophen and oxycodone? You may have breathing problems or withdrawal symptoms if you start or stop taking certain other medicines. Tell your doctor if you also use an antibiotic, antifungal medication, heart or blood pressure medication, seizure medication, or medicine to treat HIV or hepatitis C. Opioid medication can interact with many other drugs and cause dangerous side effects or . Be sure your doctor knows if you also use: ?? cold or allergy medicines, bronchodilator asthma/COPD medication, or a diuretic ('water pill'); ?? medicines for motion sickness, irritable bowel syndrome, or overactive bladder; ?? other opioids--opioid pain medicine or prescription cough medicine; ?? a sedative like Valium--diazepam, alprazolam, lorazepam, Xanax, Klonopin, Versed, and others; ?? drugs that make you sleepy or slow your breathing--a sleeping pill, muscle relaxer, medicine to treat mood disorders or mental illness; ?? drugs that affect serotonin levels in your body--a stimulant, or medicine for depression, Parkinson's disease, migraine headaches, serious infections, or nausea and vomiting. This list is not complete. Other drugs may affect acetaminophen and oxycodone, including prescription and epca-vkk-zynrlki medicines, vitamins, and herbal products. Not all possible interactions are listed here. Where can I get more information? Your doctor or pharmacist can provide more information about acetaminophen and oxycodone. Remember, keep this and all other medicines out of the reach of children, never share your medicines with others, and use this medication only for the indication prescribed. Every effort has been made to ensure that the information provided by [employer]. ('[employer]') is accurate, up-to-date, and complete, but no guarantee is made to that effect. Drug information contained herein may be time sensitive. [employer] information has been compiled for use by healthcare practitioners and consumers in the [place] and therefore [employer] does not warrant that uses outside of the [place] are appropriate, unless specifically indicated otherwise. [employer] drug information does not endorse drugs, diagnose patients or recommend therapy. [employer] drug information is an informational resource designed to assist licensed healthcare practitioners in caring for their patients and/or to serve consumers viewing this service as a supplement to, and not a substitute for, the expertise, skill, knowledge and judgment of healthcare practitioners. The absence of a warning for a given drug or drug combination in no way should be construed to indicate that the drug or drug combination is safe, effective or appropriate for any given patient. [employer] does not assume any responsibility for any aspect of healthcare administered with the aid of information [employer] provides. The information contained herein is not intended to cover all possible uses, directions, precautions, warnings, drug interactions, allergic reactions, or adverse effects. If you have questions about the drugs you are taking, check with your doctor, nurse or pharmacist. Copyright 8316-3614 [employer]. Version: 20.03. Revision Date: 06/05/2020. acetaminophen (oral) (a SEET a MIN oh fen) Actamin, Anacin AF, Aurophen, Bromo Wellman, Children's Tylenol, Mapap, M-Pap, Pharbetol, Silapap Childrens, Tactinal, Tempra Quicklets, Tycolene, Tylenol, Vitapap What is the most important information I should know about acetaminophen? An overdose of acetaminophen can damage your liver or cause . Call your doctor at once if you have upper stomach pain, loss of appetite, dark urine, or jaundice (yellowing of your skin or eyes). Stop taking this medicine and get medical help if you have skin redness or a blistering rash. What is acetaminophen? Acetaminophen is used to reduce fever and relieve minor pain caused by conditions such as colds or flu, headache, muscle aches, arthritis, and menstrual cramps. Acetaminophen may also be used for purposes not listed in this medication guide. What should I discuss with my healthcare provider before taking acetaminophen? You should not take acetaminophen if you are allergic to it, or if you take other medications that contain acetaminophen. Ask a doctor or pharmacist if this medicine is safe to use if you've ever had cirrhosis of the liver, or if you drink alcohol daily. Ask a doctor before using this medicine if you are or . How should I take acetaminophen? Use exactly as directed on the label, or as prescribed by your doctor. An acetaminophen overdose can damage your liver or cause . ?? Adults and teenagers at least 12 years old: Do not take more than 1000 milligrams (mg) at one time or more than 4000 mg in 24 hours. ?? Children younger than 12 years old: Do not take more than 5 doses of children's formula acetaminophen in 24 hours. Do not give extra-strength acetaminophen to a child younger than 12 years old without medical advice. A child's dose is based on age and weight. Carefully follow the dosing instructions provided with this medicine. Ask a doctor before giving this medicine to a child younger than 2 years. Acetaminophen made for infants comes with its own medicine dropper or oral syringe. Measuring with the wrong device may cause an overdose. Use only the provided dosing device provided to measure an infant's dose. Acetaminophen comes in many different forms such as capsules, liquid, chewable or disintegrating tablets, and dissolving powders or granules. Read and carefully follow any Instructions for Use provided with your medicine. Ask your doctor or pharmacist if you need help. Stop taking acetaminophen and call your doctor if: ?? you still have a sore throat after 2 days of use; ?? you still have a fever after 3 days of use; ?? you still have pain after 7 days of use (or 5 days if treating a child); ?? you have a skin rash, ongoing headache, nausea, vomiting, redness or swelling; or ?? your symptoms get worse, or if you have any new symptoms. Taking acetaminophen may cause false results with certain blood glucose monitors. If you have diabetes, ask your doctor about the best way to monitor your blood sugar levels while using acetaminophen. Store at room temperature away from heat and moisture. What happens if I miss a dose? Acetaminophen is used when needed. If you are on a dosing schedule, skip any missed dose. Do not use two doses at one time. What happens if I overdose? Seek emergency medical attention or call the Poison Help line at . An overdose can be fatal. Overdose symptoms include vomiting, stomach pain, and yellowing of your skin or eyes. What should I avoid while taking acetaminophen? Avoid using other medicines that may contain acetaminophen. Avoid drinking alcohol. What are the possible side effects of acetaminophen? Get emergency medical help if you have signs of an allergic reaction: hives; difficulty breathing; swelling of your face, lips, tongue, or throat. In rare cases, acetaminophen may cause a severe skin reaction that can be fatal, even if you took acetaminophen in the past and had no reaction. Stop taking this medicine and call your doctor right away if you have skin redness or a rash that spreads and causes blistering and peeling. Stop taking acetaminophen and call your doctor at once if you have signs of liver problems: ?? stomach pain (upper right side); ?? loss of appetite; ?? tiredness, itching; ?? dark urine, isma-colored stools; or ?? jaundice (yellowing of the skin or eyes). Less serious side effects may be more likely, and you may have none at all. This is not a complete list of side effects and others may occur. Call your doctor for medical advice about side effects. You may report side effects to FDA at 0-600-AUU-9257. What other drugs will affect acetaminophen? Other drugs may affect acetaminophen, including prescription and [id number]-lub-[id number] medicines, vitamins, and herbal products. Tell your doctor about all other medicines you use. Where can I get more information? Your pharmacist can provide more information about acetaminophen. Remember, keep this and all other medicines out of the reach of children, never share your medicines with others, and use this medication only for the indication prescribed. Every effort has been made to ensure that the information provided by [employer]. ('[employer]') is accurate, up-to-date, and complete, but no guarantee is made to that effect. Drug information contained herein may be time sensitive. [employer] information has been compiled for use by healthcare practitioners and consumers in the [place] and therefore [employer] does not warrant that uses outside of the [place] are appropriate, unless specifically indicated otherwise. [employer] drug information does not endorse drugs, diagnose patients or recommend therapy. [employer] drug information is an informational resource designed to assist licensed healthcare practitioners in caring for their patients and/or to serve consumers viewing this service as a supplement to, and not a substitute for, the expertise, skill, knowledge and judgment of healthcare practitioners. The absence of a warning for a given drug or drug combination in no way should be construed to indicate that the drug or drug combination is safe, effective or appropriate for any given patient. [employer] does not assume any responsibility for any aspect of healthcare administered with the aid of information [employer] provides. The information contained herein is not intended to cover all possible uses, directions, precautions, warnings, drug interactions, allergic reactions, or adverse effects. If you have questions about the drugs you are taking, check with your doctor, nurse or pharmacist. Copyright [id number] [employer]. Version: 22.01. Revision Date: 02/02/2021. Emergency Awareness and Preventative Care STROKE is an EMERGENCY Every Minute Counts Act FAST and Check for these signs: FACE Does the face look uneven? ARM Does one arm drift down? SPEECH Does their speech sound strange? TIME Call 9-1-1 at any sign of stroke Stroke Risk Factors Atrial Fibrillation (irregular heartbeat) Diabetes Family history of stroke Heart Disease Heavy alcohol use High Blood Pressure High Cholesterol Physical inactivity and obesity Smoking Cigarette Smoking The facts are clear, cigarette smoking will shorten your life. Smoking can cause many illnesses along the way. As a healthcare provider, we recommend that you stop smoking. Assistance with quitting is available by contacting 7-195-GQSV-NOW. This is a free resource providing counseling, support, and referral. Or you may contact your personal physician. [employer] Suicide Prevention Lifeline: The National Suicide Prevention Lifeline is a national network of local crisis centers that provides free and confidential emotional support to people in suicidal crisis or emotional distress 24 hours a day, 7 days a week. Don't Wait! Stop a Heart Attack Before it Starts What is a heart attack? A heart attack is damage or to a part of the heart from severely decreased or lack of blood flow to the heart. Over time, arteries can become narrow from the buildup of fat and cholesterol, which is called plaque. The plaque can rupture causing a blood clot to form. When the blood clot forms, the artery can become severely narrowed or completely blocked, causing a heart attack. Heart attack is the leading cause of in the [place]. 85% of muscle damage occurs within the first 2 hours. Delay in the recognition of heart attack symptoms increases the chances of . Know the early symptoms of a heart attack: Nausea Feeling of fullness in chest Jaw Pain Pain that travels down one or both arms Fatigue/being tired Anxiety Back Pain Chest pressure, squeezing, or discomfort Shortness of breath Sweating, or a cold sweat Feeling of impending doom There are unusual signs of a heart attack, too! Women, the elderly, and diabetics may present with atypical symptoms: Fainting/dizziness Weakness Confusion Risk Factors for a Heart Attack Some heart disease risk factors, such as age and family history, cannot be changed. Others, like smoking and lack of exercise, can be changed. Smoking High Cholesterol High Blood Pressure Family History Obesity Age Gender (Males are at higher risk) Lack of Exercise Diabetes Diet Stress Excessive Alcohol Intake If you or someone you know is experiencing the signs and symptoms of a heart attack, DON???T DELAY. Call immediately and seek help. If someone collapses, perform CPR! Do not attempt to drive if you are having symptoms of heart attack. Hands-Only CPR Why Hands-Only CPR? Hands-Only CPR has been shown to be as effective as conventional CPR for cardiac arrests that occur outside of a hospital. Survival depends on immediately receiving CPR from someone nearby. How do you perform Hands-Only CPR? There are two easy steps: Call 9-1-1 if you see a teen or adult collapse Push hard and fast in the center of the chest at a beat of 100 beats per minute. Save a life! 4 WAYS TO GET AHEAD OF SEPSIS SEPSIS is a MEDICAL EMERGENCY. Time matters! Infections put you and your family at risk for a life-threatening condition called sepsis. Sepsis is the body's extreme response to an infection. It is life-threatening, and without timely treatment, sepsis can rapidly lead to tissue damage, organ failure, and . Sepsis happens when an infection you already have-in your skin, lungs, urinary tract or somewhere else-triggers a chain reaction throughout your body. 1 PREVENT INFECTIONS Take good care of chronic conditions. Talk to your doctor about getting the recommended vaccines. 2 PRACTICE GOOD HYGIENE Wash your hands frequently. Keep cuts or open sores clean and covered until they are healed. 3 KNOW THE SYMPTOMS Confusion or disorientation Shortness of breath High heart rate Fever, shivering, or feeling very cold Extreme pain or discomfort Clammy or sweaty skin 4 ACT FAST Get medical care IMMEDIATELY if you suspect sepsis or if you have an infection that is not getting better or is getting worse. To learn more about sepsis and how to prevent infections, visit www.cdc.gov/sepsis. Test Results Laboratory or Other Results This Visit (last charted value for your 03/10/2021 visit) Hematology 03/11/2021 6:23 AM WBC: 12.4 K/uL -- Normal range between ( 4.5 and 10.5 ) RBC: 3.49 Million/uL -- Normal range between ( 3.93 and 5.22 ) Hct: 33.6 % -- Normal range between ( 34.1 and 44.9 ) Hgb: 11.4 g/dL -- Normal range between ( 11.2 and 15.7 ) Platelet Count: 227 K/uL -- Normal range between ( 163 and 369 ) MCH: 32.7 pg -- Normal range between ( 25.6 and 32.2 ) MCHC: 33.9 Gram/dL -- Normal range between ( 32.2 and 36.5 ) MCV: 96.3 fL -- Normal range between ( 79.0 and 94.8 ) Slide Review: No Eos %: 0.0 % -- Normal range between ( 0.0 and 7.0 ) [place] #: 0.41 K/uL -- Normal range between ( 0.16 and 1.00 ) Eos #: 0.00 x10(3)/uL -- Normal range between ( 0.00 and 0.80 ) [place] %: 3.3 % -- Normal range between ( 3.0 and 9.0 ) Baso %: 0.2 % -- Normal range between ( 0.0 and 1.5 ) Baso #: 0.02 x10(3)/uL -- Normal range between ( 0.00 and 0.20 ) RDW: 12.3 % -- Normal range between ( 11.7 and 14.9 ) Neut %: 87.7 % -- Normal range between ( 34.0 and 71.0 ) Neut #: 10.90 K/uL -- Normal range between ( 1.56 and 6.13 ) Lymph %: 8.0 % -- Normal range between ( 19.3 and 53.1 ) Lymph #: 0.99 x10(3)/uL -- Normal range between ( 1.00 and 3.90 ) MPV: 9.5 fL -- Normal range between ( 9.4 and 12.4 ) IG#: 0.10 x10(3)/uL -- Normal range between ( 0.00 and 0.05 ) IG%: 0.80 % -- Normal range between ( 0.00 and 0.60 ) Microbiology 03/08/2021 2:42 PM SARS-CoV-2 (COVID19 PCR): Negative Blood Bank 03/10/2021 9:12 AM ABO/Rh (ECHO): O POS Antibody Screen (Tube): Negative ABSC 03/05/2021 3:25 PM ABO/Rh Repeat: O POS General Chemistry 03/11/2021 6:23 AM Creatinine Level: 0.90 mg/dL -- Normal range between ( 0.55 and 1.02 ) Sodium Level: 132 mmol/L -- Normal range between ( 136 and 146 ) Potassium Level: 4.5 mmol/L -- Normal range between ( 3.5 and 5.1 ) Chloride Level: 104 mmol/L -- Normal range between ( 102 and 112 ) Carbon Dioxide Level: 23 mmol/L -- Normal range between ( 21 and 32 ) Anion Gap: 10 -- Normal range between ( 9 and 20 ) Bilirubin Total: 0.3 mg/dL -- Normal range between ( 0.2 and 1.2 ) A/G Ratio: 0.9 -- Normal range between ( 1.1 and 2.5 ) ALT: 25 Units/Liter -- Normal range between ( 13 and 56 ) AST: 26 Units/Liter -- Normal range between ( 5 and 37 ) Globulin: 3.2 Gram/dL -- Normal range between ( 1.5 and 4.5 ) Alk Phos: 52 Units/Liter -- Normal range between ( 27 and 136 ) Bun/Creatinine: 13.3 -- Normal range between ( 8.0 and 20.0 ) Calcium Level: 7.8 mg/dL -- Normal range between ( 8.4 and 10.1 ) eGFR : >60 mL/min/1.73m2 eGFR NonAfrican: >60 mL/min/1.73m2 Glucose Level: 150 mg/dL -- Normal range between ( 74 and 106 ) Magnesium Level: 2.3 mg/dL -- Normal range between ( 1.5 and 2.4 ) Blood Urea Nitrogen: 12 mg/dL -- Normal range between ( 7 and 22 ) Protein Total: 6.0 Gram/dL -- Normal range between ( 6.4 and 8.2 ) Albumin Level: 2.8 Gram/dL -- Normal range between ( 3.4 and 5.0 ) 03/10/2021 3:30 PM Glucose POC2: 125 mg/dL -- Normal range between ( 70 and 110 ) Device Comment 1: Device Comment 1 03/10/2021 9:13 AM Potassium POC: 4.2 mmol/L -- Normal range between ( 3.5 and 4.9 ) :Potassium Level POC: :Potassium Level POC 03/05/2021 3:25 PM Hgb A1C: 5.6 % eAVG Glucose: 114 mg/dL Endocrinology 03/11/2021 6:23 AM Procalcitonin: <0.25 ng/mL -- Normal range between ( 0.00 and 2.00 ) Diagnostic Radiology 03/05/2021 4:01 PM CR Chest 2 Vws: CR Chest 2 Vws Patient Name:DAYANA BONILLA I have received and understand this information and was given the opportunity to ask questions. 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
--- OUTSIDE RECORDS SUMMARY | 2024-10-04 13:09 | XMS_ITS | Encounter Summary ---
Author Organization [employer] Address [address] [place] [address] Care Team Providers Care Towel Sorter Name Role Phone Unavailable Primary Care Provider Unavailabl e Encounter Details Date Type Department Care Team (Late st Contact Info) Description 03/10/2021 Transcribed Document [facility] Family Medicine [address] [place] [address] ProviderAlexis MD [address] [place] [id number] Social History Tobacco Use Types Packs/Day Years Used Date Smoking Tobacco: Never Assessed Comments Unknown Sex and Gender Information Value Date Recorded Sex Assigned at Not on file Legal Sex Female 5:40 PM CDT Gender Identity Not on file Sexual Orientation Not on file documented as of this encounter Miscellaneous Notes * Cerner Conversion Note - Alexis ProviderMD - 03/10/2021 12:13 PM SKILLS AUDITOR [facility] Main OR Preop Summary Primary Physician: ARMANDO ZAVALA MD-PRO Finalized Date/Time: 03/10/21 14:06:34 Pt. Name: DAYANA BONILLA/Sex: 1960 Female Med Rec #: [id number] Physician: ARMANDO ZAVALA MD-PRO Financial #: [id number] Pt. Type: I Room/Bed: / Admit/Disch: 02/23/21 10:15:00 - Institution: [facility] PreOp Case Times Entry 1 In Preop 03/10/21 08:46:00 Ready for Holding n/a Room Patient Ready for 03/10/21 10:29:00 Surgery Patient Out of Preop 03/10/21 11:37:00 Patient Out of n/a Holding Room Last Modified By: Gi Berrios Rn 03/10/21 14:06:33 [facility] PreOp Case Times Audit 03/10/21 14:06:33 X Ray Equipment Tester: THREESA Modifier: MFWARD <+> 1 Patient Out of Preop Finalized By: Gi Berrios Rn Document Signatures Signed By: Gi Berrios Rn 03/10/21 14:06 Electronically signed by Wei [facility] Conversion Electronic Communications Technician Cerner at 08/19/2022 5:58 PM CDT documented in this encounter Plan of Treatment Not on file documented as of this encounter Visit Diagnoses Not on filedocumented in this encounter
--- OUTSIDE RECORDS SUMMARY | 2024-10-04 13:09 | XMS_ITS | Encounter Summary ---
Author Organization [employer] Address [address] [place] [address] Care Team Providers Care Telephone Surveyor Name Role Phone Unavailable Primary Care Provider Unavailabl e Encounter Details Date Type Department Care Team (Late st Contact Info) Description 03/11/2021 Transcribed Document [facility] Family Medicine [address] [place] [address] ProviderAlexis MD [facility] [place], [place] [id number] Social History Tobacco Use Types Packs/Day Years Used Date Smoking Tobacco: Never Assessed Comments Unknown Sex and Gender Information Value Date Recorded Sex Assigned at Not on file Legal Sex Female 5:40 PM CDT Gender Identity Not on file Sexual Orientation Not on file documented as of this encounter Miscellaneous Notes * Cerner Conversion Note - Historical ProviderMD - 03/11/2021 1:11 PM FACILITIES LOCATOR Stroke/Warfarin Instructions Entered On: 03/11/2021 13:12 EST Performed On: 03/11/2021 13:11 EST by Leanne Sahu Virtual RN Stroke/Warfarin Instructions Stroke/TIA Discharge Ins : N/A Warfarin Discharge Ins : N/A Leanne Sahu Virtual RN - 03/11/2021 13:11 EST Electronically signed by Wei [facility] Conversion Mechanic Sound Technician Cerner at 08/19/2022 6:21 PM CDT documented in this encounter Plan of Treatment Not on file documented as of this encounter Visit Diagnoses Not on filedocumented in this encounter
--- OUTSIDE RECORDS SUMMARY | 2024-10-04 13:09 | XMS_ITS | Encounter Summary ---
Author Organization [employer] Address [address] [place] [address] Care Team Providers Care Assistant Branch Manager Name Role Phone Unavailable Primary Care Provider Unavailabl e Encounter Details Date Type Department Care Team (Late st Contact Info) Description 03/10/2021 Transcribed Document [facility] Family Medicine [address] [place] [address] ProviderAlexis MD [facility] [place] [address] Social History Tobacco Use Types Packs/Day Years Used Date Smoking Tobacco: Never Assessed Comments Unknown Sex and Gender Information Value Date Recorded Sex Assigned at Not on file Legal Sex Female 5:40 PM CDT Gender Identity Not on file Sexual Orientation Not on file documented as of this encounter Miscellaneous Notes * Cerner Conversion Note - Historical ProviderMD - 03/10/2021 11:41 AM BUSINESS OFFICE MANAGER Admission History, Adult Entered On: 03/10/2021 16:32 EST Performed On: 03/10/2021 11:41 EST by PRETTY MAHER RN Advance Directive Patient has Advance Directive *Q : No, patient refuses Advance Directive information PRETTY MAHER RN - 03/10/2021 16:28 EST Anesthesia/Transfusion History Family History of Anesthesia Reaction : No prior transfusion(s) Blood Transfusion Acceptable to Patient : Yes Transfusion History : Prior anesthesia without reaction Family History of Anesthesia Reaction : None PRETTY MAHER RN - 03/10/2021 16:28 EST Functional Assessment Living Situation : Home Patient Lives With : Spouse Current Home Treatments : None PRETTY MAHER RN - 03/10/2021 16:28 EST General Info Arrived From : Home Mode of Arrival on Unit : Ambulatory Legal Guardian : Spouse Want Family/Rep/Phys Notified of Admit : No Emergency Contact #1 : patricia bonilla Emergency Contact #1 Emergency Contact #1 Relationship : spouse Emergency Contact #2 : , Emergency Contact #2 Phone Number : , Emergency Contact #2 Relationship : , Information Obtained From : Patient Primary Language : Wallisian Preferred Communication Mode : Verbal Communication Barrier : None Diabetologist Needed : No Objects to Sharing Info w Family : No PRETTY MAHER RN - 03/10/2021 16:28 EST Fall Risk Scales ABCs Fall Injury Risk Identification : None THEODORE Hx Falls Immediate/Within 3 Months : No Theodore Secondary Diagnosis : Yes THEODORE Use of Ambulatory Aid : None THEODORE IV Therapy or IV Access : Yes Theodore Gait/Transferring : Normal, bedrest, immobile Theodore Mental Status : Oriented to own ability Theodore Fall Risk Score : 35 THEODORE Fall Scale Risk Level : 25-45 Medium Risk [place] Fall Interventions : Adequate lighting, Assistive devices within reach, Bed in low position, Call device within reach, Personal items within reach, Reinforced to call for assistance before getting out of bed, Room free of clutter/spills, Upper side-rails up Barriers to Learning : None evident PRETTY MAHER RN - 03/10/2021 16:28 EST Health Histories Smoking Status : Former smoker, quit more than 30 days ago Smokeless Tobacco Status : Former smokeless tobacco user, quit more than 30 days ago PRETTY MAHER RN - 03/10/2021 16:28 EST Social History (As Of: 03/10/2021 16:32:06 EST) Tobacco: Smoking Status Former smoker. Years of Use: 38. Used Tobacco, but Quit Yes. Last Used: quit 2 yeaars ago. (Last Updated: 12/11/2015 09:21:08 EDT by DENNIS CORCORAN, RN) Alcohol: Alcohol Use History Yes. Alcohol Use Frequency Socially. (Last Updated: 12/11/2015 09:21:22 EDT by DENNIS CORCORAN, RN) Substance Abuse: Drug Use Hx: No. Use in Last 12 Months: No. (Last Updated: 03/04/2021 12:43:25 EDT by RICARDO MARTINS RN) Drug Use Hx: Yes. Use in Last 12 Months: Yes. Marijuana/Hashish Recreational Drug Type. Frequency: Weekly. Drug Last Use: 03/03. (Last Updated: 03/04/2021 12:44:00 EDT by RICARDO MARTINS RN) Height and Weight, Clinical Dosing Height Source : Measured Height Entry Format : [place]gett Height, Feet : 0 ft(Converted to: 0 cm, 0 Inch) Height, Inches : 63 Inch(Converted to: 5 ft 3 Inch, 160.02 cm) Clinical Height : 160.02 cm Weight Source : Standing scale Weight Entry Format : Leggett Clinical Dosing Weight : 83.64 kg Weight, Pounds : 184 lb Body Surface Area (BSA) : 1.87 m2 Body Mass Index : 32.7 kg/m2 (HI) [place] Body Weight : 52 kg PRETTY MAHER RN - 03/10/2021 16:28 EST Infectious Disease History Does patient have symptoms of COVID-19? : No Has the Patient Been Tested for COVID-19 in the last 14 days? : Yes, Patient stated results Negative Does the Patient state known exposure to a COVID-19 positive case in the last 14 days? : No Patient Vaccinated for COVID-19 : Fully vaccinated PRETTY MAHER RN - 03/10/2021 16:28 EST Infectious Disease Risk Screening Grid Cough < 2 wks of unknown origin : NO Cough > 2 weeks : NO Blood in Sputum : NO Fever or self-reported Fever : NO Rash of unknown origin : NO Headache : NO Stiff neck : NO Night Sweats : NO Unexplained Weight Loss : NO Diarrhea (3 episode per day) : NO PRETTY MAHER RN - 03/10/2021 16:28 EST Physical contact outside [place] in the last 30 days : No Hospitalized in Foreign Country : No Infectious Disease History : Influenza, Measles INF Disease TB Screening Calc : 0 INF Disease Recent Travel Calc : 0 PRETTY MAHER RN - 03/10/2021 16:28 EST Influenza Vaccine Asmt, Adult Previous Vaccines from Immunization Schedule : No qualifying data available. Influenza Immunization, Current Season : No Inactivated Flu Vaccine Contraindications : No contraindications to inactivated influenza vaccine Transplant Workup/Recent Transplant : No Order for Influenza Vaccine : Declined Vaccination PRETTY MAHER RN - 03/10/2021 16:28 EST Pneumococcal Vaccine Previous Vaccines from Immunization Schedule : No qualifying data available. Pneumonia Immunization Received : No Pneumococcal Risk Assessment < Age 65 : None PRETTY MAHER RN - 03/10/2021 16:28 EST Order Details Patient Needs Meds Crushed/Liquid : No PRETTY MAHER RN - 03/10/2021 16:28 EST Nutrition History Food Dislikes : corn Eating Poorly Due to Decreased Appetite : No Unplanned Weight Loss in Past 3-6 Months : No Malnutrition Screening Tool Total(mal) : 0 Malnutrition Screening Tool Risk Level : Patient not at risk PRETTY MAHER RN - 03/10/2021 16:28 EST [place] Suicide Severity Rating Scale (C-SSRS) CSSRS Past Month Wish to be : No CSSRS Past Month Suicidal Thoughts : No CSSRS Lifetime Suicide Behavior : No Suicide Severity Rating Score : 0 Suicide Severity Rating : No Additional Care Required at this time PRETTY MAHER RN - 03/10/2021 16:28 EST Psychosocial History Currently in Unsafe Situation : No PRETTY MAHER RN - 03/10/2021 16:28 EST Sleep Apnea Risk Assmt Hx of Obstructive Sleep Apnea Diagnosis : No Snore Loudly : No Tired, Fatigued, or Sleepy During Day : Yes Observed Stopping Breathing During Sleep : No Have/Are Being Treated for Hypertension : Yes BMI Greater Than 35 kg/m2 : No Age over 50 Years Old : Yes Neck Circumference Greater Than 40 cm : No Gender Male : No STOP-BANG Sleep Apnea Risk Level Score : 3 PRETTY MAHER RN - 03/10/2021 16:28 EST Valuables and Belongings Valuables and Belongings : Clothing, Personal devices, Personal items Clothing : Common streetwear Clothing Disposition : Bedside Personal Device Disposition : Bedside Personal Devices : Glasses Personal Items : Cell phone, Other: cloth seconds sorter Personal Items Disposition : Bedside PRETTY MAHER RN - 03/10/2021 16:28 EST documented in this encounter Plan of Treatment Not on file documented as of this encounter Visit Diagnoses Not on filedocumented in this encounter
--- OUTSIDE RECORDS SUMMARY | 2024-10-04 13:09 | XMS_ITS | Encounter Summary ---
Author Organization [employer] Address [address] [place] [address] Care Team Providers Care Computer Instructor Name Role Phone Unavailable Primary Care Provider Unavailabl e Encounter Details Date Type Department Care Team (Late st Contact Info) Description 03/11/2021 Transcribed Document [facility] Family Medicine [address] [place] [address] ProviderAlexis MD [facility] [place], [place] [id number] Social History Tobacco Use Types Packs/Day Years Used Date Smoking Tobacco: Never Assessed Comments Unknown Sex and Gender Information Value Date Recorded Sex Assigned at Not on file Legal Sex Female 5:40 PM CDT Gender Identity Not on file Sexual Orientation Not on file documented as of this encounter Miscellaneous Notes * Cerner Conversion Note - Historical ProviderMD - 03/11/2021 12:00 PM EXTRUSION PRESS OPERATOR Pain Assessment Entered On: 03/11/2021 14:43 EST Performed On: 03/11/2021 13:13 EST by Sarah Sahu RN Intervention Information: ketorolac Performed by Sarah Shau RN on 03/11/2021 12:43:00 EST ketorolac,15mg IV Push,Left Hand Pain Assessment Pain Assessment : Follow-up assessment Pain Scale Goal : 6 Pain Scale Used : 0-10 Scale Sarah Sahu RN - 03/11/2021 14:43 EST Pain Scale Intensity : 2 Sarah Sahu RN - 03/11/2021 14:43 EST Image 4 - Images currently included in the form version of this document have not been included in the text rendition version of the form. documented in this encounter Plan of Treatment Not on file documented as of this encounter Visit Diagnoses Not on filedocumented in this encounter
--- OUTSIDE RECORDS SUMMARY | 2024-10-04 13:09 | XMS_ITS | Encounter Summary ---
Author Organization [employer] Address [address] [place] [address] Care Team Providers Care Sausage Inspector Name Role Phone Unavailable Primary Care Provider Unavailabl e Encounter Details Date Type Department Care Team (Late st Contact Info) Description 03/11/2021 Transcribed Document [facility] Family Medicine [address] [place] [address] ProviderAlexis MD [address] [place] [id number] Social History Tobacco Use Types Packs/Day Years Used Date Smoking Tobacco: Never Assessed Comments Unknown Sex and Gender Information Value Date Recorded Sex Assigned at Not on file Legal Sex Female 5:40 PM CDT Gender Identity Not on file Sexual Orientation Not on file documented as of this encounter Miscellaneous Notes * Cerner Conversion Note - Alexis ProviderMD - 03/11/2021 4:12 PM CORN HUSKER Final Discharge Planning Entered On: 03/11/2021 16:12 EST Performed On: 03/11/2021 16:12 EST by DERREK MASTERS RN-Health And Social Care Teacher Final Discharge Planning Discharge Arrangements : Patient Post-Acute Information Patient Name: DAYANA BONILLA Gender: Female : 62 Age: 60 Years No Post-Acute Placement(s) Listed No Post-Acute Service(s) Listed No [place] Referral(s) Listed Transportation Needs : Family/Friend Follow Up Appointment Scheduled : Yes Is Patient High/Moderate Readmission Risk? : No Patient/Family Notified of Plan : Yes Is Patient Ready for Discharge? : Yes Physician Notified Patient is Ready for Discharge? : Yes Discharge To Care Management : Home/Residential/Long-Term or Self Care -01 DERREK MASTERS RN-Health And Social Care Teacher - 03/11/2021 16:12 EST Final Narrative Note Final Narrative Note : Discharged to home, agreeable. No needs. DERREK MASTERS, RN-Health And Social Care Teacher - 03/11/2021 16:12 EST documented in this encounter Plan of Treatment Not on file documented as of this encounter Visit Diagnoses Not on filedocumented in this encounter
--- OUTSIDE RECORDS SUMMARY | 2024-10-04 13:09 | XMS_ITS | Encounter Summary ---
Author Organization [employer] Address [address] [place] [address] Care Team Providers Care Shell Mold Bonder Name Role Phone Unavailable Primary Care Provider Unavailabl e Encounter Details Date Type Department Care Team (Late st Contact Info) Description 03/10/2021 Transcribed Document [facility] Family Medicine [facility] [place] [address] ProviderAlexis MD [address] [place] [id number] Social History Tobacco Use Types Packs/Day Years Used Date Smoking Tobacco: Never Assessed Comments Unknown Sex and Gender Information Value Date Recorded Sex Assigned at Not on file Legal Sex Female 5:40 PM CDT Gender Identity Not on file Sexual Orientation Not on file documented as of this encounter Miscellaneous Notes * Cerner Conversion Note - Historical ProviderMD - 03/10/2021 10:28 AM ELECTRONIC VIDEO GAMES SERVICER Peripheral Nerve Block Entered On: 03/10/2021 10:29 EST Performed On: 03/10/2021 10:28 EST by Gi Berrios Rn Peripheral Nerve Block Peripheral Nerve Block Start Date/Time : 03/10/2021 10:10 EST Verbally Confirm Pt, Site, and Procedure : Yes Time Out Pause Time : 03/10/2021 10:09 EST Site Marked and Visible : Yes Site Preparation : 2 minute scrub plus 1 minute dry time Peripheral Nerve Block : Tap Block Laterality : Bilateral Peripheral Nerve Block Performed by : HANS NUGENT MD-ANS Medication Delivery Method : Single Shot Peripheral Nerve Block Assisted by : Gi Berrios Rn Ultra sound used during insertion : Yes Nerve Block Activity, Patient Tolerance : Good Peripheral Nerve Block End Date/Time : 03/10/2021 10:17 EST Gi Berrios Rn - 03/10/2021 10:28 EST Electronically signed by Wei [facility] Conversion Mat Tester Cerner at 08/19/2022 6:13 PM CDT documented in this encounter Plan of Treatment Not on file documented as of this encounter Visit Diagnoses Not on filedocumented in this encounter
--- OUTSIDE RECORDS SUMMARY | 2024-10-04 13:09 | XMS_ITS | Encounter Summary ---
Author Organization [employer] Address [address] [place] [address] Care Team Providers Care Medical Staff Credentialing Coordinator Name Role Phone Unavailable Primary Care Provider Unavailabl e Encounter Details Date Type Department Care Team (Late st Contact Info) Description 03/11/2021 Transcribed Document [facility] Family Medicine [address] [place] [address] ProviderAlexis MD [address] [place] [id number] Social History Tobacco Use Types Packs/Day Years Used Date Smoking Tobacco: Never Assessed Comments Unknown Sex and Gender Information Value Date Recorded Sex Assigned at Not on file Legal Sex Female 5:40 PM CDT Gender Identity Not on file Sexual Orientation Not on file documented as of this encounter Miscellaneous Notes * Cerner Conversion Note - Alexis Livingston MD - 03/11/2021 1:28 PM LICENSED ACUPUNCTURIST Patient Education Materials Follows: Minimally Invasive Total Colectomy, Care After This [...] these instructions at home: Medicines ??? Take bhrm-vuk-mpqhhki and prescription medicines only as told by [...] Limit how much you use to: ? 0?1 drink a day for women. ? 0?2 drinks a day for men. ? Be aware of how much alcohol is in your drink. In the [place] one drink equals one 12 oz bottle of beer (355 mL), one 5 oz glass of wine (148 mL), or one 1? oz glass of hard liquor (44 mL). [...] and water are not available, use hand merchandise coordinator. ? Change your dressing as told by [...] Get up to take short walks every 1?2 hours. This is important to improve blood [...] Your incisions break open after sutures or jose have been removed. Get help right away [...] provider. Document Revised: 03/25/2020 Document Reviewed: 03/25/2020 [employer] Patient Education ? 2020 [employer] Low Residue Diet A low residue [...] than 7-10 grams of fiber per day. residential use of this diet may not provide [...] foods with caffeine Popcorn, nuts and seeds Gastroenterology Diverticulitis Diverticulitis is when small pouches in [...] are treated at home by: ??? Taking iaup-mrz-cieirpv pain medicines. ??? Following a clear liquid [...] these instructions at home: Medicines ??? Take hkqr-jix-itbkpix and prescription medicines only as told by [...] provider. Document Revised: 01/27/2020 Document Reviewed: 01/27/2020 [employer] Patient Education ? 2020 [employer] Low-Fiber Eating Plan Fiber is found in [...] that you work with a diet and business continuity specialist (dietitian). What are tips for following [...] made with white flour. Waffles, pancakes, and Cambodian toast. Bagels. Pretzels. [place] toast, zwieback, and matzoh. Cooked and dried cereals that do not contain whole grains, added fiber, seeds, or dried fruit. Cornmeal. [place]. Hot and cold cereals made with refined [...] Sports drinks. Herbal tea. Fats and oils [place] oil, canola oil, sunflower oil, flaxseed oil, [...] breads and crackers. Multigrain breads and crackers. [place] bread. Whole grain or multigrain cereals. Cereals with nuts, raisins, or coconut. Bran. Coarse wheat cereals. Granola. High-fiber cereals. Cornmeal or corn bread. Whole grain pasta. Wild or brown rice. Quinoa. Popcorn. Buckwheat. Wheat germ. Vegetables Potato skins. Raw or undercooked vegetables. All beans and reyes sprouts. Cooked greens. [place]. Peas. Cabbage. Beets. Broccoli. [place] sprouts. Cauliflower. Mushrooms. Onions. Peppers. Parsnips. Okra. [...] are not allowed. Seasoning and other foods [place] tortilla chips. Soups made with vegetables or [...] provider. Document Revised: 08/09/2019 Document Reviewed: 06/20/2017 Elsevier Patient Education ? 2020 [employer] Electronically signed by Sandor Carvajal Conversion Corporate Compliance Manager Cerner at 08/19/2022 5:58 PM CDT documented in this encounter Plan of Treatment Not on file documented as of this encounter Visit Diagnoses Not on filedocumented in this encounter
--- OUTSIDE RECORDS SUMMARY | 2024-10-04 13:09 | XMS_ITS | Encounter Summary ---
Author Organization [employer] Address [address] [place] [address] Care Team Providers Care Arcade Games Mechanic Name Role Phone Unavailable Primary Care Provider Unavailabl e Encounter Details Date Type Department Care Team (Late st Contact Info) Description 03/10/2021 Transcribed Document [facility] Family Medicine [address] [place] [address] ProviderAlexis MD [facility] [place], [place] [address] Social History Tobacco Use Types Packs/Day Years Used Date Smoking Tobacco: Never Assessed Comments Unknown Sex and Gender Information Value Date Recorded Sex Assigned at Not on file Legal Sex Female 5:40 PM CDT Gender Identity Not on file Sexual Orientation Not on file documented as of this encounter Miscellaneous Notes * Cerner Conversion Note - Historical ProviderMD - 03/10/2021 5:00 PM RECEIVING DOCK CHECKER Chart Check - Review Order Profile Entered On: 03/10/2021 18:18 EST Performed On: 03/10/2021 17:00 EST by Gianna Branham RN Chart Check Powerplans Initiated/Discontinued as Appropriate : Yes All Active Orders Reviewed : Yes Gianna Branham RN - 03/10/2021 18:18 EST Electronically signed by Wei [facility] Conversion Anatomic Pathology Assistant Cerner at 08/19/2022 6:05 PM CDT documented in this encounter Plan of Treatment Not on file documented as of this encounter Visit Diagnoses Not on filedocumented in this encounter
--- OUTSIDE RECORDS SUMMARY | 2024-10-04 13:09 | XMS_ITS | Clinical Summary ---
Author Organization [employer] Address [address] [place] [address] Care Team Providers Care Phd Internship Name Role Phone Unavailable Primary Care Provider Unavailabl e Allergies No known active allergies Social History Tobacco Use Types Packs/Day Years Used Date Smoking Tobacco: Never Assessed Interpersonal Safety Answer Date Record ed Family or friends hurt you Not on file 05/19 Family or friends insult you Not on file Family or friends threaten you Not on file 0 05/19/2023 Family or friends scream or curse at you Not on file 05/19/2023 Housing Stability Answer Date Recorded Living situation today Not on file Living situation problems Not on file 2023 Food Insecurity Answer Date Recorded Food run out past 12 months Not on file 05/01 Food did not last past 12 months Not on file 05/19/2023 Employment Answer Date Recorded Help finding and keeping a job Not on file 0 05/19/2023 Family and Community Support Answer Presley e Recorded Help with Day to Day Activities Not on file 05/19/2023 Feeling Lonely or Isolated Not on file 05/19 Educational Attainment Answer Date Pelon rded Speak language other than Ivorian at home Not on file 05/19/2023 Want help with school or training Not on file 05/19/2023 Depression Answer Date Recorded PHQ-2 Risk Not on file 05/19/2023 Disabilities Answer Date Recorded Difficulty concentrating Not on file 024 Difficulty doing errands alone Not on file 0 05/19/2023 Substance Use Answer Date Recorded Used prescription meds for non-medical reasons N ot on file 05/19/2023 Used illegal drugs past 12 months Not on file 05/19/2023 Comments Unknown Sex and Gender Information Value Date Recorded Sex Assigned at Not on file Legal Sex Female 5:40 PM CDT Gender Identity Not on file Sexual Orientation Not on file Plan of Treatment Health Maintenance Due Date Last Done Comments CT Colonography 1961 Colonoscopy 1961 Colorectal Cancer Screening 1961 FOBT/FIT 1961 Fit-DNA (Cologuard) 1961 Sigmoidoscopy 1961 Depression Screening (12+) 1973 Tobacco Cessation Counseling and Screening (12+) 1973 HIV Screening 1976 Hepatitis C Screening 10/31/1979 Pap Smear 1982 Breast Cancer Screening 2001 Lipid Panel 2006 Pneumococcal 50+ years (1 of 1 - PCV) 10/31/2011 Shingles Vaccine (Zoster) (2 of 2) 10/16/20202020 DTAP/TDAP/TD VACCINES (2 - Td or Tdap) 02/19/2023 COVID-19 VACCINE (3 - season) 12/31/202306/2020, 07/08/2020 Influenza Vaccine (Season Ended) 2024 05/18/19 18 Respiratory Syncytial Virus (RSV) Adult or (1 - 1-dose 75+ series) 2036
--- OUTSIDE RECORDS SUMMARY | 2024-10-04 13:09 | XMS_ITS | Encounter Summary ---
Author Organization [employer] Address [address] [place] [address] Care Team Providers Care Rn Community Health Name Role Phone Unavailable Primary Care Provider Unavailabl e Encounter Details Date Type Department Care Team (Late st Contact Info) Description 03/10/2021 Transcribed Document [facility] Family Medicine [address] [place] [address] ProviderAlexis MD [facility] [place], [place] [address] Social History Tobacco Use Types Packs/Day Years Used Date Smoking Tobacco: Never Assessed Comments Unknown Sex and Gender Information Value Date Recorded Sex Assigned at Not on file Legal Sex Female 5:40 PM CDT Gender Identity Not on file Sexual Orientation Not on file documented as of this encounter Miscellaneous Notes * Cerner Conversion Note - Historical ProviderMD - 03/10/2021 6:00 PM HAND ETCHER HELPER Pain Assessment Entered On: 03/10/2021 18:18 EST Performed On: 03/10/2021 18:15 EST by Gianna Branham RN Intervention Information: acetaminophen Performed by Gianna Branham RN on 03/10/2021 17:15:00 EST acetaminophen,1000mg Oral Pain Assessment Pain Assessment : Follow-up assessment Gianna Branham RN - 03/10/2021 18:18 EST documented in this encounter Plan of Treatment Not on file documented as of this encounter Visit Diagnoses Not on filedocumented in this encounter
--- OUTSIDE RECORDS SUMMARY | 2024-10-04 13:09 | XMS_ITS | Encounter Summary ---
Author Organization [employer] Address [address] [place] [address] Care Team Providers Care Diesel Instructor Name Role Phone Unavailable Primary Care Provider Unavailabl e Encounter Details Date Type Department Care Team (Late st Contact Info) Description 03/10/2021 Transcribed Document [facility] [place] [facility] [place] [address] ProviderAleixs MD [address] [place] [address] Social History Tobacco Use Types Packs/Day Years Used Date Smoking Tobacco: Never Assessed Comments Unknown Sex and Gender Information Value Date Recorded Sex Assigned at Not on file Legal Sex Female 5:40 PM CDT Gender Identity Not on file Sexual Orientation Not on file documented as of this encounter Miscellaneous Notes * Cerner Conversion Note - Historical ProviderMD - 03/10/2021 12:13 PM MANAGER CLEANING [facility] Main OR PACU Summary Primary Physician: ARMANDO ZAVALA MD-PRO Finalized Date/Time: 03/10/21 16:08:59 Pt. Name: NAINA DAYANAHOMAR Rosen/Sex: 1960 Female Med Rec #: [id number] Physician: ARMANDO ZAVALA MD- Financial #: [id number] Pt. Type: I Room/Bed: / Admit/Disch: 02/23/21 10:15:00 - Institution: [facility] Main OR PACU I Case Times Entry 1 In PACU I 03/10/21 14:50:00 Ready for PACU 03/10/21 16:05:00 Discharge Discharge from PACU 03/10/21 16:05:00 I Last Modified By: MISAEL AHUMADA RN 03/10/21 16:08:40 Finalized By: MISAEL AHUMADA, RN Document Signatures Signed By: MISAEL AHUMADA RN 03/10/21 16:08 Electronically signed by Wei [facility] Conversion Podopediatrician Cerner at 08/19/2022 6:05 PM CDT documented in this encounter Plan of Treatment Not on file documented as of this encounter Visit Diagnoses Not on filedocumented in this encounter
--- OUTSIDE RECORDS SUMMARY | 2024-10-04 13:09 | XMS_ITS | Encounter Summary ---
Author Organization [employer] Address [address] [place] [address] Care Team Providers Care Metal Casting Trades Worker Name Role Phone Unavailable Primary Care Provider Unavailabl e Encounter Details Date Type Department Care Team (Late st Contact Info) Description 03/11/2021 Transcribed Document [facility] [place] [address] [place] [address] ProviderAlexis MD [facility] [place], [place] [address] Social History Tobacco Use Types Packs/Day Years Used Date Smoking Tobacco: Never Assessed Comments Unknown Sex and Gender Information Value Date Recorded Sex Assigned at Not on file Legal Sex Female 5:40 PM CDT Gender Identity Not on file Sexual Orientation Not on file documented as of this encounter Miscellaneous Notes * Cerner Conversion Note - Historical ProviderMD - 03/11/2021 2:33 PM MARKETING SUPPORT ASSISTANT Nursing Discharge Summary Entered On: 03/11/2021 14:33 EST Performed On: 03/11/2021 14:33 EST by Leanne Sahu Virtual RN Discharge Documentation Discharge Instructions Reviewed With, Opportunity For Questions Given : Patient Patient Education Completed : Yes Teaching Method : Explanation, Printed materials Teaching Evaluation : Verbalizes understanding Education Comment : Meds, follow ups, conditions, restrictions Leanne Sahu Virtual RN - 03/11/2021 14:33 EST Electronically signed by Wei [facility] Conversion Harness Inspector Cerner at 08/19/2022 6:24 PM CDT documented in this encounter Plan of Treatment Not on file documented as of this encounter Visit Diagnoses Not on filedocumented in this encounter
--- OUTSIDE RECORDS SUMMARY | 2024-10-04 13:09 | XMS_ITS | Encounter Summary ---
Author Organization [employer] Address [address] [place] [address] Care Team Providers Care Hardboard Press Operator Name Role Phone Unavailable Primary Care Provider Unavailabl e Encounter Details Date Type Department Care Team (Late st Contact Info) Description 03/11/2021 Transcribed Document [facility] Radiology [address] [place] [address] Kiki Celaya MD [address] [place] [address] [address] [place] [id number] Social History Tobacco Use Types Packs/Day Years Used Date Smoking Tobacco: Never Assessed Comments Unknown Sex and Gender Information Value Date Recorded Sex Assigned at Not on file Legal Sex Female 5:40 PM CDT Gender Identity Not on file Sexual Orientation Not on file documented as of this encounter Miscellaneous Notes * Cerner Conversion Note - Kiki Celaya MD - 03/11/2021 5:29 PM EST DATE OF ADMISSION: 03/10/2021 DATE OF DISCHARGE: 03/11/2021 PRIMARY CARE PROVIDER: Dr. Leroy Mueller. PRINCIPAL DISCHARGE DIAGNOSES: 1. Low anterior resection secondary to diverticulosis and sigmoid stricture. 2. Gastroesophageal reflux disease. 3. Anxiety disorder. 4. Hyperlipidemia. PRINCIPAL PROCEDURE: The patient underwent a robotic low anterior resection for diverticulitis. ADMISSION HISTORY AND HOSPITAL COURSE: This is a 60-year-old white female, who was had chronic abdominal pain and discomfort in addition to constipation. She had a colonoscopy and was noted to have severe kinking in the area of the sigmoid colon with diverticular disease. The patient was offered an elective LAR and she underwent the same. Postoperatively, the patient was seen and admitted and evaluated by Medicine Service as well. The patient did well. Her diet was gradually advanced. She was ambulated. The following morning, the patient was doing much better. She did tolerate a diet and was passing flatus. She was seen and evaluated by Dr. England as well and was cleared for discharge. At the time of discharge, the patient was awake, alert, and oriented and afebrile with a blood pressure of 140/67. Lung exam was clear to auscultation. Abdomen exam was soft with a postsurgical changes. At this time, she is felt to have met with maximum inpatient hospital benefit and is being discharged. DISCHARGE DIET: Would be GI soft, low-fiber diet. DISCHARGE ACTIVITY: No strenuous activity or no heavy lifting of weight until followup with Dr. England. DISCHARGE MEDICATIONS: 1. Percocet 5/325 q.6 hours p.r.n. for pain. 2. Crestor 20 mg daily. 3. Baclofen 5 mg t.i.d. 4. Bupropion 150 mg b.i.d. 5. Citalopram 20 mg daily. 6. Vitamin B12 1000 mcg daily. 7. Prilosec 20 mg b.i.d. 8. Tylenol 1000 mg b.i.d., not to exceed a total of 4000 mg a day including with Percocet. 9. Estradiol 1 mg daily. DISCHARGE FOLLOWUP: 1. Follow up with Dr. England on 03/18/2021 at 2 p.m. 2. Follow up with the Primary Care Provider on 03/30/2021 at 1:15 p.m. All other discharge instructions have been reviewed with the patient and time spent towards her discharge including review of the above totals at 30 minutes. /[id number] Kiki Celaya MD VLS/AQ / VLS / MODL /[id number] documented in this encounter Plan of Treatment Not on file documented as of this encounter Visit Diagnoses Not on filedocumented in this encounter
--- OUTSIDE RECORDS SUMMARY | 2024-10-04 13:09 | XMS_ITS | Encounter Summary ---
Author Organization [employer] Address [address] [place] [address] Care Team Providers Care Neonatal Specialist Name Role Phone Unavailable Primary Care Provider Unavailabl e Encounter Details Date Type Department Care Team (Late st Contact Info) Description 03/10/2021 Transcribed Document [facility] [place] [address] [place] [address] ProviderAlexis MD [facility] [place] [address] Social History Tobacco Use Types Packs/Day Years Used Date Smoking Tobacco: Never Assessed Comments Unknown Sex and Gender Information Value Date Recorded Sex Assigned at Not on file Legal Sex Female 5:40 PM CDT Gender Identity Not on file Sexual Orientation Not on file documented as of this encounter Miscellaneous Notes * Cerner Conversion Note - Historical ProviderMD - 03/10/2021 2:33 PM BRICK STACKER Consult Phone Call Documentation Entered On: 03/10/2021 16:27 EST Performed On: 03/10/2021 14:33 EST by Elodia Buck Patient Hair Baler Heladio Phone Call for Consults Consult Phone Call/Page Attempt : First call Consult Reason : assumption of care and medical management Physician Requesting Consult : ARMANDO ZAVALA MD-PRO Physician Covering for Consult : VALERIA LOPEZ MD-INT Date and Time Call Returned : 03/10/2021 16:27 EST Elodia Buck Patient Hair Baler I - 03/10/2021 16:27 EST documented in this encounter Plan of Treatment Not on file documented as of this encounter Visit Diagnoses Not on filedocumented in this encounter
--- OUTSIDE RECORDS SUMMARY | 2024-10-04 13:09 | XMS_ITS | Encounter Summary ---
Author Organization [employer] Address [address] [place] [address] Care Team Providers Care Cooper Helper Name Role Phone Unavailable Primary Care Provider Unavailabl e Encounter Details Date Type Department Care Team (Late st Contact Info) Description 03/10/2021 Transcribed Document [facility] [place] [facility] [address] ProviderAlexis MD [address] [place] [id number] Social History Tobacco Use Types Packs/Day Years Used Date Smoking Tobacco: Never Assessed Comments Unknown Sex and Gender Information Value Date Recorded Sex Assigned at Not on file Legal Sex Female 5:40 PM CDT Gender Identity Not on file Sexual Orientation Not on file documented as of this encounter Miscellaneous Notes * Cerner Conversion Note - Alexis Livingston MD - 03/10/2021 6:10 PM WILD OYSTER HARVESTER Patient: DAYANA BONILLA Age: 60 Years Sex: Female : 1960 Chief Complaint Abdominal pain Primary Care Provider ARMANDO OWENS MD-[facility] History of Present Illness This is a 60-year-old female who is accompanied by her Jean on the surgical floor postop day lower anterior colon resection. She reports a past medical history for diverticulosis with recent colonoscopy identifying stricture and inability to pass the scope, hyperlipidemia, generalized anxiety disorder, BMI 33 and reflux esophagitis. She went to see her colorectal specialist for her concerns of abdominal pain and diverticulosis. During colonoscopy a stricture was identified. Surgical options were discussed. She then underwent EGD for her concerns of reflux and erosive esophagitis with gastritis and hiatal hernia were identified. Currently the patient is postop and reports adequate pain control. A GI soft diet is at her bedside. Review of Systems Constitutional: No fevers, no chills, no night sweats, no acute weight changes Eye: No recent visual problems, eye discharge, eye pain or redness HEENT: No ear pain, nasal congestion, sore throat or voice changes Respiratory: No shortness of breath, no cough, no pain on breathing, no sputum production Cardiovascular: No Chest pain, no palpitations, no increasing edema, no orthopnea Gastrointestinal: Some nausea, no vomiting, no diarrhea Genitourinary: No hematuria, dysuria, incontinence or discharge Chang/Lymph: Negative for bruising tendency, swollen lymph glands, nosebleeds Endocrine: Negative for excessive thirst, excessive hunger, excessive urination, heat or cold intolerance Musculoskeletal: No back pain, no neck pain, no acute joint pain, myalgias or sudden loss in rom Integumentary: No rash, pruritus, abrasions, or lesions Neurologic: No weakness, numbness, syncope, frequent headaches, tremors Psychiatric: No anxiety, depression, mood changes, hallucinations Vital Signs T: 36.8 ??C TMIN: 36.1 ??C TMAX: 36.8 ??C HR: 74(Monitored) RR: 16 BP: 122/40 SpO2: 98% HT: 160.02 cm WT: 83.64 kg BMI: 32.7 Oxygen Settings (Last) Oxygen Therapy Mode: Room air (03/10/21 16:29:00) Oxygen Flow Rate: 8 Liter/Min (03/10/21 14:50:00) Physical Exam General: Alert and oriented, well nourished, no acute distress. Eye: PERRL, EOMI, Conjunctiva appropriate. HENT: Normocephalic, normal hearing, moist oral mucosa, O/P appropriate. Neck: Supple, non-tender, no JVD, no lymphadenopathy. Lungs: Appropriate effort, Clear to auscultation, adequate excursion. Heart: regular rate, regular rhythm, no murmur, no pedal edema. Abdomen: Soft, post surgical tenderness, surgical dressing, non-distended, normal bowel sounds. Musculoskeletal: adequate range of motion and tone, appropriate strength Skin: Skin is warm, dry and pink, no diffuse rashes. Neurologic: Awake, alert and oriented X 3, sensory intact. Psychiatric: Cooperative, appropriate mood and affect. Assessment/Plan Diverticulosis with sigmoid stricture Postop day lower anterior colon resection utilizing robotic device (03/10/2021) GI soft diet IV antiemetics Parentally administered controlled substance for comfort care Gentle IV fluid resuscitation Morning labs ordered Gastroesophageal reflux disease PPI therapy Appropriate position drooling after mealtimes Generalized anxiety disorder Routine nursing interaction SSRI therapy Hyperlipidemia Statin therapy Low-cholesterol diet VTE Prophylaxis - Medical Heparin 5,000 Units, SubCutaneous, Inj, Q8H, Routine, Start 03/10/21 15:03:00 EST, 03/10/21 15:03:00 EST (ARMANDO ZAVALA) Sequential Compression Device Start: 03/10/21 8:59:00 EST, Bilateral, Length: Knee High, While patient is in bed, Continuous Order (ARMANDO ZAVALA) Problem List/Past Medical History Ongoing Anxiety and depression Cecal diverticulitis Hiatal hernia Hyperlipidemia GERD Erosive esophagitis BMI 33 Diverticulosis Sigmoid stricture Procedure/Surgical History Hysterectomy (04/01/2001), colonoscopy, EGD (esophagogastroduodenoscopy) gastric outlet reduction, lumpectomy, Tubal ligation. SN - Proc - Procedure: Colon Resection Low Anterior Robotic (03/10/21 12:28:02) Home Medications (12) Active baclofen 5 mg oral tablet 5 mg = 1 Tab, Oral, TID buPROPion 150 mg/12 hours (SR) oral tablet, extended release , Oral, BID citalopram 20 mg oral tablet , Oral, Daily estradiol 1 mg oral tablet 1 mg = 1 Tab, Oral, Daily Flagyl 500 mg oral tablet 500 mg = 1 Tab, Oral, TID Metamucil , Oral MiraLax , Oral, Daily neomycin 500 mg oral tablet 1,000 mg = 2 Tab, Oral, TID omeprazole 20 mg, Oral, BID rosuvastatin 20 mg oral tablet , Oral, At Bedtime sulindac 200 mg oral tablet , PRN, Oral, BID Vitamin B12 1000 mcg oral tablet 1,000 mcg = 1 Tab, Oral, Daily Allergies Benadryl Latex (Rash, skin) amitriptyline Social History Alcohol Alcohol Use History Yes. Alcohol Use Frequency Socially. Substance Abuse Drug Use Hx: Yes. Use in Last 12 Months: Yes. Marijuana/Hashish Recreational Drug Type. Frequency: Weekly. Drug Last Use: 03/03. Drug Use Hx: No. Use in Last 12 Months: No. Tobacco Smoking Status Former smoker. Years of Use: 38. Used Tobacco, but Quit Yes. Last Used: quit 2 yeaars ago. She lives with her Jean of 30 years. She reports that she has 3 children. 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 She describes a significant smoking history of 38 years but quit several years ago. Family History Mother at the age of 71 from a heart attack Father at the age of 54 from a stroke Immunizations She is Covid vaccine compliant Lab Results Test Name Test Result Date/Time Potassium POC 4.2 mmol/L 03/10/2021 09:13 EST Device Comment 1 Notified Nurse RBV 03/10/2021 15:30 EST Glucose POC2 125 mg/dL (High) 03/10/2021 15:30 EST ABO/Rh (ECHO) O POS 03/10/2021 09:12 EST Antibody Screen (Tube) Negative ABSC 03/10/2021 09:12 EST Additional Documentation Code Status Start: 03/10/21 14:33:00 EST, Full Code, Continuous Order Electronically signed by Wei [facility] Conversion Machine Specialist Cerner at 08/19/2022 6:04 PM CDT documented in this encounter Plan of Treatment Not on file documented as of this encounter Visit Diagnoses Not on filedocumented in this encounter
--- OUTSIDE RECORDS SUMMARY | 2024-10-04 13:09 | XMS_ITS | Encounter Summary ---
Author Organization [employer] Address [address] [place] [address] Care Team Providers Care Brazing Machine Operator Helper Name Role Phone Unavailable Primary Care Provider Unavailabl e Encounter Details Date Type Department Care Team (Late st Contact Info) Description 03/11/2021 Transcribed Document [facility] [place] [address] [place] [address] ProviderAlexis MD [facility] [place], [place] [address] Social History Tobacco Use Types Packs/Day Years Used Date Smoking Tobacco: Never Assessed Comments Unknown Sex and Gender Information Value Date Recorded Sex Assigned at Not on file Legal Sex Female 5:40 PM CDT Gender Identity Not on file Sexual Orientation Not on file documented as of this encounter Miscellaneous Notes * Cerner Conversion Note - Historical ProviderMD - 03/11/2021 5:00 AM PURCHASING DEPARTMENT CLERK Chart Check - Review Order Profile Entered On: 03/11/2021 4:46 EST Performed On: 03/11/2021 5:00 EST by Krys Meyer Lpn Chart Check Powerplans Initiated/Discontinued as Appropriate : Yes All Active Orders Reviewed : Yes Krys Meyer Lpn - 03/11/2021 4:46 EST Electronically signed by Wei [facility] Conversion Plug Overwrap Machine Tender Cerner at 08/19/2022 6:00 PM CDT documented in this encounter Plan of Treatment Not on file documented as of this encounter Visit Diagnoses Not on filedocumented in this encounter
--- OUTSIDE RECORDS SUMMARY | 2024-10-04 13:09 | XMS_ITS | Encounter Summary ---
Author Organization [employer] Address [address] [place] [address] Care Team Providers Care Stage Set Up Worker Name Role Phone Unavailable Primary Care Provider Unavailabl e Encounter Details Date Type Department Care Team (Late st Contact Info) Description 03/11/2021 Transcribed Document [facility] [place] [address] [place] [address] ProviderAlexis MD [facility] [place], [place] [id number] Social History Tobacco Use Types Packs/Day Years Used Date Smoking Tobacco: Never Assessed Comments Unknown Sex and Gender Information Value Date Recorded Sex Assigned at Not on file Legal Sex Female 5:40 PM CDT Gender Identity Not on file Sexual Orientation Not on file documented as of this encounter Miscellaneous Notes * Cerner Conversion Note - Historical ProviderMD - 03/11/2021 6:00 AM SENIOR MARKETING SPECIALIST Pain Assessment Entered On: 03/11/2021 8:25 EST Performed On: 03/11/2021 7:43 EST by Sarah Sahu RN Intervention Information: acetaminophen Performed by Krys Meyre Lpn on 03/11/2021 06:43:00 EST acetaminophen,1000mg Oral Pain Assessment Pain Assessment : Initial assessment Pain Scale Goal : 6 Pain Scale Used : 0-10 Scale Sarah Sahu RN - 03/11/2021 8:24 EST Pain Scale Intensity : 2 Sarah Sahu RN - 03/11/2021 8:24 EST Image 4 - Images currently included in the form version of this document have not been included in the text rendition version of the form. documented in this encounter Plan of Treatment Not on file documented as of this encounter Visit Diagnoses Not on filedocumented in this encounter
--- OUTSIDE RECORDS SUMMARY | 2024-10-04 13:09 | XMS_ITS | Referral Summary ---
Author Organization [employer] Address [address] [place] [address] Care Team Providers Care Metal Ceiling Hanger Name Role Phone Unavailable Primary Care Provider [...] Date Pelon rded Speak language other than Romanian at home Not on file 05/19/2023 Want [...] Orientation Not on file Plan of Treatment Not on file
--- OUTSIDE RECORDS SUMMARY | 2024-10-04 13:09 | XMS_ITS | Encounter Summary ---
Author Organization [employer] Address [address] [place] [address] Care Team Providers Care Fire Chief Deputy Name Role Phone Unavailable Primary Care Provider Unavailabl e Encounter Details Date Type Department Care Team (Late st Contact Info) Description 03/11/2021 Transcribed Document [facility] [place] [address] [place] [address] ProviderAlexis MD [facility] [place], [place] [id number] Social History Tobacco Use Types Packs/Day Years Used Date Smoking Tobacco: Never Assessed Comments Unknown Sex and Gender Information Value Date Recorded Sex Assigned at Not on file Legal Sex Female 5:40 PM CDT Gender Identity Not on file Sexual Orientation Not on file documented as of this encounter Miscellaneous Notes * Cerner Conversion Note - Historical ProviderMD - 03/11/2021 12:00 AM ELECTROPLATER Pain Assessment Entered On: 03/11/2021 1:05 EST Performed On: 03/11/2021 0:48 EST by Krys Meyer Lpn Intervention Information: acetaminophen Performed by Krys Meyer Lpn on 03/10/2021 23:48:00 EST acetaminophen,1000mg Oral Pain Assessment Pain Assessment : Follow-up assessment Pain Scale Goal : 6 Pain Scale Used : 0-10 Scale Krys Meyer Lpn - 03/11/2021 1:05 EST Pain Scale Intensity : 1 Krys Meyer Lpn - 03/11/2021 1:05 EST Image 4 - Images currently included in the form version of this document have not been included in the text rendition version of the form. Electronically signed by Sandor Carvajal Conversion Auxiliary Equipment Operator Cerner at 08/19/2022 6:06 PM CDT documented in this encounter Plan of Treatment Not on file documented as of this encounter Visit Diagnoses Not on filedocumented in this encounter
--- OUTSIDE RECORDS SUMMARY | 2024-10-04 13:09 | XMS_ITS | Encounter Summary ---
Author Organization [employer] Address [address] [place] [address] Care Team Providers Care Rubber Goods Finisher Name Role Phone Unavailable Primary Care Provider Unavailabl e Encounter Details Date Type Department Care Team (Late st Contact Info) Description 03/10/2021 Transcribed Document [facility] [place] Family Medicine [address] [place] [address] ProviderAlexis MD [address] [place] [address] Social History Tobacco Use Types Packs/Day Years Used Date Smoking Tobacco: Never Assessed Comments Unknown Sex and Gender Information Value Date Recorded Sex Assigned at Not on file Legal Sex Female 5:40 PM CDT Gender Identity Not on file Sexual Orientation Not on file documented as of this encounter Miscellaneous Notes * Cerner Conversion Note - lAexis ProviderMD - 03/10/2021 12:13 PM GEAR TOOTH GRINDING MACHINE OPERATOR [facility] Main OR IntraOp Summary Primary Physician: ARMANDO ZAVALA MD-PRO Finalized Date/Time: 03/12/21 13:01:41 Pt. Name: DAYANA CHEWO.B./Sex: 1960 Female Med Rec #: [id number] Physician: ARMANDO ZAVALA MD-PRO Financial #: [id number] Pt. Type: I Room/Bed: [facility]/ Admit/Disch: 03/10/21 16:14:00 - 03/11/21 14:54:00 Institution: [facility] IntraOp Case Attendance Entry 1 Entry 2 Entry 3 Case Attendee ARMANDO ZAVALA MD-PRO Noemi Saucedo Lewis, Robin A RN-PATIENT CARE BEDSIDE Hand Rug Cleaner NON-EXEMPT Role Performed Surgeon/Proceduralist, Rn Licensed Practical, Second Scrub, First First Time In 03/10/21 11:41:00 03/10/21 11:41:00 03/10/21 11:41:00 Time Out 03/10/21 14:46:00 03/10/21 13:15:00 03/10/21 14:46:00 Procedure Colon Resection Low Colon Resection Low Colon Resection Low Anterior Robotic Anterior Robotic Anterior Robotic Other Attendee LUNCH RELIEF Superficial Wound Closed By: Last Modified By: Moustapha Hernadez, Noemi Parra Pantano, Scott, SUNIL 03/10/21 14:47:28 RN-PATIENT CARE BEDSIDE 03/10/21 14:47:28 NON-EXEMPT 03/10/21 11:21:50 Entry 4 Entry 5 Entry 6 Case Attendee NICHOLE ROBERTS Joe, ST Pantano, Scott, SUNIL Role Performed Scrub, Wholesale Buyer, First Rn Licensed Practical, First Time In 03/10/21 11:41:00 03/10/21 11:41:00 03/10/21 11:41:00 Time Out 03/10/21 14:46:00 03/10/21 14:46:00 03/10/21 14:46:00 Procedure Colon Resection Low Colon Resection Low Colon Resection Low Anterior Robotic Anterior Robotic Anterior Robotic Other Attendee LUNCH RELIEF Superficial Wound Closed By: Last Modified By: Noemi Saucedo Pantano, Scott, Moustapha Gan, SUNIL RN-PATIENT CARE BEDSIDE 03/10/21 14:47:28 03/10/21 14:47:28 NON-EXEMPT 03/10/21 11:21:50 Entry 7 Entry 8 Case Attendee LOBO MURRAY, BAKARI COOPER, BRYAN Role Performed ACUPRESSURE THERAPIST/Nurse Cotton Ball Machine Tender Other Time In 03/10/21 11:41:00 03/10/21 11:41:00 Time Out 03/10/21 14:46:00 03/10/21 14:46:00 Procedure Colon Resection Low Colon Resection Low Anterior Robotic Anterior Robotic Other Attendee Superficial Wound Closed By: Last Modified By: Moustapha Hernadez, Moustapha Gan, SUNIL 03/10/21 14:47:28 03/10/21 14:47:28 [facility] IntraOp Case Attendance Audit 03/10/21 14:47:28 Circular Distributor: [id number] Modifier: [email or web address] 1 <+> Time Out 1 <*> Procedure Colon Resection Low Anterior Robotic 2 <*> Procedure Colon Resection Low Anterior Robotic 3 <+> Time Out 3 <*> Procedure Colon Resection Low Anterior Robotic 4 <+> Time Out 4 <*> Procedure Colon Resection Low Anterior Robotic 5 <+> Time Out 5 <*> Procedure Colon Resection Low Anterior Robotic 6 <+> Time Out 6 <*> Procedure Colon Resection Low Anterior Robotic 7 <+> Time Out 7 <*> Procedure Colon Resection Low Anterior Robotic 8 <+> Time Out 8 <*> Procedure Colon Resection Low Anterior Robotic 03/10/21 13:15:42 Circular Distributor: [id number] Modifier: [id number] <+> Time Out 2 <*> Procedure Colon Resection Low Anterior Robotic 03/10/21 12:28:02 Circular Distributor: [id number] Modifier: [id number] <+> 1 Procedure 2 <*> Procedure Colon Resection Low Anterior Robotic 3 <*> Procedure Colon Resection Low Anterior Robotic 4 <*> Procedure Colon Resection Low Anterior Robotic 5 <*> Procedure Colon Resection Low Anterior Robotic 6 <*> Procedure Colon Resection Low Anterior Robotic 7 <*> Procedure Colon Resection Low Anterior Robotic 8 <*> Procedure Colon Resection Low Anterior Robotic 03/10/21 12:20:54 Circular Distributor: [id number] Modifier: [id number] <*> Procedure Colon Resection Low Anterior Robotic 3 <*> Procedure Colon Resection Low Anterior Robotic 4 <*> Procedure Colon Resection Low Anterior Robotic 5 <*> Procedure Colon Resection Low Anterior Robotic 6 <*> Procedure Colon Resection Low Anterior Robotic 7 <*> Procedure Colon Resection Low Anterior Robotic 8 <+> Time In 8 <*> Procedure Colon Resection Low Anterior Robotic 03/10/21 12:13:14 Circular Distributor: [id number] Modifier: [id number] <+> 1 Time In 2 <+> Time In 2 <*> Procedure Colon Resection Low Anterior Robotic 3 <+> Time In 3 <*> Procedure Colon Resection Low Anterior Robotic 4 <+> Time In 4 <*> Procedure Colon Resection Low Anterior Robotic 5 <+> Time In 5 <*> Procedure Colon Resection Low Anterior Robotic 6 <+> Time In 6 <*> Procedure Colon Resection Low Anterior Robotic 7 <+> Time In 7 <*> Procedure Colon Resection Low Anterior Robotic <+> 8 Case Attendee <+> 8 Role Performed <+> 8 Procedure 03/10/21 11:23:24 Circular Distributor: [id number] Modifier: [id number] <+> 7 Case Attendee <+> 7 Role Performed <+> 7 Procedure [facility] IntraOp Case Times Entry 1 Patient In Room Time 03/10/21 11:41:00 Out Room Time 03/10/21 14:46:00 Anesthesia Start Time 03/10/21 11:41:00 Stop Time 03/10/21 14:46:00 Surgery / Procedure Times Start Time 03/10/21 12:13:00 Stop Time 03/10/21 14:35:00 Last Modified By: Moustapha Hernadez RN 03/10/21 14:46:30 [facility] IntraOp Case Times Audit 03/10/21 14:46:42 Circular Distributor: [email or web address] Modifier: PANTANOS <+> 1 Out Room Time <+> 1 Stop Time 03/10/21 14:46:30 Circular Distributor: [id number] Modifier: PANTANOS <+> 1 Stop Time 03/10/21 12:57:52 Circular Distributor: [id number] Modifier: [id number] <+> 1 Start Time [facility] IntraOp Cautery Entry 1 ESU Identification Cautery Type Monopolar ESU ID Number [id number] ID Type Hospital Number Cautery Settings Cut Setting 4 Coag Setting 4 Bipolar Setting 4 ESU Grounding Pad Ground Pad Type Adult Grounding Pad Site Right thigh Grounding Pad Moustapha Hernadez RN Applied By Grounding Pad Site Warm, dry and intact Skin Condition Before Cautery Grounding Pad Site Warm, dry and intact Skin Condition After Cautery Last Modified By: Noemi Saucedo RN-PATIENT CARE BEDSIDE NON-EXEMPT 03/10/21 11:22:43 [facility] IntraOp Communication Entry 1 Communication To Family/Significant other Communication By Noemi Saucedo RN-PATIENT CARE BEDSIDE NON-EXEMPT Date and Time 03/10/21 12:14:00 Last Modified By: Noemi Saucedo RN-PATIENT CARE BEDSIDE NON-EXEMPT 03/10/21 12:14:41 [facility] IntraOp Counts Verification Entry 1 Procedure Colon Resection Low Anterior Robotic Count Info Count Type Sponge, Sharps, Instrument, Miscellaneous Counts Verification Baseline/pre-procedure Sequence Counts Performed By Count Performed By NICHOLE ROBERTS (Scrub) Count Performed By Noemi Saucedo, (RN) RN-PATIENT CARE BEDSIDE NON-EXEMPT Last Modified By: Noemi Saucedo RN-PATIENT CARE BEDSIDE NON-EXEMPT 03/10/21 11:22:13 [facility] IntraOp Counts Final Entry 1 Procedure Colon Resection Low Anterior Robotic Final Count Info Count Type Sponge, Sharps, Miscellaneous Counts Verification Skin Closure/end of Sequence procedure Count Results Correct, surgeon notified Counts Performed By Count Performed By Claus Casanova, (Scrub) Hand Rug Cleaner Count Performed By Moustapha Hernadez RN (RN) Last Modified By: Noemi Saucedo RN-PATIENT CARE BEDSIDE NON-EXEMPT 03/10/21 12:14:28 [facility] IntraOp Counts Final Audit 03/10/21 14:18:29 Circular Distributor: [id number] Modifier: JENNIFER Gil <*> Procedure Colon Resection Low Anterior Robotic [facility] IntraOp Cultures and Spec Summary Entry 1 Cultrures and Specimens Specimen Ordered: Yes Test(s) Routine/Path-Lab Requested/Final Disposition Last Modified By: Noemi Saucedo RN-PATIENT CARE BEDSIDE NON-EXEMPT 03/10/21 12:14:08 [facility] IntraOp Departure from OR Entry 1 Integumentary Assessment Integumentary WDL with patient Assessment WDL specific variances Patient's Normal Surgical incisions = Integumentary abdomen Variance(s) Transfer/Handoff Transfer to PACU Phase I Handoff Method Phone call Post-op Transport Stretcher/Gurney Via Patient Transport LOBO MURRAY NA, Accompanied by Vazquez Lisa ST Last Modified By: Noemi Saucedo RN-PATIENT CARE BEDSIDE NON-EXEMPT 03/10/21 12:14:56 [facility] IntraOp Dressing and Packing Entry 1 Type Dressing Location Abdomen Wound Dressing Item Skin Closure Glue Applied By Vazquez Lisa ST Other Comments Dermabond Prineo Last Modified By: Noemi Saucedo RN-PATIENT CARE BEDSIDE NON-EXEMPT 03/10/21 12:14:49 [facility] IntraOp Fire Risk Assessment Entry 1 Fire Info Surgical Site or 0- No Incision Above the Xyphoid Open O2 Source 0- No (Mask or Cannula) Available Ignition 1- Yes (ESU, Laser, Light Source) Fire Risk 1 Assessment Score Fire Score Fire Risk Yes Assessment Complete Fire Risk Moustapha Hernadez, educational manager Verified By Fire Risk 03/10/21 12:11:00 Assessment Verified Date/Time Fire Risk Standard Fire Yes Safety Precautions Followed Last Modified By: Noemi Saucedo RN-PATIENT CARE BEDSIDE NON-EXEMPT 03/10/21 12:11:14 [facility] IntraOp General Case Panel Lay Up Worker 1 Case Information OR OR 12 [facility] Case Level 1 Room Verified Yes Wound Class 2 - Clean-Contaminated Specialty Colorectal Anesthesia Type General ASA Class 2 Diagnosis Preop Diagnosis DIVERTICULITIS Postop Same As Preop Yes Postop Diagnosis DIVERTICULITIS Wound Class Definitions Last Modified By: Noemi Saucedo RN-PATIENT CARE BEDSIDE NON-EXEMPT 03/10/21 12:13:50 [facility] IntraOp General Case Data Audit 03/10/21 12:13:50 Circular Distributor: [id number] Modifier: [id number] <+> 1 Specialty <+> 1 ASA Class <+> 1 Wound Class <+> 1 Anesthesia Type <+> 1 Postop Same As Preop <+> 1 Preop Diagnosis <+> 1 Postop Diagnosis <+> 1 Room Verified [facility] IntraOp Intraoperative Assessment Entry 1 Handoff Method Online nursing summary Valid History / Yes Physical in Chart Preoperative Yes Checklist Reviewed/Evaluated Allergies Reviewed Yes Patient is Latex No Sensitive Isolation Not applicable Precautions Noted Level of WDL Consciousness (WDL = Alert, Oriented to Person, Place, and Time) Skin Assessment No Verified Present Upon IVs Arrival to OR Last Modified By: Noemi Saucedo RN-PATIENT CARE BEDSIDE NON-EXEMPT 03/10/21 12:15:08 [facility] IntraOp Intraoperative Equipment Entry 1 Type Monitoring Equipment Equipment Kurtis Suction System Intraop Monitoring Electrocardiogram Three lead placement (ECG) Electrode Placement Blood Pressure Non-Invasive BP Device Source Antiembolic Devices Scopes Photo/Video Documentation Photo No Video No Intraop Equipment Heparin 5000 units SC Comment administered in preoperative area. Last Modified By: Noemi Saucedo RN-PATIENT CARE BEDSIDE NON-EXEMPT 03/10/21 12:14:03 [facility] IntraOp Medication Admin Entry 1 Medication/Irrigant INDOCYANINE GREEN 25MG/VIAL Dose Dose 10 Unit of Measure ml Administered By LOBO MURRAY NA Procedure Irrigation Last Modified By: Noemi Saucedo RN-PATIENT CARE BEDSIDE NON-EXEMPT 03/10/21 12:16:29 [facility] IntraOp Patient Positioning Entry 1 Procedure Colon Resection Low Anterior Robotic Body Position Lithotomy Left Arm Position Tucked and padded at side Right Arm Position Tucked and padded at side Left Leg Position Secured in Leg Stone Right Leg Position Secured in Leg Stone Feet Uncrossed Yes Pressure Points Yes Checked Positioning Devices Head Rest, Pad, Mattress, Pad, Arm, Pad, Arm, Safety Strap, Chest, Stirrups/Leg Stone, Boot Device Position FOAM POSITIONING MATTRESS Positioned By Vazquez Lisa ST, Moustapha Hernadez, RN, Noemi Saucedo RN-PATIENT CARE BEDSIDE NON-EXEMPT, LOBO MURRAY NA, DVORAK, JOHN, MD-PRO Position Verified Positioning Yes Verified by Anesthesia Positioning Yes Verified by Surgeon Last Modified By: Noemi Saucedo RN-PATIENT CARE BEDSIDE NON-EXEMPT 03/10/21 12:20:44 [facility] IntraOp Sign In Entry 1 Patient, Site, Yes Procedure Identified Surgical Consent Yes Confirmed Relevant Surgical Yes Documents Available Surgical Site N/A Marked by person performing procedure Anesthesia Machine Yes Check Completed Medication Checks Yes Completed Allergies Yes Airway Difficult Yes Airway/Aspiration Risk Difficult Yes Airway/Aspiration Intervention Equipment Available Blood Loss Risk Yes Blood Loss Yes Intervention Equipment Prepared and Ready Blood Identifiers Yes Verified Per Policy Hypothermia Risk Yes Warming Measures Yes Taken Last Modified By: Noemi Saucedo RN-PATIENT CARE BEDSIDE NON-EXEMPT 03/10/21 12:20:52 [facility] IntraOp Sign Out Entry 1 RN Confirmation Surgical Yes Procedure(s) Identified Instrument, Sponge Yes and Sharps Counts Correct/Documented Equipment Problems N/A Documented Specimen Labeled Yes Correctly Urinary Catheter Yes Documented in IView Wound Yes classification reviewed, verified and updated post case in both the General Case Data and Procedure segments Art Patient Yes Recovery Concerns Reviewed with Anesthesia Provider, Surgeon and RN Art Patient Yes Management Concerns Reviewed with Anesthesia Provider, Surgeon and RN Safety Checklist Yes Elements Complete? RN Sign Out Moustapha Hernadez, SUNIL Signature RN Sign Out 03/10/21 14:47:00 Signature Date/Time Plan of Care Outcome - Fire Risk OUTCOME STATEMENT: Goal met Patient is free from injury related to surgical fire Plan of Care Outcome - Pt Positioning OUTCOME STATEMENT: Goal met Absence of signs and symptoms of positioning injury. Plan of Care Outcome - Skin Prep OUTCOME STATEMENT: Goal met Intraoperative care is consistent with measures to prevent infection Plan of Care Outcome - Xray/Images OUTCOME STATEMENT: N/A Absence of observable signs or symptoms of radiation injury Plan of Care Outcome - Counts OUTCOME STATEMENT: Goal met Absence of signs and symptoms of injury related to extraneous objects Last Modified By: Moustapha Hernadez RN 03/10/21 14:47:26 [facility] IntraOp Sign Out Audit 03/10/21 14:47:26 Circular Distributor: [email or web address] Modifier: [email or web address] <+> 1 Wound classification reviewed, verified and updated post case in both the General Case Data and Procedure segments 03/10/21 14:47:16 Circular Distributor: [id number] Modifier: PANTANOS <+> 1 RN Sign Out Signature Date/Time [facility] IntraOp Skin Prep Entry 1 Procedure Colon Resection Low Anterior Robotic Prescribed Yes Pre-Surgical Prep Completed Prep Area Abdomen/KAYLEIGH ANAL/GENTINAL Intraop Prep Integumentary WDL Assessment WDL Prep Agents Chloraprep, Betadine scrub, Betadine solution Prep by Moustapha Hernadez RN Hair Removal Last Modified By: Noemi Saucedo RN-PATIENT CARE BEDSIDE NON-EXEMPT 03/10/21 12:13:59 [facility] IntraOp Surgical Procedures Entry 1 Procedure Colon Resection Low Anterior Robotic Additional (ROBOTIC LOW ANTERIOR Procedure COLON RESECTION) Description Primary Procedure Yes Primary Surgeon ARMANDO ZAVALA MD-PRO Start 03/10/21 12:13:00 Stop 03/10/21 14:35:00 Anesthesia Type General Specialty Colorectal Wound Class 2 - Clean-Contaminated Last Modified By: Noemi Saucedo RN-PATIENT CARE BEDSIDE NON-EXEMPT 03/10/21 12:28:02 [facility] IntraOp Surgical Procedures Audit 03/10/21 14:46:33 Circular Distributor: [id number] Modifier: PANTANOS <+> 1 Start <+> 1 Stop [facility] IntraOp Temp Regulation Devices Entry 1 Temp Regulation Temperature Forced Air Warming Regulation Device device, Warm blankets, Room temperature Temperature Upper body Regulation Site Temperature LOBO MURRAY, MARILIA Regulation Device Applied by Temperature Patient's temperature Regulation Comment and forced air warming device settings monitored by anesthesia provider. Last Modified By: Noemi Saucedo RN-PATIENT CARE BEDSIDE NON-EXEMPT 03/10/21 12:20:58 [facility] IntraOP Time Out Entry 1 Procedure to be Colon Resection Low Performed Anterior Robotic Time Out Time Out Pause Time 03/10/21 12:11:00 All activity Yes suspended (unless life threatening emergency) Team Verbally Correct patient Confirms Information identity, Correct side and site are marked, Consent form is present and accurate, Agreement on the procedure to be done, Correct patient position, Relevant images/results properly labeled/appropriately displayed, Confirm antibiotics have been administered, Confirm the skin prep has dried, Confirm prosthesis/implant/devic e is present, Performed in location of procedure after prepped/draped Antibiotic Yes Prophylaxis Administered Or In Progress Within the Last 60 Minutes Beta Shawanda N/A Administered Venous Yes Thromboembolism Prophylaxis Required Anticipated Critical Events Surgeon None expected Anesthesia Provider None expected Nursing Assures Sterility of instruments Essential Imaging Yes Labeled and Displayed Last Modified By: Noemi Saucedo RN-PATIENT CARE BEDSIDE NON-EXEMPT 03/10/21 12:10:53 Case Comments <None> Finalized By: ASHLIE MONTANA Document Signatures Signed By: Moustapha Hernadez RN 03/10/21 14:47 ASHLIE MONTANA 03/12/21 13:01 Unfinalized History Date/Time Username Reason for Unfinalizing Freetext Reason for Unfinalizing 03/12/21 13:00 WATSAVANNAHDR Correct Billing Electronically signed by Wei [facility] Conversion Chemical Tester Cerner at 08/19/2022 6:01 PM CDT documented in this encounter Plan of Treatment Not on file documented as of this encounter Visit Diagnoses Not on filedocumented in this encounter
--- OUTSIDE RECORDS SUMMARY | 2024-10-04 13:09 | XMS_ITS | Encounter Summary ---
Author Organization [employer] Address [address] [place] [address] Care Team Providers Care Logistics Coordinator Name Role Phone Unavailable Primary Care Provider Unavailabl e Encounter Details Date Type Department Care Team (Late st Contact Info) Description 03/11/2021 Transcribed Document [facility] [address] [place] [address] Trinity Celaya MD [address] [place] [address] [place] [id number] Social History Tobacco Use Types Packs/Day Years Used Date Smoking Tobacco: Never Assessed Comments Unknown Sex and Gender Information Value Date Recorded Sex Assigned at Not on file Legal Sex Female 5:40 PM CDT Gender Identity Not on file Sexual Orientation Not on file documented as of this encounter Miscellaneous Notes * Cerner Conversion Note - Trinity Celaya MD - 03/11/2021 5:29 PM EST Patient: DAYANA BONILLA Age: 60 years Sex: Female : 1960 Associated Diagnoses: None Author: TRINITY CELAYA MD-INT Discharge dictated. #[id number]. documented in this encounter Plan of Treatment Not on file documented as of this encounter Visit Diagnoses Not on filedocumented in this encounter
--- OUTSIDE RECORDS SUMMARY | 2024-10-04 13:09 | XMS_ITS | Encounter Summary ---
Author Organization [employer] Address [address] [place] [address] Care Team Providers Care Range Aid Name Role Phone Unavailable Primary Care Provider Unavailabl e Encounter Details Date Type Department Care Team (Late st Contact Info) Description 03/10/2021 Transcribed Document [facility] [place] Family Medicine [address] [place] [address] ProviderAlexis MD [facility] [place], [place] [address] Social History Tobacco Use Types Packs/Day Years Used Date Smoking Tobacco: Never Assessed Comments Unknown Sex and Gender Information Value Date Recorded Sex Assigned at Not on file Legal Sex Female 5:40 PM CDT Gender Identity Not on file Sexual Orientation Not on file documented as of this encounter Miscellaneous Notes * Cerner Conversion Note - Historical ProviderMD - 03/10/2021 6:00 PM OUTSOLE FLEXER Pain Assessment Entered On: 03/10/2021 18:18 EST Performed On: 03/10/2021 17:45 EST by iGanna Branham RN Intervention Information: ketorolac Performed by Gianna Branham, RN on 03/10/2021 17:15:00 EST ketorolac,15mg IV Push,Left Lower Forearm Pain Assessment Pain Assessment : Follow-up assessment Gianna Branham RN - 03/10/2021 18:18 EST Electronically signed by Wei [facility] Conversion Internist Cerner at 08/19/2022 5:59 PM CDT documented in this encounter Plan of Treatment Not on file documented as of this encounter Visit Diagnoses Not on filedocumented in this encounter
--- OUTSIDE RECORDS SUMMARY | 2024-10-04 13:09 | XMS_ITS | Encounter Summary ---
Author Organization [employer] Address [address] [place] [address] Care Team Providers Care Commercial Administrator Name Role Phone Unavailable Primary Care Provider Unavailabl e Encounter Details Date Type Department Care Team (Late st Contact Info) Description 03/11/2021 Transcribed Document [facility] [place] Family Medicine [address] [place] [address] ProviderAlexis MD [facility] [place], [place] [address] Social History Tobacco Use Types Packs/Day Years Used Date Smoking Tobacco: Never Assessed Comments Unknown Sex and Gender Information Value Date Recorded Sex Assigned at Not on file Legal Sex Female 5:40 PM CDT Gender Identity Not on file Sexual Orientation Not on file documented as of this encounter Miscellaneous Notes * Cerner Conversion Note - Historical ProviderMD - 03/11/2021 12:00 PM OFFICE MACHINE INSPECTOR Pain Assessment Entered On: 03/11/2021 14:43 EST Performed On: 03/11/2021 13:43 EST by Sarah Sahu RN Intervention Information: acetaminophen Performed by Sarah Sahu RN on 03/11/2021 12:43:00 EST acetaminophen,500mg Oral Pain Assessment Pain Assessment : Follow-up [...]
--- OUTSIDE RECORDS SUMMARY | 2024-10-04 13:09 | XMS_ITS | Encounter Summary ---
Author Organization [employer] Address [address] [place] [address] Care Team Providers Care Plug Sorter Name Role Phone Unavailable Primary Care Provider Unavailabl e Encounter Details Date Type Department Care Team (Late st Contact Info) Description 03/04/2021 Transcribed Document [facility] [place] [address] [place] [address] ProviderAlexis MD [address] [place] [address] Social History Tobacco Use Types Packs/Day Years Used Date Smoking Tobacco: Never Assessed Comments Unknown Sex and Gender Information Value Date Recorded Sex Assigned at Not on file Legal Sex Female 5:40 PM CDT Gender Identity Not on file Sexual Orientation Not on file documented as of this encounter Miscellaneous Notes * Cerner Conversion Note - Alexis ProviderMD - 03/04/2021 12:44 PM CDT PAT Adult Entered On: 03/04/2021 12:49 EDT Performed On: 03/04/2021 12:44 EDT by RICARDO MARTINS RN Vital Measurements Temperature Source : Temporal artery scanning Temperature, Fahrenheit : 97.4 Deg F Clinical Temperature, C : 36.3 Deg C Peripheral Pulse Rate : 68 bpm Respiratory Rate : 18 Breaths/Min Blood Pressure Location : Arm, left upper Systolic Blood Pressure : 144 mmHg (HI) Diastolic Blood Pressure : 60 mmHg Oxygen Saturation : 97 % Oxygen Therapy Mode : Room air WM PORTILLO RN - 03/05/2021 15:25 EDT Pain Assessment Pain Assessment : Initial assessment Pain Scale Goal : 6 Pain Scale Used : 0-10 Scale WM PORTILLO RN - 03/05/2021 15:25 EDT Height and Weight, Clinical Dosing Height Source : Measured Height Entry Format : [place] Height, Feet : 0 ft(Converted to: 0 cm, 0 Inch) Height, Inches : 63 Inch(Converted to: 5 ft 3 Inch, 160.02 cm) Clinical Height : 160.02 cm Weight Source : Standing scale Weight Entry Format : [facility] Weight : 83.64 kg Weight, Pounds : 184 lb Body Surface Area (BSA) : 1.87 m2 Body Mass Index : 32.7 kg/m2 (HI) [place] Body Weight : 52 kg WM PORTILLO RN - 03/05/2021 15:25 EDT Health Histories Smoking Status : Former smoker, quit more than 30 days ago Smokeless Tobacco Status : Former smokeless tobacco user, quit more than 30 days ago RICARDO MARTINS RN - 03/04/2021 12:44 EDT Social History (As Of: 03/05/2021 15:30:02 EDT) Tobacco: Smoking Status Former smoker. Years of Use: 38. Used Tobacco, but Quit Yes. Last Used: quit 2 yeaars ago. (Last Updated: 12/11/2015 09:21:08 EDT by DENNIS CORCORAN RN) Alcohol: Alcohol Use History Yes. Alcohol Use Frequency Socially. (Last Updated: 12/11/2015 09:21:22 EDT by DENNIS CORCORAN RN) Substance Abuse: Drug Use Hx: No. Use in Last 12 Months: No. (Last Updated: 03/04/2021 12:43:25 EDT by RICARDO AMRTINS RN) Drug Use Hx: Yes. Use in Last 12 Months: Yes. Marijuana/Hashish Recreational Drug Type. Frequency: Weekly. Drug Last Use: 03/03. (Last Updated: 03/04/2021 12:44:00 EDT by RICARDO MARTINS RN) Infectious Disease History Does patient have symptoms of COVID-19? : No Has the Patient Been Tested for COVID-19 in the last 14 days? : No, Patient stated Does the Patient state known exposure to a COVID-19 positive case in the last 14 days? : No Patient Vaccinated for COVID-19 : Fully vaccinated RICARDO MARTINS RN - 03/04/2021 12:44 EDT Infectious Disease Risk Screening Grid Cough < 2 wks of unknown origin : NO Cough > 2 weeks : NO Blood in Sputum : NO Fever or self-reported Fever : NO Rash of unknown origin : NO Headache : NO Stiff neck : NO Night Sweats : NO Unexplained Weight Loss : NO Diarrhea (3 episode per day) : NO RICARDO MARTINS RN - 03/04/2021 12:44 EDT Physical contact outside [place] in the last 30 days : No Hospitalized in Foreign Country : No Infectious Disease History : Influenza, Measles INF Disease TB Screening Calc : 0 INF Disease Recent Travel Calc : 0 RICARDO MARTINS RN - 03/04/2021 12:44 EDT COVID19 PreProcedure Screening Date PreProcedure COVID-19 test known? : Yes Date of PreProcedure COVID-19 : 03/08/2021 EST Has patient been isolated since the test : Yes Exposed to COVID19 symptoms since test? : No Gi Berrios Rn - 03/10/2021 8:52 EST Is this an Emergent or Add on Procedure? : No RICARDO MARTINS RN - 03/04/2021 12:44 EDT Anesthesia/Transfusion History Blood Transfusion Acceptable to Patient : Yes WM PORTILLO RN - 03/05/2021 15:25 EDT Family History of Anesthesia Reaction : No prior transfusion(s) Transfusion History : Prior anesthesia without reaction Family History of Anesthesia Reaction : None RICARDO MARTINS RN - 03/04/2021 12:44 EDT Functional Assessment Functional ADL Evaluation Index EBN Bathing : Independent (2) Dressing : Independent (2) Toileting : Independent (2) Transferring Bed or Chair : Independent (2) Continence : Independent (2) Feeding : Independent (2) RICARDO MARTINS RN - 03/04/2021 12:44 EDT ADL Index Score : 12 RICARDO MARTINS RN - 03/04/2021 12:44 EDT Advance Directive Patient has Advance Directive *Q : No, patient refuses Advance Directive information RICARDO MARTINS RN - 03/04/2021 12:44 EDT Spiritual/Cultural Needs Any Spiritual/Cultural Needs or Requests : No WM PORTILLO RN - 03/05/2021 15:25 EDT Amelia Suicide Severity Rating Scale (C-SSRS) CSSRS Past Month Wish to be : No CSSRS Past Month Suicidal Thoughts : No CSSRS Lifetime Suicide Behavior : No Suicide Severity Rating Score : 0 Suicide Severity Rating : No Additional Care Required at this time RICARDO MARTINS RN - 03/04/2021 12:44 EDT Psychosocial History Currently in Unsafe Situation : No RICARDO MARTINS RN - 03/04/2021 12:44 EDT Teaching/Learning Assessment Barriers To Learning : None evident Individuals Taught : Patient Readiness to Learn : Cooperative Readiness to Learn : Explanation, Printed materials WM PORTILLO RN - 03/05/2021 15:25 EDT Education Topics, Periop Preadmission Perioperative Education Grid Arrival Time/Place : Verbalizes understanding CHG Preoperative Bathing/Cloths : Verbalizes understanding Infection Control : Verbalizes understanding IV's : Verbalizes understanding NPO Status/Directions : Verbalizes understanding Pain Management : Verbalizes understanding Postoperative Care Preparations : Verbalizes understanding Preprocedure Preparations : Verbalizes understanding Preprocedure Tests/Labs : Verbalizes understanding Remove Body Piercings : Verbalizes understanding Responsible Adult : Verbalizes understanding Take/Hold Medications Pre-Procedure : Verbalizes understanding Other : Verbalizes understanding (Comment: mik perez [WM PORTILLO RN - 03/05/2021 15:25 EDT] ) Responsible Adult Contact Information : Jean Chad, spouse, WM PORTILLO RN - 03/05/2021 15:25 EDT General Info Arrived From : Home Mode of Arrival on Unit : Ambulatory Patient Arrival Date/Time : 03/10/2021 8:30 EST Legal Guardian : Spouse Information Obtained From : Patient Preferred Communication Mode : Verbal Hospice Music Therapist Needed : No Objects to Sharing Info w Family : No WM PORTILLO RN - 03/05/2021 15:25 EDT Want Family/Rep/Phys Notified of Admit : No Emergency Contact #1 : jean bonilla Emergency Contact #1 Emergency Contact #1 Relationship : spouse Emergency Contact #2 : , Emergency Contact #2 Phone Number : , Emergency Contact #2 Relationship : , Primary Language : German Communication Barrier : None RICARDO MARTINS RN - 03/04/2021 12:44 EDT Júnior Scale Júnior Sensory Perception : No impairment Júnior Moisture : Rarely moist Júnior Activity : Walks occasionally Júnior Mobility : Slightly limited Júnior Nutrition : Adequate Júnior Friction and Shear : Potential problem Júnior Score : 19 RICARDO MARTINS RN - 03/04/2021 12:44 EDT Sleep Apnea Risk Assmt BMI Greater Than 35 kg/m2 : No Neck Circumference Greater Than 40 cm : No STOP-BANG Sleep Apnea Risk Level Score : 3 WM PORTILLO RN - 03/05/2021 15:25 EDT Hx of Obstructive Sleep Apnea Diagnosis : No Snore Loudly : No Tired, Fatigued, or Sleepy During Day : Yes Observed Stopping Breathing During Sleep : No Have/Are Being Treated for Hypertension : Yes Age over 50 Years Old : Yes Gender Male : No RICARDO MARTINS RN - 03/04/2021 12:44 EDT Pain Scale Intensity : 3 WM PORTILLO RN - 03/05/2021 15:25 EDT Image 4 - Images currently included in the form version of this document have not been included in the text rendition version of the form. documented in this encounter Plan of Treatment Not on file documented as of this encounter Visit Diagnoses Not on filedocumented in this encounter
--- OUTSIDE RECORDS SUMMARY | 2024-10-04 13:09 | XMS_ITS | Encounter Summary ---
Author Organization [employer] Address [address] [place] [address] Care Team Providers Care Window Air Conditioner Installer Name Role Phone Unavailable Primary Care Provider Unavailabl e Encounter Details Date Type Department Care Team (Late st Contact Info) Description 03/10/2021 Transcribed Document [facility] [place] [address] [place] [address] ProviderAlexis MD [address] [place] [address] Social History Tobacco Use Types Packs/Day Years Used Date Smoking Tobacco: Never Assessed Comments Unknown Sex and Gender Information Value Date Recorded Sex Assigned at Not on file Legal Sex Female 5:40 PM CDT Gender Identity Not on file Sexual Orientation Not on file documented as of this encounter Miscellaneous Notes * Cerner Conversion Note - Historical ProviderMD - 03/10/2021 9:59 AM CHANGE HOUSE ATTENDANT Patient: DAYANA BONILLA Age: 60 years Sex: Female : 1960 Associated Diagnoses: None Author: COMER, ANDRE Austin APRN Chief Complaint pleasant 60 y o female here today alone for robotic lower anterior colon resection by Dr. England. pt has struggled with diverticulitis for about 7 years, but had a colonoscopy in December and found colon stricture. Review of Systems Constitutional: Negative. Eye: glasses, strabismus R eye. Ear/Nose/Mouth/Throat: Negative. Respiratory: Negative. Cardiovascular: Negative. Gastrointestinal: Abdominal pain: Bilateral, Lower quadrant. Genitourinary: Negative. Hematology/Lymphatics: Negative. Endocrine: Negative. Immunologic: Negative. Musculoskeletal: Negative. Integumentary: Negative. Neurologic: Negative. Psychiatric: Negative. All other systems are negative Health Status Allergies: Allergic Reactions (Selected) Severity Not Documented Amitriptyline- No reactions were documented. Benadryl- No reactions were documented. Latex- Rash, skin., Allergies (3) Active Reaction amitriptyline None Documented Benadryl None Documented Latex Rash, skin Current medications: (Selected) Inpatient Medications Ordered HYDROmorphone: 0.25 mg, IV Push, Q10Min, PRN: Pain (Moderate 4-6) HYDROmorphone: 0.5 mg, IV Push, Q10Min, PRN: Pain (Severe 7-10) INVanz: 1 Gram, 100 mL/Hr, IV Piggyback, 1-Time Lactated Ringers Injection intravenous solution 1,000 mL: 20 mL/Hr, IntraVENous acetaminophen-HYDROcodone 325 mg-5 mg oral tablet: 1 Tab, Oral, 1-Time, PRN: Pain (Moderate 4-6) acetaminophen: 1,000 mg, Oral, 1-Time, PRN: Other (See Comment) acetaminophen: 650 mg, Oral, 1-Time, PRN: Pain (Mild 1-3) fentaNYL: 25 mcg, IV Push, 1-Time, PRN: Pain (Severe 7-10) fentaNYL: 25 mcg, IV Push, Q10Min, PRN: Pain (Moderate 4-6) fentaNYL: 25 mcg, IV Push, Q10Min, PRN: Pain (Severe 7-10) hydrALAZINE: 2.5 mg, IV Push, Q10Min, PRN: Hypertension lidocaine 1% preservative-free injectable solution: 0.5 mL, IntraDermal, 1-Time magnesium sulfate: 2 Gram, 50 mL, 25 mL/Hr, IV Piggyback, 1-Time, PRN: Pain (Severe 7-10) ondansetron: 4 mg, IV Push, 1-Time, PRN: Nausea/Vomiting ondansetron: 4 mg, IV Push, 1-Time, PRN: Nausea/Vomiting oxyCODONE: 5 mg, Oral, 1-Time, PRN: Pain (Moderate 4-6) oxyCODONE: 5 mg, Oral, 1-Time, PRN: Pain (Moderate 4-6) Documented Medications Documented Flagyl 500 mg oral tablet: 1 Tab, Oral, TID, 3 times the day before surgery, 15 Tab, 0 Refill(s) Metamucil: Oral, 0 Refill(s) MiraLax: Gram, Oral, Daily, 0 Refill(s) Vitamin B12 1000 mcg oral tablet: 1 Tab, Oral, Daily, 30 Tab, 0 Refill(s) baclofen 5 mg oral tablet: 1 Tab, Oral, TID, 90 Tab, 0 Refill(s) buPROPion 150 mg/12 hours (SR) oral tablet, extended release: Tab, Oral, BID, 0 Refill(s) citalopram 20 mg oral tablet: Tab, Oral, Daily, 0 Refill(s) estradiol 1 mg oral tablet: 1 Tab, Oral, Daily, 30 Tab, 0 Refill(s) neomycin 500 mg oral tablet: 2 Tab, Oral, TID, 3 times the day before surgery, 0 Refill(s) omeprazole: 20 mg, Oral, BID, 0 Refill(s) rosuvastatin 20 mg oral tablet: Tab, Oral, At Bedtime, 0 Refill(s) sulindac 200 mg oral tablet: Tab, Oral, BID, PRN: Abdominal Pain, 0 Refill(s), Home Medications (12) Active baclofen 5 mg [...] 1,000 mcg = 1 Tab, Oral, Daily , Medications (17) Active Scheduled: (2) ertapenem sodium 1 Gram, IV Piggyback, 1-Time lidocaine 1% *PF* inj 30 mL 0.5 mL, IntraDermal, 1-Time Continuous: (1) lactated ringers 1,000 mL 1,000 mL, IntraVENous, 20 mL/Hr PRN: (14) acetaminophen 325 mg tab 650 mg 2 Tab, Oral, 1-Time acetaminophen 500 mg tab 1,000 mg 2 Tab, Oral, 1-Time acetaminophen/HYDROcodone 325/5 mg tab 1 Tab, Oral, 1-Time fentaNYL 100 mcg/2 mL inj 25 mcg 0.5 mL, IV Push, Q10Min fentaNYL 100 mcg/2 mL inj 25 mcg 0.5 mL, IV Push, 1-Time fentaNYL 100 mcg/2 mL inj 25 mcg 0.5 mL, IV Push, Q10Min hydrALAZINE 20 mg/1 mL inj 2.5 mg 0.13 mL, IV Push, Q10Min HYDROmorphone 1 mg/1 mL inj 0.25 mg 0.25 mL, IV Push, Q10Min HYDROmorphone 1 mg/1 mL inj 0.5 mg 0.5 mL, IV Push, Q10Min magnesium sulfate 2 Gram 50 mL, IV Piggyback, 1-Time ondansetron 4 mg/2 mL inj 4 mg 2 mL, IV Push, 1-Time ondansetron 4 mg/2 mL inj 4 mg 2 mL, IV Push, 1-Time oxyCODONE 5 mg tab 5 mg 1 Tab, Oral, 1-Time oxyCODONE 5 mg tab 5 mg 1 Tab, Oral, 1-Time Problem list: All Problems Anxiety and depression / SNOMED CT 175714125 / Confirmed Hyperlipidemia / SNOMED CT 92367877 / Confirmed Hiatal hernia / SNOMED CT 966216589 / Confirmed 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 Family History: No family history items have been selected or recorded. Procedure history: Hysterectomy ([id number]) on 04/01/2001 at 40 Years. Tubal ligation ([id number]). lumpectomy. EGD (esophagogastroduodenoscopy) gastric outlet reduction ([id number]). colonoscopy. Social History Social & Psychosocial Habits Alcohol 12/11/2015 Alcohol Use History, Social Habits Yes Alcohol Use Frequency Socially Substance Abuse 03/04/2021 Recreational Drug Use History No Recreational Drug Use Last 12 Months No 03/04/2021 Recreational Drug Use History Yes Recreational Drug Use Last 12 Months Yes Recreational Drug Type Marijuana/Hashish Recreational Drug Use Frequency Weekly Recreational Drug Last Used 03/03 Tobacco 12/11/2015 Smoking Status Former smoker Years of Tobacco Use 38 Used Tobacco, but Quit Yes Month Tobacco Last Used quit 2 yeaars ago . Physical Examination VS/Measurements No qualifying data available General: Alert and oriented, No acute distress. Eye: glasses, strabismus R eye. HENT: Normocephalic, Normal hearing. Respiratory: Lungs are clear to auscultation, Respirations are non-labored. Cardiovascular: Normal rate, Regular rhythm, No murmur, No gallop, No edema. Gastrointestinal: Soft, lower abdominal tenderness on palpation . Musculoskeletal: Normal range of motion, Normal strength. Integumentary: Warm, Dry, [place]. Neurologic: Alert, Oriented. Psychiatric: Cooperative, Appropriate mood & affect. Review / Management Results review: Labs (Last four charted values) WBC 6.6 (MAR 05) HB 13.7 (MAR 05) HCT 40.7 (MAR 05) Plt 265 (MAR 05) Na 137 (MAR 05) K 4.3 (MAR 05) Cl 106 (MAR 05) CO2 26 (MAR 05) BUN 16 (MAR 05) Cr 0.90 (MAR 05) Glu R 101 (MAR 05) Ca 8.8 (MAR 05) , Lab results: 03/10/2021 9:13 EST Potassium POC 4.2 mmol/L . Impression and Plan Diagnosis 1. diverticulitis 2. anxiety/depression 3. OA 4. HH 5. hyperlipidemia. Condition: Stable. pt to proceed to surgery today. plan is to stay at least 1 night. documented in this encounter Plan of Treatment Not on file documented as of this encounter Visit Diagnoses Not on filedocumented in this encounter
--- OUTSIDE RECORDS SUMMARY | 2024-10-04 13:09 | XMS_ITS | Encounter Summary ---
Author Organization [employer] Address [address] [place] [address] Care Team Providers Care Car Wiper Name Role Phone Unavailable Primary Care Provider Unavailabl e Encounter Details Date Type Department Care Team (Late st Contact Info) Description 03/11/2021 Transcribed Document [facility] [place] [address] [place] [address] ProviderAlexis MD [facility] [place], [place] [id number] Social History Tobacco Use Types Packs/Day Years Used Date Smoking Tobacco: Never Assessed Comments Unknown Sex and Gender Information Value Date Recorded Sex Assigned at Not on file Legal Sex Female 5:40 PM CDT Gender Identity Not on file Sexual Orientation Not on file documented as of this encounter Miscellaneous Notes * Cerner Conversion Note - Historical ProviderMD - 03/11/2021 12:00 AM PLIER WORKER Pain Assessment Entered On: 03/11/2021 0:03 EST Performed On: 03/11/2021 0:18 EST by Krys Meyer Lpn Intervention Information: ketorolac Performed by Krys Meyer Lpn on 03/10/2021 23:48:00 EST ketorolac,15mg IV Push,Left Lower Forearm Pain Assessment Pain Assessment : Follow-up assessment Pain Scale Goal : 6 Pain Scale Used : 0-10 Scale Krys Meyer Lpn - 03/11/2021 0:02 EST Electronically signed by Wei [facility] Conversion Reactor Operator Aysha at 08/19/2022 6:08 PM CDT documented in this encounter Plan of Treatment Not on file documented as of this encounter Visit Diagnoses Not on filedocumented in this encounter
--- OUTSIDE RECORDS SUMMARY | 2024-10-04 13:09 | XMS_ITS | Encounter Summary ---
Author Organization [employer] Address [address] [place] [address] Care Team Providers Care Combatant Diver Qualified Name Role Phone Unavailable Primary Care Provider Unavailabl e Encounter Details Date Type Department Care Team (Late st Contact Info) Description 03/15/2021 Transcribed Document [facility] [place] [address] [place] [address] ProviderAlexis MD [facility] [place], [place] [address] Social History Tobacco Use Types Packs/Day Years Used Date Smoking Tobacco: Never Assessed Comments Unknown Sex and Gender Information Value Date Recorded Sex Assigned at Not on file Legal Sex Female 5:40 PM CDT Gender Identity Not on file Sexual Orientation Not on file documented as of this encounter Miscellaneous Notes * Cerner Conversion Note - Alexis ProviderMD - 03/15/2021 3:51 PM DATA MANAGEMENT SPECIALIST UM Authorization Entered On: 03/15/2021 15:51 EST Performed On: 03/15/2021 15:51 EST by Nette Pham, Director Fixed Income Primary Insurance Authorization Authorization and Policy Numbers : Insurance 1 Health Plan: [facility] [employer] Policy Number: [id number] Authorization Number: [id number] Insurance Primary Name : [facility] Policy Number: [id number] Authorization Status-Primary : Approved Auth/Referral Contact Name-Primary : DC Authorization Number-Primary : [id number] Number of Days Authorized-Primary : 4 Day(s) Authorized Service Begin Date-Primary : 03/10/2021 EST Authorized Service End Date-Primary : 03/14/2021 EST Authorization Comments-Primary : Discharge date and summary faxed. Historical Authorization Comments-Primary : Comment 1: IP admit approved from 03/10 to 03/14 per [facility] website (CHRISTIAN ARMENTA RN 03/11/2021 08:09) Nette Pham, Director Fixed Income - 03/15/2021 15:51 EST Electronically signed by Wei, [facility] Conversion Roller Inspector Cerner at 08/19/2022 6:07 PM CDT documented in this encounter Plan of Treatment Not on file documented as of this encounter Visit Diagnoses Not on filedocumented in this encounter
--- OUTSIDE RECORDS SUMMARY | 2024-10-04 13:09 | XMS_ITS | Encounter Summary ---
Author Organization [employer] Address [address] [place] [address] Care Team Providers Care Facilities Maintenance Engineer Name Role Phone Unavailable Primary Care Provider Unavailabl e Encounter Details Date Type Department Care Team (Late st Contact Info) Description 03/11/2021 Transcribed Document [facility] [place] [address] [place] [address] ProviderAlexis MD [facility] [place], [place] [address] Social History Tobacco Use Types Packs/Day Years Used Date Smoking Tobacco: Never Assessed Comments Unknown Sex and Gender Information Value Date Recorded Sex Assigned at Not on file Legal Sex Female 5:40 PM CDT Gender Identity Not on file Sexual Orientation Not on file documented as of this encounter Miscellaneous Notes * Cerner Conversion Note - Historical ProviderMD - 03/11/2021 2:00 AM AIR CARGO SPECIALIST B Operator Details Entered On: 03/11/2021 1:06 EST Performed On: 03/11/2021 2:00 EST by Krys Meyer Lpn Order Details Transport Mode Order Detail : Wheelchair Order Detail : 0 IV Order Detail : 1 Oxygen Order Detail : 0 Nurse Collect Order Detail : 0 Lift/Transfer : Minimal Central Line Order Detail : No Room Service : Appropriate Arterial Line : No Patient Needs Meds Crushed/Liquid : No Krys Meyer Lpn - 03/11/2021 1:05 EST Electronically signed by Wei [facility] Conversion Alliance Consultant Aysha at 08/19/2022 6:18 PM CDT documented in this encounter Plan of Treatment Not on file documented as of this encounter Visit Diagnoses Not on filedocumented in this encounter
== END 2024-10-03 23:59 | disposition home or self-care (01) ==
LOC: LAB.DROPOF 10-04 13:05
PROVIDERS: PCP Internal Medicine; Visit Provider Internal Medicine
DX: E78.5 Hyperlipidemia, unspecified (principal); R53.83 Other fatigue; M25.551 Pain in right hip
CPT/HCPCS: 80053; 80061; 82306; 82728; 83036; 83540; 83550; 85025

== ENCOUNTER 2024-11-18 15:37 | Outpatient (CLI) | payer OTHER, SELFPAY ==
[2024-11-18 14:05] LABS: Vitamin B12 993 pg/mL (239-931)
--- OUTSIDE RECORDS SUMMARY | 2024-11-18 15:40 | XMS_ITS | Encounter Summary ---
Author Organization [employer] ([place], [place], [place], [place]) Address [address] [place] [address] Care Team Providers Care Nuclear Medicine Supervisor Name Role Phone Unavailable Primary Care Provider Unavailabl e Encounter Details Date Type Department Care Team (Late st Contact Info) Description 03/11/2021 Transcribed Document [facility] [place] [facility] [place] [address] ProviderAlexis MD [place] [address] Social History Tobacco Use Types Packs/Day Years Used Date Smoking Tobacco: Never Assessed Comments Unknown Sex and Gender Information Value Date Recorded Sex Assigned at Not on file Legal Sex Female 5:40 PM CDT Gender Identity Not on file Sexual Orientation Not on file documented as of this encounter Miscellaneous Notes * Cerner Conversion Note - Alexis Livingston MD - 03/11/2021 1:29 PM WOOD SCALER Patient Resource Center Entered On: 03/11/2021 13:30 EST Performed On: 03/11/2021 13:29 EST by Angelique Pozo, Computer Science Instructor Patient Resource Center Provider Status : EST Other Established Provider Name : ARMANDO OWENS Patient Phone Number : [phone] Patient Insurance Type : Commercial (ex. [employer] PPO, [employer] HMO) Source of Referral : Case management Location of Patient : Case management referral Primary Care Scheduled : Yes Primary Care Scheduled Type : Non CMG Primary Care Provider Name : ARMANDO OWNES Primary Care Appointment Date/Time : 03/30/2021 13:15 [...] at ED : Other Primary Language : [place] Islander Patient Resource Center Comment : Patient needs follow up appointments. Called offices and scheduled appointments with Dr. England and Dr. Owens Follow Up Needed : No Angelique Pozo, Computer Science Instructor - 03/11/2021 13:29 EST documented in this encounter Plan of Treatment Not on file documented as of this encounter Visit Diagnoses Not on filedocumented in this encounter
--- OUTSIDE RECORDS SUMMARY | 2024-11-18 15:40 | XMS_ITS | Encounter Summary ---
Author Organization [employer] ([place], [place], [place], [place]) Address [address] [place] [address] Care Team Providers Care Substation Electrician Supervisor Name Role Phone Unavailable Primary Care Provider Unavailabl e Encounter Details Date Type Department Care Team (Late st Contact Info) Description 03/10/2021 Transcribed Document [facility] [place] [facility] [place] [address] ProviderAlexis MD [facility] [place] [address] Social History Tobacco Use Types Packs/Day Years Used Date Smoking Tobacco: Never Assessed Comments Unknown Sex and Gender Information Value Date Recorded Sex Assigned at Not on file Legal Sex Female 5:40 PM CDT Gender Identity Not on file Sexual Orientation Not on file documented as of this encounter Miscellaneous Notes * Cerner Conversion Note - Alexis Livingston MD - 03/10/2021 10:28 AM SCREEN PRINTING INSPECTOR Peripheral Nerve Block Entered On: 03/10/2021 10:29 [...] - 03/10/2021 10:28 EST Electronically signed by [facility] Conversion Source Inspector Cerner at 08/19/2022 6:13 PM CDT documented in this encounter Plan of Treatment Not on file documented as of this encounter Visit Diagnoses Not on filedocumented in this encounter
--- OUTSIDE RECORDS SUMMARY | 2024-11-18 15:40 | XMS_ITS | Encounter Summary ---
Author Organization [employer] ([place], [place], [place], [place]) Address [address] [place] [address] Care Team Providers Care Internal Combustion Engine Inspector Name Role Phone Unavailable Primary Care Provider Unavailabl e Encounter Details Date Type Department Care Team (Late st Contact Info) Description 03/11/2021 Transcribed Document [facility] [place] [address] [place] [address] ProviderAlexis MD [facility] [place] [address] Social History Tobacco Use Types [...] - Historical ProviderMD - 03/11/2021 12:00 AM PCA Pain Assessment Entered On: 03/11/2021 0:03 EST Performed On: 03/11/2021 0:18 EST by Krys Meyer Lpn Intervention Information: ketorolac Performed by Krys Meyer Lpn on 03/10/2021 23:48:00 EST ketorolac,15mg IV Push,Left Lower Forearm Pain Assessment Pain Assessment : Follow-up assessment Pain Scale Goal : 6 Pain Scale Used : 0-10 Scale Krys Meyer Lpn - 03/11/2021 0:02 EST documented in this encounter Plan of Treatment Not on file documented as of this encounter Visit Diagnoses Not on filedocumented in this encounter
--- OUTSIDE RECORDS SUMMARY | 2024-11-18 15:40 | XMS_ITS | Encounter Summary ---
Author Organization [employer] ([place], [place], [place], [place]) Address [address] [place] [address] Care Team Providers Care Water Operator Name Role Phone Unavailable Primary Care Provider Unavailabl e Encounter Details Date Type Department Care Team (Late st Contact Info) Description 03/10/2021 Transcribed Document [facility] [place] [facility] [place] [address] ProviderAlexis MD [facility] [place] [address] Social History Tobacco Use Types Packs/Day Years Used Date Smoking Tobacco: Never Assessed Comments Unknown Sex and Gender Information Value Date Recorded Sex Assigned at Not on file Legal Sex Female 5:40 PM CDT Gender Identity Not on file Sexual Orientation Not on file documented as of this encounter Miscellaneous Notes * Cerner Conversion Note - Alexis Livingston MD - 03/10/2021 12:13 PM CO FOUNDER [facility] Main OR IntraOp Summary Primary Physician: ARMANDO ZAVALA MD-PRO Finalized Date/Time: 03/12/21 13:01:41 Pt. Name: DAYANA BONILLA/Sex: 1960 Female Med Rec #: [id number] Physician: ARMANDO ZAVALA MD- Financial #: [id number] Pt. Type: I Room/Bed: [facility]/ Admit/Disch: 03/10/21 16:14:00 - 03/11/21 14:54:00 Institution: [facility] IntraOp Case Attendance Entry 1 Entry 2 Entry 3 Case Attendee ARMANDO ZAVALA MD-PRO Noemi Saucedo Lewis, Robin A RN-PATIENT CARE BEDSIDE Archivist NON-EXEMPT Role Performed Surgeon/Proceduralist, Computer Engineering Technician, Second Scrub, First First Time In 03/10/21 11:41:00 11/10/21 11:41:00 03/10/21 11:41:00 Time Out 03/10/21 14:46:00 [...] Entry 5 Entry 6 Case Attendee NICHOLE ROEBRTS Joe, ST Pantano, Scott, SUNIL Role Performed Scrub, Machine Joint Cutter, First Computer Engineering Technician, First Time In 03/10/21 11:41:00 03/10/21 11:41:00 [...] LOBO MURRAY, BAKARI COOPER, BRYAN Role Performed WILDLIFE CONTROL AGENT/Nurse Grapple Yarder Operator Other Time In 03/10/21 11:41:00 03/10/21 11:41:00 Time Out 03/10/21 14:46:00 03/10/21 14:46:00 Procedure Colon Resection Low Colon Resection Low Anterior Robotic Anterior Robotic Other Attendee Superficial Wound Closed By: Last Modified By: Moustapha Hernadez, Moustapha Gan, SUNIL 03/10/21 14:47:28 03/10/21 14:47:28 [facility] IntraOp Case Attendance Audit 03/10/21 14:47:28 Second Hand Paper Machine: [id number] Modifier: JENNIFER 1 <+> Time Out 1 [...] Colon Resection Low Anterior Robotic 03/10/21 13:15:42 Second Hand Paper Machine: [id number] Modifier: [id number] <+> Time Out 2 <*> Procedure Colon Resection Low Anterior Robotic 03/10/21 12:28:02 Second Hand Paper Machine: [id number] Modifier: [id number] <+> 1 Procedure 2 <*> Procedure Colon Resection Low Anterior Robotic 3 <*> Procedure Colon Resection Low Anterior Robotic 4 <*> Procedure Colon Resection Low Anterior Robotic 5 <*> Procedure Colon Resection Low Anterior Robotic 6 <*> Procedure Colon Resection Low Anterior Robotic 7 <*> Procedure Colon Resection Low Anterior Robotic 8 <*> Procedure Colon Resection Low Anterior Robotic 03/10/21 12:20:54 Second Hand Paper Machine: [id number] Modifier: [id number] 2 <*> Procedure Colon Resection Low Anterior Robotic 3 <*> Procedure Colon Resection Low Anterior Robotic 4 <*> Procedure Colon Resection Low Anterior Robotic 5 <*> Procedure Colon Resection Low Anterior Robotic 6 <*> Procedure Colon Resection Low Anterior Robotic 7 <*> Procedure Colon Resection Low Anterior Robotic 8 <+> Time In 8 <*> Procedure Colon Resection Low Anterior Robotic 03/10/21 12:13:14 Second Hand Paper Machine: [id number] Modifier: [id number] <+> 1 Time In 2 <+> Time [...] Role Performed <+> 8 Procedure 03/10/21 11:23:24 Second Hand Paper Machine: [id number] Modifier: [id number] <+> 7 Case Attendee <+> 7 Role Performed <+> 7 Procedure [facility] IntraOp Case Times Entry 1 Patient In Room Time 03/10/21 11:41:00 Out Room Time 03/10/21 14:46:00 Anesthesia Start Time 03/10/21 11:41:00 Stop Time 03/10/21 14:46:00 Surgery / Procedure Times Start Time 03/10/21 12:13:00 Stop Time 03/10/21 14:35:00 Last Modified By: Moustapha Hernadez RN 03/10/21 14:46:30 [facility] IntraOp Case Times Audit 03/10/21 14:46:42 Second Hand Paper Machine: PANTANOS Modifier: PANTANOS <+> 1 Out Room Time <+> 1 Stop Time 03/10/21 14:46:30 Second Hand Paper Machine: [id number] Modifier: PANTANOS <+> 1 Stop Time 03/10/21 12:57:52 Second Hand Paper Machine: [id number] Modifier: [id number] <+> 1 Start Time [facility] IntraOp Cautery Entry 1 ESU Identification Cautery Type Monopolar ESU ID Number [id number] ID Type Hospital Number Cautery Settings Cut [...] Saucedo RN-PATIENT CARE BEDSIDE NON-EXEMPT 03/10/21 11:22:43 [facility] IntraOp Communication Entry 1 Communication To Family/Significant other Communication By Noemi Saucedo RN-PATIENT CARE BEDSIDE NON-EXEMPT Date and Time 03/10/21 12:14:00 Last Modified By: Noemi Saucedo RN-PATIENT CARE BEDSIDE NON-EXEMPT 03/10/21 12:14:41 [facility] IntraOp Counts Verification Entry 1 Procedure Colon Resection Low Anterior Robotic Count Info Count Type Sponge, Sharps, Instrument, Miscellaneous Counts Verification Baseline/pre-procedure Sequence Counts Performed By Count Performed By NICHOLE ROBERTS (Scrub) Count Performed By Noemi Saucedo (RN) RN-PATIENT CARE BEDSIDE NON-EXEMPT Last Modified By: Noemi Saucedo RN-PATIENT CARE BEDSIDE NON-EXEMPT 03/10/21 11:22:13 [facility] IntraOp Counts Final Entry 1 Procedure Colon Resection Low Anterior Robotic Final Count Info Count Type Sponge, Sharps, Miscellaneous Counts Verification Skin Closure/end of Sequence procedure Count Results Correct, surgeon notified Counts Performed By Count Performed By Claus Casanova (Scrub) Archivist Count Performed By Moustapha Hernadez, RN (RN) Last Modified By: Noemi Saucedo RN-PATIENT CARE BEDSIDE NON-EXEMPT 03/10/21 12:14:28 [facility] IntraOp Counts Final Audit 03/10/21 14:18:29 Second Hand Paper Machine: [id number] Modifier: ROSARaz Jeffery <*> Procedure Colon Resection Low Anterior Robotic [facility] IntraOp Cultures and Spec Summary Entry 1 Cultrures and Specimens Specimen Ordered: Yes Test(s) Routine/Path-Lab Requested/Final Disposition Last Modified By: Noemi Saucedo RN-PATIENT CARE BEDSIDE NON-EXEMPT 03/10/21 12:14:08 [facility] IntraOp Departure from OR Entry 1 Integumentary Assessment Integumentary WDL with patient Assessment WDL specific variances Patient's Normal Surgical incisions = Integumentary abdomen Variance(s) Transfer/Handoff Transfer to PACU Phase I Handoff Method Phone call Post-op Transport Stretcher/Gurney Via Patient Transport LOBO MURRAY NA, Accompanied by Vazquez Lisa ST Last Modified By: Noemi Saucedo RN-PATIENT CARE BEDSIDE NON-EXEMPT 03/10/21 12:14:56 [facility] IntraOp Dressing and Packing Entry 1 Type Dressing Location Abdomen Wound Dressing Item Skin Closure Glue Applied By Vazquez Lisa ST Other Comments Dermabond Prineo Last Modified By: Noemi Saucedo RN-PATIENT CARE BEDSIDE NON-EXEMPT 03/10/21 12:14:49 [facility] IntraOp Fire Risk Assessment Entry 1 Fire Info Surgical Site or 0- No Incision Above the Xyphoid Open O2 Source 0- No (Mask or Cannula) Available Ignition 1- Yes (ESU, Laser, Light Source) Fire Risk 1 Assessment Score Fire Score Fire Risk Yes Assessment Complete Fire Risk Moustapha Hernadez, pool cleaner Verified By Fire Risk 03/10/21 12:11:00 Assessment Verified Date/Time Fire Risk Standard Fire Yes Safety Precautions Followed Last Modified By: Noemi Saucedo RN-PATIENT CARE BEDSIDE NON-EXEMPT 03/10/21 12:11:14 [facility] IntraOp General Case Staying Machine Operator 1 Case Information OR OR 12 [facility] Case Level 1 Room Verified Yes Wound Class 2 - Clean-Contaminated Specialty Colorectal Anesthesia Type General ASA Class 2 Diagnosis Preop Diagnosis DIVERTICULITIS Postop Same As Preop Yes Postop Diagnosis DIVERTICULITIS Wound Class Definitions Last Modified By: Noemi Saucedo RN-PATIENT CARE BEDSIDE NON-EXEMPT 03/10/21 12:13:50 [facility] IntraOp General Case Data Audit 03/10/21 12:13:50 Second Hand Paper Machine: [id number] Modifier: [id number] <+> 1 Specialty <+> 1 ASA Class <+> 1 Wound Class <+> 1 Anesthesia Type <+> 1 Postop Same As Preop <+> 1 Preop Diagnosis <+> 1 Postop Diagnosis <+> 1 Room Verified [facility] IntraOp Intraoperative Assessment Entry 1 Handoff Method [...] Saucedo RN-PATIENT CARE BEDSIDE NON-EXEMPT 03/10/21 12:15:08 [facility] IntraOp Intraoperative Equipment Entry 1 Type Monitoring Equipment Equipment Kurtis Suction System Intraop Monitoring Electrocardiogram Three lead placement (ECG) Electrode Placement Blood Pressure Non-Invasive BP Device Source Antiembolic Devices Scopes Photo/Video Documentation Photo No Video No Intraop Equipment Heparin 5000 units SC Comment administered in preoperative area. Last Modified By: Noemi Saucedo RN-PATIENT CARE BEDSIDE NON-EXEMPT 03/10/21 12:14:03 [facility] IntraOp Medication Admin Entry 1 Medication/Irrigant INDOCYANINE GREEN 25MG/VIAL Dose Dose 10 Unit of Measure ml Administered By LOBO MURRAY NA Procedure Irrigation Last Modified By: Noemi Saucedo RN-PATIENT CARE BEDSIDE NON-EXEMPT 03/10/21 12:16:29 [facility] IntraOp Patient Positioning Entry 1 Procedure Colon [...] Saucedo RN-PATIENT CARE BEDSIDE NON-EXEMPT 03/10/21 12:20:44 [facility] IntraOp Sign In Entry 1 Patient, Site, [...] Saucedo RN-PATIENT CARE BEDSIDE NON-EXEMPT 03/10/21 12:20:52 [facility] IntraOp Sign Out Entry 1 RN Confirmation [...] Modified By: Moustapha Hernadez RN 03/10/21 14:47:26 [facility] IntraOp Sign Out Audit 03/10/21 14:47:26 Second Hand Paper Machine: JENNIFER Modifier: PANTANOS <+> 1 Wound classification reviewed, verified and updated post case in both the General Case Data and Procedure segments 03/10/21 14:47:16 Second Hand Paper Machine: [id number] Modifier: PANTANOS <+> 1 RN Sign Out Signature Date/Time [facility] IntraOp Skin Prep Entry 1 Procedure Colon Resection Low Anterior Robotic Prescribed Yes Pre-Surgical Prep Completed Prep Area Abdomen/KAYLEIGH ANAL/GENTINAL Intraop Prep Integumentary WDL Assessment WDL Prep Agents Chloraprep, Betadine scrub, Betadine solution Prep by Moustapha Hernadez RN Hair Removal Last Modified By: Noemi Saucedo RN-PATIENT CARE BEDSIDE NON-EXEMPT 03/10/21 12:13:59 [facility] IntraOp Surgical Procedures Entry 1 Procedure Colon Resection Low Anterior Robotic Additional (ROBOTIC LOW ANTERIOR Procedure COLON RESECTION) Description Primary Procedure Yes Primary Surgeon ARMANDO ZAVALA MD-PRO Start 03/10/21 12:13:00 Stop 03/10/21 14:35:00 Anesthesia Type General Specialty Colorectal Wound Class 2 - Clean-Contaminated Last Modified By: Noemi Saucedo RN-PATIENT CARE BEDSIDE NON-EXEMPT 03/10/21 12:28:02 [facility] IntraOp Surgical Procedures Audit 03/10/21 14:46:33 Second Hand Paper Machine: [id number] Modifier: PANTANOS <+> 1 Start <+> 1 Stop [facility] IntraOp Temp Regulation Devices Entry 1 Temp Regulation Temperature Forced Air Warming Regulation Device device, Warm blankets, Room temperature Temperature Upper body Regulation Site Temperature LOBO MURRAY, MARILIA Regulation Device Applied by Temperature Patient's temperature Regulation Comment and forced air warming device settings monitored by anesthesia provider. Last Modified By: Noemi Saucedo RN-PATIENT CARE BEDSIDE NON-EXEMPT 03/10/21 12:20:58 [facility] IntraOP Time Out Entry 1 Procedure to [...] Unfinalizing Freetext Reason for Unfinalizing 03/12/21 13:00 WATTSDR Correct Billing documented in this encounter Plan of Treatment Not on file documented as of this encounter Visit Diagnoses Not on filedocumented in this encounter
--- OUTSIDE RECORDS SUMMARY | 2024-11-18 15:40 | XMS_ITS | Encounter Summary ---
Author Organization [employer] ([place], [place], [place], [place]) Address [address] [place] [address] Care Team Providers Care Thread Separator Name Role Phone Unavailable Primary Care Provider Unavailabl e Encounter Details Date Type Department Care Team (Late st Contact Info) Description 03/10/2021 Transcribed Document [facility] [place] [facility] [place] [address] ProviderAlexis MD [place] [address] Social History Tobacco Use Types [...] - Alexis ProviderMD - 03/10/2021 12:13 PM EDITING COMPUTER PUBLISHER [facility] Main OR PACU Summary Primary Physician: ARMANDO ZAVALA MD- Finalized Date/Time: 03/10/21 16:08:59 Pt. Name: DAYANA BONILLA/Sex: 1960 Female Med Rec #: [id number] Physician: ARMANDO ZAVALA MD-PRO Financial #: [id number] Pt. Type: I Room/Bed: / Admit/Disch: 02/23/21 10:15:00 - Institution: [facility] Main OR PACU I Case Times Entry 1 In PACU I 03/10/21 14:50:00 Ready for PACU 03/10/21 16:05:00 Discharge Discharge from PACU 03/10/21 16:05:00 I Last Modified By: MISAEL AHUMADA RN 03/10/21 16:08:40 Finalized By: BRANDYN, MISAEL, RN Document Signatures Signed By: MISAEL AHUMADA RN 03/10/21 16:08 Electronically signed by Wei [facility] Conversion Service Greeter Cerner at 08/19/2022 6:05 PM CDT documented in this encounter Plan of Treatment Not on file documented as of this encounter Visit Diagnoses Not on filedocumented in this encounter
--- OUTSIDE RECORDS SUMMARY | 2024-11-18 15:40 | XMS_ITS | Encounter Summary ---
Author Organization [employer] ([place], [place], [place], [place]) Address [address] [place] [address] Care Team Providers Care Consumer Marketing Analyst Name Role Phone Unavailable Primary Care Provider Unavailabl e Encounter Details Date Type Department Care Team (Late st Contact Info) Description 03/11/2021 Transcribed Document [facility] [place] Family Medicine [address] [place] [address] ProviderAlexis MD [address] [place] [address] Social History Tobacco Use Types [...] - Historical ProviderMD - 03/11/2021 5:00 AM DIABETES SPECIALIST Chart Check - Review Order Profile Entered On: 03/11/2021 4:46 EST Performed On: 03/11/2021 5:00 EST by Krys Meyer Lpn Chart Check Powerplans Initiated/Discontinued as Appropriate : Yes All Active Orders Reviewed : Yes Krys Meyer Lpn - 03/11/2021 4:46 EST Electronically signed by Wei [facility] Conversion Microbiology Supervisor Cerner at 08/19/2022 6:00 PM CDT documented in this encounter Plan of Treatment Not on file documented as of this encounter Visit Diagnoses Not on filedocumented in this encounter
--- OUTSIDE RECORDS SUMMARY | 2024-11-18 15:40 | XMS_ITS | Encounter Summary ---
Author Organization [employer] ([place], [place], [place], [place]) Address [address] [place] [address] Care Team Providers Care Software Test And Validation Engineer Name Role Phone Unavailable Primary Care Provider Unavailabl e Encounter Details Date Type Department Care Team (Late st Contact Info) Description 03/11/2021 Transcribed Document [facility] [place] [facility] [place] [address] ProviderAlexis MD [facility] [place] [address] Social History Tobacco Use Types Packs/Day Years Used Date Smoking Tobacco: Never Assessed Comments Unknown Sex and Gender Information Value Date Recorded Sex Assigned at Not on file Legal Sex Female 5:40 PM CDT Gender Identity Not on file Sexual Orientation Not on file documented as of this encounter Miscellaneous Notes * Cerner Conversion Note - Alexis ProviderMD - 03/11/2021 12:00 PM CADDYMASTER Pain Assessment Entered On: 03/11/2021 14:43 EST Performed On: 03/11/2021 13:13 EST by Sarah Sahu RN Intervention Information: ketorolac Performed by Sarah Sahu RN on 03/11/2021 12:43:00 EST ketorolac,15mg IV [...]
--- OUTSIDE RECORDS SUMMARY | 2024-11-18 15:40 | XMS_ITS | Encounter Summary ---
Author Organization [employer] ([place], [place], [place], [place]) Address [address] [place] [address] Care Team Providers Care Radio Time Sales Supervisor Name Role Phone Unavailable Primary Care Provider Unavailabl e Encounter Details Date Type Department Care Team (Late st Contact Info) Description 03/10/2021 Transcribed Document [facility] Family Medicine [address] [place] [address] ProviderAlexis MD [facility] [place] [address] Social History Tobacco Use Types [...] - Alexis ProviderMD - 03/10/2021 12:13 PM PLANNING TECHNICIAN [facility] Main OR Preop Summary Primary Physician: ARMANDO ZAVALA MD-PRO Finalized Date/Time: 03/10/21 14:06:34 Pt. Name: DAYANA BONILLA/Sex: 1960 Female Med Rec #: [id number] Physician: ARMANDO ZAVALA MD- Financial #: [id number] Pt. Type: I Room/Bed: / Admit/Disch: 02/23/21 10:15:00 - Institution: [facility] PreOp Case Times Entry 1 In Preop 03/10/21 08:46:00 Ready for Holding n/a Room Patient Ready for 03/10/21 10:29:00 Surgery Patient Out of Preop 03/10/21 11:37:00 Patient Out of n/a Holding Room Last Modified By: Gi Berrios Rn 03/10/21 14:06:33 [facility] PreOp Case Times Audit 03/10/21 14:06:33 Panel Fitter: THERESA Modifier: [email or web address] <+> 1 Patient Out of Preop Finalized By: Gi Berrios Rn Document Signatures Signed By: Gi Berrios Rn 03/10/21 14:06 Electronically signed by Wei [facility] Conversion Senior Payroll Specialist Cerner at 08/19/2022 5:58 PM CDT documented in this encounter Plan of Treatment Not on file documented as of this encounter Visit Diagnoses Not on filedocumented in this encounter
--- OUTSIDE RECORDS SUMMARY | 2024-11-18 15:40 | XMS_ITS | Encounter Summary ---
Author Organization [employer] ([place], [place], [place], [place]) Address [address] [place] [address] Care Team Providers Care Neon Electrician Name Role Phone Unavailable Primary Care Provider Unavailabl e Encounter Details Date Type Department Care Team (Late st Contact Info) Description 03/11/2021 Transcribed Document [facility] [place] Medicine [facility] [place] [address] ProviderAlexis MD [facility] [place] [address] Social History Tobacco Use Types Packs/Day Years Used Date Smoking Tobacco: Never Assessed Comments Unknown Sex and Gender Information Value Date Recorded Sex Assigned at Not on file Legal Sex Female 5:40 PM CDT Gender Identity Not on file Sexual Orientation Not on file documented as of this encounter Miscellaneous Notes * Cerner Conversion Note - Alexis Livingston MD - 03/11/2021 8:09 AM OFFICE COPY SELECTOR UM Authorization Entered On: 03/11/2021 8:20 EST Performed On: 03/11/2021 8:09 EST by CHRISTIAN ARMENTA RN Primary Insurance Authorization Authorization and Policy Numbers : Insurance 1 Health Plan: [facility] [employer] Policy Number: [id number] Authorization Number: [id number] Insurance Primary Name : [facility] Policy Number: [id number] Authorization Status-Primary : Admit approved Number of Days Authorized-Primary : 4 Day(s) Authorized Service Begin Date-Primary : 03/10/2021 EST Authorized Service End Date-Primary : 03/14/2021 EST Authorization Comments-Primary : IP admit approved from 03/10 to 03/14 per [facility] website Historical Authorization Comments-Primary : No Authorization Comments Found CHRISTIAN ARMENTA RN - 03/11/2021 8:09 EST Electronically signed by [facility] Conversion Four Roll Calender Operator Cerner at 08/19/2022 6:10 PM CDT documented in this encounter Plan of Treatment Not on file documented as of this encounter Visit Diagnoses Not on filedocumented in this encounter
--- OUTSIDE RECORDS SUMMARY | 2024-11-18 15:40 | XMS_ITS | Encounter Summary ---
Author Organization [employer] ([place], [place], [place], [place]) Address [address] [place] [address] Care Team Providers Care Digital Forensic Analyst Name Role Phone Unavailable Primary Care Provider Unavailabl e Encounter Details Date Type Department Care Team (Late st Contact Info) Description 03/11/2021 Transcribed Document [facility] [place] [facility] [place] [address] ProviderAlexis MD [facility] [place] [address] Social History Tobacco Use Types Packs/Day Years Used Date Smoking Tobacco: Never Assessed Comments Unknown Sex and Gender Information Value Date Recorded Sex Assigned at Not on file Legal Sex Female 5:40 PM CDT Gender Identity Not on file Sexual Orientation Not on file documented as of this encounter Miscellaneous Notes * Cerner Conversion Note - Alexis Livingston MD - 03/11/2021 4:12 PM LINE PRODUCTION COOK Final Discharge Planning Entered On: 03/11/2021 16:12 EST Performed On: 03/11/2021 16:12 EST by DERREK MASTERS RN-Vice President Of Compliance Final Discharge Planning Discharge Arrangements : Patient [...] : Yes Discharge To Care Management : Home/Residential/Penitentiary or Self Care - DERREK MASTERS RN-Vice President Of Compliance - 03/11/2021 16:12 EST Final Narrative Note Final Narrative Note : Discharged to home, agreeable. No needs. DERREK MASTERS RN-Vice President Of Compliance - 03/11/2021 16:12 EST Electronically signed by Wei [facility] Conversion Engine Mechanic Cerner at 08/19/2022 6:15 PM CDT documented in this encounter Plan of Treatment Not on file documented as of this encounter Visit Diagnoses Not on filedocumented in this encounter
--- OUTSIDE RECORDS SUMMARY | 2024-11-18 15:40 | XMS_ITS | Encounter Summary ---
Author Organization [employer] ([place], [place], [place], [place]) Address [address] [place] [address] Care Team Providers Care Internal Medicine Veterinary Technician Name Role Phone Unavailable Primary Care Provider Unavailabl e Encounter Details Date Type Department Care Team (Late st Contact Info) Description 03/11/2021 Transcribed Document [facility] [place] [facility] [place] [address] ProviderAlexis [place] [address] Social History Tobacco Use Types [...] Alexis Livingston MD - 03/11/2021 1:36 PM VAN LOADER [facility] [address] DAYANA BONILLA :1960 Visit Time:03/10/2021 Your [...] Bring discharge instructions with you. Where: [address] [place] [address]- Follow Up with ARMANDO ZAVALA MD-PRO When 03/18/2021 02:00 PM EST Comments Colorectal Surgical follow up Appointment has been made. Bring discharge instructions with you. Where: [address] [facility] [address] [place] [address]- Medications What How Much When Instructions Next Dose acetaminophen (acetaminophen 500 mg oral tablet) 2 Tablet(s) Oral Two Times A Day Duration: 5 Day(s) not to exceed 3000 mg/ day this evening acetaminophen-oxyCODONE (Percocet 5 mg-325 mg oral tablet) 1 Tablet(s) Oral Every 6 Hours as needed for as needed for pain Pickup at [facility] as needed baclofen (baclofen 5 mg [...] Oral At Bedtime at bedtime Pharmacy Information [facility]: [address] [address] [phone] Take your medications faithfully. Do NOT skip [...] are treated at home by: ??? Taking xvkn-npi-nfngxow pain medicines. ??? Following a clear liquid [...] these instructions at home: Medicines ??? Take wvha-wbm-gjhxuxg and prescription medicines only as told by [...] provider. Document Revised: 01/27/2020 Document Reviewed: 01/27/2020 Else[employer] Patient Education ?? 2020 Elias [employer] Minimally Invasive Total Colectomy, Care After [...] these instructions at home: Medicines ??? Take dulm-frz-vuqcvdy and prescription medicines only as told by [...] and water are not available, use hand horse breeder. ? Change your dressing as told by [...] provider. Document Revised: 03/25/2020 Document Reviewed: 03/25/2020 [employer]elligent Patient Education ?? 2020 [employer] Low Residue Diet A low residue [...] than 7-10 grams of fiber per day. FPC use of this diet may not provide [...] that you work with a diet and aviation medicine specialist (dietitian). What are tips for following [...] made with white flour. Waffles, pancakes, and Uzbek toast. Bagels. Pretzels. [place] toast, zwieback, and matzoh. Cooked and dried cereals that do not contain whole grains, added fiber, seeds, or dried fruit. Cornmeal. [place]. Hot and cold cereals made with refined [...] Sports drinks. Herbal tea. Fats and oils [place] oil, canola oil, sunflower oil, flaxseed oil, [...] breads and crackers. Multigrain breads and crackers. [place] bread. Whole grain or multigrain cereals. Cereals with nuts, raisins, or coconut. Bran. Coarse wheat cereals. Granola. High-fiber cereals. Cornmeal or corn bread. Whole grain pasta. Wild or brown rice. Quinoa. Popcorn. Buckwheat. Wheat germ. Vegetables Potato skins. Raw or undercooked vegetables. All beans and reyes sprouts. Cooked greens. [place]. Peas. Cabbage. Beets. Broccoli. [place] sprouts. Cauliflower. Mushrooms. Onions. Peppers. Parsnips. Okra. [...] are not allowed. Seasoning and other foods [place] tortilla chips. Soups made with vegetables or [...] provider. Document Revised: 08/09/2019 Document Reviewed: 06/20/2017 Eli[employer] Patient Education ?? 2020 Eli[employer] acetaminophen and oxycodone (a SEET a [...] may report side effects to FDA at 4-478-OLO-1736. What other drugs will affect acetaminophen and [...] affect acetaminophen and oxycodone, including prescription and eczv-kzq-gqaohoc medicines, vitamins, and herbal products. Not all [...] to ensure that the information provided by [employer]. ('Multum') is accurate, up-to-date, and complete, but no guarantee is made to that effect. Drug information contained herein may be time sensitive. [employer] information has been compiled for use by healthcare practitioners and consumers in the [place] and therefore [employer] does not warrant that uses outside of the [place] are appropriate, unless specifically indicated otherwise. [employer] drug information does not endorse drugs, diagnose patients or recommend therapy. [employer] drug information is an informational resource designed [...] effective or appropriate for any given patient. [employer] does not assume any responsibility for any aspect of healthcare administered with the aid of information [employer] provides. The information contained herein is not intended to cover all possible uses, directions, precautions, warnings, drug interactions, allergic reactions, or adverse effects. If you have questions about the drugs you are taking, check with your doctor, nurse or pharmacist. Copyright 9516-4962 [employer]. Version: .. Revision Date: 06/05/2020. acetaminophen (oral) (a SEET a MIN oh fen) Actamin, Anacin AF, Aurophen, [facility] [place], Children's Tylenol, Mapap, M-Pap, Pharbetol, Silapap Childrens, [...] provided dosing device provided to measure an 's dose. Acetaminophen comes in many different forms [...] may report side effects to FDA at 5-288-INC-8023. What other drugs will affect acetaminophen? Other drugs may affect acetaminophen, including prescription and ghev-yca-wgqpbta medicines, vitamins, and herbal products. Tell your [...] to ensure that the information provided by [employer]. ('Multum') is accurate, up-to-date, and complete, but no guarantee is made to that effect. Drug information contained herein may be time sensitive. [employer] information has been compiled for use by healthcare practitioners and consumers in the [place] and therefore [employer] does not warrant that uses outside of the [place] are appropriate, unless specifically indicated otherwise. [employer] drug information does not endorse drugs, diagnose patients or recommend therapy. [employer] drug information is an informational resource designed [...] effective or appropriate for any given patient. [employer] does not assume any responsibility for any aspect of healthcare administered with the aid of information [employer] provides. The information contained herein is not intended to cover all possible uses, directions, precautions, warnings, drug interactions, allergic reactions, or adverse effects. If you have questions about the drugs you are taking, check with your doctor, nurse or pharmacist. Copyright 1708-2825 [employer]. Version: 22.01. Revision Date: 02/02/2021. Emergency Awareness and Preventative Care STROKE is an EMERGENCY Every Minute Counts Act FAST and Check for these signs: FACE Does the face look uneven? ARM Does one arm drift down? SPEECH Does their speech sound strange? TIME Call at any sign of stroke Stroke Risk [...] Assistance with quitting is available by contacting 3-210-XEZINOW. This is a free resource providing counseling, support, and referral. Or you may contact your personal physician. National Suicide Prevention Lifeline: The National Suicide Prevention [...] range between ( 0.0 and 7.0 ) [place] #: 0.41 K/uL -- Normal range between ( 0.16 and 1.00 ) [place]os #: 0.00 x10(3)/uL -- Normal range between ( 0.00 and 0.80 ) [place] %: 3.3 % -- Normal range between [...] was given the opportunity to ask questions. Patient/Marine Pipe Welder Name: Patient/Marine Pipe Welder Signature: Relationship to Patient: Clinician/Hospital Marine Pipe Welder Signature: Date: documented in this encounter Plan of Treatment Not on file documented as of this encounter Visit Diagnoses Not on filedocumented in this encounter
--- OUTSIDE RECORDS SUMMARY | 2024-11-18 15:40 | XMS_ITS | Encounter Summary ---
Author Organization [employer] ([place], [place], [place], [place]) Address [address] [place] [address] Care Team Providers Care Test Cell Technician Name Role Phone Unavailable Primary Care Provider Unavailabl e Encounter Details Date Type Department Care Team (Late st Contact Info) Description 03/10/2021 Transcribed Document [facility] [place] [facility] [place] [address] ProviderAlexis MD [facility] [place] [address] Social History Tobacco Use Types Packs/Day Years Used Date Smoking Tobacco: Never Assessed Comments Unknown Sex and Gender Information Value Date Recorded Sex Assigned at Not on file Legal Sex Female 5:40 PM CDT Gender Identity Not on file Sexual Orientation Not on file documented as of this encounter Miscellaneous Notes * Cerner Conversion Note - Alexis Livingston MD - 03/10/2021 2:34 PM CLINICAL PHLEBOTOMIST Patient: DAYANA BONILLA Age: 60 Years Sex: Female : 1960 CSGA Pre Op Diagnosis: Diverticulitis, possible appendicitis Post Op Diagnosis: Diverticulitis Procedure: Robotic low anterior resection. Restaurant Team Member: Vazquez Indications: This is a pleasant 60-year-old [...] brought to recovery room in good condition. documented in this encounter Plan of Treatment Not on file documented as of this encounter Visit Diagnoses Not on filedocumented in this encounter
--- OUTSIDE RECORDS SUMMARY | 2024-11-18 15:40 | XMS_ITS | Encounter Summary ---
Author Organization [employer] ([place], [place], [place], [place]) Address [address] [place] [address] Care Team Providers Care Choke Reamer Name Role Phone Unavailable Primary Care Provider Unavailabl e Encounter Details Date Type Department Care Team (Late st Contact Info) Description 03/10/2021 Transcribed Document [facility] [place] [address] [place] [address] ProviderAlexis MD [address] [place] [address] Social History Tobacco Use Types [...] - Historical ProviderMD - 03/10/2021 5:00 PM MANAGER CLIENT SUPPORT Chart Check - Review Order Profile Entered On: 03/10/2021 18:18 EST Performed On: 03/10/2021 17:00 EST by Gianna Branham RN Chart Check Powerplans Initiated/Discontinued as Appropriate : Yes All Active Orders Reviewed : Yes Gianna Branham RN - 03/10/2021 18:18 EST Electronically signed by Wei [facility] Conversion Tire Building Supervisor Cerner at 08/19/2022 6:05 PM CDT documented in this encounter Plan of Treatment Not on file documented as of this encounter Visit Diagnoses Not on filedocumented in this encounter
--- OUTSIDE RECORDS SUMMARY | 2024-11-18 15:40 | XMS_ITS | Encounter Summary ---
Author Organization [employer] ([place], [place], [place], [place]) Address [address] [place] [address] Care Team Providers Care Embedded Systems Software Engineer Name Role Phone Unavailable Primary Care Provider Unavailabl e Encounter Details Date Type Department Care Team (Late st Contact Info) Description 03/10/[address] [facility] [place] Family Medicine [address] [place] [address] ProviderAlexis MD [address] [place] [address] Social History Tobacco Use Types [...] - Historical ProviderMD - 03/10/2021 2:33 PM CONTENT DEVELOPMENT MANAGER Consult Phone Call Documentation Entered On: 03/10/2021 16:27 EST Performed On: 03/10/2021 14:33 EST by Elodia Buck Patient Trolley Car Operator Heladio Phone Call for Consults Consult Phone Call/Page Attempt : First call Consult Reason : assumption of care and medical management Physician Requesting Consult : ARMANDO ZAVALA MD-PRO Physician Covering for Consult : VALERIA LOPEZ MD-INT Date and Time Call Returned : 03/10/2021 16:27 EST Elodia Buck Patient Trolley Car Operator I - 03/10/2021 16:27 EST documented in this encounter Plan of Treatment Not on file documented as of this encounter Visit Diagnoses Not on filedocumented in this encounter
--- OUTSIDE RECORDS SUMMARY | 2024-11-18 15:40 | XMS_ITS | Encounter Summary ---
Author Organization [employer] ([place], [place], [place], [place]) Address [address] [place] [address] Care Team Providers Care Hands Hanger Name Role Phone Unavailable Primary Care Provider Unavailabl e Encounter Details Date Type Department Care Team (Late st Contact Info) Description 03/10/2021 Transcribed Document [facility] [place] [facility] [place] [address] ProviderAlexis MD [address] [place] [address] Social History Tobacco Use Types Packs/Day Years Used Date Smoking Tobacco: Never Assessed Comments Unknown Sex and Gender Information Value Date Recorded Sex Assigned at Not on file Legal Sex Female 5:40 PM CDT Gender Identity Not on file Sexual Orientation Not on file documented as of this encounter Miscellaneous Notes * Cerner Conversion Note - Alexis ProviderMD - 03/10/2021 9:59 AM PERSONAL INJURY LEGAL ASSISTANT Patient: DAYANA BONILLA Age: 60 years Sex: Female : 1960 Associated Diagnoses: None Author: COMERANDRE APRN Chief Complaint pleasant 60 y o [...] Problems Anxiety and depression / SNOMED CT 599884981 / Confirmed Hyperlipidemia / SNOMED CT 09751966 / Confirmed Hiatal hernia / SNOMED CT 245080321 / Confirmed Cecal diverticulitis / SNOMED CT 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 Family History: No family history items have been selected or recorded. Procedure history: Hysterectomy ([id number]) on 04/01/2001 at 40 Years. Tubal ligation ([id number]). lumpectomy. EGD (esophagogastroduodenoscopy) gastric outlet reduction ([id number]). colonoscopy. Social History Social & Psychosocial Habits [...] of motion, Normal strength. Integumentary: Warm, Dry, [place]. Neurologic: Alert, Oriented. Psychiatric: Cooperative, Appropriate mood [...] is to stay at least 1 night. Electronically signed by Sandor Carvajal Conversion Supervisor Electrolytic Tinning Cerner at 08/19/2022 6:16 PM CDT documented in this encounter Plan of Treatment Not on file documented as of this encounter Visit Diagnoses Not on filedocumented in this encounter
--- OUTSIDE RECORDS SUMMARY | 2024-11-18 15:40 | XMS_ITS | Encounter Summary ---
Author Organization [employer] ([place], [place], [place], [place]) Address [address] [place] [address] Care Team Providers Care Diploma Maker Name Role Phone Unavailable Primary Care Provider Unavailabl e Encounter Details Date Type Department Care Team (Late st Contact Info) Description 03/10/[address] [facility] [place] [facility] [place] [address] ProviderAlexis MD [facility] [place] [address] Social History Tobacco Use Types Packs/Day Years Used Date Smoking Tobacco: Never Assessed Comments Unknown Sex and Gender Information Value Date Recorded Sex Assigned at Not on file Legal Sex Female 5:40 PM CDT Gender Identity Not on file Sexual Orientation Not on file documented as of this encounter Miscellaneous Notes * Cerner Conversion Note - Alexis ProviderMD - 03/10/2021 11:41 AM CRIME SCENE EVIDENCE TECHNICIAN Admission History, Adult Entered On: 03/10/2021 16:32 [...] Obtained From : Patient Primary Language : Kyrgyz Preferred Communication Mode : Verbal Communication Barrier : None Pulverizing And Sifting Operator Needed : No Objects to Sharing Info [...] Scale Risk Level : 25-45 Medium Risk [place] Fall Interventions : Adequate lighting, Assistive devices [...] Updated: 12/11/2015 09:21:08 EDT by DENNIS CORCORAN, SUNIL) Alcohol: Alcohol Use History Yes. Alcohol Use [...] Source : Measured Height Entry Format : [facility] Height, Feet : 0 ft(Converted to: 0 cm, 0 Inch) Height, Inches : 63 Inch(Converted to: 5 ft 3 Inch, 160.02 cm) Clinical Height : 160.02 cm Weight Source : Standing scale Weight Entry Format : [facility] Clinical Dosing Weight : 83.64 kg Weight, Pounds : 184 lb Body Surface Area (BSA) : 1.87 m2 Body Mass Index : 32.7 kg/m2 ([place]) [place] Body Weight : 52 kg PRETTY MAHER [...] PRETTY MAHER RN - 03/10/2021 16:28 EST [place] Suicide Severity Rating Scale (C-SSRS) CSSRS Past [...] Glasses Personal Items : Cell phone, Other: bolt threader Personal Items Disposition : Bedside PRETTY MAHER RN - 03/10/2021 16:28 EST documented in this encounter Plan of Treatment Not on file documented as of this encounter Visit Diagnoses Not on filedocumented in this encounter
--- OUTSIDE RECORDS SUMMARY | 2024-11-18 15:40 | XMS_ITS | Encounter Summary ---
Author Organization [employer] ([place], [place], [place], [place]) Address [address] [place] [address] Care Team Providers Care Educational Assistant Name Role Phone Unavailable Primary Care Provider Unavailabl e Encounter Details Date Type Department Care Team (Late st Contact Info) Description 03/11/2021 Transcribed Document [facility] [place] [address] [place] [address] ProviderAlexis MD [address] [place] [address] Social History Tobacco Use Types Packs/Day Years Used Date Smoking Tobacco: Never Assessed Comments Unknown Sex and Gender Information Value Date Recorded Sex Assigned at Not on file Legal Sex Female 5:40 PM CDT Gender Identity Not on file Sexual Orientation Not on file documented as of this encounter Miscellaneous Notes * Cerner Conversion Note - Alexis ProviderMD - 03/11/2021 6:39 AM GENERAL MEDICAL PRACTITIONER Patient: DAYANA BONILLA Age: 60 Years Sex: Female : 1960 CSGA POST OP NOTE Subjective: Objective: Vitals Signs (last 24 hrs) Last Charted Minimum Maximum Temp 98.1 (MAR 11 02:00) 97 (MAR 10 10:05) 98.3 (MAR 10 14:50) Mon HR 74 (MAR 11 02:00) 61 (MAR 10 14:50) 74 (MAR 10 16:29) Resp Rate 16 (MAR 11 02:00) 16 (MAR 10 14:50) 18 (MAR 10 10:05) SBP 129 (MAR 11 02:00) 101 (MAR [...]
--- OUTSIDE RECORDS SUMMARY | 2024-11-18 15:40 | XMS_ITS | Encounter Summary ---
Author Organization [employer] ([place], [place], [place], [place]) Address [address] [place] [address] Care Team Providers Care Mission Systems Engineer Name Role Phone Unavailable Primary Care Provider Unavailabl e Encounter Details Date Type Department Care Team (Late st Contact Info) Description 03/11/2021 Transcribed Document [facility] [place] Family Medicine [address] [place] [address] ProviderAlexis MD [address] [place] [address] Social History Tobacco Use Types [...] Alexis Livingston MD - 03/11/2021 1:28 PM NEEDLE BAR MOLDER Patient Education Materials Follows: Minimally Invasive Total [...] these instructions at home: Medicines ??? Take lrcg-viu-avkofnh and prescription medicines only as told by [...] and water are not available, use hand naval gunfire liaison officer. ? Change your dressing as told by [...] provider. Document Revised: 03/25/2020 Document Reviewed: 03/25/2020 [employer] Patient Education ? 2020 [employer] Low Residue Diet A low residue [...] than 7-10 grams of fiber per day. halfway use of this diet may not provide [...] are treated at home by: ??? Taking sgrv-kbj-lzvbbpk pain medicines. ??? Following a clear liquid [...] these instructions at home: Medicines ??? Take szba-nxd-wcnepfy and prescription medicines only as told by [...] provider. Document Revised: 01/27/2020 Document Reviewed: 01/27/2020 [employer] Patient Education ? 2020 [employer] Low-Fiber Eating Plan Fiber is found [...] that you work with a diet and appointment specialist (dietitian). What are tips for following [...] made with white flour. Waffles, pancakes, and [place] toast. Bagels. Pretzels. [place] toast, zwieback, and matzoh. Cooked and dried cereals that do not contain whole grains, added fiber, seeds, or dried fruit. Cornmeal. [place]. Hot and cold cereals made with refined [...] Sports drinks. Herbal tea. Fats and oils [place] oil, canola oil, sunflower oil, flaxseed oil, [...] breads and crackers. Multigrain breads and crackers. [place] bread. Whole grain or multigrain cereals. Cereals with nuts, raisins, or coconut. Bran. Coarse wheat cereals. Granola. High-fiber cereals. Cornmeal or corn bread. Whole grain pasta. Wild or brown rice. Quinoa. Popcorn. Buckwheat. Wheat germ. Vegetables Potato skins. Raw or undercooked vegetables. All beans and reyes sprouts. Cooked greens. [place]. Peas. Cabbage. Beets. Broccoli. [place] sprouts. Cauliflower. Mushrooms. Onions. Peppers. Parsnips. Okra. [...] are not allowed. Seasoning and other foods [place] tortilla chips. Soups made with vegetables or [...] Reviewed: 06/20/2017 Elsevier Patient Education ? 2020 [employer] documented in this encounter Plan of Treatment Not on file documented as of this encounter Visit Diagnoses Not on filedocumented in this encounter
--- OUTSIDE RECORDS SUMMARY | 2024-11-18 15:40 | XMS_ITS | Encounter Summary ---
Author Organization [employer] ([place], [place], [place], [place]) Address [address] [place] [address] Care Team Providers Care Power Mule Operator Name Role Phone Unavailable Primary Care Provider Unavailabl e Encounter Details Date Type Department Care Team (Late st Contact Info) Description 03/11/2021 Transcribed Document [facility] [place] [address] [place] [address] ProviderAlexis MD [place] [address] Social History Tobacco Use [...] - Historical ProviderMD - 03/11/2021 12:00 AM EROSION CONTROL COORDINATOR Pain Assessment Entered On: 03/11/2021 1:05 EST [...]
--- OUTSIDE RECORDS SUMMARY | 2024-11-18 15:40 | XMS_ITS | Encounter Summary ---
Author Organization [employer] ([place], [place], [place], [place]) Address [address] [place] [address] Care Team Providers Care Test Engineering Manager Name Role Phone Unavailable Primary Care Provider Unavailabl e Encounter Details Date Type Department Care Team (Late st Contact Info) Description 03/10/2021 Transcribed Document [facility] [place] [facility] [place] [address] ProviderAlexis MD [facility] [place] [address] Social History Tobacco Use Types [...] Alexis Livingston MD - 03/10/2021 6:10 PM STANDARDS ENGINEER Patient: DAYANA BONILLA Age: 60 Years Sex: [...] Code, Continuous Order Electronically signed by Wei [facility] Conversion Traffic Control Operator Cerner at 08/19/2022 6:04 PM CDT documented in this encounter Plan of Treatment Not on file documented as of this encounter Visit Diagnoses Not on filedocumented in this encounter
--- OUTSIDE RECORDS SUMMARY | 2024-11-18 15:40 | XMS_ITS | Encounter Summary ---
Author Organization [employer] ([place], [place], [place], [place]) Address [address] [place] [address] Care Team Providers Care Environmental Services Project Manager Name Role Phone Unavailable Primary Care Provider Unavailabl e Encounter Details Date Type Department Care Team (Late st Contact Info) Description 03/11/2021 Transcribed Document [facility] [place] [address] [place] [address] ProviderAlexis MD [address] [place] [address] Social History Tobacco Use [...] - Historical ProviderMD - 03/11/2021 2:00 AM OUTPATIENT CODING SPECIALIST Physiological Chemist Details Entered On: 03/11/2021 1:06 EST Performed [...] Krys Meyer Lpn - 03/11/2021 1:05 EST documented in this encounter Plan of Treatment Not on file documented as of this encounter Visit Diagnoses Not on filedocumented in this encounter
--- OUTSIDE RECORDS SUMMARY | 2024-11-18 15:40 | XMS_ITS | Clinical Summary ---
Author Organization [employer] ([place], [place], [place], [place]) Address [address] [place] [address] Care Team Providers Care Water Control Station Engineer Name Role Phone Unavailable Primary Care Provider Unavailabl e Allergies No known active allergies Social History Tobacco Use Types Packs/Day Years Used Date Smoking Tobacco: Never Assessed Food Insecurity Answer Date Recorded Food run [...] Date Pelon rded Speak language other than Haitian at home Not on file 05/19/2023 Want help with school or training Not on file 05/19/2023 Substance Use Answer Date Recorded Used [...] (3 - season) 12/31/202306/2020, 07/08/2020 Influenza Vaccine (#1) 2024 05/18/2017 Respiratory Syncytial Virus (RSV) Adult or (1 - 1-dose 75+ series) 2036
--- OUTSIDE RECORDS SUMMARY | 2024-11-18 15:40 | XMS_ITS | Referral Summary ---
Author Organization [employer] ([place], [place], [place], [place]) Address [address] [place] [address] Care Team Providers Care Stitchdowns Toe Former Name Role Phone Unavailable Primary Care Provider [...] Date Pelon rded Speak language other than Tamazight at home Not on file 05/19/2023 Want [...]
--- OUTSIDE RECORDS SUMMARY | 2024-11-18 15:40 | XMS_ITS | Encounter Summary ---
Author Organization [employer] ([place], [place], [place], [place]) Address [address] [place] [address] Care Team Providers Care Filter Washer Name Role Phone Unavailable Primary Care Provider Unavailabl e Encounter Details Date Type Department Care Team (Late st Contact Info) Description 03/11/2021 Transcribed Document [facility] Radiology [address] [place] [address] Kiki Celaya MD [address] [place], [place] [id number] Social History Tobacco Use Types Packs/Day Years [...] of the above totals at 30 minutes. /[id number] Kiki Celaya MD VLS/AQ / VLS / MODL /[id number] documented in this encounter Plan of Treatment Not on file documented as of this encounter Visit Diagnoses Not on filedocumented in this encounter
--- OUTSIDE RECORDS SUMMARY | 2024-11-18 15:40 | XMS_ITS | Encounter Summary ---
Author Organization [employer] ([place], [place], [place], [place]) Address [address] [place] [address] Care Team Providers Care Outside Sales Engineer Name Role Phone Unavailable Primary Care Provider Unavailabl e Encounter Details Date Type Department Care Team (Late st Contact Info) Description 03/11/2021 Transcribed Document [facility] [place] [address] [place] [address] ProviderAlexis MD [facility] [place] [address] Social History Tobacco Use Types [...] - Alexis ProviderMD - 03/11/2021 12:00 PM HEAT PLANT SPECIALIST Pain Assessment Entered On: 03/11/2021 14:43 EST [...]
--- OUTSIDE RECORDS SUMMARY | 2024-11-18 15:41 | XMS_ITS | Encounter Summary ---
Author Organization [employer] ([place], [place], [place], [place]) Address [address] [place] [address] Care Team Providers Care Policy Service Coordinator Name Role Phone Unavailable Primary Care Provider Unavailabl e Encounter Details Date Type Department Care Team (Late st Contact Info) Description 03/11/2021 Transcribed Document [facility] [place] Medicine [facility] [place] [address] ProviderAlexis MD [facility], [facility] [place] [address] Social History Tobacco Use Types Packs/Day Years Used Date Smoking Tobacco: Never Assessed Comments Unknown Sex and Gender Information Value Date Recorded Sex Assigned at Not on file Legal Sex Female 5:40 PM CDT Gender Identity Not on file Sexual Orientation Not on file documented as of this encounter Miscellaneous Notes * Cerner Conversion Note - Alexis ProviderMD - 03/11/2021 6:00 AM CORPORATE VP ADVERTISING & ONLINE Pain Assessment Entered On: 03/11/2021 8:25 EST [...] EST Pain Scale Intensity : 2 Sarah aShu RN - 03/11/2021 8:25 EST Image 4 - Images currently included in the form version of this document have not been included in the text rendition version of the form. documented in this encounter Plan of Treatment Not on file documented as of this encounter Visit Diagnoses Not on filedocumented in this encounter
--- OUTSIDE RECORDS SUMMARY | 2024-11-18 15:41 | XMS_ITS | Encounter Summary ---
Author Organization [employer] ([place], [place], [place], [place]) Address [address] [place] [address] Care Team Providers Care Economic Manager Name Role Phone Unavailable Primary Care Provider Unavailabl e Encounter Details Date Type Department Care Team (Late st Contact Info) Description 03/11/2021 Transcribed Document [facility] [place] Family Medicine [address] [place] [address] ProviderAlexis MD [facility] [place] [address] Social History Tobacco Use Types [...] - Historical ProviderMD - 03/11/2021 6:00 AM AIR ANTISUBMARINE OFFICER Pain Assessment Entered On: 03/11/2021 8:25 EST Performed On: 03/11/2021 7:43 EST by Sarah Sahu RN Intervention Information: acetaminophen Performed by Krys Meyer Lpn on 03/11/2021 06:43:00 EST acetaminophen,1000mg Oral [...] form. Electronically signed by Sandor Carvajal Conversion Senior Talent Management Consultant Cerner at 08/19/2022 6:20 PM CDT documented in this encounter Plan of Treatment Not on file documented as of this encounter Visit Diagnoses Not on filedocumented in this encounter
--- OUTSIDE RECORDS SUMMARY | 2024-11-18 15:41 | XMS_ITS | Encounter Summary ---
Author Organization [employer] ([place], [place], [place], [place]) Address [address] [place] [address] Care Team Providers Care Manager It Training Name Role Phone Unavailable Primary Care Provider Unavailabl e Encounter Details Date Type Department Care Team (Late st Contact Info) Description 03/10/2021 Transcribed Document [facility] [place] Family Medicine [address] [place] [address] ProviderAlexis MD [address] [place] [address] Social History Tobacco Use Types [...] - Historical ProviderMD - 03/10/2021 6:00 PM SUBGRADE ROLLER OPERATOR Pain Assessment Entered On: 03/10/2021 18:18 EST Performed On: 03/10/2021 17:45 EST by Gianna Branham RN Intervention Information: ketorolac Performed by Gianna Branham RN on 03/10/2021 17:15:00 EST ketorolac,15mg IV Push,Left Lower Forearm Pain Assessment Pain Assessment : Follow-up assessment Gianna Branham RN - 03/10/2021 18:18 EST Electronically signed by Wei [facility] Conversion Livestock Nutrition Territory Manager Cerner at 08/19/2022 5:59 PM CDT documented in this encounter Plan of Treatment Not on file documented as of this encounter Visit Diagnoses Not on filedocumented in this encounter
--- OUTSIDE RECORDS SUMMARY | 2024-11-18 15:41 | XMS_ITS | Encounter Summary ---
Author Organization [employer] ([place], [place], [place]) Address [address] [place] [address] Care Team Providers Care Flower Machine Operator Name Role Phone Unavailable Primary Care Provider Unavailabl e Encounter Details Date Type Department Care Team (Late st Contact Info) Description 03/11/2021 Transcribed Document [facility] [place] [address] [place] [address] ProviderAlexis MD [address] [place] [address] Social History Tobacco Use Types [...] - Historical ProviderMD - 03/11/2021 2:33 PM BEEKEEPER FARMER Nursing Discharge Summary Entered On: 03/11/2021 14:33 EST Performed On: 03/11/2021 14:33 EST by Leanne Sahu Virtual citizen participation specialist Documentation Discharge Instructions Reviewed With, Opportunity For Questions Given : Patient Patient Education Completed : Yes Teaching Method : Explanation, Printed materials Teaching Evaluation : Verbalizes understanding Education Comment : Meds, follow ups, conditions, restrictions Leanne Sahu Virtual RN - 03/11/2021 14:33 EST Electronically signed by Wei [facility] Conversion Tractor Trailer Moving Van Driver Cerner at 08/19/2022 6:24 PM CDT documented in this encounter Plan of Treatment Not on file documented as of this encounter Visit Diagnoses Not on filedocumented in this encounter
--- OUTSIDE RECORDS SUMMARY | 2024-11-18 15:41 | XMS_ITS | Encounter Summary ---
Author Organization [employer] ([place], [place], [place], [place]) Address [address] [place] [address] Care Team Providers Care Filling Hauler Name Role Phone Unavailable Primary Care Provider Unavailabl e Encounter Details Date Type Department Care Team (Late st Contact Info) Description 03/11/2021 Transcribed Document [facility] [place] [facility] [place] [address] ProviderAlexis MD [facility] [place] [address] Social History Tobacco Use Types [...] - Alexis ProviderMD - 03/11/2021 9:10 AM RESEARCH INTERVIEWER Initial Discharge Planning Entered On: 03/11/2021 9:12 EST Performed On: 03/11/2021 9:10 EST by DERREK MASTERS RN-Tower Erector Helper Initial Assessment I Previously Documented Living Environment [...] Is Guardianship Needed : No DERREK MASTERS RN-Tower Erector Helper - 03/11/2021 9:10 EST Initial Assessment II Sensory and Motor Deficits : None Current Home Treatments and Equipment : None DERREK MASTERS RN-Tower Erector Helper - 03/11/2021 9:10 EST Discharge Needs I Anticipated Discharge Date : 03/13/2021 EST Anticipated Discharge To, CM : Home with family care Current Home Treatment/Equipment : Current Home Treatment/Equipment No qualifying data available. Post Acute/Home Treatments : None Documentation Status Complete : Yes DERREK MASTERS RN-Tower Erector Helper - 03/11/2021 9:10 EST Discharge Needs II Professional Skilled Services : Professional Skilled Services No qualifying data available. Needs Assistance with Transportation : No Patient Discharge Goal : Home DERREK MASTERS RN-Tower Erector Helper - 03/11/2021 9:10 EST Narrative Note Narrative [...] @ 27. CM will follow. DERREK MASTERS RN-Tower Erector Helper - 03/11/2021 9:10 EST documented in this encounter Plan of Treatment Not on file documented as of this encounter Visit Diagnoses Not on filedocumented in this encounter
--- OUTSIDE RECORDS SUMMARY | 2024-11-18 15:41 | XMS_ITS | Encounter Summary ---
Author Organization [employer] ([place], [place], [place], [place]) Address [address] [place] [address] Care Team Providers Care Cord Splicer Name Role Phone Unavailable Primary Care Provider Unavailabl e Encounter Details Date Type Department Care Team (Late st Contact Info) Description 03/04/2021 Transcribed Document [facility] [place] [facility] [place] [address] ProviderAlexis MD [facility] [place] [address] Social History Tobacco Use Types [...] Source : Measured Height Entry Format : [place] Height, Feet : 0 ft(Converted to: 0 cm, 0 Inch) Height, Inches : 63 Inch(Converted to: 5 ft 3 Inch, 160.02 cm) Clinical Height : 160.02 cm Weight Source : Standing scale Weight Entry Format : [place] Clinical Dosing Weight : 83.64 kg Weight, Pounds : 184 lb Body Surface Area (BSA) : 1.87 m2 Body Mass Index : 32.7 kg/m2 (HI) Starr Body Weight : 52 kg WM PORTILLO [...] Socially. (Last Updated: 12/11/2015 09:21:22 EDT by DNENIS CORCORAN RN) Substance Abuse: Drug Use Hx: [...] WM PORTILLO RN - 03/05/2021 15:25 EDT [place] Suicide Severity Rating Scale (C-SSRS) CSSRS Past [...] EDT] ) Responsible Adult Contact Information : Jeanmary jo Bonilla, spouse, WM PORTILLO RN - 03/05/2021 15:25 EDT General Info Arrived From : Home Mode of Arrival on Unit : Ambulatory Patient Arrival Date/Time : 03/10/2021 8:30 EST Legal Guardian : Spouse Information Obtained From : Patient Preferred Communication Mode : Verbal Wet Suit Gluer Needed : No Objects to Sharing Info w Family : No WM PORTILLO RN - 03/05/2021 15:25 EDT Want Family/Rep/Phys Notified of Admit : No Emergency Contact #1 : jean bonilla Emergency Contact #1 Emergency Contact #1 Relationship : spouse Emergency Contact #2 : , Emergency Contact #2 Phone Number : , Emergency Contact #2 Relationship : , Primary Language : Tajik Communication Barrier : None RICARDO MARTINS RN [...]
--- OUTSIDE RECORDS SUMMARY | 2024-11-18 15:41 | XMS_ITS | Encounter Summary ---
Author Organization [employer] ([place], [place], [place], [place]) Address [address] [place] [address] Care Team Providers Care Beeswax Bleacher Name Role Phone Unavailable Primary Care Provider Unavailabl e Encounter Details Date Type Department Care Team (Late st Contact Info) Description 03/10/[address] [facility] [place] [address] [place] [address] ProviderAlexis MD [address] [place] [address] Social History Tobacco Use Types Packs/Day Years Used Date Smoking Tobacco: Never Assessed Comments Unknown Sex and Gender Information Value Date Recorded Sex Assigned at Not on file Legal Sex Female 5:40 PM CDT Gender Identity Not on file Sexual Orientation Not on file documented as of this encounter Miscellaneous Notes * [employer]ner Conversion Note - Alexis ProviderMD - 03/10/2021 6:00 PM LOGGING TRACTOR OPERATOR SWAMP Pain Assessment Entered On: 03/10/2021 18:18 EST [...]
--- OUTSIDE RECORDS SUMMARY | 2024-11-18 15:41 | XMS_ITS | Encounter Summary ---
Author Organization [employer] ([place], [place], [place], [place]) Address [address] [place] [address] Care Team Providers Care Boat Loader Helper Name Role Phone Unavailable Primary Care Provider Unavailabl e Encounter Details Date Type Department Care Team (Late st Contact Info) Description 03/15/2021 Transcribed Document [facility] [place] [address] [place] [address] ProviderAlexis MD [address] [place] [address] Social History Tobacco Use Types Packs/Day Years Used Date Smoking Tobacco: Never Assessed Comments Unknown Sex and Gender Information Value Date Recorded Sex Assigned at Not on file Legal Sex Female 5:40 PM CDT Gender Identity Not on file Sexual Orientation Not on file documented as of this encounter Miscellaneous Notes * Cerner Conversion Note - Alexis Livingston MD - 03/15/2021 3:51 PM INFORMATION TECHNOLOGY ASSOCIATE UM Authorization Entered On: 03/15/2021 15:51 EST Performed On: 03/15/2021 15:51 EST by Nette Pham, Gas Or Water Meter Installer Primary Insurance Authorization Authorization and Policy Numbers : Insurance 1 Health Plan: [facility] [employer] Policy Number: [id number] Authorization Number: [id number] Insurance Primary Name : [facility] Policy Number: [id number] Authorization Status-Primary : Approved Auth/Referral Contact Name-Primary : DC Authorization Number-Primary : [id number] Number of Days Authorized-Primary : 4 Day(s) Authorized Service Begin Date-Primary : 03/10/2021 EST Authorized Service End Date-Primary : 03/14/2021 EST Authorization Comments-Primary : Discharge date and summary faxed. Historical Authorization Comments-Primary : Comment 1: IP admit approved from 03/10 to 03/14 per [facility] website (CHRISTIAN ARMENTA RN 03/11/2021 08:09) Nette Pham, Gas Or Water Meter Installer - 03/15/2021 15:51 EST documented in this encounter Plan of Treatment Not on file documented as of this encounter Visit Diagnoses Not on filedocumented in this encounter
--- OUTSIDE RECORDS SUMMARY | 2024-11-18 15:41 | XMS_ITS | Encounter Summary ---
Author Organization [employer] ([place], [place], [place], [place]) Address [address] [place] [address] Care Team Providers Care Maintenance Person Name Role Phone Unavailable Primary Care Provider Unavailabl e Encounter Details Date Type Department Care Team (Late st Contact Info) Description 03/11/2021 Transcribed Document [facility] Radiology [address] [place] [address] Trinity Celaya MD [address] [place] [address] Social History Tobacco Use Types Packs/Day Years [...] None Author: TRINITY CELAYA MD-INT Discharge dictated. #[id number]. documented in this encounter Plan of Treatment Not on file documented as of this encounter Visit Diagnoses Not on filedocumented in this encounter
--- OUTSIDE RECORDS SUMMARY | 2024-11-18 15:41 | XMS_ITS | Encounter Summary ---
Author Organization [employer] ([place], [place], [place], [place]) Address [address] [place] [address] Care Team Providers Care Infirmary Attendant Name Role Phone Unavailable Primary Care Provider Unavailabl e Encounter Details Date Type Department Care Team (Late st Contact Info) Description 03/11/2021 Transcribed Document [facility] [place] [address] [place] [address] ProviderAlexis MD [address] [place] [address] Social History Tobacco Use Types [...] - Historical ProviderMD - 03/11/2021 1:11 PM MANAGER CLINICAL APPLICATIONS Stroke/Warfarin Instructions Entered On: 03/11/2021 13:12 EST Performed On: 03/11/2021 13:11 EST by Leanne Sahu Virtual RN Stroke/Warfarin Instructions Stroke/TIA Discharge Ins : N/A Warfarin Discharge Ins : N/A Leanne Sahu Virtual RN - 03/11/2021 13:11 EST documented in this encounter Plan of Treatment Not on file documented as of this encounter Visit Diagnoses Not on filedocumented in this encounter
== END 2024-11-18 23:59 | disposition home or self-care (01) ==
LOC: LAB.DROPOF 15:37
PROVIDERS: PCP Nurse Practitioner Family; Visit Provider Nurse Practitioner Family
DX: E53.8 Deficiency of other specified B group vitamins (principal)
CPT/HCPCS: 36415; 82607

== ENCOUNTER 2024-12-03 09:24 | Outpatient (CLI) | payer OTHER, SELFPAY ==
--- OUTSIDE RECORDS SUMMARY | 2024-12-03 09:29 | XMS_ITS | Encounter Summary ---
Author Organization [employer] ([place], [place], [place], [place]) Address [address] [place] [address] Care Team Providers Care Vacuum Form Operator Name Role Phone Unavailable Primary Care Provider Unavailabl e Encounter Details Date Type Department Care Team (Late st Contact Info) Description 03/10/2021 Transcribed Document [facility] [place] [facility] [place] [address] ProviderAlexis MD [facility] [place] [address] Social History Tobacco Use Types [...] - Alexis ProviderMD - 03/10/2021 9:59 AM ENGAGEMENT MGR Patient: DAYANA BONILLA Age: 60 years Sex: [...] Problems Anxiety and depression / SNOMED CT 860080773 / Confirmed Hyperlipidemia / SNOMED CT 56655569 / Confirmed Hiatal hernia / SNOMED CT 181109730 / Confirmed Cecal diverticulitis / SNOMED CT 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 Family History: No family history items have been selected or recorded. Procedure history: Hysterectomy ([id number]) on 04/01/2001 at 40 Years. Tubal ligation ([id number]). lumpectomy. EGD (esophagogastroduodenoscopy) gastric outlet reduction ([id number]). colonoscopy. Social History Social & Psychosocial Habits [...] of motion, Normal strength. Integumentary: Warm, Dry, [place]. Neurologic: Alert, Oriented. Psychiatric: Cooperative, Appropriate mood [...]
--- OUTSIDE RECORDS SUMMARY | 2024-12-03 09:29 | XMS_ITS | Encounter Summary ---
Author Organization [employer] ([place], [place], [place], [place]) Address [address] [place] [address] Care Team Providers Care Carbon Sequestration Plant Engineer Name Role Phone Unavailable Primary Care Provider Unavailabl e Encounter Details Date Type Department Care Team (Late st Contact Info) Description 03/11/2021 Transcribed Document [facility] [place] [facility] [place] [address] ProviderAlexis MD [facility] [place] [address] Social History Tobacco Use Types [...] Alexis Livingston MD - 03/11/2021 8:09 AM PORCELAIN TECHNICIAN UM Authorization Entered On: 03/11/2021 8:20 EST Performed On: 03/11/2021 8:09 EST by CHRISTIAN ARMENTA RN Primary Insurance Authorization Authorization and Policy Numbers : Insurance 1 Health Plan: [facility] [email or web address] Policy Number: [id number] Authorization Number: [id number] Insurance Primary Name : [facility] Policy Number: [id number] Authorization Status-Primary : Admit approved Number of Days Authorized-Primary : 4 Day(s) Authorized Service Begin Date-Primary : 03/10/2021 EST Authorized Service End Date-Primary : 03/14/2021 EST Authorization Comments-Primary : IP admit approved from 03/10 to 03/14 per [facility] website Historical Authorization Comments-Primary : No Authorization Comments Found CHRISTIAN ARMENTA RN - 03/11/2021 8:09 EST Electronically signed by [facility] Conversion Emblem Cutter Cerner at 08/19/2022 6:10 PM CDT documented in this encounter Plan of Treatment Not on file documented as of this encounter Visit Diagnoses Not on filedocumented in this encounter
--- OUTSIDE RECORDS SUMMARY | 2024-12-03 09:29 | XMS_ITS | Encounter Summary ---
Author Organization [employer] ([place], [place], [place], [place]) Address [address] [place] [address] Care Team Providers Care Machine Maintenance Supervisor Name Role Phone Unavailable Primary Care Provider Unavailabl e Encounter Details Date Type Department Care Team (Late st Contact Info) Description 03/11/2021 Transcribed Document [facility] [place] [facility] [place] [address] ProviderAlexis MD [address] [place] [address] Social History Tobacco Use Types [...] Alexis Livingston MD - 03/11/2021 1:28 PM MANAGER SHIPPING Patient Education Materials Follows: Minimally Invasive Total [...] these instructions at home: Medicines ??? Take tkdk-rre-rtcnyvf and prescription medicines only as told by [...] and water are not available, use hand sap business objects consultant. ? Change your dressing as told by [...] provider. Document Revised: 03/25/2020 Document Reviewed: 03/25/2020 [employer] Patient Education ? 2020 [employer] Low Residue Diet A low residue [...] than 7-10 grams of fiber per day. [facility]CI use of this diet may not provide [...] are treated at home by: ??? Taking pkcm-gus-fwyufbl pain medicines. ??? Following a clear liquid [...] these instructions at home: Medicines ??? Take mpfo-eiv-mkhzduc and prescription medicines only as told by [...] provider. Document Revised: 01/27/2020 Document Reviewed: 01/27/2020 [employer] Patient Education ? 2020 [employer] Low-Fiber Eating Plan Fiber is found [...] that you work with a diet and nutritional services cook (dietitian). What are tips for following this [...] made with white flour. Waffles, pancakes, and Grenadian toast. Bagels. Pretzels. Elvia toast, zwieback, and matzoh. Cooked and dried cereals that do not contain whole grains, added fiber, seeds, or dried fruit. Cornmeal. [place]. Hot and cold cereals made with refined [...] Sports drinks. Herbal tea. Fats and oils [place] oil, canola oil, sunflower oil, flaxseed oil, [...] breads and crackers. Multigrain breads and crackers. Port [place] bread. Whole grain or multigrain cereals. Cereals with nuts, raisins, or coconut. Bran. Coarse wheat cereals. Granola. High-fiber cereals. Cornmeal or corn bread. Whole grain pasta. Wild or brown rice. Quinoa. Popcorn. Buckwheat. Wheat germ. Vegetables Potato skins. Raw or undercooked vegetables. All beans and reyes sprouts. Cooked greens. Points. Peas. Cabbage. Beets. Broccoli. [place] sprouts. Cauliflower. Mushrooms. Onions. Peppers. Parsnips. [...] are not allowed. Seasoning and other foods Points tortilla chips. Soups made with vegetables or [...] Reviewed: 06/20/2017 Elsevier Patient Education ? 2020 [employer] documented in this encounter Plan of Treatment Not on file documented as of this encounter Visit Diagnoses Not on filedocumented in this encounter
--- OUTSIDE RECORDS SUMMARY | 2024-12-03 09:29 | XMS_ITS | Encounter Summary ---
Author Organization [employer] ([place], [place], [place], [place]) Address [address] [place] [address] Care Team Providers Care Technical Advisor Name Role Phone Unavailable Primary Care Provider Unavailabl e Encounter Details Date Type Department Care Team (Late st Contact Info) Description 03/11/2021 Transcribed Document [facility] [place] [facility] [place] [address] [place] [address] ProviderAlexis MD [address] [place] [address] Social History Tobacco Use Types [...] - Historical ProviderMD - 03/11/2021 2:33 PM TAPPING MACHINE OPERATOR Nursing Discharge Summary Entered On: 03/11/2021 14:33 EST Performed On: 03/11/2021 14:33 EST by Leanne Sahu Virtual fast foods worker Documentation Discharge Instructions Reviewed With, Opportunity For Questions Given : Patient Patient Education Completed : Yes Teaching Method : Explanation, Printed materials Teaching Evaluation : Verbalizes understanding Education Comment : Meds, follow ups, conditions, restrictions Leanne Sahu Virtual RN - 03/11/2021 14:33 EST Electronically signed by Wei [facility] Conversion Tent Assembler Cerner at 08/19/2022 6:24 PM CDT documented in this encounter Plan of Treatment Not on file documented as of this encounter Visit Diagnoses Not on filedocumented in this encounter
--- OUTSIDE RECORDS SUMMARY | 2024-12-03 09:29 | XMS_ITS | Encounter Summary ---
Author Organization [employer] ([place], [place], [place], [place]) Address [address] [place] [address] Care Team Providers Care Accelerator Technician Name Role Phone Unavailable Primary Care Provider Unavailabl e Encounter Details Date Type Department Care Team (Late st Contact Info) Description 03/10/2021 Transcribed Document [facility] [place] [address] [place] [address] ProviderAlexis MD [address] [place] [address] Social History Tobacco Use Types [...] - Historical ProviderMD - 03/10/2021 6:00 PM SPOOL SANDER Pain Assessment Entered On: 03/10/2021 18:18 EST Performed On: 03/10/2021 17:45 EST by Gianna Branham RN Intervention Information: ketorolac Performed by Gianna Branham RN on 03/10/2021 17:15:00 EST ketorolac,15mg IV Push,Left Lower Forearm Pain Assessment Pain Assessment : Follow-up assessment Gianna Branham RN - 03/10/2021 18:18 EST Electronically signed by Wei [facility] Conversion Asphalt Paving Supervisor Cerner at 08/19/2022 5:59 PM CDT documented in this encounter Plan of Treatment Not on file documented as of this encounter Visit Diagnoses Not on filedocumented in this encounter
--- OUTSIDE RECORDS SUMMARY | 2024-12-03 09:29 | XMS_ITS | Encounter Summary ---
Author Organization [employer] ([place], [place], [place], [place]) Address [address] [place] [address] Care Team Providers Care Rn Mobile Name Role Phone Unavailable Primary Care Provider Unavailabl e Encounter Details Date Type Department Care Team (Late st Contact Info) Description 03/11/2021 Transcribed Document [facility] [place] Family Medicine [facility] [place] [address] ProviderAlexis MD [address] [place] [address] Social History Tobacco Use Types [...] - Alexis ProviderMD - 03/11/2021 6:39 AM TUBING DRIER Patient: DAYANA BONILLA Age: 60 Years Sex: [...] a prescription for Percocet on the chart. Electronically signed by Sandor Carvajal Conversion Slice Plug Cutter Operator Helper Cerner at 08/19/2022 6:03 PM CDT documented in this encounter Plan of Treatment Not on file documented as of this encounter Visit Diagnoses Not on filedocumented in this encounter
--- OUTSIDE RECORDS SUMMARY | 2024-12-03 09:29 | XMS_ITS | Encounter Summary ---
Author Organization [employer] ([place], [place], [place], [place]) Address [address] [place] [address] Care Team Providers Care Vacation Sales Advisor Name Role Phone Unavailable Primary Care Provider Unavailabl e Encounter Details Date Type Department Care Team (Late st Contact Info) Description 03/10/2021 Transcribed Document [facility] [place] Family Medicine [facility] [address] ProviderAlexis MD [facility] [address] Social History Tobacco Use Types [...] Alexis Livingston MD - 03/10/2021 10:28 AM CULINARY SPECIALIST Peripheral Nerve Block Entered On: 03/10/2021 10:29 [...] - 03/10/2021 10:28 EST Electronically signed by [facility] Conversion Rug Shampooer Cerner at 08/19/2022 6:13 PM CDT documented in this encounter Plan of Treatment Not on file documented as of this encounter Visit Diagnoses Not on filedocumented in this encounter
--- OUTSIDE RECORDS SUMMARY | 2024-12-03 09:29 | XMS_ITS | Encounter Summary ---
Author Organization [employer] ([place], [place], [place], [place]) Address [address] [place] [address] Care Team Providers Care Greaser Helper Name Role Phone Unavailable Primary Care Provider Unavailabl e Encounter Details Date Type Department Care Team (Late st Contact Info) Description 03/10/2021 Transcribed Document [facility] [place] Family Medicine [facility] [place] [address] ProviderAlexis MD [facility] [place] [address] Social History Tobacco Use Types Packs/Day Years Used Date Smoking Tobacco: Never Assessed Comments Unknown Sex and Gender Information Value Date Recorded Sex Assigned at Not on file Legal Sex Female 5:40 PM CDT Gender Identity Not on file Sexual Orientation Not on file documented as of this encounter Miscellaneous Notes * Cerner Conversion Note - Aleixs Livingston MD - 03/10/2021 2:34 PM LOOM MECHANIC Patient: DAYANA BONILLA Age: 60 Years Sex: Female : 1960 CSGA Pre Op Diagnosis: Diverticulitis, possible appendicitis Post Op Diagnosis: Diverticulitis Procedure: Robotic low anterior resection. Fish Hatchery Laborer: Vazquez Indications: This is a pleasant 60-year-old [...]
--- OUTSIDE RECORDS SUMMARY | 2024-12-03 09:29 | XMS_ITS | Encounter Summary ---
Author Organization [employer] ([place], [place], [place], [place]) Address [address] [place] [address] Care Team Providers Care Supervisor Pile Driving Name Role Phone Unavailable Primary Care Provider Unavailabl e Encounter Details Date Type Department Care Team (Late st Contact Info) Description 03/11/2021 Transcribed Document [facility] Radiology [address] [place] [address] Trinity Celaya MD [address] [place] [address] Social History Tobacco Use Types Packs/Day [...] None Author: TRINITY CELAYA MD-INT Discharge dictated. #[id number]. documented in this encounter Plan of Treatment Not on file documented as of this encounter Visit Diagnoses Not on filedocumented in this encounter
--- OUTSIDE RECORDS SUMMARY | 2024-12-03 09:29 | XMS_ITS | Encounter Summary ---
Author Organization [employer] ([place], [place], [place], [place]) Address [address] [place] [address] Care Team Providers Care Estimate Clerk Name Role Phone Unavailable Primary Care Provider Unavailabl e Encounter Details Date Type Department Care Team (Late st Contact Info) Description 03/11/2021 Transcribed Document [facility] [place] [facility] [place] [address] ProviderAlexis MD [facility] [place] [address] Social History Tobacco Use Types [...] - Historical ProviderMD - 03/11/2021 12:00 AM SPECIAL EFFECTS DESIGNER Pain Assessment Entered On: 03/11/2021 1:05 EST [...]
--- OUTSIDE RECORDS SUMMARY | 2024-12-03 09:29 | XMS_ITS | Encounter Summary ---
Author Organization [employer] ([place], [place], [place], [place]) Address [address] [place] [address] Care Team Providers Care Director Voice Name Role Phone Unavailable Primary Care Provider Unavailabl e Encounter Details Date Type Department Care Team (Late st Contact Info) Description 03/10/2021 Transcribed Document [facility] [place] [facility] [place] [address] ProviderAlexis [place] [address] Social History Tobacco Use Types [...] - Alexis ProviderMD - 03/10/2021 11:41 AM AUCTIONEER AUTOMOBILE Admission History, Adult Entered On: 03/10/2021 16:32 [...] Obtained From : Patient Primary Language : Italian Preferred Communication Mode : Verbal Communication Barrier : None Satellite Television Installer Needed : No Objects to Sharing Info [...] Scale Risk Level : 25-45 Medium Risk [place] Fall Interventions : Adequate lighting, Assistive devices [...] Source : Measured Height Entry Format : [place] Height, Feet : 0 ft(Converted to: 0 cm, 0 Inch) Height, Inches : 63 Inch(Converted to: 5 ft 3 Inch, 160.02 cm) Clinical Height : 160.02 cm Weight Source : Standing scale Weight Entry Format : [place] Clinical Dosing Weight : 83.64 kg Weight, Pounds : 184 lb Body Surface Area (BSA) : 1.87 m2 Body Mass Index : 32.7 kg/m2 (HI) [place] Body Weight : 52 kg PRETTY MAHER [...] PRETTY MAHER RN - 03/10/2021 16:28 EST [place] Suicide Severity Rating Scale (C-SSRS) CSSRS Past [...] Glasses Personal Items : Cell phone, Other: steam trap worker Personal Items Disposition : Bedside PRETTY MAHER RN - 03/10/2021 16:28 EST Electronically signed by Sandor Carvajal Conversion Workers' Compensation Claims Supervisor Cerner at 08/19/2022 6:10 PM CDT documented in this encounter Plan of Treatment Not on file documented as of this encounter Visit Diagnoses Not on filedocumented in this encounter
--- OUTSIDE RECORDS SUMMARY | 2024-12-03 09:29 | XMS_ITS | Encounter Summary ---
Author Organization [employer] ([place], [place], [place], [place]) Address [address] [place] [address] Care Team Providers Care Polisher Hand Name Role Phone Unavailable Primary Care Provider Unavailabl e Encounter Details Date Type Department Care Team (Late st Contact Info) Description 03/10/2021 Transcribed Document [facility] [place] Family Medicine [facility] [place] [address] ProviderAlexis MD [facility] [place] [address] Social History Tobacco Use Types [...] Alexis Livingston MD - 03/10/2021 6:10 PM CAR SALESPERSON Patient: DAYANA BONILLA Age: 60 Years Sex: Female : 1960 Chief Complaint Abdominal pain Primary Care Provider ARMANDO OWENS [facility] History of Present Illness This is [...] Code, Continuous Order Electronically signed by Wei [facility] Conversion Poultry Cutter Cerner at 08/19/2022 6:04 PM CDT documented in this encounter Plan of Treatment Not on file documented as of this encounter Visit Diagnoses Not on filedocumented in this encounter
--- OUTSIDE RECORDS SUMMARY | 2024-12-03 09:29 | XMS_ITS | Encounter Summary ---
Author Organization [employer] ([place], [place], [place], [place]) Address [address] [place] [address] Care Team Providers Care Vp Customer Service Name Role Phone Unavailable Primary Care Provider Unavailabl e Encounter Details Date Type Department Care Team (Late st Contact Info) Description 03/10/2021 Transcribed Document [facility] [place] Medicine [facility] [place] [address] ProviderAlexis MD [facility] [place] [address] Social History Tobacco Use Types [...] Alexis Livingston MD - 03/10/2021 12:13 PM SOCIAL MEDIA MARKETING SPECIALIST [facility] Main OR IntraOp Summary Primary Physician: ARMANDO ZAVALA MD-PRO Finalized Date/Time: 03/12/21 13:01:41 Pt. Name: DAYANA BONILLA/Sex: 1960 Female Med Rec #: [id number] Physician: ARMANDO ZAVALA MD-PRO Financial #: [id number] Pt. Type: I Room/Bed: [facility]/ Admit/Disch: 03/10/21 16:14:00 - 03/11/21 14:54:00 Institution: [facility] IntraOp Case Attendance Entry 1 Entry 2 Entry 3 Case Attendee ARMANDO ZAVALA MD-PRO Noemi Saucedo Lewis, Robin A RN-PATIENT CARE BEDSIDE Partnership Marketing Manager NON-EXEMPT Role Performed Surgeon/Proceduralist, Entertainment Usher, Second Scrub, First First Time In 03/10/21 [...] ST Pantano, Scott, SUNIL Role Performed Scrub, Senior Net Developer, First Entertainment Usher, First Time In 03/10/21 11:41:00 03/10/21 11:41:00 [...] LOBO MURRAY, BAKARI COOPER, BRYAN Role Performed ACCOUNT LEADER/Nurse Public Stenographer Other Time In 03/10/21 11:41:00 03/10/21 11:41:00 Time Out 03/10/21 14:46:00 03/10/21 14:46:00 Procedure Colon Resection Low Colon Resection Low Anterior Robotic Anterior Robotic Other Attendee Superficial Wound Closed By: Last Modified By: Moustapha Hernadez, Moustapha Gan, SUNIL 03/10/21 14:47:28 03/10/21 14:47:28 [facility] IntraOp Case Attendance Audit 03/10/21 14:47:28 Commutator V Ring Assembler: [id number] Modifier: [email or web address] 1 <+> Time Out 1 [...] Colon Resection Low Anterior Robotic 03/10/21 13:15:42 Commutator V Ring Assembler: [id number] Modifier: [id number] <+> Time Out 2 <*> Procedure Colon Resection Low Anterior Robotic 03/10/21 12:28:02 Commutator V Ring Assembler: [id number] Modifier: [id number] <+> 1 Procedure 2 <*> Procedure Colon Resection Low Anterior Robotic 3 <*> Procedure Colon Resection Low Anterior Robotic 4 <*> Procedure Colon Resection Low Anterior Robotic 5 <*> Procedure Colon Resection Low Anterior Robotic 6 <*> Procedure Colon Resection Low Anterior Robotic 7 <*> Procedure Colon Resection Low Anterior Robotic 8 <*> Procedure Colon Resection Low Anterior Robotic 03/10/21 12:20:54 Commutator V Ring Assembler: [id number] Modifier: [id number] <*> Procedure Colon Resection Low Anterior Robotic 3 <*> Procedure Colon Resection Low Anterior Robotic 4 <*> Procedure Colon Resection Low Anterior Robotic 5 <*> Procedure Colon Resection Low Anterior Robotic 6 <*> Procedure Colon Resection Low Anterior Robotic 7 <*> Procedure Colon Resection Low Anterior Robotic 8 <+> Time In 8 <*> Procedure Colon Resection Low Anterior Robotic 03/10/21 12:13:14 Commutator V Ring Assembler: [id number] Modifier: [id number] <+> 1 Time In 2 <+> Time [...] Role Performed <+> 8 Procedure 03/10/21 11:23:24 Commutator V Ring Assembler: [id number] Modifier: [id number] <+> 7 Case Attendee <+> 7 Role Performed <+> 7 Procedure [facility] IntraOp Case Times Entry 1 Patient In Room Time 03/10/21 11:41:00 Out Room Time 03/10/21 14:46:00 Anesthesia Start Time 03/10/21 11:41:00 Stop Time 03/10/21 14:46:00 Surgery / Procedure Times Start Time 03/10/21 12:13:00 Stop Time 03/10/21 14:35:00 Last Modified By: Moustapha Hernadez RN 03/10/21 14:46:30 [facility] IntraOp Case Times Audit 03/10/21 14:46:42 Commutator V Ring Assembler: [email or web address] Modifier: PANTANOS <+> 1 Out Room Time <+> 1 Stop Time 03/10/21 14:46:30 Commutator V Ring Assembler: [id number] Modifier: PANTANOS <+> 1 Stop Time 03/10/21 12:57:52 Commutator V Ring Assembler: [id number] Modifier: [id number] <+> 1 Start Time [facility] IntraOp Cautery Entry 1 ESU Identification Cautery Type Monopolar ESU ID Number [id number] ID Type Hospital Number Cautery Settings Cut [...] Saucedo RN-PATIENT CARE BEDSIDE NON-EXEMPT 03/10/21 11:22:43 [facility] IntraOp Communication Entry 1 Communication To Family/Significant other Communication By Noemi Saucedo RN-PATIENT CARE BEDSIDE NON-EXEMPT Date and Time 03/10/21 12:14:00 Last Modified By: Noemi Saucedo RN-PATIENT CARE BEDSIDE NON-EXEMPT 03/10/21 12:14:41 [facility] IntraOp Counts Verification Entry 1 Procedure Colon Resection Low Anterior Robotic Count Info Count Type Sponge, Sharps, Instrument, Miscellaneous Counts Verification Baseline/pre-procedure Sequence Counts Performed By Count Performed By NICHOLE ROBERTS (Scrub) Count Performed By Noemi Saucedo (RN) RN-PATIENT CARE BEDSIDE NON-EXEMPT Last Modified By: Noemi Saucedo RN-PATIENT CARE BEDSIDE NON-EXEMPT 03/10/21 11:22:13 [facility] IntraOp Counts Final Entry 1 Procedure Colon Resection Low Anterior Robotic Final Count Info Count Type Sponge, Sharps, Miscellaneous Counts Verification Skin Closure/end of Sequence procedure Count Results Correct, surgeon notified Counts Performed By Count Performed By Claus Casanova (Scrub) Partnership Marketing Manager Count Performed By Moustapha Hernadez, RN (RN) Last Modified By: Noemi Saucedo RN-PATIENT CARE BEDSIDE NON-EXEMPT 03/10/21 12:14:28 [facility] IntraOp Counts Final Audit 03/10/21 14:18:29 Commutator V Ring Assembler: [id number] Modifier: ROSARaz Jeffery <*> Procedure Colon Resection Low Anterior Robotic [facility] IntraOp Cultures and Spec Summary Entry 1 Cultrures and Specimens Specimen Ordered: Yes Test(s) Routine/Path-Lab Requested/Final Disposition Last Modified By: Noemi Saucedo RN-PATIENT CARE BEDSIDE NON-EXEMPT 03/10/21 12:14:08 [facility] IntraOp Departure from OR Entry 1 Integumentary Assessment Integumentary WDL with patient Assessment WDL specific variances Patient's Normal Surgical incisions = Integumentary abdomen Variance(s) Transfer/Handoff Transfer to PACU Phase I Handoff Method Phone call Post-op Transport Stretcher/Gurney Via Patient Transport LOBO MURRAY NA, Accompanied by Vazquez Lisa ST Last Modified By: Noemi Saucedo RN-PATIENT CARE BEDSIDE NON-EXEMPT 03/10/21 12:14:56 [facility] IntraOp Dressing and Packing Entry 1 Type Dressing Location Abdomen Wound Dressing Item Skin Closure Glue Applied By Vazquez Lisa ST Other Comments Dermabond Prineo Last Modified By: Noemi Saucedo RN-PATIENT CARE BEDSIDE NON-EXEMPT 03/10/21 12:14:49 [facility] IntraOp Fire Risk Assessment Entry 1 Fire Info Surgical Site or 0- No Incision Above the Xyphoid Open O2 Source 0- No (Mask or Cannula) Available Ignition 1- Yes (ESU, Laser, Light Source) Fire Risk 1 Assessment Score Fire Score Fire Risk Yes Assessment Complete Fire Risk Moustapha Hernadez, technical support professional Verified By Fire Risk 03/10/21 12:11:00 Assessment Verified Date/Time Fire Risk Standard Fire Yes Safety Precautions Followed Last Modified By: Noemi Saucedo RN-PATIENT CARE BEDSIDE NON-EXEMPT 03/10/21 12:11:14 [facility] IntraOp General Case Line Repairer 1 Case Information OR OR 12 [facility] Case Level 1 Room Verified Yes Wound Class 2 - Clean-Contaminated Specialty Colorectal Anesthesia Type General ASA Class 2 Diagnosis Preop Diagnosis DIVERTICULITIS Postop Same As Preop Yes Postop Diagnosis DIVERTICULITIS Wound Class Definitions Last Modified By: Noemi Saucedo RN-PATIENT CARE BEDSIDE NON-EXEMPT 03/10/21 12:13:50 [facility] IntraOp General Case Data Audit 03/10/21 12:13:50 Commutator V Ring Assembler: [id number] Modifier: [id number] <+> 1 Specialty <+> 1 ASA Class <+> 1 Wound Class <+> 1 Anesthesia Type <+> 1 Postop Same As Preop <+> 1 Preop Diagnosis <+> 1 Postop Diagnosis <+> 1 Room Verified [facility] IntraOp Intraoperative Assessment Entry 1 Handoff [...] Saucedo RN-PATIENT CARE BEDSIDE NON-EXEMPT 03/10/21 12:15:08 [facility] IntraOp Intraoperative Equipment Entry 1 Type Monitoring Equipment Equipment Kurtis Suction System Intraop Monitoring Electrocardiogram Three lead placement (ECG) Electrode Placement Blood Pressure Non-Invasive BP Device Source Antiembolic Devices Scopes Photo/Video Documentation Photo No Video No Intraop Equipment Heparin 5000 units SC Comment administered in preoperative area. Last Modified By: Noemi Saucedo RN-PATIENT CARE BEDSIDE NON-EXEMPT 03/10/21 12:14:03 [facility] IntraOp Medication Admin Entry 1 Medication/Irrigant INDOCYANINE GREEN 25MG/VIAL Dose Dose 10 Unit of Measure ml Administered By LOBO MURRAY NA Procedure Irrigation Last Modified By: Noemi Saucedo RN-PATIENT CARE BEDSIDE NON-EXEMPT 03/10/21 12:16:29 [facility] IntraOp Patient Positioning Entry 1 Procedure [...] Saucedo RN-PATIENT CARE BEDSIDE NON-EXEMPT 03/10/21 12:20:44 [facility] IntraOp Sign In Entry 1 Patient, [...] Saucedo RN-PATIENT CARE BEDSIDE NON-EXEMPT 03/10/21 12:20:52 [facility] IntraOp Sign Out Entry 1 RN [...] Modified By: Moustapha Hernadez RN 03/10/21 14:47:26 [facility] IntraOp Sign Out Audit 03/10/21 14:47:26 Commutator V Ring Assembler: [email or web address] Modifier: PANTANOS <+> 1 Wound classification reviewed, verified and updated post case in both the General Case Data and Procedure segments 03/10/21 14:47:16 Commutator V Ring Assembler: [id number] Modifier: PANTANOS <+> 1 RN Sign Out Signature Date/Time [facility] IntraOp Skin Prep Entry 1 Procedure Colon Resection Low Anterior Robotic Prescribed Yes Pre-Surgical Prep Completed Prep Area Abdomen/KAYLEIGH ANAL/GENTINAL Intraop Prep Integumentary WDL Assessment WDL Prep Agents Chloraprep, Betadine scrub, Betadine solution Prep by Moustapha Hernadez RN Hair Removal Last Modified By: Noemi Saucedo RN-PATIENT CARE BEDSIDE NON-EXEMPT 03/10/21 12:13:59 [facility] IntraOp Surgical Procedures Entry 1 Procedure Colon Resection Low Anterior Robotic Additional (ROBOTIC LOW ANTERIOR Procedure COLON RESECTION) Description Primary Procedure Yes Primary Surgeon ARMANDO ZAVALA MD-PRO Start 03/10/21 12:13:00 Stop 03/10/21 14:35:00 Anesthesia Type General Specialty Colorectal Wound Class 2 - Clean-Contaminated Last Modified By: Noemi Saucedo RN-PATIENT CARE BEDSIDE NON-EXEMPT 03/10/21 12:28:02 [facility] IntraOp Surgical Procedures Audit 03/10/21 14:46:33 Commutator V Ring Assembler: [id number] Modifier: PANTANOS <+> 1 Start <+> 1 Stop [facility] IntraOp Temp Regulation Devices Entry 1 Temp Regulation Temperature Forced Air Warming Regulation Device device, Warm blankets, Room temperature Temperature Upper body Regulation Site Temperature LOBO MURRAY, MARILIA Regulation Device Applied by Temperature Patient's temperature Regulation Comment and forced air warming device settings monitored by anesthesia provider. Last Modified By: Noemi Saucedo RN-PATIENT CARE BEDSIDE NON-EXEMPT 03/10/21 12:20:58 [facility] IntraOP Time Out Entry 1 Procedure [...] for Unfinalizing 03/12/21 13:00 WATTSDR Correct Billing Electronically signed by Celestino Carvajal Conversion National Investigative Producer Cerner at 08/19/2022 6:01 PM CDT documented in this encounter Plan of Treatment Not on file documented as of this encounter Visit Diagnoses Not on filedocumented in this encounter
--- OUTSIDE RECORDS SUMMARY | 2024-12-03 09:29 | XMS_ITS | Encounter Summary ---
Author Organization [employer] ([place], [place], [place], [place]) Address [address] [place] [address] Care Team Providers Care Claims Account Manager Name Role Phone Unavailable Primary Care Provider Unavailabl e Encounter Details Date Type Department Care Team (Late st Contact Info) Description 03/04/2021 Transcribed Document [facility] [place] [facility] [place] [address] ProviderAlexis MD [facility] [place] [address] Social History Tobacco Use Types [...] Source : Measured Height Entry Format : Bell Height, Feet : 0 ft(Converted to: 0 cm, 0 Inch) Height, Inches : 63 Inch(Converted to: 5 ft 3 Inch, 160.02 cm) Clinical Height : 160.02 cm Weight Source : Standing scale Weight Entry Format : Bell Clinical Dosing Weight : 83.64 kg Weight, Pounds : 184 lb Body Surface Area (BSA) : 1.87 m2 Body Mass Index : 32.7 kg/m2 (HI) Buckley Body Weight : 52 kg WM PORTILLO [...] WM PORTILLO RN - 03/05/2021 15:25 EDT [place] Suicide Severity Rating Scale (C-SSRS) CSSRS Past [...] : Patient Preferred Communication Mode : Verbal Airport Location Manager Needed : No Objects to Sharing Info w Family : No WM PORTILLO RN - 03/05/2021 15:25 EDT Want Family/Rep/Phys Notified of Admit : No Emergency Contact #1 : jean bonilla Emergency Contact #1 Emergency Contact #1 Relationship : spouse Emergency Contact #2 : , Emergency Contact #2 Phone Number : , Emergency Contact #2 Relationship : , Primary Language : Irish Communication Barrier : None RICARDO MARTINS RN [...]
--- OUTSIDE RECORDS SUMMARY | 2024-12-03 09:29 | XMS_ITS | Encounter Summary ---
Author Organization [employer] ([place], [place], [place], [place]) Address [address] [place] [address] Care Team Providers Care Fisher Reef Net Name Role Phone Unavailable Primary Care Provider Unavailabl e Encounter Details Date Type Department Care Team (Late st Contact Info) Description 03/11/2021 Transcribed Document [facility] [place] [facility] [place] [address] ProviderAlexis MD [facility] [address] Social History Tobacco Use Types [...] Alexis Livingston MD - 03/11/2021 4:12 PM SPEEDER TENDER Final Discharge Planning Entered On: 03/11/2021 16:12 EST Performed On: 03/11/2021 16:12 EST by DERREK MASTERS RN-Blood Bank Credit Clerk Final Discharge Planning Discharge Arrangements : Patient [...] : Yes Discharge To Care Management : Home/Residential/Fdc or Self Care - DERREK MASTERS RN-Blood Bank Credit Clerk - 03/11/2021 16:12 EST Final Narrative Note Final Narrative Note : Discharged to home, agreeable. No needs. DERREK MASTERS RN-Blood Bank Credit Clerk - 03/11/2021 16:12 EST Electronically signed by Wei [facility] Conversion Doctor Of Nursing Practice Cerner at 08/19/2022 6:15 PM CDT documented in this encounter Plan of Treatment Not on file documented as of this encounter Visit Diagnoses Not on filedocumented in this encounter
--- OUTSIDE RECORDS SUMMARY | 2024-12-03 09:29 | XMS_ITS | Encounter Summary ---
Author Organization [employer] ([place], [place], [place], [place]) Address [address] [place] [address] Care Team Providers Care Instrument Technologist Name Role Phone Unavailable Primary Care Provider Unavailabl e Encounter Details Date Type Department Care Team (Late st Contact Info) Description 03/11/2021 Transcribed Document [facility] Radiology [address] [place] [address] Kiki Celaya MD [address] [place], [place] [id number] Social History Tobacco Use Types Packs/Day Years [...] DISCHARGE FOLLOWUP: 1. Follow up with Dr. Engalnd on 03/18/2021 at 2 p.m. 2. Follow up with the Primary Care Provider on 03/30/2021 at 1:15 p.m. All other discharge instructions have been reviewed with the patient and time spent towards her discharge including review of the above totals at 30 minutes. /[id number] Kiki Celaya MD VLS/AQ / VLS / MODL /[id number] documented in this encounter Plan of Treatment Not on file documented as of this encounter Visit Diagnoses Not on filedocumented in this encounter
--- OUTSIDE RECORDS SUMMARY | 2024-12-03 09:29 | XMS_ITS | Encounter Summary ---
Author Organization [employer] ([place], [place], [place], [place]) Address [address] [place] [address] Care Team Providers Care Automobile Assembler Name Role Phone Unavailable Primary Care Provider Unavailabl e Encounter Details Date Type Department Care Team (Late st Contact Info) Description 03/10/2021 Transcribed Document [facility] Family Medicine [facility] [place] [address] ProviderAlexis MD [place] [address] Social History Tobacco Use Types [...] - Alexis ProviderMD - 03/10/2021 12:13 PM CARD CLEANER [facility] Main OR PACU Summary Primary Physician: ARMANDO ZAVALA MD- Finalized Date/Time: 03/10/21 16:08:59 Pt. Name: DAYANA BONILLA/Sex: 1960 Female Med Rec #: [id number] Physician: ARMANDO ZAVALA MD-PRO Financial #: [id number] Pt. Type: I Room/Bed: / Admit/Disch: 02/23/21 10:15:00 - Institution: [facility] Main OR PACU I Case Times Entry 1 In PACU I 03/10/21 14:50:00 Ready for PACU 03/10/21 16:05:00 Discharge Discharge from PACU 03/10/21 16:05:00 I Last Modified By: MISAEL AHUMADA RN 03/10/21 16:08:40 Finalized By: BRANDYN, MISAEL, RN Document Signatures Signed By: MISAEL AHUMADA RN 03/10/21 16:08 documented in this encounter Plan of Treatment Not on file documented as of this encounter Visit Diagnoses Not on filedocumented in this encounter
--- OUTSIDE RECORDS SUMMARY | 2024-12-03 09:29 | XMS_ITS | Encounter Summary ---
Author Organization [employer] ([place], [place], [place], [place]) Address [address] [place] [address] Care Team Providers Care Reagent Tender Name Role Phone Unavailable Primary Care Provider Unavailabl e Encounter Details Date Type Department Care Team (Late st Contact Info) Description 03/11/2021 Transcribed Document [facility] [place] [address] [place] [address] ProviderAlexis MD [facility] [place] [address] Social History Tobacco Use [...] - Historical ProviderMD - 03/11/2021 12:00 AM MANAGED CARE COORDINATOR Pain Assessment Entered On: 03/11/2021 0:03 EST [...]
--- OUTSIDE RECORDS SUMMARY | 2024-12-03 09:29 | XMS_ITS | Encounter Summary ---
Author Organization [employer] ([place], [place], [place], [place]) Address [address] [place] [address] Care Team Providers Care Elderly Companion Name Role Phone Unavailable Primary Care Provider Unavailabl e Encounter Details Date Type Department Care Team (Late st Contact Info) Description 03/10/2021 Transcribed Document [facility] [place] Family Medicine [address] [place] [address] ProviderAlexis MD [address] [place] [address] Social History Tobacco Use Types [...] - Historical ProviderMD - 03/10/2021 2:33 PM BREAD DUMPER Consult Phone Call Documentation Entered On: 03/10/2021 16:27 EST Performed On: 03/10/2021 14:33 EST by Elodia Buck Patient License Distributor [employer] Phone Call for Consults Consult Phone Call/Page Attempt : First call Consult Reason : assumption of care and medical management Physician Requesting Consult : ARMANDO ZAVALA MD-PRO Physician Covering for Consult : VALERIA LOPEZ MD-INT Date and Time Call Returned : 03/10/2021 16:27 EST Elodia Buck Patient License Distributor I - 03/10/2021 16:27 EST documented in this encounter Plan of Treatment Not on file documented as of this encounter Visit Diagnoses Not on filedocumented in this encounter
--- OUTSIDE RECORDS SUMMARY | 2024-12-03 09:29 | XMS_ITS | Referral Summary ---
Author Organization [employer] ([place], [place], [place], [place]) Address [address] [place] [address] Care Team Providers Care Toll Bridge Attendant Name Role Phone Unavailable Primary Care [...] Date Pelon rded Speak language other than Ugandan at home Not on file 05/19/2023 Want [...]
--- OUTSIDE RECORDS SUMMARY | 2024-12-03 09:29 | XMS_ITS | Encounter Summary ---
Author Organization [employer] ([place], [place], [place], [place]) Address [address] [place] [address] Care Team Providers Care Application Support Lead Name Role Phone Unavailable Primary Care Provider Unavailabl e Encounter Details Date Type Department Care Team (Late st Contact Info) Description 03/10/2021 Transcribed Document [facility] [place] Family Medicine [facility] [place] [address] [facility] [address] Social History Tobacco Use Types [...] - Alexis ProviderMD - 03/10/2021 12:13 PM COUNTER TOP ASSEMBLER [facility] Main OR Preop Summary Primary Physician: ARMANDO ZAVALA MD-PRO Finalized Date/Time: 03/10/21 14:06:34 Pt. Name: DAYANA BONILLA/Sex: 1960 Female Med Rec #: [id number] Physician: ARMANDO ZAVALA MD- Financial #: [id number] Pt. Type: I Room/Bed: / Admit/Disch: 02/23/21 10:15:00 - Institution: [facility] PreOp Case Times Entry 1 In Preop 03/10/21 08:46:00 Ready for Holding n/a Room Patient Ready for 03/10/21 10:29:00 Surgery Patient Out of Preop 03/10/21 11:37:00 Patient Out of n/a Holding Room Last Modified By: Gi Berrios Rn 03/10/21 14:06:33 [facility] PreOp Case Times Audit 03/10/21 14:06:33 Maintenance Trainer: THERESA Modifier: MFWARD <+> 1 Patient Out of Preop Finalized By: Gi Berrios Rn Document Signatures Signed By: Gi Berrios Rn 03/10/21 14:06 Electronically signed by Wei [facility] Conversion Rubber Grinder Cerner at 08/19/2022 5:58 PM CDT documented in this encounter Plan of Treatment Not on file documented as of this encounter Visit Diagnoses Not on filedocumented in this encounter
--- OUTSIDE RECORDS SUMMARY | 2024-12-03 09:29 | XMS_ITS | Clinical Summary ---
Author Organization [employer] ([place], [place], [place], [place]) Address [address] [place] [address] Care Team Providers Care Potato Chip Frier Name Role Phone Unavailable Primary Care Provider [...] Date Pelon rded Speak language other than Moldovan at home Not on file 05/19/2023 Want [...]
--- OUTSIDE RECORDS SUMMARY | 2024-12-03 09:29 | XMS_ITS | Encounter Summary ---
Author Organization [employer] ([place], [place], [place], [place]) Address [address] [place] [address] Care Team Providers Care Freelance Interpreter/Translator Name Role Phone Unavailable Primary Care Provider Unavailabl e Encounter Details Date Type Department Care Team (Late st Contact Info) Description 03/11/2021 Transcribed Document [facility] [place] Family Medicine [address] [place] [address] ProviderAlexis MD [address] [place] [address] Social History Tobacco Use Types [...] - Historical ProviderMD - 03/11/2021 2:00 AM NEEDLE SETTER Shower Room Attendant Details Entered On: 03/11/2021 1:06 EST Performed [...] - 03/11/2021 1:05 EST Electronically signed by Sandor Carvajal Conversion Import/Export Freight Forwarder Aysha at 08/19/2022 6:18 PM CDT documented in this encounter Plan of Treatment Not on file documented as of this encounter Visit Diagnoses Not on filedocumented in this encounter
--- OUTSIDE RECORDS SUMMARY | 2024-12-03 09:29 | XMS_ITS | Encounter Summary ---
Author Organization [employer] ([place], [place], [place], [place]) Address [address] [place] [address] Care Team Providers Care Rf Test Technician Name Role Phone Unavailable Primary Care Provider Unavailabl e Encounter Details Date Type Department Care Team (Late st Contact Info) Description 03/10/2021 Transcribed Document [facility] [place] [address] [place] [address] ProviderAlexis MD [address] [place] [address] Social History Tobacco Use Types [...] - Alexis ProviderMD - 03/10/2021 6:00 PM ANIMAL PARK CODE ENFORCEMENT OFFICER Pain Assessment Entered On: 03/10/2021 18:18 EST [...]
--- OUTSIDE RECORDS SUMMARY | 2024-12-03 09:29 | XMS_ITS | Encounter Summary ---
Author Organization [employer] ([place], [place], [place], [place]) Address [address] [place] [address] Care Team Providers Care Tank Truck Driver Name Role Phone Unavailable Primary Care Provider Unavailabl e Encounter Details Date Type Department Care Team (Late st Contact Info) Description 03/11/2021 Transcribed Document [facility] [place] Family Medicine [facility] [place] [address] ProviderAlexis MD [facility] [place] [address] Social History Tobacco Use Types [...] - Alexis ProviderMD - 03/11/2021 12:00 PM TALENT DIRECTOR Pain Assessment Entered On: 03/11/2021 14:43 EST [...]
--- OUTSIDE RECORDS SUMMARY | 2024-12-03 09:29 | XMS_ITS | Encounter Summary ---
Author Organization [employer] ([place], [place], [place], [place]) Address [address] [place] [address] Care Team Providers Care Geothermal Operating Engineer Name Role Phone Unavailable Primary Care Provider Unavailabl e Encounter Details Date Type Department Care Team (Late st Contact Info) Description 03/11/2021 Transcribed Document [facility] [place] Family Medicine [address] [place] [address] ProviderAlexis MD [address] [place] [address] Social History Tobacco Use Types [...] - Historical ProviderMD - 03/11/2021 5:00 AM INTEGRATED CIRCUIT LAYOUT DESIGNER Chart Check - Review Order Profile Entered On: 03/11/2021 4:46 EST Performed On: 03/11/2021 5:00 EST by Krys Meyer Lpn Chart Check Powerplans Initiated/Discontinued as Appropriate : Yes All Active Orders Reviewed : Yes Krys Meyer Lpn - 03/11/2021 4:46 EST Electronically signed by Wei [facility] Conversion Ambulance Assistant Cerner at 08/19/2022 6:00 PM CDT documented in this encounter Plan of Treatment Not on file documented as of this encounter Visit Diagnoses Not on filedocumented in this encounter
--- OUTSIDE RECORDS SUMMARY | 2024-12-03 09:29 | XMS_ITS | Encounter Summary ---
Author Organization [employer] ([place], [place], [place], [place]) Address [address] [place] [address] Care Team Providers Care Block Breaker Name Role Phone Unavailable Primary Care Provider Unavailabl e Encounter Details Date Type Department Care Team (Late st Contact Info) Description 03/11/2021 Transcribed Document [facility] [place] [facility] [place] [address] ProviderAlexis MD [facility] [place] [address] Social History Tobacco Use Types [...] Alexis Livingston MD - 03/11/2021 1:29 PM APARTMENT COMMUNITY ASSISTANT MANAGER Patient Resource Center Entered On: 03/11/2021 13:30 EST Performed On: 03/11/2021 13:29 EST by Angelique Pozo, Clinical Material Handler Patient Resource Center Provider Status : EST Other Established Provider Name : ARMANDO OWENS Patient Phone Number : [phone] Patient Insurance Type : Commercial (ex. [employer] PPO, [employer]igna HMO) Source of Referral : [...] Follow Up Needed : No Angelique Pozo, Clinical Material Handler - 03/11/2021 13:29 EST documented in this encounter Plan of Treatment Not on file documented as of this encounter Visit Diagnoses Not on filedocumented in this encounter
--- OUTSIDE RECORDS SUMMARY | 2024-12-03 09:29 | XMS_ITS | Encounter Summary ---
Author Organization [employer] ([place], [place], [place], [place]) Address [address] [place] [address] Care Team Providers Care Science Job Titles Name Role Phone Unavailable Primary Care Provider Unavailabl e Encounter Details Date Type Department Care Team (Late st Contact Info) Description 03/11/2021 Transcribed Document [facility] [place] [facility] [place] [address] ProviderAlexis MD [facility] [place] [address] Social History Tobacco Use Types [...] Alexis Livingston MD - 03/11/2021 1:36 PM PRODUCT REPRESENTATIVE [facility] [address] DAYANA BONILLA :1960 Visit Time:03/10/2021 Your [...] Bring discharge instructions with you. Where: [address] [place] [address]- Follow Up with ARMANDO ZAVALA MD-PRO When 03/18/2021 02:00 PM EST Comments Colorectal Surgical follow up Appointment has been made. Bring discharge instructions with you. Where: [address] [facility] [address] [place] [id number]- Medications What How Much When Instructions Next Dose acetaminophen (acetaminophen 500 mg oral tablet) 2 Tablet(s) Oral Two Times A Day Duration: 5 Day(s) not to exceed 3000 mg/ day this evening acetaminophen-oxyCODONE (Percocet 5 mg-325 mg oral tablet) 1 Tablet(s) Oral Every 6 Hours as needed for as needed for pain Pickup at [facility] as needed baclofen (baclofen 5 [...] Oral At Bedtime at bedtime Pharmacy Information [facility]: [address] [address] [phone] Take your medications faithfully. Do NOT skip [...] are treated at home by: ??? Taking ocpb-fyr-lmragqj pain medicines. ??? Following a clear liquid [...] these instructions at home: Medicines ??? Take uxbw-yio-mrejkps and prescription medicines only as told by [...] provider. Document Revised: 01/27/2020 Document Reviewed: 01/27/2020 [employer] Patient Education ?? 2020 [employer] Minimally Invasive Total Colectomy, Care After [...] these instructions at home: Medicines ??? Take urfm-jrb-itaaopo and prescription medicines only as told by [...] and water are not available, use hand watch repair person. ? Change your dressing as told by [...] provider. Document Revised: 03/25/2020 Document Reviewed: 03/25/2020 [employer] Patient Education ?? 2020 [employer] Low Residue Diet A low residue [...] than 7-10 grams of fiber per day. dance therapist use of this diet may not provide [...] that you work with a diet and scheduling specialist (dietitian). What are tips for following [...] made with white flour. Waffles, pancakes, and Nepali toast. Bagels. Pretzels. Matlock toast, zwieback, and matzoh. Cooked and dried cereals that do not contain whole grains, added fiber, seeds, or dried fruit. Cornmeal. Concord. Hot and cold cereals made with refined [...] Sports drinks. Herbal tea. Fats and oils [place] oil, canola oil, sunflower oil, flaxseed oil, [...] breads and crackers. Multigrain breads and crackers. [place]karche bread. Whole grain or multigrain cereals. Cereals with nuts, raisins, or coconut. Bran. Coarse wheat cereals. Granola. High-fiber cereals. Cornmeal or corn bread. Whole grain pasta. Wild or brown rice. Quinoa. Popcorn. Buckwheat. Wheat germ. Vegetables Potato skins. Raw or undercooked vegetables. All beans and reyes sprouts. Cooked greens. Manning. Peas. Cabbage. Beets. Broccoli. [place] sprouts. Cauliflower. Mushrooms. Onions. Peppers. Parsnips. Okra. [...] are not allowed. Seasoning and other foods Manning tortilla chips. Soups made with vegetables or [...] provider. Document Revised: 08/09/2019 Document Reviewed: 06/20/2017 [employer] Patient Education ?? 2020 [employer] acetaminophen and oxycodone (a SEET a [...] may report side effects to FDA at 7-695-AXP-3542. What other drugs will affect acetaminophen and [...] affect acetaminophen and oxycodone, including prescription and ehvz-tom-qbpqlfz medicines, vitamins, and herbal products. Not all [...] to ensure that the information provided by [employer]. ('[employer]') is accurate, up-to-date, and complete, but no guarantee is made to that effect. Drug information contained herein may be time sensitive. [employer] information has been compiled for use by healthcare practitioners and consumers in the [place] and therefore [employer] does not warrant that uses outside of the [place] are appropriate, unless specifically indicated otherwise. [employer] drug information does not endorse drugs, diagnose patients or recommend therapy. [employer] drug information is an informational resource designed [...] effective or appropriate for any given patient. [employer] does not assume any responsibility for any aspect of healthcare administered with the aid of information [employer] provides. The information contained herein is not intended to cover all possible uses, directions, precautions, warnings, drug interactions, allergic reactions, or adverse effects. If you have questions about the drugs you are taking, check with your doctor, nurse or pharmacist. Copyright 7253-7820 [employer]. Version: .. Revision Date: 06/05/2020. acetaminophen (oral) (a SEET a MIN oh fen) Actamin, Anacin AF, Aurophen, Bromo Harper, Children's Tylenol, Mapap, M-Pap, Pharbetol, Silapap Childrens, [...] may report side effects to FDA at 7-585-WYC-8103. What other drugs will affect acetaminophen? Other drugs may affect acetaminophen, including prescription and hrhi-dsw-gxorvoc medicines, vitamins, and herbal products. Tell your [...] to ensure that the information provided by [employer]. ('[employer]') is accurate, up-to-date, and complete, but no guarantee is made to that effect. Drug information contained herein may be time sensitive. [employer] information has been compiled for use by healthcare practitioners and consumers in the [place] and therefore [employer] does not warrant that uses outside of the [place] are appropriate, unless specifically indicated otherwise. [employer] drug information does not endorse drugs, diagnose patients or recommend therapy. [employer] drug information is an informational resource designed [...] effective or appropriate for any given patient. [employer] does not assume any responsibility for any aspect of healthcare administered with the aid of information [employer] provides. The information contained herein is not intended to cover all possible uses, directions, precautions, warnings, drug interactions, allergic reactions, or adverse effects. If you have questions about the drugs you are taking, check with your doctor, nurse or pharmacist. Copyright 2956-6559 [employer]. Version: 22.01. Revision Date: 02/02/2021. Emergency Awareness [...] Assistance with quitting is available by contacting 7-889-BOXJNOW. This is a free resource providing counseling, [...] range between ( 0.0 and 7.0 ) Bremer #: 0.41 K/uL -- Normal range between ( 0.16 and 1.00 ) Eos #: 0.00 x10(3)/uL -- Normal range between ( 0.00 and 0.80 ) Bremer %: 3.3 % -- Normal range between [...] was given the opportunity to ask questions. Patient/Music Agent Name: Patient/Music Agent Signature: Relationship to Patient: Clinician/Hospital Music Agent Signature: Date: documented in this encounter Plan of Treatment Not on file documented as of this encounter Visit Diagnoses Not on filedocumented in this encounter
--- OUTSIDE RECORDS SUMMARY | 2024-12-03 09:29 | XMS_ITS | Encounter Summary ---
Author Organization [employer] ([place], [place], [place], [place]) Address [address] [place] [address] Care Team Providers Care Railroad Car Inspector Name Role Phone Unavailable Primary Care Provider Unavailabl e Encounter Details Date Type Department Care Team (Late st Contact Info) Description 03/11/2021 Transcribed Document [facility] [place] [address] [place] [address] ProviderAlexis MD [address] [place] [address] Social History Tobacco Use Types [...] - Historical ProviderMD - 03/11/2021 1:11 PM GEOPHYSICAL COMPUTER Stroke/Warfarin Instructions Entered On: 03/11/2021 13:12 EST Performed On: 03/11/2021 13:11 EST by Leanne Sahu Virtual RN Stroke/Warfarin Instructions Stroke/TIA Discharge Ins : N/A Warfarin Discharge Ins : N/A Leanne Sahu Virtual RN - 03/11/2021 13:11 EST Electronically signed by Wei [facility] Conversion Tripoler Cerner at 08/19/2022 6:21 PM CDT documented in this encounter Plan of Treatment Not on file documented as of this encounter Visit Diagnoses Not on filedocumented in this encounter
--- OUTSIDE RECORDS SUMMARY | 2024-12-03 09:29 | XMS_ITS | Encounter Summary ---
Author Organization [email or web address] ([place], [place], [place], [place]) Address [address] [place] [address] Care Team Providers Care Regional Operations Manager Name Role Phone Unavailable Primary Care Provider Unavailabl e Encounter Details Date Type Department Care Team (Late st Contact Info) Description 03/11/2021 Transcribed Document [facility] [place] [facility] [address] ProviderAlexis MD [facility] [place] [address] Social History Tobacco Use Types [...] - Alexis ProviderMD - 03/11/2021 6:00 AM MEDICAL RECEPTION Pain Assessment Entered On: 03/11/2021 8:25 EST [...]
--- OUTSIDE RECORDS SUMMARY | 2024-12-03 09:29 | XMS_ITS | Encounter Summary ---
Author Organization [employer] ([place], [place], [place], [place]) Address [address] [place] [address] Care Team Providers Care Student Admissions Clerk Name Role Phone Unavailable Primary Care Provider Unavailabl e Encounter Details Date Type Department Care Team (Late st Contact Info) Description 03/11/2021 Transcribed Document [facility] Family Medicine [address] [place] [address] ProviderAlexis MD [facility] [place] [address] Social History Tobacco Use Types [...] - Historical ProviderMD - 03/11/2021 6:00 AM INFECTION CONTROL NURSE Pain Assessment Entered On: 03/11/2021 8:25 EST [...]
--- OUTSIDE RECORDS SUMMARY | 2024-12-03 09:29 | XMS_ITS | Encounter Summary ---
Author Organization [employer] ([place], [place], [place], [place]) Address [address] [place] [address] Care Team Providers Care Director Of Reimbursement Name Role Phone Unavailable Primary Care Provider Unavailabl e Encounter Details Date Type Department Care Team (Late st Contact Info) Description 03/10/2021 Transcribed Document [facility] [place] [address] [place] [address] ProviderAlexis MD [address] [place] [address] Social History Tobacco Use Types [...] - Historical ProviderMD - 03/10/2021 5:00 PM MANUFACTURING ENGINEERING INTERN Chart Check - Review Order Profile Entered On: 03/10/2021 18:18 EST Performed On: 03/10/2021 17:00 EST by Gianna Branham RN Chart Check Powerplans Initiated/Discontinued as Appropriate : Yes All Active Orders Reviewed : Yes Gianna Branham RN - 03/10/2021 18:18 EST Electronically signed by Wei [facility] Conversion Knitting Machine Fixer Cerner at 08/19/2022 6:05 PM CDT documented in this encounter Plan of Treatment Not on file documented as of this encounter Visit Diagnoses Not on filedocumented in this encounter
--- OUTSIDE RECORDS SUMMARY | 2024-12-03 09:29 | XMS_ITS | Encounter Summary ---
Author Organization [employer] ([place], [place], [place], [place]) Address [address] [place] [address] Care Team Providers Care Gi Tech Name Role Phone Unavailable Primary Care Provider Unavailabl e Encounter Details Date Type Department Care Team (Late st Contact Info) Description 03/11/2021 Transcribed Document [facility] [place] [address] [place] [address] ProviderAlexis MD [facility] [place] [address] Social History Tobacco Use Types [...] - Alexis ProviderMD - 03/11/2021 12:00 PM HEALTH INFORMATION TECH Pain Assessment Entered On: 03/11/2021 14:43 EST [...] form. Electronically signed by Sandor Carvajal Conversion Information Systems Supervisor Cerner at 08/19/2022 5:58 PM CDT documented in this encounter Plan of Treatment Not on file documented as of this encounter Visit Diagnoses Not on filedocumented in this encounter
--- OUTSIDE RECORDS SUMMARY | 2024-12-03 09:29 | XMS_ITS | Encounter Summary ---
Author Organization [employer] ([place], [place], [place], [place]) Address [address] [place] [address] Care Team Providers Care Fire Engineer Name Role Phone Unavailable Primary Care Provider Unavailabl e Encounter Details Date Type Department Care Team (Late st Contact Info) Description 03/11/2021 Transcribed Document [facility] [place] [facility] [place] [address] ProviderAlexis MD [facility] [place] [address] Social History Tobacco Use Types [...] - Alexis ProviderMD - 03/11/2021 9:10 AM COUNTY COMMISSIONER Initial Discharge Planning Entered On: 03/11/2021 9:12 EST Performed On: 03/11/2021 9:10 EST by DERREK MASTERS RN-Tax Associate Attorney Initial Assessment I Previously Documented Living Environment [...] Relationship : , Enter Doctors Name : eLroy Mueller Does Patient have PCP Listed? : Yes Legal Guardian : No Is Guardianship Needed : No DERREK MASTERS RN-Tax Associate Attorney - 03/11/2021 9:10 EST Initial Assessment II Sensory and Motor Deficits : None Current Home Treatments and Equipment : None DERREK MASTERS RN-Tax Associate Attorney - 03/11/2021 9:10 EST Discharge Needs I Anticipated Discharge Date : 03/13/2021 EST Anticipated Discharge To, CM : Home with family care Current Home Treatment/Equipment : Current Home Treatment/Equipment No qualifying data available. Post Acute/Home Treatments : None Documentation Status Complete : Yes DERREK MASTERS RN-Tax Associate Attorney - 03/11/2021 9:10 EST Discharge Needs II Professional Skilled Services : Professional Skilled Services No qualifying data available. Needs Assistance with Transportation : No Patient Discharge Goal : Home DERREK MASTERS RN-Tax Associate Attorney - 03/11/2021 9:10 EST Narrative Note Narrative [...] @ 27. CM will follow. DERREK MASTERS RN-Tax Associate Attorney - 03/11/2021 9:10 EST documented in this encounter Plan of Treatment Not on file documented as of this encounter Visit Diagnoses Not on filedocumented in this encounter
--- NOTE | 2024-12-03 09:30 | CA_ITS ---
FINAL REPORT CLINICAL HISTORY: TRENT FINDINGS: The peak systolic velocity of the right common carotid artery is 82 cm/s. The peak systolic velocity of the right internal carotid artery is 94 cm/s and end diastolic velocity 25 cm/s. The ICA/CCA ratio is 1.4. A small amount of plaque is present. The right external carotid artery is patent. The right vertebral artery is patent with antegrade flow. The peak systolic velocity of the left common carotid artery is 75 cm/s. The peak systolic velocity of the left internal carotid artery is 133 cm/s and end diastolic velocity 34 cm/s. The ICA/CCA ratio is 2.0. A small amount of plaque is present. The left external carotid artery is patent.The left vertebral artery is patent with antegrade flow. IMPRESSION: Less than 50% bilateral carotid stenoses. Bilateral patent vertebral arteries with antegrade flow. If indicated, CTA or MRA could further evaluate. Reviewed, Interpreted and Dictated by Ry Vegas MD Transcribed by Genesis Patel Authenticated and [facility]
--- OUTSIDE RECORDS SUMMARY | 2024-12-03 09:30 | XMS_ITS | Encounter Summary ---
Author Organization [employer] ([place], [place], [place], [place]) Address [address] [place] [address] Care Team Providers Care Yeast Culture Operator Name Role Phone Unavailable Primary Care Provider Unavailabl e Encounter Details Date Type Department Care Team (Late st Contact Info) Description 03/15/2021 Transcribed Document [facility] [place] [facility] [place] [address] ProviderAlexis MD [address] [place] [address] Social History Tobacco Use Types [...] Alexis Livingston MD - 03/15/2021 3:51 PM MARKETING CONTENT MANAGER UM Authorization Entered On: 03/15/2021 15:51 EST Performed On: 03/15/2021 15:51 EST by Nette Pham, Store Promoter Primary Insurance Authorization Authorization and Policy Numbers : Insurance 1 Health Plan: [facility] [employer] Policy Number: [id number] Authorization Number: [id number] Insurance Primary Name : [facility] Policy Number: [id number] Authorization Status-Primary : Approved Auth/Referral Contact Name-Primary : [place] Authorization Number-Primary : [id number] Number of Days Authorized-Primary : 4 Day(s) Authorized Service Begin Date-Primary : 03/10/2021 EST Authorized Service End Date-Primary : 03/14/2021 EST Authorization Comments-Primary : Discharge date and summary faxed. Historical Authorization Comments-Primary : Comment 1: IP admit approved from 03/10 to 03/14 per [facility] website (CHRISTIAN ARMENTA RN 03/11/2021 08:09) Nette Pham, Store Promoter - 03/15/2021 15:51 EST Electronically signed by Wei [facility] Conversion Endband Cutter Hand Cerner at 08/19/2022 6:07 PM CDT documented in this encounter Plan of Treatment Not on file documented as of this encounter Visit Diagnoses Not on filedocumented in this encounter
--- NOTE | 2024-12-03 10:30 | MM_ITS ---
PROCEDURE INFORMATION: Exam: MG Bilateral Screening 3D Mammography Exam date and time: 12/03/2024 9:58 AM Age: 64 years old Clinical indication: Screening exam. TECHNIQUE: Imaging protocol: Bilateral Screening tomosynthesis and 2D mammography including computer-aided detection (CAD) when performed. COMPARISON: 1. MG MM DIG SCREENING MAMM BI W/CAD 06/27/2023 7:54 AM 2. MG MM DIG SCREENING MAMM BI W/CAD 12/28/2021 8:27 AM FINDINGS: MAMMOGRAPHY: Breast composition: There are scattered areas of fibroglandular density. Mass: No suspicious masses. Architectural distortion: None. Calcifications: No suspicious calcifications. Asymmetric density: None. Skin thickening: None. Axillary adenopathy: None. IMPRESSION: No mammographic evidence of malignancy. Annual screening is recommended unless otherwise clinically indicated. ASSESSMENT: BI-RADS Category 1: Negative.
== END 2024-12-03 23:59 | disposition home or self-care (01) ==
LOC: RT 09:25
PROVIDERS: PCP Internal Medicine; Visit Provider Internal Medicine
DX: Z12.31 Encounter for screening mammogram for malignant neoplasm of breast (principal); I65.23 Occlusion and stenosis of bilateral carotid arteries; R92.323 Mammographic fibroglandular density, bilateral breasts
CPT/HCPCS: 77063; 77067; 93880

== ENCOUNTER 2025-01-07 22:43 | Emergency (ER) | payer OTHER, SELFPAY ==
--- NOTE | 2025-01-07 22:46 | ECG_ITS ---
APPROVED REPORT Exam: Resting ECG HR:81 bpm ECG Measurements Heart Rate 81 AXES WA 160 P 68 QRSd 89 QRS 40 QT 419 T 67 QTc 456 Conclusion SINUS RHYTHM MINIMAL ST DEPRESSION [0.025+ mV ST DEPRESSION] BORDERLINE ECG UNCONFIRMED REPORT Electronically signed by : DANGELO PARK, 01/09/2025 00:40:59
[2025-01-07 22:51] VITALS: BP 171/82; PULSE 79; RESP 18; TEMP 36.8; O2SAT 98; BMI 28.3
--- OUTSIDE RECORDS SUMMARY | 2025-01-07 22:55 | XMS_ITS | Patient Health Record ---
Author Organization [facility] [place] Address [address] [place] [id number] Care Team Providers Care Sample Tester Name Role Phone Yovany Mueller Primary Care Provider [phone] Allergies Allergen (clinical drug ingredient) Drug/Non Drug Allergy documented on EMR Reaction Allergy Type Onset Date Status amitriptyline Amitriptyline HCl Hallucinations Drug Allergy Active diphenhydramine Benadryl Allergy Unknown Drug Allergy Active Reason For Referral No Information Medications Medication SIG (Take, Route, Frequency, Duration) Notes Start Date End Date Status Folic Acid Not-Takin g Levothyroxine Sodium 25 MCG Take 1 tablet by mouth once daily; Duration: 90 Active Vitamin B-12 Not-Shyam ing Estradiol 1 MG 1 tab(s) orally once a day; Duration: 90 days Active Ferrous Sulfate 325 (65 Fe) MG 1 tab(s) orally once a day Active Clotrimazole-Betamethasone 1-0.05 % 1 benigno applied topically 2 times a day 05/18/2022 Active valACYclovir HCl 500 MG 1 tab(s) orally 3 times a day 11/06/2020 Active Baclofen 5 MG TAKE 1 TABLET BY THREE TIMES DAILY; Duration: 30 Active Ventolin HFA 108 (90 Base) MCG/ACT 1 puff Inhalation every 4 hrs, prn Active tiZANidine HCl 4 MG 1/2 - 1 tab orally every 8 hours 09/14/2022 Not-Taking Citalopram Hydrobromide 20 MG 1 tab(s) orally once a day; Duration: 90 days Active Esomeprazole Magnesium 40 MG Take 1 capsule by mouth once daily; Duration: 90 Active buPROPion HCl ER (SR) 150 MG Take 1 tablet by mouth twice daily; Duration: 30 Active Immunizations Vaccine Route Administration Date Status Hanna ambriz Shingrix IM Intramuscular 08/21/2020 Administered Fluzone Quad (6months&older) Unknown 02/03/2014 Administered Fluzone Quad (6months&older) Unknown 05/15/2018 Administered Fluzone PF Quad (6-35 months) Unknown 05/16/2018 Administered COVID 19 Pfizer Unknown 04/01/2021 Administered COVID 19 Destini Unknown 07/08/2020 Administered COVID 19 Destini Unknown 07/11/2020 Administered Social History Tobacco Use: Social History Observation Description Date Smoking Status WARNING: Information temporarily unavailable CURRENT TOBACCO USE: Question Answer Notes Are you a: Stopped Dec Problems Problem Type SNOMED Code ICD Code Onset Dates Problem Status W/U Status Risk Notes Problem Hypothyroidism (85942835) Hypothyroidism (acquired) (E03.9) Active confirmed Problem Diverticulitis (49256233) Diverticulitis (K57.92) Active confirmed Problem Osteopenia (156848376) Osteopenia (M85.80) Active confirmed Problem Mixed anxiety and depressive disorder (554376794) Depression with anxiety (F41.8) Active confirmed Problem BMI 30+ - obesity (984488351) BMI 32.0-32.9,adult (Z68.32) Active confirmed Problem Calcaneal spur of right foot (744021337156196) Calcaneal spur, right foot (M77.31) Active confirmed Problem Chronic pain (47063186) Other chronic pain (G89.29) Active confirmed Problem Mammography abnormal (684409895) Abnormal mammogram of left breast (R92.8) Active confirmed Problem Stenosis of left carotid artery (144582621912029) Stenosis of left carotid artery (I65.22) Active confirmed Problem Body mass index 30.0 0 to 34.99 (403047638972654) BMI 31.0-31.9,adult (Z68.31) Active confirmed Problem Hemorrhage of colon due to diverticulosis (900829788776752) Diverticulosis of large intestine with hemorrhage (K57.31) Active confirmed Problem Family history of ischemic heart disease (764567844) Family history of heart disease in female family member before age 65 (Z82.49) Active confirmed Problem Pure hypercholesterolemia (870341459) Pure hypercholesterolemia (E78.00) Active confirmed Problem History of excision of intestinal structure (182933303) S/P colon resection (Z90.49) Active confirmed Problem Temporomandibular joint disorder (36086569) TMJ (temporomandibular joint disorder) (M26.609) Active confirmed Problem Sacroiliac joint viky n (394011230) Sacroiliac joint pain (M53.3) Active confirmed Problem Osteopenia (812080329) Osteopenia, unspecified location (M85.80) Active confirmed Problem Seasonal allergic rhinitis (095289813) Chronic seasonal allergic rhinitis, unspecified trigger (J30.2) Active confirmed Problem Fibrocystic breast changes (06174265) Fibrocystic breast disease (FCBD), unspecified laterality (N60.19) Active confirmed Problem Aortic valve disorde r (6999413) Aortic valve stenosis, etiology of cardiac valve disease unspecified (I35.0) Active confirmed Problem Left carotid artery occlusion (372289149852214) Carotid stenosis, left (I65.22) Active confirmed Problem H/O tobacco use, presenting hazards to health (Z87.891) Active confirmed Plan Of Treatment No Information Insurance Providers Payer Name Payer Address Payer Phone Subscriber Number Group Number Insured Name Patient Relationship to Insured Coverage Start Date Coverage End Date [employer] [facility] [address] [place], [place] [phone] [id number] Dayana Bonilla Self - patient is the insured Medications Administered Medication Instructions Date of Administration Dosage Notes Dexamethasone 11/04/2005 8 mg Dexamethasone 03/13/2007 1 mL Medical (General) History Medical History History ICD Code hyperlipidemia Esophageal reflux allergies Arnold chiari malformation 2 Thrombophlebitis during pregnacy irritable bowel syndrome COVID 19 Vaccine Jun 2020 Surgical History Surgery Date(Month/Year) tubal ligation 1993 hysterectomy for bleeding, fibroids 2000 colonoscopy 03/2021 colectomy 03/2021 Hospitalization History Reason Date(Month/Year) dizziness 05/15/18 abdominal pain 03/10/2021
[2025-01-07 22:56] VITALS: PULSE 83
--- NOTE | 2025-01-07 22:58 | HMH.EDGENADL ---
Discharge Plan Disposition Patient Disposition: Home, Self-Care Prescriptions Prescriptions: New ondansetron HCl 4 mg tablet 4 mg PO Q8H PRN (Reason: nausea and vomiting) 5 Days Qty: 30 0RF No Action chlorthalidone 50 mg tablet 50 mg PO DAILY Qty: 90 1RF clotrimazole-betamethasone 1-0.05 % cream topical PRN Patient Comments: APPLY CREAM TOPICALLY TO AFFECTED AREA TWICE DAILY albuterol sulfate 90 mcg/actuation HFA aerosol inhaler 2 inh inhalation Q6H PRN (Reason: shortness of breath or wheezing) 90 Days Qty: 8.5 2RF baclofen 5 mg tablet 5 mg PO Q8H PRN (Reason: muscle spasm) Qty: 30 2RF valacyclovir 1 gram tablet 2,000 mg PO Q12H 5 Days Qty: 20 0RF fluticasone propion-salmeterol [Advair Diskus] 250-50 mcg/dose blister with device 1 inh inhalation BID 90 Days Qty: 180 3RF citalopram 20 mg tablet 20 mg PO DAILY Qty: 90 1RF esomeprazole magnesium 40 mg capsule,delayed release(DR/EC) See Rx Instructions .ROUTE .COMPLEX Qty: 90 1RF Dose Instruction: Take 1 capsule by mouth once daily Rx Instructions: Take 1 capsule by mouth once daily levocetirizine 5 mg tablet See Rx Instructions .ROUTE .COMPLEX Qty: 30 3RF Dose Instruction: Take 1 tablet by mouth once daily Rx Instructions: Take 1 tablet by mouth once daily estradiol 1 mg tablet 1 mg PO DAILY Qty: 90 1RF levothyroxine 25 mcg tablet See Rx Instructions .ROUTE .COMPLEX Qty: 90 3RF Dose Instruction: Take 1 tablet by mouth once daily Rx Instructions: Take 1 tablet by mouth once daily bupropion HCl 150 mg tablet sustained-release 12 hr See Rx Instructions .ROUTE .COMPLEX Qty: 180 3RF Dose Instruction: Take 1 tablet by mouth twice daily Rx Instructions: Take 1 tablet by mouth twice daily Leqvio 284 mg/1.5 mL syringe 284 mg SQ [id number] Qty: 1.5 0RF Referrals Follow up/Referrals: Provider,Referral, MD [Referring, Medical] - See instructions Activity Restrictions/Add. Instructions Additional Instructions/Restrictions: Consider returning a stool sample for testing. Take Zofran as needed for nausea and vomiting. Please follow-up with your primary care provider. Please return to the emergency department if you develop any new or worsening symptoms or become concerned for your health. Clinical Impressions Clinical Impression: Colitis Print Language Print Language: Comoran Discharge ED Provider: Rad Bettencourt General Adult HPI General Chief complaint: Chest Pain Stated complaint: chest pain Time Seen by Provider: 01/07/25 22:58 Mode of Arrival: Ambulatory Source of Information: Patient and Significant Other Description of Symptoms (Recalled from ER Triage Doc. by RN): patient presents to the ED for chest pain that started 3 days ago. Mariana stated the pain occurs bilaterally, and described it as an electrical shock . Patient states she has chest pain all the time, but its gastric related and she takes baclofen for it . PAtient endorsed that she smoked marajuana earlier this evening. History of Present Illness HPI narrative: 64-year-old female with history of diverticulitis status post partial large bowel resection presents for multiple complaints. She reports that she has been having diarrhea for several days, had vomiting earlier today and has had intermittent right lower quadrant abdominal pain. She presents today because she has now started having some electric type shocking chest pains. She denies any significant shortness of breath. She often gets chest pains which she reports are usually gastric related. Patient admits to smoking marijuana recreationally and felt like it improved her symptoms earlier today. Reports she is not currently experiencing any of the chest pains and her abdominal pain is only present with palpation. Related Data Home Medications ?Medication ?Instructions ?Recorded ?Confirmed clotrimazole-betamethasone 1 applic topical PRN 08/28/23 12/10/24 %-0.05 % topical cream Previous Rx's ?Medication ?Instructions ?Recorded chlorthalidone 50 mg tablet 50 mg PO DAILY #90 tabs 03/14/24 albuterol sulfate 90 mcg/actuation 2 inh inhalation Q6H PRN shortness 05/14/24 aerosol inhaler of breath or wheezing 90 days #8.5 grams baclofen 5 mg tablet 5 mg PO Q8H PRN muscle spasm #30 06/06/24 tabs valacyclovir 1 gram tablet 2,000 mg (2 x 1 gram) PO Q12H 5 06/06/24 days #20 tabs fluticasone 250 mcg-salmeterol 50 1 inh inhalation BID 90 days #180 06/10/24 mcg/dose blistr powdr for ea inhalation (Advair Diskus) citalopram 20 mg tablet 20 mg PO DAILY #90 tabs 08/07/24 esomeprazole magnesium 40 mg See Rx Instructions .Route 09/09/24 capsule,delayed release .COMPLEX #90 caps levocetirizine 5 mg tablet See Rx Instructions .Route 09/12/24 .COMPLEX #30 tabs estradiol 1 mg tablet 1 mg PO DAILY #90 tabs 09/26/24 bupropion HCl 150 mg tablet,12 hr See Rx Instructions .Route 12/11/24 sustained-release .COMPLEX #180 tabs levothyroxine 25 mcg tablet See Rx Instructions .Route 12/11/24 .COMPLEX #90 tabs inclisiran 284 mg/1.5 mL 284 mg (1.5 mL) SQ [id number] #1.5 mL 01/02/25 subcutaneous syringe (Leqvio) ondansetron HCl 4 mg tablet 4 mg PO Q8H PRN nausea and 01/08/25 vomiting 5 days #30 tabs Allergies Allergy/AdvReac Type Severity Reaction Status Date / Time [id number] Reductase AdvReac Severe Verified 12/10/24 10:39 Inhibitor amitriptyline AdvReac Intermediate Hallucinati Verified 12/10/24 10:39 ng PFSH PFSH Disclaimer: The information contained in this section may have been updated after the patient was seen, as this information can be updated by other users. Medical History Asthma Malodorous urine History of asthma History of smoking 30 or more pack years Abnormal screening CT of chest History of lump of left breast Breast lesion Lesion of spleen Dyspnea Family history of early CAD HTN (hypertension) Worsening angina Surgical History History of colon resection History of partial hysterectomy History of tubal ligation History of cardiac cath Family History Other COPD (chronic obstructive pulmonary disease) Cancer Diabetes Heart attack Hypertension Stroke Social History Smoking Status: Never smoker alcohol intake: never counseling provided: none substance use type: denies use current occupational status: employed Travel in the last 8 weeks?: None household members: spouse housing: house caffeine: Yes Have you lived/traveled outside US in past 30 days?: No Contact w/someone who lives/traveled outside US past 30 days?: No Exposure to someone with infectious disease in past 14 days?: No Do you have a fever (greater than 100.4 F or 38 C)?: No Have you tested positive for COVID-19?: No Exposed to someone with COVID-19 in past 14 days?: No Do you have a sore throat?: No Do you have a cough?: No Do you have any weakness?: No Do you have any diarrhea?: No Are you experiencing any unusual bleeding?: No Do you have any muscle aches/pain?: No Do you have any abdominal pain?: No Are you experiencing loss of taste or smell?: No Other Medical History Have you received the Flu Vaccine for this season: No Have you received the Pneumonia Vaccine: No ROS Obtained: Yes All systems reviewed & no additional complaints except as documented Physical Exam General General appearance: alert and in no apparent distress Head Head exam: atraumatic and normocephalic Eye Eye exam: Present normal appearance, PERRL and EOMI ENT ENT exam: Present normal oropharynx and normal external ear exam Neck Neck exam: Present normal inspection and full ROM Chest Chest inspection: Present normal inspection and symmetric chest wall rise; Absent tenderness Respiratory Respiratory exam: Present normal lung sounds bilaterally; Absent respiratory distress Cardiovascular Cardiovascular exam: Present regular rate and normal rhythm Abdominal Exam Abdominal exam: Present soft; Absent distention, tenderness or guarding Extremities Exam Extremities exam: Present normal inspection; Absent edema or joint swelling Back Exam Back exam: Present normal inspection; Absent tenderness Neurological Exam Neurological exam: Present alert and oriented X3; Absent motor sensory deficit Psychiatric Psychiatric exam: Present normal affect and normal mood Skin Skin exam: Present warm, dry and normal color Lymphatic Lymphatic Findings: no adenopathy Medical Decision Making Medical Records Medical records reviewed: Yes I reviewed the patient's medical records. Screening: Per USPSTF and CDC recommendations, given the prevalence of disease in our region, it is our hospital?s policy to screen for HIV and viral Hepatitis for all patients aged 18 and over and those with ongoing risk factors. [place] Inquiry Pt receiving controlled substance: No [place] was queried for this patient: No Vital Signs: 01/07/25 22:51 01/07/25 22:56 01/07/25 23:30 Temperature 98.2 F Temperature Source Oral Pulse Rate 83 78 Pulse Rate [Right Radial] 79 Respiratory Rate 18 13 Blood Pressure 129/56 L Blood Pressure [Right Arm] 171/82 H Blood Pressure Mean [Right Arm] 111 Blood Pressure Source Blood Pressure Source [Right Arm] Automatic Cuff Blood Pressure Position Blood Pressure Position [Right Arm] Sitting 02 Sat by Pulse Oximetry 98 96 Oxygen Delivery Method Room Air 01/08/25 00:06 01/08/25 00:31 01/08/25 01:00 Temperature Temperature Source Pulse Rate 82 76 73 Pulse Rate [Right Radial] Respiratory Rate 17 19 24 Blood Pressure 140/68 119/77 121/63 Blood Pressure [Right Arm] Blood Pressure Mean [Right Arm] Blood Pressure Source Blood Pressure Source [Right Arm] Blood Pressure Position Blood Pressure Position [Right Arm] 02 Sat by Pulse Oximetry 99 96 95 Oxygen Delivery Method 01/08/25 02:42 Temperature 98.1 F Temperature Source Pulse Rate 84 Pulse Rate [Right Radial] Respiratory Rate 16 Blood Pressure 128/74 Blood Pressure [Right Arm] Blood Pressure Mean [Right Arm] Blood Pressure Source Automatic Cuff Blood Pressure Source [Right Arm] Blood Pressure Position Supine Blood Pressure Position [Right Arm] 02 Sat by Pulse Oximetry Oxygen Delivery Method Room Air Lab Data Lab results reviewed: Yes I reviewed the patient's lab results. Lab Results 01/07/25 22:54: WBC 12.1 H, RBC 5.40, Hgb 16.6 H, Hct 48.8 H, MCV 90.4, MCH 30.7, MCHC 34.0, RDW 12.8, Plt Count 339, MPV 8.9, Neut % (Auto) 85.7 H, Lymph % (Auto) 7.9 L, [place] % (Auto) 4.7, Eos % (Auto) 0.7, Baso % (Auto) 0.4, Neut # (Auto) 10.3 H, Lymph # (Auto) 1.0, [place] # (Auto) 0.6, Eos # (Auto) 0.1, Baso # (Auto) 0.1, D-Dimer 1.19 H, Sodium 133 L, Potassium 2.9 L*, Chloride 94 L, Carbon Dioxide 23, Anion Gap 18.9 H, BUN 24 H, Creatinine 1.20 H, Estimated Creat Clear 53, Estimated GFR 45 L, Est GFR ( Amer) 55 L, Glucose 175 H, Calcium 10.0, Magnesium 1.6, Total Bilirubin 0.6, AST 34, ALT 19, Alkaline Phosphatase 80, Troponin I 0.03, Total Protein 8.7 H D, Albumin 5.0, Globulin 3.7 H, Albumin/Globulin Ratio 1.4, Lipase 103 01/08/25 01:50: Troponin I 0.03 01/07/25 22:54 01/07/25 22:54 Orders (Tests/Meds): ED MEDICATIONS Discontinued Medications Generic Name Dose Route Start Last Admin Trade Name Freq PRN Reason Stop Dose Admin Sodium Chloride 1,000 mls @ 999 mls/hr 01/07/25 23:15 01/08/25 00:35 Sod Chlor 0.9% 1000ml Bag IV 01/08/25 00:15 Infused .Q1H1M BOZENA Infusion Potassium Chloride/Water 100 mls @ 100 mls/hr 01/07/25 23:44 01/08/25 02:06 Potassium Chloride 10meq/100ml Ivpb IV 01/08/25 01:43 Infused Q1H BOZENA Infusion Iopamidol 80 ml 01/08/25 00:05 01/08/25 00:06 Iopamidol-370 (76%);100ml Bottle IV 01/08/25 00:06 80 ml ONCE ONE Administration Ondansetron HCl 4 mg 01/08/25 00:43 01/08/25 00:49 Ondansetron 4mg/2ml Vial IV 01/08/25 00:44 4 mg ONCE ONE Administration Potassium Chloride 40 meq 01/07/25 23:43 01/07/25 23:50 Potassium Chloride 20meq Tab PO 01/07/25 23:44 40 meq ONCE ONE Administration Sodium Chloride 10 ml 01/08/25 00:05 01/08/25 00:06 Sodium Chloride 0.9% 10ml Syr (Rad Only) IV 01/08/25 00:06 10 ml ONCE ONE Administration ORDERS Category Date Time Status CT abdomen pelvis w con Stat Cat Scan 01/07/25 23:[address] angio chest PE protocol Stat Cat Scan 01/07/25 23:50 Completed CBC w/Auto Diff [Complete Blood Count Auto Diff] Stat Lab 01/07/25 22:54 Completed CMP [Comprehensive Metabolic Panel] Stat Lab 01/07/25 22:54 Completed D-Dimer Stat Lab 01/07/25 22:54 Completed Diarrhea 23 Panel, PCR Stat Lab 01/08/25 02:03 Received Lipase Stat Lab 01/07/25 22:54 Completed Magnesium Stat Lab 01/07/25 22:54 Completed Troponin I Q3H Lab 01/07/25 22:54 Completed Troponin I Q3H Lab 01/08/25 01:50 Completed ECG Data Tracing #1: I reviewed this ECG and interpreted as documented below: Sinus rhythm, no significant ST elevation, subtle ST depression in lead II. ECG initial impression date: 01/07/25 ECG initial impression time: 22:46 HEART Score History (anamnesis): Slightly suspicious ECG: Non-specific disturbance Age: 45-65 years Risk factors: 1-2 risk factors Troponin: </= normal limit HEART Score: 3 Medical Decision Narrative: 64-year-old female with history of diverticulitis status post partial colectomy presents for several days of nausea vomiting diarrhea and intermittent abdominal pain, now with intermittent shocklike chest pains.. History was obtained via interactive discussion with patient, chart review. On arrival, patient is [afebrile, hemodynamically stable, satting appropriately, alert, oriented x4, GCS 15], moving all extremities spontaneously. Full physical exam performed and significant for mild abdominal tenderness in the right lower quadrant Differential includes but is not limited to colitis, diverticulitis, gastroenteritis, NH, PE, GERD, dehydration. Patient was given 1 L IV fluid bolus, Zofran for symptomatic management and correction of underlying abnormalities. Workup initiated including D-dimer troponin EKG lipase CBC CMP mag CT scans of the chest abdomen pelvis after positive dimer.. On re-evaluation, patient [remains afebrile, HD stable.] Laboratory workup independently interpreted by me and significant for hypokalemia with potassium 2.9. Will replete orally and p.o. Creatinine and BUN minimally elevated well. Mild leukocytosis. D-dimer elevated, troponin negative x 2. Imaging independently interpreted by me and significant for no evidence of PE, patient does have some inflammation in the colon consistent with inflammatory/infectious colitis. No evidence of perforation or diverticulitis.. See radiology read for full review of final results. Given patient history, exam and workup, patient's presentation most likely represents mild dehydration/electrolyte derangements as result of mild colitis. No evidence of cardiac pathology. Patient's stool studies are still pending. Patient is tolerating liquids and feels good at this time. She was discharged in stable condition with prescription for Zofran and instructions to follow-up with PCP for reassessment. Return precautions given. We will call if stool results are positive. Procedures Risk/Benefits of Procedure(s) Were Explained: Yes Critical Care Critical Care Time Critical Care Time: No
--- NOTE | 2025-01-07 23:13 | CT_ITS ---
PROCEDURE INFORMATION: Exam: CT Abdomen And Pelvis With Contrast Exam date and time: 01/07/2025 11:58 PM Age: 64 years old Clinical indication: Abdominal pain; Additional info: Rlq pain, HX diverticulitis S/P resection, n/v/d TECHNIQUE: Imaging protocol: Computed tomography of the abdomen and pelvis with contrast. 3D rendering (Not supervised by radiologist): MIP and/or 3D reconstructed images were created by the technologist. Radiation optimization: All CT scans at this facility use at least one of these dose optimization techniques: automated exposure control; mA and/or kV adjustment per patient size (includes targeted exams where dose is matched to clinical indication); or iterative reconstruction. Contrast material: ISOVUE; Contrast volume: 80 ml; Contrast route: IV; COMPARISON: CT ABDOMEN WO/W CON 07/14/2023 11:57 AM FINDINGS: Coronary arteries: Mild atherosclerotic disease of the left anterior descending coronary artery. Liver: Simple right hepatic lobe cyst. Gallbladder and biliary ducts: Normal. Pancreas: Normal. Spleen: Splenic calcifications, compatible with prior granulomatous disease. Adrenal glands: Normal. No mass. Kidneys and ureters: Normal. Stomach and bowel: Mild wall thickening of the transverse colon and proximal descending colon with minimal adjacent fat stranding, compatible with infectious/inflammatory colitis. Appendix: No evidence of appendicitis. Intraperitoneal space: Unremarkable. No free air. No significant fluid collection. Vasculature: Noncalcified atherosclerotic plaque within the proximal SMA, causing approximately 60% luminal narrowing. Lymph nodes: Calcified right hilar lymph node, compatible with prior granulomatous disease. Urinary bladder: Unremarkable as visualized. Reproductive: Unremarkable as visualized. Bones/joints: No acute abnormality. Soft tissues: Normal. IMPRESSION: Mild wall thickening of the transverse colon and proximal descending colon with minimal adjacent fat stranding, compatible with infectious/inflammatory colitis. Atherosclerotic disease of the abdominal aorta and iliac arteries.
[2025-01-07 23:19] LABS: Hematocrit 48.8 % (37.0-47.0); Hemoglobin 16.6 g/dL (12.2-16.2); Immature Granulocytes % 0.6 %; Mean Corpuscular HGB Conc 34.0 g/dL (31.8-35.4); Mean Corpuscular Hemoglobin 30.7 pg (27.0-31.2); Mean Corpuscular Volume 90.4 fl (81-99); Nucleated Red Blood Cells % 0 %; Platelet Count 339 K/mm3 (142-424); Red Blood Count 5.40 M/mm3 (4.20-5.40); Red Cell Distribution Width-SD 42.5 fL; White Blood Count 12.1 K/mm3 (4.8-10.8)
[2025-01-07] MEDS: 0.9 % SODIUM CHLORIDE 1000ML 1,000 ML 999 ML IV (23:20)
--- NOTE | 2025-01-07 23:24 | PC.NURSE ---
report given to SUNIL Russell
[2025-01-07 23:25] LABS: Albumin Level 5.0 g/dl (3.5-5.0); Chloride 94 mmol/L (98-107); Sodium 133 mmol/L (136-145)
[2025-01-07 23:28] LABS: Alanine Aminotransferase 19 U/L (12-78); Albumin/Globulin Ratio 1.4 (1.1-1.8); Alkaline Phosphatase 80 U/L (38-126); Anion Gap 18.9 mEq/L (5-15); Aspartate Amino Transferase 34 U/L (14-36); Bilirubin,Total 0.6 mg/dl (0.2-1.3); Blood Urea Nitrogen 24 mg/dl (7-17); Calcium 10.0 mg/dl (8.4-10.2); Carbon Dioxide 23 mmol/L (22.0-30.0); Creatinine Clearance Estimated 53 mL/min (50-200); Creatinine,Serum 1.20 mg/dl (0.52-1.04); Estimated Glomerular Filt Rate 45 ml/min (>60); GFR (African American) 55 ML/MIN (>60); Globulin 3.7 g/dL (1.3-3.2); Glucose 175 mg/dl (74-100); Lipase 103 U/L (23-300); Total Protein,Serum 8.7 g/dl (6.3-8.2)
[2025-01-07 23:29] LABS: Magnesium 1.6 mg/dl (1.6-2.3)
[2025-01-07 23:30] VITALS: BP 129/56; PULSE 78; RESP 13; O2SAT 96
[2025-01-07 23:34] LABS: Potassium 2.9 mmoL/L (3.5-5.1)
[2025-01-07 23:40] LABS: Troponin I 0.03 ng/ml (0.00-0.034)
[2025-01-07 23:45] LABS: D-Dimer 1.19 ug/mL (0.0-0.5)
[2025-01-07] MEDS: POTASSIUM CHLORIDE 20MEQ TAB 40 MEQ PO (23:50)
--- NOTE | 2025-01-07 23:50 | CT_ITS ---
PROCEDURE INFORMATION: Exam: CTA Chest With Contrast Exam date and time: 01/07/2025 11:58 PM Age: 64 years old Clinical indication: Pain; Chest pressure; Additional info: Cp, positive dimer TECHNIQUE: Imaging protocol: Computed tomographic angiography of the chest with contrast. Exam focused on the arteries. 3D rendering (Not supervised by radiologist): MIP and/or 3D reconstructed images were created by the technologist. Radiation optimization: All CT scans at this facility use at least one of these dose optimization techniques: automated exposure control; mA and/or kV adjustment per patient size (includes targeted exams where dose is matched to clinical indication); or iterative reconstruction. Contrast material: ISOVUE; Contrast volume: 80 ml; Contrast route: INTRAVENOUS (IV); COMPARISON: CT ANGIO CHEST 08/14/2023 2:29 PM FINDINGS: Pulmonary arteries: Normal. No pulmonary emboli. Aorta: Unremarkable. No aortic aneurysm. No aortic dissection. Lungs: Mild upper lobe centrilobular and paraseptal emphysema. Minimal bibasilar atelectasis. Pleural spaces: Unremarkable. No pneumothorax. No pleural effusion. Heart: Unremarkable. No cardiomegaly. No pericardial effusion. Lymph nodes: Calcified right hilar and subcarinal lymph nodes, compatible with prior granulomatous disease. Liver: Separate hepatic lobe cyst. Spleen: Splenic calcifications, compatible with prior granulomatous disease. Bones/joints: Unremarkable. No acute fracture. Soft tissues: Unremarkable. IMPRESSION: No acute thoracic abnormality. COMMENTS: The presence of pulmonary emphysema on CT is an independent risk factor for lung cancer. In the absence of a history or active diagnosis of lung cancer, it is recommended that this patient with emphysema be evaluated for enrollment in a low dose CT lung cancer screening program.
[2025-01-08 00:06] VITALS: BP 140/68; PULSE 82; RESP 17; O2SAT 99
[2025-01-08] MEDS: IOPAMIDOL-370 (76%);100ML BOTTLE 80 ML IV (00:06)
[2025-01-08] MEDS: SODIUM CHLORIDE 0.9% 10ML SYR (RAD ONLY) 10 ML IV (00:06)
[2025-01-08 00:31] VITALS: BP 119/77; PULSE 76; RESP 19; O2SAT 96
[2025-01-08] MEDS: ONDANSETRON 4MG/2ML VIAL 4 MG IV (00:49)
[2025-01-08 01:00] VITALS: BP 121/63; PULSE 73; RESP 24; O2SAT 95
[2025-01-08 02:16] LABS: Troponin I 0.03 ng/ml (0.00-0.034)
[2025-01-08 02:28] LABS: Adenovirus F 40/41, stool Not Detected (NotDetected); Clostridium Difficile A/B, PCR Not Detected (NotDetected); Cyclospora Cayetanesis Not Detected (NotDetected); Plesimonas Shigalloides, PCR Not Detected (NotDetected); Shiga-like toxin E coli Not Detected (NotDetected); Shigella Enterovasive E coli Not Detected (NotDetected); Vibrio, PCR Not Detected (NotDetected); Yersinia Entercolitica, PCR Not Detected (NotDetected)
[2025-01-08 02:42] VITALS: BP 128/74; PULSE 84; RESP 16; TEMP 36.7; O2SAT 98
[2025-01-08 03:51] LABS: Salmonella, PCR Detected (NotDetected)
--- NOTE | 2025-01-08 03:52 | PC.NURSE ---
+ Salmonella. Informed Dr. Bettencourt
--- NOTE | 2025-01-08 06:53 | PC.NURSE ---
Called pt and discussed results. Dr. Bettencourt did call in an abx for pt.
== END 2025-01-08 02:52 | disposition home or self-care (01) ==
PROVIDERS: Emergency Provider Emergency Medicine; PCP Family Medicine
DX: K52.9 Noninfective gastroenteritis and colitis, unspecified (principal); E78.5 Hyperlipidemia, unspecified; F17.219 Nicotine dependence, cigarettes, with unspecified nicotine-induced disorders; I10 Essential (primary) hypertension
CPT/HCPCS: 71275; 74177; 80053; 83690; 83735; 84484; 85025; 85378; 87507; 93005; 96361; 96365; 96375; 99285; J2405; J3480; J7030; Q9967

== ENCOUNTER 2025-01-31 10:00 | Outpatient (CLI) | payer OTHER, SELFPAY ==
[2025-01-31] MEDS: INCLISIRAN SODIUM 284 MG/1.5 ML SYRINGE SUBCUT (10:04)
[2025-01-31 10:05] VITALS: BP 112/58; PULSE 80; RESP 18; O2SAT 100
--- OUTSIDE RECORDS SUMMARY | 2025-01-31 10:05 | XMS_ITS | Encounter Summary ---
Author Organization [employer] ([place], [place], [place], [place]) Address [address] [place] [address] Care Team Providers Care Airport Operations Supervisor Name Role Phone Unavailable Primary Care Provider Unavailabl e Encounter Details Date Type Department Care Team (Late st Contact Info) Description 03/11/2021 Transcribed Document [facility] [place] Family Medicine [address] [place] [address] ProviderAlexis MD [address] [place] [address] Social History Tobacco Use Types [...] - Historical ProviderMD - 03/11/2021 2:33 PM TRANSCRIPT EVALUATOR Nursing Discharge Summary Entered On: 03/11/2021 14:33 EST Performed On: 03/11/2021 14:33 EST by Leanne Sahu Virtual retort load expediter Documentation Discharge Instructions Reviewed With, Opportunity For Questions Given : Patient Patient Education Completed : Yes Teaching Method : Explanation, Printed materials Teaching Evaluation : Verbalizes understanding Education Comment : Meds, follow ups, conditions, restrictions Leanne Sahu Virtual RN - 03/11/2021 14:33 EST Electronically signed by [facility] Conversion Battery Assembler Plastic Cerner at 08/19/2022 6:24 PM CDT documented in this encounter Plan of Treatment Not on file documented as of this encounter Visit Diagnoses Not on filedocumented in this encounter
--- OUTSIDE RECORDS SUMMARY | 2025-01-31 10:05 | XMS_ITS | Encounter Summary ---
Author Organization [employer] [address] ([place], [place], [place], [place]) Address [address] [place] [address] Care Team Providers Care Bible Worker Name Role Phone Unavailable Primary Care Provider Unavailabl e Encounter Details Date Type Department Care Team (Late st Contact Info) Description 03/11/2021 Transcribed Document [facility] [place] Medicine [facility] [place] [address] ProviderAlexis MD [facility] [place] [address] Social History Tobacco Use Types [...] Alexis Livingston MD - 03/11/2021 8:09 AM DIRECTOR ORACLE [facility] Authorization Entered On: 03/11/2021 8:20 EST Performed On: 03/11/2021 8:09 EST by CHRISTIAN ARMENTA RN Primary Insurance Authorization Authorization and Policy Numbers : Insurance 1 Health Plan: [facility] [employer] Policy Number: [id number] Authorization Number: [id number] Insurance Primary Name : [facility] Policy Number: [id number] Authorization Status-Primary : Admit approved Number of Days Authorized-Primary : 4 Day(s) Authorized Service Begin Date-Primary : 03/10/2021 EST Authorized Service End Date-Primary : 03/14/2021 EST Authorization Comments-Primary : IP admit approved from 03/10 to 03/14 per [facility] website Historical Authorization Comments-Primary : No Authorization Comments Found CHRISTIAN ARMENTA RN - 03/11/2021 8:09 EST Electronically signed by [facility] Conversion Field Support Specialist Cerner at 08/19/2022 6:10 PM CDT documented in this encounter Plan of Treatment Not on file documented as of this encounter Visit Diagnoses Not on filedocumented in this encounter
--- OUTSIDE RECORDS SUMMARY | 2025-01-31 10:05 | XMS_ITS | Encounter Summary ---
Author Organization [employer] ([place], [place], [place], [place]) Address [address] [place] [address] Care Team Providers Care Sailing Officer Name Role Phone Unavailable Primary Care Provider Unavailabl e Encounter Details Date Type Department Care Team (Late st Contact Info) Description 03/11/2021 Transcribed Document [facility] [place] Family Medicine [address] [place] [address] ProviderAlexis MD [address] [place] [address] Social History Tobacco Use Types [...] - Historical ProviderMD - 03/11/2021 1:11 PM ROD PULLER Stroke/Warfarin Instructions Entered On: 03/11/2021 13:12 EST [...]
--- OUTSIDE RECORDS SUMMARY | 2025-01-31 10:05 | XMS_ITS | Encounter Summary ---
Author Organization [employer] ([place], [place], [place], [place]) Address [address] [place] [address] Care Team Providers Care Computer Systems Designer Name Role Phone Unavailable Primary Care Provider Unavailabl e Encounter Details Date Type Department Care Team (Late st Contact Info) Description 03/11/2021 Transcribed Document [facility] [place] Family Medicine [facility] [place] [address] ProviderAlexis MD [facility] [place] [address] Social History Tobacco Use Types [...] - Alexis ProviderMD - 03/11/2021 6:00 AM ROLLED MATERIALS WORKER Pain Assessment Entered On: 03/11/2021 8:25 EST [...]
--- OUTSIDE RECORDS SUMMARY | 2025-01-31 10:05 | XMS_ITS | Encounter Summary ---
Author Organization [employer] ([place], [place], [place], [place]) Address [address] [place] [address] Care Team Providers Care Vascular Nurse Name Role Phone Unavailable Primary Care Provider Unavailabl e Encounter Details Date Type Department Care Team (Late st Contact Info) Description 03/11/2021 Transcribed Document [facility] [place] [address] [place] [address] ProviderAlexis MD [facility] [place] [address] Social History Tobacco Use Types [...] - Historical ProviderMD - 03/11/2021 6:00 AM CUSTOM MARINE CANVAS FABRICATOR Pain Assessment Entered On: 03/11/2021 8:25 EST [...]
--- OUTSIDE RECORDS SUMMARY | 2025-01-31 10:05 | XMS_ITS | Patient Health Record ---
[facility] Address [address] [place] [id number] Care Team Providers Care Quality Assurance Tech Name Role Phone Yovany Mueller Primary Care Provider Allergies Allergen (clinical drug ingredient) Drug/Non Drug [...] Status W/U Status Risk Notes Problem Hypothyroidism (03802459) Hypothyroidism (acquired) (E03.9) Active confirmed Problem Diverticulitis (71973990) Diverticulitis (K57.92) Active confirmed Problem Osteopenia (367174684) Osteopenia (M85.80) Active confirmed Problem Mixed anxiety and depressive disorder (005179374) Depression with anxiety (F41.8) Active confirmed Problem BMI 30+ - obesity (061799686) BMI 32.0-32.9,adult (Z68.32) Active confirmed Problem Calcaneal spur of right foot (119034568716150) Calcaneal spur, right foot (M77.31) Active confirmed Problem Chronic pain (83270238) Other chronic pain (G89.29) Active confirmed Problem Mammography abnormal (886438716) Abnormal mammogram of left breast (R92.8) Active confirmed Problem Stenosis of left carotid artery (582862605134043) Stenosis of left carotid artery (I65.22) Active confirmed Problem Body mass index 30.0 0 to 34.99 (381194832553929) BMI 31.0-31.9,adult (Z68.31) Active confirmed Problem Hemorrhage of colon due to diverticulosis (069054267245325) Diverticulosis of large intestine with hemorrhage (K57.31) Active confirmed Problem Family history of ischemic heart disease (291824527) Family history of heart disease in female family member before age 65 (Z82.49) Active confirmed Problem Pure hypercholesterolemia (817904514) Pure hypercholesterolemia (E78.00) Active confirmed Problem History of excision of intestinal structure (503045746) S/P colon resection (Z90.49) Active confirmed Problem Temporomandibular joint disorder (08889968) TMJ (temporomandibular joint disorder) (M26.609) Active confirmed Problem Sacroiliac joint viky n (709730521) Sacroiliac joint pain (M53.3) Active confirmed Problem Osteopenia (948953710) Osteopenia, unspecified location (M85.80) Active confirmed Problem Seasonal allergic rhinitis (585324802) Chronic seasonal allergic rhinitis, unspecified trigger (J30.2) Active confirmed Problem Fibrocystic breast changes (10177493) Fibrocystic breast disease (FCBD), unspecified laterality (N60.19) Active confirmed Problem Aortic valve disorde r (9868223) Aortic valve stenosis, etiology of cardiac valve disease unspecified (I35.0) Active confirmed Problem Left carotid artery occlusion (528602876064839) Carotid stenosis, left (I65.22) Active confirmed Problem H/O tobacco use, presenting hazards to health (Z87.891) Active confirmed Plan Of Treatment No Information Insurance Providers Payer Name Payer Address Payer Phone Subscriber Number Group Number Insured Name Patient Relationship to Insured Coverage Start Date Coverage End Date [facility] [address] [place], [place] [phone] [id number] Dayana Bonilla Self - patient is the [...]
--- OUTSIDE RECORDS SUMMARY | 2025-01-31 10:05 | XMS_ITS | Encounter Summary ---
Author Organization [employer] ([place], [place], [place], [place]) Address [address] [place] [address] Care Team Providers Care Medical Practice Manager Name Role Phone Unavailable Primary Care Provider Unavailabl e Encounter Details Date Type Department Care Team (Late st Contact Info) Description 03/04/2021 Transcribed Document [facility] [place] [facility] [address] ProviderAlexis MD [place] [address] Social History Tobacco Use Types [...] Source : Measured Height Entry Format : [place]ison Height, Feet : 0 ft(Converted to: 0 cm, 0 Inch) Height, Inches : 63 Inch(Converted to: 5 ft 3 Inch, 160.02 cm) Clinical Height : 160.02 cm Weight Source : Standing scale Weight Entry Format : Addison Clinical Dosing Weight : 83.64 kg Weight, Pounds : 184 lb Body Surface Area (BSA) : 1.87 m2 Body Mass Index : 32.7 kg/m2 (HI) [place] Body Weight : 52 kg WM PORTILLO [...] WM PORTILLO RN - 03/05/2021 15:25 EDT [place] Suicide Severity Rating Scale (C-SSRS) CSSRS Past [...] : Patient Preferred Communication Mode : Verbal Pediatric Speech Language Pathologist Needed : No Objects to Sharing Info w Family : No WM PORTILLO RN - 03/05/2021 15:25 EDT Want Family/Rep/Phys Notified of Admit : No Emergency Contact #1 : jean bonilla Emergency Contact #1 Emergency Contact #1 Relationship : spouse Emergency Contact #2 : , Emergency Contact #2 Phone Number : , Emergency Contact #2 Relationship : , Primary Language : Indian Communication Barrier : None RICARDO MARTINS RN [...]
--- OUTSIDE RECORDS SUMMARY | 2025-01-31 10:05 | XMS_ITS | Encounter Summary ---
Author Organization [employer] ([place], [place], [place]) Address [address] [place] [address] Care Team Providers Care Senior Planning Analyst Name Role Phone Unavailable Primary Care Provider Unavailabl e Encounter Details Date Type Department Care Team (Late st Contact Info) Description 03/11/2021 Transcribed Document [facility] [place] [facility] [place] [address] ProviderAlexis MD [facility] [place] [address] Social History Tobacco Use Types [...] - Alexis ProviderMD - 03/11/2021 9:10 AM MANAGER FRENCH Initial Discharge Planning Entered On: 03/11/2021 9:12 EST Performed On: 03/11/2021 9:10 EST by DERREK MASTERS RN-Plateman Initial Assessment I Previously Documented Living Environment [...] Is Guardianship Needed : No DERREK MASTERS RN-Plateman - 03/11/2021 9:10 EST Initial Assessment II Sensory and Motor Deficits : None Current Home Treatments and Equipment : None DERREK MASTERS RN-Plateman - 03/11/2021 9:10 EST Discharge Needs I Anticipated Discharge Date : 03/13/2021 EST Anticipated Discharge To, CM : Home with family care Current Home Treatment/Equipment : Current Home Treatment/Equipment No qualifying data available. Post Acute/Home Treatments : None Documentation Status Complete : Yes DERREK MASTERS RN-Plateman - 03/11/2021 9:10 EST Discharge Needs II Professional Skilled Services : Professional Skilled Services No qualifying data available. Needs Assistance with Transportation : No Patient Discharge Goal : Home DERREK MASTERS RN-Plateman - 03/11/2021 9:10 EST Narrative Note Narrative [...] @ 27. CM will follow. DERREK MASTERS RN-Plateman - 03/11/2021 9:10 EST documented in this encounter Plan of Treatment Not on file documented as of this encounter Visit Diagnoses Not on filedocumented in this encounter
--- OUTSIDE RECORDS SUMMARY | 2025-01-31 10:05 | XMS_ITS | Encounter Summary ---
Author Organization [employer] ([place], [place], [place], [place]) Address [address] [place] [address] Care Team Providers Care Car Ferry Master Name Role Phone Unavailable Primary Care Provider Unavailabl e Encounter Details Date Type Department Care Team (Late st Contact Info) Description 03/11/2021 Transcribed Document [facility] Radiology [address] [place] [address] Trinity Celaya MD [address] [place] [address] Social History Tobacco Use Types Packs/Day [...] None Author: TRINITY CELAYA MD-INT Discharge dictated. #[id number]. documented in this encounter Plan of Treatment Not on file documented as of this encounter Visit Diagnoses Not on filedocumented in this encounter
--- OUTSIDE RECORDS SUMMARY | 2025-01-31 10:05 | XMS_ITS | Encounter Summary ---
Author Organization [employer] ([place], [place], [place], [place]) Address [address] [place] [address] Care Team Providers Care Bale Coverer Name Role Phone Unavailable Primary Care Provider Unavailabl e Encounter Details Date Type Department Care Team (Late st Contact Info) Description 03/10/2021 Transcribed Document [facility] [place] [address] [place] [address] ProviderAlexis MD [address] [place] [address] Social History Tobacco Use Types [...] - Historical ProviderMD - 03/10/2021 6:00 PM ASSEMBLY LOADER Pain Assessment Entered On: 03/10/2021 18:18 EST Performed On: 03/10/2021 17:45 EST by Gianna Branham RN Intervention Information: ketorolac Performed by Gianna Branham RN on 03/10/2021 17:15:00 EST ketorolac,15mg IV Push,Left Lower Forearm Pain Assessment Pain Assessment : Follow-up assessment Gianna Branham RN - 03/10/2021 18:18 EST Electronically signed by Wei [facility] Conversion Replenishment Merchandising Associate Cerner at 08/19/2022 5:59 PM CDT documented in this encounter Plan of Treatment Not on file documented as of this encounter Visit Diagnoses Not on filedocumented in this encounter
--- OUTSIDE RECORDS SUMMARY | 2025-01-31 10:05 | XMS_ITS | Encounter Summary ---
Author Organization [employer] ([place], [place], [place], [place]) Address [address] [place] [address] Care Team Providers Care Burglar Alarm Installer Name Role Phone Unavailable Primary Care Provider Unavailabl e Encounter Details Date Type Department Care Team (Late st Contact Info) Description 03/10/2021 Transcribed Document [facility] [place] [address] [place] [address] Social History Tobacco Use Types [...] Alexis Livingston MD - 03/10/2021 6:10 PM BOARD MEMBER Patient: DAYANA BONILLA Age: 60 Years Sex: Female : 1960 Chief Complaint Abdominal pain Primary Care Provider ARMANDO OWENS MD-[facility] History of Present Illness This is [...] 03/10/21 14:33:00 EST, Full Code, Continuous Order documented in this encounter Plan of Treatment Not on file documented as of this encounter Visit Diagnoses Not on filedocumented in this encounter
--- OUTSIDE RECORDS SUMMARY | 2025-01-31 10:05 | XMS_ITS | Encounter Summary ---
Author Organization [employer] ([place], [place], [place], [place]) Address [address] [place] [address] Care Team Providers Care Car Parker Name Role Phone Unavailable Primary Care Provider Unavailabl e Encounter Details Date Type Department Care Team (Late st Contact Info) Description 03/11/[address] [facility] [place] [address] [place] [address] ProviderAlexis MD [address] [place] [address] Social History Tobacco Use Types [...] - Historical ProviderMD - 03/11/2021 5:00 AM HUMAN RESOURCES DESIGNATE Chart Check - Review Order Profile Entered On: 03/11/2021 4:46 EST Performed On: 03/11/2021 5:00 EST by Krys Meyer Lpn Chart Check Powerplans Initiated/Discontinued as Appropriate : Yes All Active Orders Reviewed : Yes Krys Meyer Lpn - 03/11/2021 4:46 EST Electronically signed by Wei [facility] Conversion Equipment Installer Cerner at 08/19/2022 6:00 PM CDT documented in this encounter Plan of Treatment Not on file documented as of this encounter Visit Diagnoses Not on filedocumented in this encounter
--- OUTSIDE RECORDS SUMMARY | 2025-01-31 10:05 | XMS_ITS | Encounter Summary ---
Author Organization [employer] ([place], [place], [place], [place]) Address [address] [place] [address] Care Team Providers Care Program Director/Music Director Name Role Phone Unavailable Primary Care Provider Unavailabl e Encounter Details Date Type Department Care Team (Late st Contact Info) Description 03/10/2021 Transcribed Document [facility] [place] [address] [place] [address] ProviderAlexis MD [address] [place] [address] Social History Tobacco Use Types [...] - Historical ProviderMD - 03/10/2021 2:33 PM MANHOLE STRIPPER Consult Phone Call Documentation Entered On: 03/10/2021 16:27 EST Performed On: 03/10/2021 14:33 EST by Elodia Buck Patient Supervising Film Or Videotape Editor Heladio Phone Call for Consults Consult Phone Call/Page Attempt : First call Consult Reason : assumption of care and medical management Physician Requesting Consult : ARMANDO ZAVALA MD-PRO Physician Covering for Consult : VALERIA LOPEZ MD-INT Date and Time Call Returned : 03/10/2021 16:27 EST Elodia Buck Patient Supervising Film Or Videotape Editor I - 03/10/2021 16:27 EST documented in this encounter Plan of Treatment Not on file documented as of this encounter Visit Diagnoses Not on filedocumented in this encounter
--- OUTSIDE RECORDS SUMMARY | 2025-01-31 10:05 | XMS_ITS | Encounter Summary ---
Author Organization [employer] ([place], [place], [place], [place]) Address [address] [place] [address] Care Team Providers Care Hedge Fund Trader Name Role Phone Unavailable Primary Care Provider Unavailabl e Encounter Details Date Type Department Care Team (Late st Contact Info) Description 03/11/2021 Transcribed Document [facility] [place] [address] [place] [address] ProviderAlexis MD [facility] [place] [address] Social History Tobacco Use Types [...] - Historical ProviderMD - 03/11/2021 12:00 AM RESTAURANT EXPEDITOR Pain Assessment Entered On: 03/11/2021 0:03 EST [...]
--- OUTSIDE RECORDS SUMMARY | 2025-01-31 10:05 | XMS_ITS | Referral Summary ---
Author Organization [employer] ([place], [place], [place], [place]) Address [address] [place] [address] Care Team Providers Care Computer Technology Instructor Name Role Phone Unavailable Primary Care [...] Date Pelon rded Speak language other than Yoruba at home Not on file 05/19/2023 Want [...]
--- OUTSIDE RECORDS SUMMARY | 2025-01-31 10:05 | XMS_ITS | Encounter Summary ---
Author Organization [employer] ([place], [place], [place], [place]) Address [address] [place] [address] Care Team Providers Care Coppersmith Helper Name Role Phone Unavailable Primary Care Provider Unavailabl e Encounter Details Date Type Department Care Team (Late st Contact Info) Description 03/10/2021 Transcribed Document [facility] [place] [address] [place] [address] ProviderAlexis MD [address] [place] [address] Social History Tobacco Use Types [...] - Alexis ProviderMD - 03/10/2021 6:00 PM ASSISTANT PROFESSOR NURSE EDUCATION Pain Assessment Entered On: 03/10/2021 18:18 EST [...]
--- OUTSIDE RECORDS SUMMARY | 2025-01-31 10:05 | XMS_ITS | Encounter Summary ---
Author Organization [employer] ([place], [place], [place], [place]) Address [address] [place] [address] Care Team Providers Care Strip Cutter Name Role Phone Unavailable Primary Care Provider Unavailabl e Encounter Details Date Type Department Care Team (Late st Contact Info) Description 03/11/2021 Transcribed Document [facility] [place] [address] [place] [address] [place]is [place] [address] Social History Tobacco Use Types [...] - Alexis ProviderMD - 03/11/2021 12:00 PM SPEEDER HAND Pain Assessment Entered On: 03/11/2021 14:43 EST [...] form. Electronically signed by Sandor Carvajal Conversion Wire Preparation Machine Tender Cerner at 08/19/2022 5:58 PM CDT documented in this encounter Plan of Treatment Not on file documented as of this encounter Visit Diagnoses Not on filedocumented in this encounter
--- OUTSIDE RECORDS SUMMARY | 2025-01-31 10:05 | XMS_ITS | Encounter Summary ---
Author Organization [employer] ([place], [place], [place], [place]) Address [address] [place] [address] Care Team Providers Care Promotions Executive Producer Name Role Phone Unavailable Primary Care Provider Unavailabl e Encounter Details Date Type Department Care Team (Late st Contact Info) Description 03/10/2021 Transcribed Document [facility] [place] Family Medicine [place] [address] ProviderAlexis MD [place] [address] Social History Tobacco Use Types [...] Alexis Livingston MD - 03/10/2021 12:13 PM KILN CAR UNLOADER [facility] Main OR IntraOp Summary Primary Physician: ARMANDO ZAVALA MD-PRO Finalized Date/Time: 03/12/21 13:01:41 Pt. Name: DAYANA BNOILLA/Sex: 1960 Female Med Rec #: [id number] Physician: ARMANDO ZAVALA MD-PRO Financial #: [id number] Pt. Type: I Room/Bed: [facility]/ Admit/Disch: 03/10/21 16:14:00 - 03/11/21 14:54:00 Institution: [facility] IntraOp Case Attendance Entry 1 Entry 2 Entry 3 Case Attendee ARMANDO ZAVALA MD-PRO Noemi Saucedo Lewis, Robin A RN-PATIENT CARE BEDSIDE Water Purifier Operator NON-EXEMPT Role Performed Surgeon/Proceduralist, Quality Improvement Coordinator, Second Scrub, First First Time In 03/10/21 [...] ST Pantano, Scott, SUNIL Role Performed Scrub, Manufacturing Technician, First Quality Improvement Coordinator, First Time In 03/10/21 11:41:00 03/10/21 11:41:00 [...] LOBO MURRAY, BAKARI COOPER, BRYAN Role Performed STOCKROOM KEEPER/Nurse Transplant Nurse Practitioner Other Time In 03/10/21 11:41:00 03/10/21 11:41:00 Time Out 03/10/21 14:46:00 03/10/21 14:46:00 Procedure Colon Resection Low Colon Resection Low Anterior Robotic Anterior Robotic Other Attendee Superficial Wound Closed By: Last Modified By: Moustapha Hernadez, Moustapha Gan, SUNIL 03/10/21 14:47:28 03/10/21 14:47:28 [facility] IntraOp Case Attendance Audit 03/10/21 14:47:28 Cut Off Saw Operator Metal: [id number] Modifier: JENNIFER 1 <+> Time Out 1 [...] Colon Resection Low Anterior Robotic 03/10/21 13:15:42 Cut Off Saw Operator Metal: [id number] Modifier: [id number] <+> Time Out 2 <*> Procedure Colon Resection Low Anterior Robotic 03/10/21 12:28:02 Cut Off Saw Operator Metal: [id number] Modifier: [id number] <+> 1 Procedure 2 <*> Procedure Colon Resection Low Anterior Robotic 3 <*> Procedure Colon Resection Low Anterior Robotic 4 <*> Procedure Colon Resection Low Anterior Robotic 5 <*> Procedure Colon Resection Low Anterior Robotic 6 <*> Procedure Colon Resection Low Anterior Robotic 7 <*> Procedure Colon Resection Low Anterior Robotic 8 <*> Procedure Colon Resection Low Anterior Robotic 03/10/21 12:20:54 Cut Off Saw Operator Metal: [id number] Modifier: [id number] <*> Procedure Colon Resection Low Anterior Robotic 3 <*> Procedure Colon Resection Low Anterior Robotic 4 <*> Procedure Colon Resection Low Anterior Robotic 5 <*> Procedure Colon Resection Low Anterior Robotic 6 <*> Procedure Colon Resection Low Anterior Robotic 7 <*> Procedure Colon Resection Low Anterior Robotic 8 <+> Time In 8 <*> Procedure Colon Resection Low Anterior Robotic 03/10/21 12:13:14 Cut Off Saw Operator Metal: [id number] Modifier: [id number] <+> 1 Time In 2 <+> Time [...] Role Performed <+> 8 Procedure 03/10/21 11:23:24 Cut Off Saw Operator Metal: [id number] Modifier: [id number] <+> 7 Case Attendee <+> 7 Role Performed <+> 7 Procedure [facility] IntraOp Case Times Entry 1 Patient In Room Time 03/10/21 11:41:00 Out Room Time 03/10/21 14:46:00 Anesthesia Start Time 03/10/21 11:41:00 Stop Time 03/10/21 14:46:00 Surgery / Procedure Times Start Time 03/10/21 12:13:00 Stop Time 03/10/21 14:35:00 Last Modified By: Moustapha Hernadez RN 03/10/21 14:46:30 [facility] IntraOp Case Times Audit 03/10/21 14:46:42 Cut Off Saw Operator Metal: PANTANOS Modifier: PANTANOS <+> 1 Out Room Time <+> 1 Stop Time 03/10/21 14:46:30 Cut Off Saw Operator Metal: [id number] Modifier: PANTANOS <+> 1 Stop Time 03/10/21 12:57:52 Cut Off Saw Operator Metal: [id number] Modifier: [id number] <+> 1 Start Time [facility] IntraOp Cautery Entry 1 ESU Identification Cautery Type Monopolar ESU ID Number [id number] ID Type Hospital Number Cautery Settings Cut [...] Saucedo RN-PATIENT CARE BEDSIDE NON-EXEMPT 03/10/21 11:22:43 [facility] IntraOp Communication Entry 1 Communication To Family/Significant other Communication By Noemi Saucedo RN-PATIENT CARE BEDSIDE NON-EXEMPT Date and Time 03/10/21 12:14:00 Last Modified By: Noemi Saucedo RN-PATIENT CARE BEDSIDE NON-EXEMPT 03/10/21 12:14:41 [facility] IntraOp Counts Verification Entry 1 Procedure Colon Resection Low Anterior Robotic Count Info Count Type Sponge, Sharps, Instrument, Miscellaneous Counts Verification Baseline/pre-procedure Sequence Counts Performed By Count Performed By NICHOLE ROBERTS (Scrub) Count Performed By Noemi Saucedo (RN) RN-PATIENT CARE BEDSIDE NON-EXEMPT Last Modified By: Noemi Saucedo RN-PATIENT CARE BEDSIDE NON-EXEMPT 03/10/21 11:22:13 [facility] IntraOp Counts Final Entry 1 Procedure Colon Resection Low Anterior Robotic Final Count Info Count Type Sponge, Sharps, Miscellaneous Counts Verification Skin Closure/end of Sequence procedure Count Results Correct, surgeon notified Counts Performed By Count Performed By Claus Casanova (Scrub) Water Purifier Operator Count Performed By Moustapha Hernadez, RN (RN) Last Modified By: Noemi Saucedo RN-PATIENT CARE BEDSIDE NON-EXEMPT 03/10/21 12:14:28 [facility] IntraOp Counts Final Audit 03/10/21 14:18:29 Cut Off Saw Operator Metal: [id number] Modifier: ROSARaz eJffery <*> Procedure Colon Resection Low Anterior Robotic [facility] IntraOp Cultures and Spec Summary Entry 1 Cultrures and Specimens Specimen Ordered: Yes Test(s) Routine/Path-Lab Requested/Final Disposition Last Modified By: Noemi Saucedo RN-PATIENT CARE BEDSIDE NON-EXEMPT 03/10/21 12:14:08 [facility] IntraOp Departure from OR Entry 1 Integumentary Assessment Integumentary WDL with patient Assessment WDL specific variances Patient's Normal Surgical incisions = Integumentary abdomen Variance(s) Transfer/Handoff Transfer to PACU Phase I Handoff Method Phone call Post-op Transport Stretcher/Gurney Via Patient Transport LOBO MURRAY NA, Accompanied by Vazquez Lisa ST Last Modified By: Noemi Saucedo RN-PATIENT CARE BEDSIDE NON-EXEMPT 03/10/21 12:14:56 [facility] IntraOp Dressing and Packing Entry 1 Type Dressing Location Abdomen Wound Dressing Item Skin Closure Glue Applied By Vazquez Lisa ST Other Comments Dermabond Prineo Last Modified By: Noemi Saucedo RN-PATIENT CARE BEDSIDE NON-EXEMPT 03/10/21 12:14:49 [facility] IntraOp Fire Risk Assessment Entry 1 Fire Info Surgical Site or 0- No Incision Above the Xyphoid Open O2 Source 0- No (Mask or Cannula) Available Ignition 1- Yes (ESU, Laser, Light Source) Fire Risk 1 Assessment Score Fire Score Fire Risk Yes Assessment Complete Fire Risk Moustapha Hernadez, clam shovel operator Verified By Fire Risk 03/10/21 12:11:00 Assessment Verified Date/Time Fire Risk Standard Fire Yes Safety Precautions Followed Last Modified By: Noemi Saucedo RN-PATIENT CARE BEDSIDE NON-EXEMPT 03/10/21 12:11:14 [facility] IntraOp General Case Head Of Loss Prevention 1 Case Information OR OR 12 [facility] Case Level 1 Room Verified Yes Wound Class 2 - Clean-Contaminated Specialty Colorectal Anesthesia Type General ASA Class 2 Diagnosis Preop Diagnosis DIVERTICULITIS Postop Same As Preop Yes Postop Diagnosis DIVERTICULITIS Wound Class Definitions Last Modified By: Noemi Saucedo RN-PATIENT CARE BEDSIDE NON-EXEMPT 03/10/21 12:13:50 [facility] IntraOp General Case Data Audit 03/10/21 12:13:50 Cut Off Saw Operator Metal: [id number] Modifier: [id number] <+> 1 Specialty <+> 1 ASA Class <+> 1 Wound Class <+> 1 Anesthesia Type <+> 1 Postop Same As Preop <+> 1 Preop Diagnosis <+> 1 Postop Diagnosis <+> 1 Room Verified [facility] IntraOp Intraoperative Assessment Entry 1 Handoff Method [...] Saucedo RN-PATIENT CARE BEDSIDE NON-EXEMPT 03/10/21 12:15:08 [facility] IntraOp Intraoperative Equipment Entry 1 Type Monitoring Equipment Equipment Kurtis Suction System Intraop Monitoring Electrocardiogram Three lead placement (ECG) Electrode Placement Blood Pressure Non-Invasive BP Device Source Antiembolic Devices Scopes Photo/Video Documentation Photo No Video No Intraop Equipment Heparin 5000 units SC Comment administered in preoperative area. Last Modified By: Noemi Saucedo RN-PATIENT CARE BEDSIDE NON-EXEMPT 03/10/21 12:14:03 [facility] IntraOp Medication Admin Entry 1 Medication/Irrigant INDOCYANINE GREEN 25MG/VIAL Dose Dose 10 Unit of Measure ml Administered By LOBO MURRAY NA Procedure Irrigation Last Modified By: Noemi Saucedo RN-PATIENT CARE BEDSIDE NON-EXEMPT 03/10/21 12:16:29 [facility] IntraOp Patient Positioning Entry 1 Procedure Colon [...] Saucedo RN-PATIENT CARE BEDSIDE NON-EXEMPT 03/10/21 12:20:44 [facility] IntraOp Sign In Entry 1 Patient, Site, [...] Saucedo RN-PATIENT CARE BEDSIDE NON-EXEMPT 03/10/21 12:20:52 [facility] IntraOp Sign Out Entry 1 RN Confirmation [...] Modified By: Moustapha Hernadez RN 03/10/21 14:47:26 [facility] IntraOp Sign Out Audit 03/10/21 14:47:26 Cut Off Saw Operator Metal: JENNIFER Modifier: PANTANOS <+> 1 Wound classification reviewed, verified and updated post case in both the General Case Data and Procedure segments 03/10/21 14:47:16 Cut Off Saw Operator Metal: [id number] Modifier: PANTANOS <+> 1 RN Sign Out Signature Date/Time [facility] IntraOp Skin Prep Entry 1 Procedure Colon Resection Low Anterior Robotic Prescribed Yes Pre-Surgical Prep Completed Prep Area Abdomen/KAYLEIGH ANAL/GENTINAL Intraop Prep Integumentary WDL Assessment WDL Prep Agents Chloraprep, Betadine scrub, Betadine solution Prep by Moustapha Hernadez RN Hair Removal Last Modified By: Noemi Saucedo RN-PATIENT CARE BEDSIDE NON-EXEMPT 03/10/21 12:13:59 [facility] IntraOp Surgical Procedures Entry 1 Procedure Colon Resection Low Anterior Robotic Additional (ROBOTIC LOW ANTERIOR Procedure COLON RESECTION) Description Primary Procedure Yes Primary Surgeon ARMANDO ZAVALA MD-PRO Start 03/10/21 12:13:00 Stop 03/10/21 14:35:00 Anesthesia Type General Specialty Colorectal Wound Class 2 - Clean-Contaminated Last Modified By: Noemi Saucedo RN-PATIENT CARE BEDSIDE NON-EXEMPT 03/10/21 12:28:02 [facility] IntraOp Surgical Procedures Audit 03/10/21 14:46:33 Cut Off Saw Operator Metal: [id number] Modifier: PANTANOS <+> 1 Start <+> 1 Stop [facility] IntraOp Temp Regulation Devices Entry 1 Temp Regulation Temperature Forced Air Warming Regulation Device device, Warm blankets, Room temperature Temperature Upper body Regulation Site Temperature LOBO MURRAY, MARILIA Regulation Device Applied by Temperature Patient's temperature Regulation Comment and forced air warming device settings monitored by anesthesia provider. Last Modified By: Noemi Saucedo RN-PATIENT CARE BEDSIDE NON-EXEMPT 03/10/21 12:20:58 [facility] IntraOP Time Out Entry 1 Procedure to [...] By: ASHLIE MONTANA Document Signatures Signed By: Moutsapha Hernadez RN 03/10/21 14:47 ASHLIE MONTANA 03/12/21 13:01 Unfinalized History Date/Time Username Reason for Unfinalizing Freetext Reason for Unfinalizing 03/12/21 13:00 WATTSDR Correct Billing Electronically signed by Celestino Carvajal Conversion Reservations And Ticketing Agent Cerner at 08/19/2022 6:01 PM CDT documented in this encounter Plan of Treatment Not on file documented as of this encounter Visit Diagnoses Not on filedocumented in this encounter
--- OUTSIDE RECORDS SUMMARY | 2025-01-31 10:05 | XMS_ITS | Encounter Summary ---
Author Organization [employer] ([place], [place], [place], [place]) Address [address] [place] [address] Care Team Providers Care Towel Rolling Machine Operator Name Role Phone Unavailable Primary Care Provider Unavailabl e Encounter Details Date Type Department Care Team (Late st Contact Info) Description 03/11/2021 Transcribed Document [facility] [place] Family Medicine [address] [place] [address] ProviderAlexis MD [address] [place] [address] Social History Tobacco Use Types [...] Alexis Livingston MD - 03/11/2021 1:28 PM APARTMENT RENTAL AGENT Patient Education Materials Follows: Minimally Invasive Total [...] these instructions at home: Medicines ??? Take sobj-lpb-jisobzj and prescription medicines only as told by [...] and water are not available, use hand national opelint analyst. ? Change your dressing as told by [...] provider. Document Revised: 03/25/2020 Document Reviewed: 03/25/2020 [employer] Patient Education ? 2020 [employer] Low Residue Diet A low residue [...] than 7-10 grams of fiber per day. rodent exterminator use of this diet may not provide [...] are treated at home by: ??? Taking uylp-mmz-dwdqgxl pain medicines. ??? Following a clear liquid [...] these instructions at home: Medicines ??? Take uxjd-xcu-dzxznvp and prescription medicines only as told by [...] provider. Document Revised: 01/27/2020 Document Reviewed: 01/27/2020 [employer] Patient Education ? 2020 [employer] Low-Fiber Eating Plan Fiber is found [...] that you work with a diet and photogrammetric compilation specialist (dietitian). What are tips for following [...] made with white flour. Waffles, pancakes, and Lao toast. Bagels. Pretzels. Yale toast, zwieback, and matzoh. Cooked and dried cereals that do not contain whole grains, added fiber, seeds, or dried fruit. Cornmeal. [place]. Hot and cold cereals made with refined [...] Sports drinks. Herbal tea. Fats and oils [place] oil, canola oil, sunflower oil, flaxseed oil, [...] breads and crackers. Multigrain breads and crackers. Pegram bread. Whole grain or multigrain cereals. Cereals with nuts, raisins, or coconut. Bran. Coarse wheat cereals. Granola. High-fiber cereals. Cornmeal or corn bread. Whole grain pasta. Wild or brown rice. Quinoa. Popcorn. Buckwheat. Wheat germ. Vegetables Potato skins. Raw or undercooked vegetables. All beans and reyes sprouts. Cooked greens. [place]. Peas. Cabbage. Beets. Broccoli. [place] sprouts. Cauliflower. Mushrooms. Onions. Peppers. Parsnips. Okra. [...] are not allowed. Seasoning and other foods Hudson tortilla chips. Soups made with vegetables or [...] Reviewed: 06/20/2017 Else[employer] Patient Education ? 2020 [employer] documented in this encounter Plan of Treatment Not on file documented as of this encounter Visit Diagnoses Not on filedocumented in this encounter
--- OUTSIDE RECORDS SUMMARY | 2025-01-31 10:05 | XMS_ITS | Encounter Summary ---
Author Organization [employer] ([place], [place], [place], [place]) Address [address] [place] [address] Care Team Providers Care Regional Program Manager Name Role Phone Unavailable Primary Care Provider Unavailabl e Encounter Details Date Type Department Care Team (Late st Contact Info) Description 03/11/2021 Transcribed Document [facility] [place] Family Medicine [facility] [place] [address] ProviderAlexis MD [facility] [place] [address] Social History Tobacco Use Types [...] Alexis Livingston MD - 03/11/2021 1:36 PM MANAGER BRANCH [facility] [place] [address] DAYANA BONILLA :1960 Visit Time:03/10/2021 Your [...] Bring discharge instructions with you. Where: [address] [place] [address]- Follow Up with ARMANDO ZAVALA MD-PRO When 03/18/2021 02:00 PM EST Comments Colorectal Surgical follow up Appointment has been made. Bring discharge instructions with you. Where: [address] [facility] [address] [place] [address]- Medications What How Much When Instructions Next Dose acetaminophen (acetaminophen 500 mg oral tablet) 2 Tablet(s) Oral Two Times A Day Duration: 5 Day(s) not to exceed 3000 mg/ day this evening acetaminophen-oxyCODONE (Percocet 5 mg-325 mg oral tablet) 1 Tablet(s) Oral Every 6 Hours as needed for as needed for pain Pickup at [facility] as needed baclofen (baclofen [...] Oral At Bedtime at bedtime Pharmacy Information [facility]: [address] [address] [phone] Take your medications faithfully. Do NOT skip [...] are treated at home by: ??? Taking mgfv-pni-vzbliqg pain medicines. ??? Following a clear liquid [...] these instructions at home: Medicines ??? Take updx-fhl-pezudql and prescription medicines only as told by [...] provider. Document Revised: 01/27/2020 Document Reviewed: 01/27/2020 [employer] Patient Education ?? 2020 [employer] Minimally Invasive Total Colectomy, Care After [...] these instructions at home: Medicines ??? Take trau-pre-ulltper and prescription medicines only as told by [...] and water are not available, use hand automobile damage field appraiser. ? Change your dressing as told by [...] provider. Document Revised: 03/25/2020 Document Reviewed: 03/25/2020 [employer] Patient Education ?? 2020 [employer] Low Residue Diet A low residue [...] than 7-10 grams of fiber per day. terminal system operator use of this diet may not provide [...] that you work with a diet and child nutrition assistant (dietitian). What are tips for following this [...] made with white flour. Waffles, pancakes, and Polish toast. Bagels. Pretzels. Elvia toast, zwieback, and matzoh. Cooked and dried cereals that do not contain whole grains, added fiber, seeds, or dried fruit. Cornmeal. [place]. Hot and cold cereals made with refined [...] Sports drinks. Herbal tea. Fats and oils Teaberry oil, canola oil, sunflower oil, flaxseed oil, [...] breads and crackers. Multigrain breads and crackers. Bath bread. Whole grain or multigrain cereals. Cereals with nuts, raisins, or coconut. Bran. Coarse wheat cereals. Granola. High-fiber cereals. Cornmeal or corn bread. Whole grain pasta. Wild or brown rice. Quinoa. Popcorn. Buckwheat. Wheat germ. Vegetables Potato skins. Raw or undercooked vegetables. All beans and reyes sprouts. Cooked greens. [place]. Peas. Cabbage. Beets. Broccoli. Temple sprouts. Cauliflower. Mushrooms. Onions. Peppers. Parsnips. Okra. [...] are not allowed. Seasoning and other foods [place] tortilla chips. Soups made with vegetables or [...] provider. Document Revised: 08/09/2019 Document Reviewed: 06/20/2017 [employer] Patient Education ?? 2020 [employer]. acetaminophen and oxycodone (a SEET a [...] may report side effects to FDA at 0-059-YFS-9334. What other drugs will affect acetaminophen and [...] affect acetaminophen and oxycodone, including prescription and uhyw-rsf-fykbipv medicines, vitamins, and herbal products. Not all [...] to ensure that the information provided by [employer]. ('[employer]') is accurate, up-to-date, and complete, but no guarantee is made to that effect. Drug information contained herein may be time sensitive. [employer] information has been compiled for use by healthcare practitioners and consumers in the [place] and therefore [employer] does not warrant that uses outside of the [place] are appropriate, unless specifically indicated otherwise. [employer] drug information does not endorse drugs, diagnose patients or recommend therapy. [employer] drug information is an informational resource designed [...] effective or appropriate for any given patient. [employer] does not assume any responsibility for any aspect of healthcare administered with the aid of information [employer] provides. The information contained herein is not intended to cover all possible uses, directions, precautions, warnings, drug interactions, allergic reactions, or adverse effects. If you have questions about the drugs you are taking, check with your doctor, nurse or pharmacist. Copyright 8862-8805 [employer]. Version: .. Revision Date: 06/05/2020. acetaminophen (oral) (a SEET a MIN oh fen) Actamin, Anacin AF, Aurophen, Bromo Weston, Children's Tylenol, Mapap, M-Pap, Pharbetol, Silapap Childrens, [...] may report side effects to FDA at 4-807-HZH-0867. What other drugs will affect acetaminophen? Other drugs may affect acetaminophen, including prescription and xics-ldu-dmyfqsu medicines, vitamins, and herbal products. Tell your [...] to ensure that the information provided by [employer]. ('[employer]') is accurate, up-to-date, and complete, but no guarantee is made to that effect. Drug information contained herein may be time sensitive. [employer] information has been compiled for use by healthcare practitioners and consumers in the [place] and therefore [employer] does not warrant that uses outside of the [place] are appropriate, unless specifically indicated otherwise. [employer] drug information does not endorse drugs, diagnose patients or recommend therapy. [employer] drug information is an informational resource designed [...] effective or appropriate for any given patient. [employer] does not assume any responsibility for any aspect of healthcare administered with the aid of information [employer] provides. The information contained herein is not intended to cover all possible uses, directions, precautions, warnings, drug interactions, allergic reactions, or adverse effects. If you have questions about the drugs you are taking, check with your doctor, nurse or pharmacist. Copyright 3830-3011 [employer]. Version: 22.01. Revision Date: 02/02/2021. Emergency Awareness [...] Assistance with quitting is available by contacting 4-229-FGCDNOW. This is a free resource providing counseling, [...] range between ( 0.0 and 7.0 ) Ralls #: 0.41 K/uL -- Normal range between ( 0.16 and 1.00 ) Eos #: 0.00 x10(3)/uL -- Normal range between ( 0.00 and 0.80 ) Ralls %: 3.3 % -- Normal range between [...] was given the opportunity to ask questions. Patient/Social Security Assessor Name: Patient/Social Security Assessor Signature: Relationship to Patient: Clinician/Hospital Social Security Assessor Signature: Date: documented in this encounter Plan of Treatment Not on file documented as of this encounter Visit Diagnoses Not on filedocumented in this encounter
--- OUTSIDE RECORDS SUMMARY | 2025-01-31 10:05 | XMS_ITS | Encounter Summary ---
Author Organization [employer] ([place], [place], [place], [place]) Address [address] [place] [address] Care Team Providers Care Flight Superintendent Name Role Phone Unavailable Primary Care Provider Unavailabl e Encounter Details Date Type Department Care Team (Late st Contact Info) Description 03/11/2021 Transcribed Document [facility] [place] [facility] [place] [address] ProviderAlexis MD [facility] [place] [address] Social History Tobacco Use Types [...] - Historical ProviderMD - 03/11/2021 12:00 AM OPERATIONS ADMINISTRATIVE ASSISTANT Pain Assessment Entered On: 03/11/2021 1:05 EST Performed On: 03/11/2021 0:48 EST by Krys Meeyr Lpn Intervention Information: acetaminophen Performed by Krys [...] form. Electronically signed by Sandor Carvajal Conversion Clay Products Machine Operator Cerner at 08/19/2022 6:06 PM CDT documented in this encounter Plan of Treatment Not on file documented as of this encounter Visit Diagnoses Not on filedocumented in this encounter
--- OUTSIDE RECORDS SUMMARY | 2025-01-31 10:05 | XMS_ITS | Encounter Summary ---
Author Organization [employer] ([place], [place], [place], [place]) Address [address] [place] [address] Care Team Providers Care Local Company Truck Driver Name Role Phone Unavailable Primary Care Provider Unavailabl e Encounter Details Date Type Department Care Team (Late st Contact Info) Description 03/11/2021 Transcribed Document [facility] Family Medicine [address] [place] [address] ProviderAlexis MD [address] [place] [address] Social History Tobacco Use Types [...] - Historical ProviderMD - 03/11/2021 2:00 AM PARKS AND RECREATION WORKER Home Care Attendant Details Entered On: 03/11/2021 1:06 EST [...] EST Electronically signed by Sandor Carvajal Conversion Application Security Architect Aysha at 08/19/2022 6:18 PM CDT documented in this encounter Plan of Treatment Not on file documented as of this encounter Visit Diagnoses Not on filedocumented in this encounter
--- OUTSIDE RECORDS SUMMARY | 2025-01-31 10:05 | XMS_ITS | Encounter Summary ---
Author Organization [employer] ([place], [place], [place], [place]) Address [address] [place] [address] Care Team Providers Care Radio Intelligence Operator Name Role Phone Unavailable Primary Care Provider Unavailabl e Encounter Details Date Type Department Care Team (Late st Contact Info) Description 03/10/2021 Transcribed Document [facility] [place] Family Medicine [facility] [place] [address] ProviderAlexis MD [facility] [place] [address] Social History Tobacco Use Types [...] - Alexis ProviderMD - 03/10/2021 11:41 AM CUSTOM MOTORCYCLE PAINTER Admission History, Adult Entered On: 03/10/2021 16:32 [...] Mode : Verbal Communication Barrier : None Schedule Checker Needed : No Objects to Sharing Info [...] Scale Risk Level : 25-45 Medium Risk [place] Fall Interventions : Adequate lighting, Assistive devices [...] Source : Measured Height Entry Format : [place] Height, Feet : 0 ft(Converted to: 0 cm, 0 Inch) Height, Inches : 63 Inch(Converted to: 5 ft 3 Inch, 160.02 cm) Clinical Height : 160.02 cm Weight Source : Standing scale Weight Entry Format : [place] Clinical Dosing Weight : 83.64 kg Weight, Pounds : 184 lb Body Surface Area (BSA) : 1.87 m2 Body Mass Index : 32.7 kg/m2 (HI) [place] Body Weight : 52 kg PRETTY MAHER [...] Patient Needs Meds Crushed/Liquid : No PRETTY MAHRE RN - 03/10/2021 16:28 EST Nutrition History Food Dislikes : corn Eating Poorly Due to Decreased Appetite : No Unplanned Weight Loss in Past 3-6 Months : No Malnutrition Screening Tool Total(mal) : 0 Malnutrition Screening Tool Risk Level : Patient not at risk PRETTY MAHER RN - 03/10/2021 16:28 EST [place] Suicide Severity Rating Scale (C-SSRS) CSSRS Past [...] Glasses Personal Items : Cell phone, Other: sales representative electric service Personal Items Disposition : Bedside PRETTY MAHER RN - 03/10/2021 16:28 EST documented in this encounter Plan of Treatment Not on file documented as of this encounter Visit Diagnoses Not on filedocumented in this encounter
--- OUTSIDE RECORDS SUMMARY | 2025-01-31 10:05 | XMS_ITS | Encounter Summary ---
Author Organization [employer] ([place], [place], [place], [place]) Address [address] [place] [address] Care Team Providers Care Billet Heater Operator Name Role Phone Unavailable Primary Care Provider Unavailabl e Encounter Details Date Type Department Care Team (Late st Contact Info) Description 03/10/2021 Transcribed Document [facility] [place] Family Medicine [facility] [place] [address] ProviderAlexis MD [facility] [place] [address] Social History Tobacco Use Types [...] - Alexis ProviderMD - 03/10/2021 12:13 PM TONG SETTER [facility] Main OR PACU Summary Primary Physician: ARMANDO ZAVALA MD- Finalized Date/Time: 03/10/21 16:08:59 Pt. Name: DAYANA BONILLA/Sex: 1960 Female Med Rec #: [id number] Physician: ARMANDO ZAVALA MD-PRO Financial #: [id number] Pt. Type: I Room/Bed: / Admit/Disch: 02/23/21 10:15:00 - Institution: [facility] Main OR PACU I Case Times Entry 1 In PACU I 03/10/21 14:50:00 Ready for PACU 03/10/21 16:05:00 Discharge Discharge from PACU 03/10/21 16:05:00 I Last Modified By: MISAEL AHUMADA RN 03/10/21 16:08:40 Finalized By: BRANDYN, MISAEL, RN Document Signatures Signed By: MISAEL AHUMADA RN 03/10/21 16:08 Electronically signed by Wei [facility] Conversion Vest Presser Cerner at 08/19/2022 6:05 PM CDT documented in this encounter Plan of Treatment Not on file documented as of this encounter Visit Diagnoses Not on filedocumented in this encounter
--- OUTSIDE RECORDS SUMMARY | 2025-01-31 10:05 | XMS_ITS | Encounter Summary ---
Author Organization [employer] ([place], [place], [place], [place]) Address [address] [place] [address] Care Team Providers Care Assembler Convertible Top Name Role Phone Unavailable Primary Care Provider Unavailabl e Encounter Details Date Type Department Care Team (Late st Contact Info) Description 03/11/2021 Transcribed Document [facility] [address] [place] [address] Kiki Celaya MD [address] [place], [place] [id number] Social History Tobacco Use Types Packs/Day Years [...] of the above totals at 30 minutes. /[id number] Kiki Celaya MD VLS/AQ / VLS / MODL /[id number] documented in this encounter Plan of Treatment Not on file documented as of this encounter Visit Diagnoses Not on filedocumented in this encounter
--- OUTSIDE RECORDS SUMMARY | 2025-01-31 10:05 | XMS_ITS | Encounter Summary ---
Author Organization [employer] ([place], [place], [place], [place]) Address [address] [place] [address] Care Team Providers Care Printing Plate Setter Name Role Phone Unavailable Primary Care Provider Unavailabl e Encounter Details Date Type Department Care Team (Late st Contact Info) Description 03/10/2021 Transcribed Document [facility] [place] Family Medicine [address] [place] [address] ProviderAlexis MD [address] [place] [address] Social History Tobacco Use Types [...] - Historical ProviderMD - 03/10/2021 5:00 PM INFORMATION RESOURCES DIRECTOR Chart Check - Review Order Profile Entered On: 03/10/2021 18:18 EST Performed On: 03/10/2021 17:00 EST by Gianna Branham RN Chart Check Powerplans Initiated/Discontinued as Appropriate : Yes All Active Orders Reviewed : Yes Gianna Branham RN - 03/10/2021 18:18 EST Electronically signed by Wei [facility] Conversion Interactive Producer Cerner at 08/19/2022 6:05 PM CDT documented in this encounter Plan of Treatment Not on file documented as of this encounter Visit Diagnoses Not on filedocumented in this encounter
--- OUTSIDE RECORDS SUMMARY | 2025-01-31 10:05 | XMS_ITS | Encounter Summary ---
Author Organization [employer] ([place], [place], [place], [place]) Address [address] [place] [address] Care Team Providers Care Rear Load Truck Driver Name Role Phone Unavailable Primary Care Provider Unavailabl e Encounter Details Date Type Department Care Team (Late st Contact Info) Description 03/11/2021 Transcribed Document [facility] [place] Family Medicine [facility] [place] [address] ProviderAlexis MD [facility] [place] [address] Social History Tobacco Use Types [...] Alexis Livingston MD - 03/11/2021 1:29 PM RPG PROGRAMMER ANALYST Patient Resource Center Entered On: 03/11/2021 13:30 EST Performed On: 03/11/2021 13:29 EST by Angelique Pozo, Dialysis Nurse Patient Resource Center Provider Status : EST Other Established Provider Name : ARMANDO OWENS Patient Phone Number : [phone] Patient Insurance Type : Commercial (ex. [place] PPO, [employer] HMO) Source of Referral : [...] at ED : Other Primary Language : Faroese Patient Resource Center Comment : Patient needs follow up appointments. Called offices and scheduled appointments with Dr. England and Dr. Owens Follow Up Needed : No Angelique Pozo, Dialysis Nurse - 03/11/2021 13:29 EST documented in this encounter Plan of Treatment Not on file documented as of this encounter Visit Diagnoses Not on filedocumented in this encounter
--- OUTSIDE RECORDS SUMMARY | 2025-01-31 10:05 | XMS_ITS | Encounter Summary ---
Author Organization [employer] ([place], [place], [place], [place]) Address [address] [place] [address] Care Team Providers Care Engineering Team Supervisor Name Role Phone Unavailable Primary Care Provider Unavailabl e Encounter Details Date Type Department Care Team (Late st Contact Info) Description 03/10/2021 Transcribed Document [facility] [place] [facility] [place] [address] ProviderAlexis MD [facility] [address] Social History Tobacco Use Types [...] - Alexis ProviderMD - 03/10/2021 9:59 AM LOG CLERK Patient: DAYANA BONILLA Age: 60 years Sex: [...] Problems Anxiety and depression / SNOMED CT 162105107 / Confirmed Hyperlipidemia / SNOMED CT 70809866 / Confirmed Hiatal hernia / SNOMED CT 244436658 / Confirmed Cecal diverticulitis / SNOMED CT 8581968488 / Confirmed Corrosive esophagitis / SNOMED CT 93209225 / Confirmed At risk for sleep apnea / IMO [id number] / Confirmed Arthritis / SNOMED CT 1780983 / Confirmed, Active Problems (7) Anxiety and depression Arthritis At risk for sleep apnea Cecal diverticulitis Corrosive esophagitis Hiatal hernia Hyperlipidemia Histories Past Medical History: No active or resolved past medical history items have been selected or recorded. Family History: No family history items have been selected or recorded. Procedure history: Hysterectomy ([id number]) on 04/01/2001 at 40 Years. Tubal ligation ([id number]). lumpectomy. EGD (esophagogastroduodenoscopy) gastric outlet reduction ([id number]). colonoscopy. Social History Social & Psychosocial Habits [...] of motion, Normal strength. Integumentary: Warm, Dry, [place]. Neurologic: Alert, Oriented. Psychiatric: Cooperative, Appropriate mood [...]
--- OUTSIDE RECORDS SUMMARY | 2025-01-31 10:05 | XMS_ITS | Encounter Summary ---
Author Organization [employer] ([place], [place], [place], [place]) Address [address] [place] [address] Care Team Providers Care Lens Coater Name Role Phone Unavailable Primary Care Provider Unavailabl e Encounter Details Date Type Department Care Team (Late st Contact Info) Description 03/11/2021 Transcribed Document [facility] Family Medicine [address] [place] [address] ProviderAlexis MD [address] [place] [address] Social History Tobacco Use Types [...] - Alexis ProviderMD - 03/11/2021 6:39 AM FURNACE COMBUSTION TESTER Patient: DAYANA BONILLA Age: 60 Years Sex: [...]
--- OUTSIDE RECORDS SUMMARY | 2025-01-31 10:05 | XMS_ITS | Encounter Summary ---
Author Organization [employer] ([place], [place], [place], [place]) Address [address] [place] [address] Care Team Providers Care Adjunct Physics Instructor Name Role Phone Unavailable Primary Care Provider Unavailabl e Encounter Details Date Type Department Care Team (Late st Contact Info) Description 03/11/2021 Transcribed Document [facility] [place] Family Medicine [facility] [place] [address] ProviderAlexis [place] [address] Social History Tobacco Use Types [...] - Alexis ProviderMD - 03/11/2021 12:00 PM AVIATION ELECTRICAL TECHNICIAN Pain Assessment Entered On: 03/11/2021 14:43 EST [...]
--- OUTSIDE RECORDS SUMMARY | 2025-01-31 10:05 | XMS_ITS | Encounter Summary ---
Author Organization [employer] ([place], [place], [place], [place]) Address [address] [place] [address] Care Team Providers Care Cable Lacer Name Role Phone Unavailable Primary Care Provider Unavailabl e Encounter Details Date Type Department Care Team (Late st Contact Info) Description 03/11/2021 Transcribed Document [facility] [place] Family Medicine [facility] [place] [address] ProviderAlexis [place] [address] Social History Tobacco Use [...] Alexis Livingston MD - 03/11/2021 4:12 PM BULB GRADER Final Discharge Planning Entered On: 03/11/2021 16:12 EST Performed On: 03/11/2021 16:12 EST by DERREK MASTERS RN-Hob Mill Operator Final Discharge Planning Discharge Arrangements : Patient [...] : Yes Discharge To Care Management : Home/Residential/[facility] or Self Care - DERREK MASTERS RN-Hob Mill Operator - 03/11/2021 16:12 EST Final Narrative Note Final Narrative Note : Discharged to home, agreeable. No needs. DERREK MASTERS RN-Hob Mill Operator - 03/11/2021 16:12 EST Electronically signed by Wei [facility] Conversion Light Bulb Replacer Cerner at 08/19/2022 6:15 PM CDT documented in this encounter Plan of Treatment Not on file documented as of this encounter Visit Diagnoses Not on filedocumented in this encounter
--- OUTSIDE RECORDS SUMMARY | 2025-01-31 10:05 | XMS_ITS | Clinical Summary ---
Author Organization [employer] ([place], [place], [place], [place]) Address [address] [place] [address] Care Team Providers Care Field Training Agent Name Role Phone Unavailable Primary Care Provider [...] Date Pelon rded Speak language other than Frisian at home Not on file 05/19/2023 Want [...] or Tdap) 02/19/2023 COVID-19 VACCINE (3 - 2024- season) 12/30/202406/2020, 07/08/2020 Influenza Vaccine (#1) 2024 05/18/2017 Respiratory Syncytial Virus (RSV) Adult or (1 - 1-dose 75+ series) 2036
--- OUTSIDE RECORDS SUMMARY | 2025-01-31 10:05 | XMS_ITS | Encounter Summary ---
Author Organization [employer] ([place], [place], [place], [place]) Address [address] [place] [address] Care Team Providers Care Academic Advising Director Name Role Phone Unavailable Primary Care Provider Unavailabl e Encounter Details Date Type Department Care Team (Late st Contact Info) Description 03/10/2021 Transcribed Document [facility] [place] Family Medicine [facility] [place] [address] ProviderAlexis MD [facility] [place] [address] Social History Tobacco Use Types [...] Alexis Livingston MD - 03/10/2021 2:34 PM CONSTRUCTION REPRESENTATIVE Patient: DAYANA BONILLA Age: 60 Years Sex: Female : 1960 CS[place] Pre Op Diagnosis: Diverticulitis, possible appendicitis Post Op Diagnosis: Diverticulitis Procedure: Robotic low anterior resection. Oven Heater: Vazquez Indications: This is a pleasant 60-year-old [...]
--- OUTSIDE RECORDS SUMMARY | 2025-01-31 10:05 | XMS_ITS | Encounter Summary ---
Author Organization [employer] ([place], [place], [place], [place]) Address [address] [place] [address] Care Team Providers Care Warehouse Order Filler Name Role Phone Unavailable Primary Care Provider Unavailabl e Encounter Details Date Type Department Care Team (Late st Contact Info) Description 03/10/2021 Transcribed Document [facility] [place] [facility] [place] [address] ProviderAlexis MD [facility] [place] [address] Social History Tobacco Use Types [...] - Alexis ProviderMD - 03/10/2021 12:13 PM INSURANCE SALES MANAGER [facility] Main OR Preop Summary Primary Physician: ARMANDO ZAVALA MD-PRO Finalized Date/Time: 03/10/21 14:06:34 Pt. Name: DAYANA BONILLA/Sex: 1960 Female Med Rec #: [id number] Physician: ARMANDO ZAVALA MD- Financial #: [id number] Pt. Type: I Room/Bed: / Admit/Disch: 02/23/21 10:15:00 - Institution: [facility] PreOp Case Times Entry 1 In Preop 03/10/21 08:46:00 Ready for Holding n/a Room Patient Ready for 03/10/21 10:29:00 Surgery Patient Out of Preop 03/10/21 11:37:00 Patient Out of n/a Holding Room Last Modified By: Gi Berrios Rn 03/10/21 14:06:33 [facility] PreOp Case Times Audit 03/10/21 14:06:33 Cotton Converter: THERESA Modifier: MFWARD <+> 1 Patient Out of Preop Finalized By: Gi Berrios Rn Document Signatures Signed By: Gi Berrios Rn 03/10/21 14:06 Electronically signed by Wei [facility] Conversion Paper Mill Supervisor Cerner at 08/19/2022 5:58 PM CDT documented in this encounter Plan of Treatment Not on file documented as of this encounter Visit Diagnoses Not on filedocumented in this encounter
--- OUTSIDE RECORDS SUMMARY | 2025-01-31 10:05 | XMS_ITS | Encounter Summary ---
Author Organization [employer] ([place], [place], [place], [place]) Address [address] [place] [address] Care Team Providers Care Storage Management Consultant Name Role Phone Unavailable Primary Care Provider Unavailabl e Encounter Details Date Type Department Care Team (Late st Contact Info) Description 03/15/2021 Transcribed Document [facility] [place] Family Medicine [address] [place] [address] ProviderAlexis MD [address] [place] [address] Social History Tobacco Use Types [...] Alexis Livingston MD - 03/15/2021 3:51 PM CYTOGENETICIST [facility] Authorization Entered On: 03/15/2021 15:51 EST Performed On: 03/15/2021 15:51 EST by Nette Pham, Neurology Teacher Primary Insurance Authorization Authorization and Policy Numbers : Insurance 1 Health Plan: [facility] Policy Number: [id number] Authorization Number: [id number] Insurance Primary Name : [facility] Policy Number: [id number] Authorization Status-Primary : Approved Auth/Referral Contact Name-Primary : [place] Authorization Number-Primary : [id number] Number of Days Authorized-Primary : 4 Day(s) Authorized Service Begin Date-Primary : 03/10/2021 EST Authorized Service End Date-Primary : 03/14/2021 EST Authorization Comments-Primary : Discharge date and summary faxed. Historical Authorization Comments-Primary : Comment 1: IP admit approved from 03/10 to 03/14 per [facility] website (CHRISTIAN ARMENTA RN 03/11/2021 08:09) Nette Pham, Neurology Teacher - 03/15/2021 15:51 EST Electronically signed by Wei [facility] Conversion Industrial Engineering Analyst Cerner at 08/19/2022 6:07 PM CDT documented in this encounter Plan of Treatment Not on file documented as of this encounter Visit Diagnoses Not on filedocumented in this encounter
--- OUTSIDE RECORDS SUMMARY | 2025-01-31 10:05 | XMS_ITS | Encounter Summary ---
Author Organization [employer] ([place], [place], [place], [place]) Address [address] [place] [address] Care Team Providers Care Wedding Day Coordinator Name Role Phone Unavailable Primary Care Provider Unavailabl e Encounter Details Date Type Department Care Team (Late st Contact Info) Description 03/10/2021 Transcribed Document [facility] Family Medicine [facility] [place] [address] ProviderAlexis MD [facility] [place] [address] Social History Tobacco Use Types [...] Alexis Livingston MD - 03/10/2021 10:28 AM CRYPTOGRAPHIC CLERK Peripheral Nerve Block Entered On: 03/10/2021 10:29 [...] - 03/10/2021 10:28 EST Electronically signed by [facility] Conversion Spot Sprayer Cerner at 08/19/2022 6:13 PM CDT documented in this encounter Plan of Treatment Not on file documented as of this encounter Visit Diagnoses Not on filedocumented in this encounter
[2025-01-31 14:34] LABS: Alanine Aminotransferase 20 U/L (12-78); Albumin Level 4.2 g/dl (3.5-5.0); Albumin/Globulin Ratio 1.8 (1.1-1.8); Alkaline Phosphatase 76 U/L (38-126); Anion Gap 15.4 mEq/L (5-15); Aspartate Amino Transferase 31 U/L (14-36); Bilirubin,Total 0.6 mg/dl (0.2-1.3); Blood Urea Nitrogen 18 mg/dl (7-17); Calcium 9.2 mg/dl (8.4-10.2); Carbon Dioxide 27 mmol/L (22.0-30.0); Chloride 98 mmol/L (98-107); Creatinine,Serum 0.80 mg/dl (0.52-1.04); Estimated Glomerular Filt Rate 72 ml/min (>60); GFR (African American) 88 ML/MIN (>60); Globulin 2.4 g/dL (1.3-3.2); Glucose 85 mg/dl (74-100); Potassium 4.4 mmoL/L (3.5-5.1); Sodium 136 mmol/L (136-145); Total Protein,Serum 6.6 g/dl (6.3-8.2)
== END 2025-01-31 23:59 | disposition home or self-care (01) ==
LOC: INF 10:00
PROVIDERS: Internal Medicine; PCP Nurse Practitioner Family; Visit Provider Nurse Practitioner Family
DX: Z00.00 Encounter for general adult medical examination without abnormal findings (principal); E78.5 Hyperlipidemia, unspecified; E87.6 Hypokalemia
CPT/HCPCS: 80053; 96372; J1306

== ENCOUNTER 2025-02-17 07:49 | Outpatient (CLI) | payer OTHER, SELFPAY ==
[2025-02-17 08:08] LABS: Hematocrit 40.0 % (37.0-47.0); Hemoglobin 13.6 g/dL (12.2-16.2); Immature Granulocytes % 0.3 %; Mean Corpuscular HGB Conc 34.0 g/dL (31.8-35.4); Mean Corpuscular Hemoglobin 31.1 pg (27.0-31.2); Mean Corpuscular Volume 91.3 fl (81-99); Nucleated Red Blood Cells % 0 %; Platelet Count 303 K/mm3 (142-424); Red Blood Count 4.38 M/mm3 (4.20-5.40); Red Cell Distribution Width-SD 42.4 fL; White Blood Count 6.1 K/mm3 (4.8-10.8)
--- OUTSIDE RECORDS SUMMARY | 2025-02-17 08:12 | XMS_ITS | Encounter Summary ---
Author Organization [employer] ([place], [place], [place], [place]) Address [address] [place] [address] Care Team Providers Care Oracle Database Analyst Name Role Phone Unavailable Primary Care Provider Unavailabl e Encounter Details Date Type Department Care Team (Late st Contact Info) Description 03/10/2021 Transcribed Document [facility] [place] [facility] [place] [address] ProviderAlexis MD [facility] [place] [address] Social History Tobacco Use Types [...] - Alexis ProviderMD - 03/10/2021 9:59 AM HEEL PACKER Patient: DAYANA BONILLA Age: 60 years Sex: [...] Problems Anxiety and depression / SNOMED CT 381219399 / Confirmed Hyperlipidemia / SNOMED CT 03559528 / Confirmed Hiatal hernia / SNOMED CT 051589730 / Confirmed Cecal diverticulitis / SNOMED CT 2584344269 / Confirmed Corrosive esophagitis / SNOMED CT 16681341 / Confirmed At risk for sleep apnea / IMO [id number] / Confirmed Arthritis / SNOMED CT 2457131 / Confirmed, Active Problems (7) Anxiety and depression Arthritis At risk for sleep apnea Cecal diverticulitis Corrosive esophagitis Hiatal hernia Hyperlipidemia Histories Past Medical History: No active or resolved past medical history items have been selected or recorded. Family History: No family history items have been selected or recorded. Procedure history: Hysterectomy ([id number]) on 04/01/2001 at 40 Years. Tubal ligation ([id number]). lumpectomy. EGD (esophagogastroduodenoscopy) gastric outlet reduction ([id number]). colonoscopy. Social History Social & Psychosocial Habits [...] of motion, Normal strength. Integumentary: Warm, Dry, [place]. Neurologic: Alert, Oriented. Psychiatric: Cooperative, Appropriate mood [...]
--- OUTSIDE RECORDS SUMMARY | 2025-02-17 08:12 | XMS_ITS | Encounter Summary ---
Author Organization [employer] ([place], [place], [place], [place]) Address [address] [place] [address] Care Team Providers Care Children[facility] Institution Attendant Name Role Phone Unavailable Primary Care Provider Unavailabl e Encounter Details Date Type Department Care Team (Late st Contact Info) Description 03/10/2021 Transcribed Document [facility] [place] [facility] [place] [address] ProviderAlexis MD [facility] [place] [address] Social History Tobacco Use Types [...] Alexis Livingston MD - 03/10/2021 2:34 PM AUTOMATIC FURNACE OPERATOR Patient: DAYANA BONILLA Age: 60 Years Sex: Female : 1960 [place] Pre Op Diagnosis: Diverticulitis, possible appendicitis Post Op Diagnosis: Diverticulitis Procedure: Robotic low anterior resection. Flamer Sealer: Vazquez Indications: This is a pleasant 60-year-old [...]
--- OUTSIDE RECORDS SUMMARY | 2025-02-17 08:12 | XMS_ITS | Encounter Summary ---
Author Organization [employer] ([place], [place], [place], [place]) Address [address] [place] [address] Care Team Providers Care Network Programmer Name Role Phone Unavailable Primary Care Provider Unavailabl e Encounter Details Date Type Department Care Team (Late st Contact Info) Description 03/10/2021 Transcribed Document [facility] [facility] [place] [address] [place] [address] ProviderAlexis MD [address] [place] [address] Social History Tobacco Use Types [...] - Historical ProviderMD - 03/10/2021 2:33 PM FIRE PREVENTION FORESTER Consult Phone Call Documentation Entered On: 03/10/2021 16:27 EST Performed On: 03/10/2021 14:33 EST by Elodia Buck Patient Switch Technician Heladio Phone Call for Consults Consult Phone Call/Page Attempt : First call Consult Reason : assumption of care and medical management Physician Requesting Consult : ARMANDO ZAVALA MD-PRO Physician Covering for Consult : VALERIA LOPEZ MD-INT Date and Time Call Returned : 03/10/2021 16:27 EST Elodia Buck Patient Switch Technician I - 03/10/2021 16:27 EST documented in this encounter Plan of Treatment Not on file documented as of this encounter Visit Diagnoses Not on filedocumented in this encounter
--- OUTSIDE RECORDS SUMMARY | 2025-02-17 08:13 | XMS_ITS | Clinical Summary ---
Author Organization [employer] ([place], [place], [place], [place]) Address [address] [place] [address] Care Team Providers Care Automobile Racer Name Role Phone Unavailable Primary Care Provider [...] Date Pelon rded Speak language other than Citizen Of [place] at home Not on file 05/19/2023 Want [...]
--- OUTSIDE RECORDS SUMMARY | 2025-02-17 08:13 | XMS_ITS | Patient Health Record ---
[facility] Address [address] [place] [id number] Care Team Providers Care Shield Operator Name Role Phone Yovany Mueller Primary Care [...] Active Immunizations Vaccine Route Administration Date Status Comme nts COVID 19 Destini Unknown 07/08/2020 Administered COVID 19 Destini Unknown 07/11/2020 Administered COVID 19 Pfizer Unknown 04/01/2021 Administered Fluzone PF Quad (6-35 months) Unknown 05/16/2018 Administered Fluzone Quad (6months&older) Unknown 02/03/2014 Administered Fluzone Quad (6months&older) Unknown 05/15/2018 Administered Shingrix IM Intramuscular 08/21/2020 Administered Social History Tobacco Use: Social History Observation Description Date Smoking Status WARNING: Information temporarily unavailable CURRENT TOBACCO USE: Question Answer Notes Are you a: Stopped Dec Problems Problem Type SNOMED Code ICD Code Onset Dates Problem Status W/U Status Risk Notes Problem Hypothyroidism (75999477) Hypothyroidism (acquired) (E03.9) Active confirmed Problem Diverticulitis (88434648) Diverticulitis (K57.92) Active confirmed Problem Osteopenia (166443120) Osteopenia (M85.80) Active confirmed Problem Mixed anxiety and depressive disorder (605802468) Depression with anxiety (F41.8) Active confirmed Problem BMI 30+ - obesity (674317840) BMI 32.0-32.9,adult (Z68.32) Active confirmed Problem Calcaneal spur of right foot (285534484671525) Calcaneal spur, right foot (M77.31) Active confirmed Problem Chronic pain (45109605) Other chronic pain (G89.29) Active confirmed Problem Mammography abnormal (015114526) Abnormal mammogram of left breast (R92.8) Active confirmed Problem Stenosis of left carotid artery (897931883873494) Stenosis of left carotid artery (I65.22) Active confirmed Problem Body mass index 30.0 0 to 34.99 (434176982857329) BMI 31.0-31.9,adult (Z68.31) Active confirmed Problem Hemorrhage of colon due to diverticulosis (573518470182252) Diverticulosis of large intestine with hemorrhage (K57.31) Active confirmed Problem Family history of ischemic heart disease (878759620) Family history of heart disease in female family member before age 65 (Z82.49) Active confirmed Problem Pure hypercholesterolemia (926575693) Pure hypercholesterolemia (E78.00) Active confirmed Problem History of excision of intestinal structure (897809880) S/P colon resection (Z90.49) Active confirmed Problem Temporomandibular joint disorder (56314060) TMJ (temporomandibular joint disorder) (M26.609) Active confirmed Problem Sacroiliac joint viky n (966758865) Sacroiliac joint pain (M53.3) Active confirmed Problem Osteopenia (667724118) Osteopenia, unspecified location (M85.80) Active confirmed Problem Seasonal allergic rhinitis (656035692) Chronic seasonal allergic rhinitis, unspecified trigger (J30.2) Active confirmed Problem Fibrocystic breast changes (43177826) Fibrocystic breast disease (FCBD), unspecified laterality (N60.19) Active confirmed Problem Aortic valve disorde r (9620125) Aortic valve stenosis, etiology of cardiac valve disease unspecified (I35.0) Active confirmed Problem Left carotid artery occlusion (002093216460059) Carotid stenosis, left (I65.22) Active confirmed Problem H/O tobacco use, presenting hazards to health (Z87.891) Active confirmed Plan Of Treatment No Information Insurance Providers Payer Name Payer Address Payer Phone Subscriber Number Group Number Insured Name Patient Relationship to Insured Coverage Start Date Coverage End Date [facility] [address] [place], [place] [phone] [id number] Dayana Bonilla Self - patient is the [...]
--- OUTSIDE RECORDS SUMMARY | 2025-02-17 08:13 | XMS_ITS | Encounter Summary ---
Author Organization [employer] ([place], [place], [place], [place]) Address [address] [place] [address] Care Team Providers Care Mechanical Maintenance Name Role Phone Unavailable Primary Care Provider Unavailabl e Encounter Details Date Type Department Care Team (Late st Contact Info) Description 03/10/2021 Transcribed Document [facility] [place] [facility] [place] [address] ProviderAlexis MD [facility] [place] [address] Social History Tobacco Use Types [...] - Alexis ProviderMD - 03/10/2021 12:13 PM JUNIOR STAFF ACCOUNTANT [facility] Main OR Preop Summary Primary Physician: ARMANDO ZAVALA MD-PRO Finalized Date/Time: 03/10/21 14:06:34 Pt. Name: DAYANA BONILLA/Sex: 1960 Female Med Rec #: [id number] Physician: ARMANDO ZAVALA MD- Financial #: [id number] Pt. Type: I Room/Bed: / Admit/Disch: 02/23/21 10:15:00 - Institution: [facility] PreOp Case Times Entry 1 In Preop 03/10/21 08:46:00 Ready for Holding n/a Room Patient Ready for 03/10/21 10:29:00 Surgery Patient Out of Preop 03/10/21 11:37:00 Patient Out of n/a Holding Room Last Modified By: Gi Berrios Rn 03/10/21 14:06:33 [facility] PreOp Case Times Audit 03/10/21 14:06:33 Veterinary X Ray Operator: THERESA Modifier: MFWARD <+> 1 Patient Out of Preop Finalized By: Gi Berrios Rn Document Signatures Signed By: Gi Berrios Rn 03/10/21 14:06 Electronically signed by Wei [facility] Conversion Linseed Cake Trimmer Cerner at 08/19/2022 5:58 PM CDT documented in this encounter Plan of Treatment Not on file documented as of this encounter Visit Diagnoses Not on filedocumented in this encounter
--- OUTSIDE RECORDS SUMMARY | 2025-02-17 08:13 | XMS_ITS | Encounter Summary ---
Author Organization [employer] ([place], [place], [place], [place]) Address [address] [place] [address] Care Team Providers Care Gasket Supervisor Name Role Phone Unavailable Primary Care Provider Unavailabl e Encounter Details Date Type Department Care Team (Late st Contact Info) Description 03/10/2021 Transcribed Document [facility] [place] [facility] [place] [address] ProviderAlexis MD [facility] [place] [address] Social History Tobacco Use Types [...] Alexis Livingston MD - 03/10/2021 6:10 PM DEPARTMENT OF NATURAL RESOURCES OFFICER Patient: DAYANA BONILLA Age: 60 Years Sex: Female : 1960 Chief Complaint Abdominal pain Primary Care Provider ARMANDO OWENS MD-[facility] History of Present Illness This is a [...]
--- OUTSIDE RECORDS SUMMARY | 2025-02-17 08:14 | XMS_ITS | Encounter Summary ---
Author Organization [employer] ([place], [place], [place], [place]) Address [address] [place] [address] Care Team Providers Care Rehabilitation Center Manager Name Role Phone Unavailable Primary Care Provider Unavailabl e Encounter Details Date Type Department Care Team (Late st Contact Info) Description 03/11/2021 Transcribed Document [facility] [place] [facility] [place] [address] ProviderAlexis MD [facility] [place] [address] Social History Tobacco Use Types [...] Alexis Livingston MD - 03/11/2021 8:09 AM FACE CLEANER UM Authorization Entered On: 03/11/2021 8:20 EST Performed On: 03/11/2021 8:09 EST by CHRISTIAN ARMENTA RN Primary Insurance Authorization Authorization and Policy Numbers : Insurance 1 Health Plan: [facility] Pets are family too Policy Number: [id number] Authorization Number: [id number] Insurance Primary Name : [facility] Policy Number: [id number] Authorization Status-Primary : Admit approved Number of Days Authorized-Primary : 4 Day(s) Authorized Service Begin Date-Primary : 03/10/2021 EST Authorized Service End Date-Primary : 03/14/2021 EST Authorization Comments-Primary : IP admit approved from 03/10 to 03/14 per [facility] website Historical Authorization Comments-Primary : No Authorization Comments Found CHRISTIAN ARMENTA RN - 03/11/2021 8:09 EST Electronically signed by [facility] Conversion Induction Coordination Engineer Cerner at 08/19/2022 6:10 PM CDT documented in this encounter Plan of Treatment Not on file documented as of this encounter Visit Diagnoses Not on filedocumented in this encounter
--- OUTSIDE RECORDS SUMMARY | 2025-02-17 08:14 | XMS_ITS | Encounter Summary ---
Author Organization [employer] ([place], [place], [place]) Address [address] [place] [address] Care Team Providers Care Roller Turner Name Role Phone Unavailable Primary Care Provider Unavailabl e Encounter Details Date Type Department Care Team (Late st Contact Info) Description 03/11/2021 Transcribed Document [facility] [place] Family Medicine [address] [place] [address] ProviderAlexis MD [address] [place] [address] Social History Tobacco Use Types [...] - Historical ProviderMD - 03/11/2021 2:00 AM AFTER SCHOOL PROGRAM ASSISTANT Sprinkler Installer Details Entered On: 03/11/2021 1:06 EST Performed [...] EST Electronically signed by Sandor Carvajal Conversion Organizational Development Specialist Aysha at 08/19/2022 6:18 PM CDT documented in this encounter Plan of Treatment Not on file documented as of this encounter Visit Diagnoses Not on filedocumented in this encounter
--- OUTSIDE RECORDS SUMMARY | 2025-02-17 08:14 | XMS_ITS | Encounter Summary ---
Author Organization [employer] ([place], [place], [place]) Address [address] [place] [address] Care Team Providers Care Advisory Software Engineer Name Role Phone Unavailable Primary Care Provider Unavailabl e Encounter Details Date Type Department Care Team (Late st Contact Info) Description 03/11/2021 Transcribed Document [facility] [place] [facility] [place] [address] ProviderAlexis MD [facility] [place] [address] Social History Tobacco Use Types [...] - Historical ProviderMD - 03/11/2021 12:00 AM SALES DEPARTMENT SUPERVISOR Pain Assessment Entered On: 03/11/2021 1:05 EST [...]
--- OUTSIDE RECORDS SUMMARY | 2025-02-17 08:14 | XMS_ITS | Encounter Summary ---
Author Organization [employer] ([place], [place]) Address [address] [place] [address] Care Team Providers Care Plant Wire Chief Name Role Phone Unavailable Primary Care Provider Unavailabl e Encounter Details Date Type Department Care Team (Late st Contact Info) Description 03/10/2021 Transcribed Document [facility] [place] Medicine [facility] [place] [address] ProviderAlexis MD [facility] [place] [address] Social History Tobacco [...] - Alexis ProviderMD - 03/10/2021 12:13 PM SEWER PIPE SORTER [facility] Main OR PACU Summary Primary Physician: ARMANDO ZAVALA MD- Finalized Date/Time: 03/10/21 16:08:59 Pt. Name: DAYANA BONILLA/Sex: 1960 Female Med Rec #: [id number] Physician: ARMANDO ZAVALA MD-PRO Financial #: [id number] Pt. Type: I Room/Bed: / Admit/Disch: 02/23/21 10:15:00 - Institution: [facility] Main OR PACU I Case Times [...]
--- OUTSIDE RECORDS SUMMARY | 2025-02-17 08:14 | XMS_ITS | Encounter Summary ---
Author Organization [employer] ([place], [place], [place], [place]) Address [address] [place] [address] Care Team Providers Care Cyber Intel Planner Name Role Phone Unavailable Primary Care Provider Unavailabl e Encounter Details Date Type Department Care Team (Late st Contact Info) Description 03/11/2021 Transcribed Document [facility] [place] Family Medicine [address] [place] [address] ProviderAlexis MD Pending [facility] [place] [address] Social History Tobacco Use Types [...] - Alexis ProviderMD - 03/11/2021 12:00 PM FIRE AND SAFETY HELPER Pain Assessment Entered On: 03/11/2021 14:43 EST [...]
--- OUTSIDE RECORDS SUMMARY | 2025-02-17 08:14 | XMS_ITS | Encounter Summary ---
Author Organization [employer] ([place], [place]) Address [address] [place] [address] Care Team Providers Care Sales Recruiting Coordinator Name Role Phone Unavailable Primary Care Provider Unavailabl e Encounter Details Date Type Department Care Team (Late st Contact Info) Description 03/11/2021 Transcribed Document [facility] [place] [address] [place]Alexis [place] [address] Social History Tobacco Use Types [...] - Alexis ProviderMD - 03/11/2021 12:00 PM DRUG ENFORCEMENT ADMINISTRATION AGENT Pain Assessment Entered On: 03/11/2021 14:43 EST [...]
--- OUTSIDE RECORDS SUMMARY | 2025-02-17 08:14 | XMS_ITS | Encounter Summary ---
Author Organization [employer] ([place], [place]) Address [address] [place] [address] Care Team Providers Care Administrative Manager Name Role Phone Unavailable Primary Care Provider Unavailabl e Encounter Details Date Type Department Care Team (Late st Contact Info) Description 03/10/2021 Transcribed Document [facility] [place] Family Medicine [address] [place] [address] ProviderAlexis MD [address] [place] [address] Social History Tobacco Use Types [...] - Historical ProviderMD - 03/10/2021 5:00 PM LITHOGRAPHIC PLATE MAKER Chart Check - Review Order Profile Entered [...]
--- OUTSIDE RECORDS SUMMARY | 2025-02-17 08:14 | XMS_ITS | Referral Summary ---
Author Organization [employer] ([place], [place], [place], [place]) Address [address] [place] [address] Care Team Providers Care Telecommunications Specialist Name Role Phone Unavailable Primary Care [...] Date Pelon rded Speak language other than Finnish at home Not on file 05/19/2023 Want [...]
--- OUTSIDE RECORDS SUMMARY | 2025-02-17 08:14 | XMS_ITS | Encounter Summary ---
Author Organization [employer] ([place], [place], [place], [place]) Address [address] [place] [address] Care Team Providers Care Kiln Firer Name Role Phone Unavailable Primary Care Provider Unavailabl e Encounter Details Date Type Department Care Team (Late st Contact Info) Description 03/11/2021 Transcribed Document [facility] [place] [address] [place] [address] ProviderAlexis MD [address] [place] [address] Social History Tobacco Use Types [...] - Historical ProviderMD - 03/11/2021 5:00 AM ALARM SIGNAL OPERATOR Chart Check - Review Order Profile Entered On: 03/11/2021 4:46 EST Performed On: 03/11/2021 5:00 EST by Krys Meyer Lpn Chart Check Powerplans Initiated/Discontinued as Appropriate : Yes All Active Orders Reviewed : Yes Krys Meyer Lpn - 03/11/2021 4:46 EST Electronically signed by Wei [facility] Conversion Medical Research Tech Cerner at 08/19/2022 6:00 PM CDT documented in this encounter Plan of Treatment Not on file documented as of this encounter Visit Diagnoses Not on filedocumented in this encounter
--- OUTSIDE RECORDS SUMMARY | 2025-02-17 08:14 | XMS_ITS | Encounter Summary ---
Author Organization [employer] ([place], [place], [place], [place]) Address [address] [place] [address] Care Team Providers Care Vp Organizational Development Name Role Phone Unavailable Primary Care Provider Unavailabl e Encounter Details Date Type Department Care Team (Late st Contact Info) Description 03/11/2021 Transcribed Document [facility] [place] [facility] [place] [address] ProviderAlexis MD [address] [place] [address] Social History Tobacco Use Types [...] Alexis Livingston MD - 03/11/2021 1:28 PM GRAIN DRIER OPERATOR Patient Education Materials Follows: Minimally Invasive Total [...] these instructions at home: Medicines ??? Take kmfb-jay-rococsn and prescription medicines only as told by [...] and water are not available, use hand systems technician. ? Change your dressing as told by [...] provider. Document Revised: 03/25/2020 Document Reviewed: 03/25/2020 [employer] Patient Education ? 2020 [employer] Low Residue Diet A low residue [...] are treated at home by: ??? Taking lurf-ceh-shfiikb pain medicines. ??? Following a clear liquid [...] these instructions at home: Medicines ??? Take unaw-wfg-jjxbwwf and prescription medicines only as told by [...] provider. Document Revised: 01/27/2020 Document Reviewed: 01/27/2020 [employer] Patient Education ? 2020 [employer] Low-Fiber Eating Plan Fiber is found [...] that you work with a diet and food and nutrition services supervisor (dietitian). What are tips for following this [...] made with white flour. Waffles, pancakes, and Frisian toast. Bagels. Pretzels. Elvia toast, zwieback, and matzoh. Cooked and dried cereals that do not contain whole grains, added fiber, seeds, or dried fruit. Cornmeal. Sharon. Hot and cold cereals made with refined [...] Sports drinks. Herbal tea. Fats and oils Paradise oil, canola oil, sunflower oil, flaxseed oil, [...] breads and crackers. Multigrain breads and crackers. Citra bread. Whole grain or multigrain cereals. Cereals with nuts, raisins, or coconut. Bran. Coarse wheat cereals. Granola. High-fiber cereals. Cornmeal or corn bread. Whole grain pasta. Wild or brown rice. Quinoa. Popcorn. Buckwheat. Wheat germ. Vegetables Potato skins. Raw or undercooked vegetables. All beans and reyes sprouts. Cooked greens. Fenton. Peas. Cabbage. Beets. Broccoli. Rudy sprouts. Cauliflower. Mushrooms. Onions. Peppers. Parsnips. Okra. [...] are not allowed. Seasoning and other foods Fenton tortilla chips. Soups made with vegetables or [...] Reviewed: 06/20/2017 Elsevier Patient Education ? 2020 [employer] Electronically signed by Sandor Carvajal Conversion Ophthalmic Technician Apprentice Cerner at 08/19/2022 5:58 PM CDT documented in this encounter Plan of Treatment Not on file documented as of this encounter Visit Diagnoses Not on filedocumented in this encounter
--- OUTSIDE RECORDS SUMMARY | 2025-02-17 08:14 | XMS_ITS | Encounter Summary ---
Author Organization [employer] ([place], [place], [place], [place]) Address [address] [place] [address] Care Team Providers Care Astronomy Department Chair Name Role Phone Unavailable Primary Care Provider Unavailabl e Encounter Details Date Type Department Care Team (Late st Contact Info) Description 03/10/2021 Transcribed Document [facility] [place] [facility] [place] [address] ProviderAlexis MD [facility] [place] [address] Social History Tobacco Use Types [...] - Alexis ProviderMD - 03/10/2021 11:41 AM CLIENT SERVICE PROFESSIONAL Admission History, Adult Entered On: 03/10/2021 16:32 [...] Obtained From : Patient Primary Language : Ukrainian Preferred Communication Mode : Verbal Communication Barrier : None Embedded Software Programmer Needed : No Objects to Sharing Info [...] Scale Risk Level : 25-45 Medium Risk Hartwell Fall Interventions : Adequate lighting, Assistive devices [...] Source : Measured Height Entry Format : [place] Height, Feet : 0 ft(Converted to: 0 cm, 0 Inch) Height, Inches : 63 Inch(Converted to: 5 ft 3 Inch, 160.02 cm) Clinical Height : 160.02 cm Weight Source : Standing scale Weight Entry Format : Anson Clinical Dosing Weight : 83.64 kg Weight, Pounds : 184 lb Body Surface Area (BSA) : 1.87 m2 Body Mass Index : 32.7 kg/m2 (HI) [place] Body Weight : 52 kg PRETTY MAHER [...] PRETTY MAHER RN - 03/10/2021 16:28 EST [place] Suicide Severity Rating Scale (C-SSRS) CSSRS Past [...] Glasses Personal Items : Cell phone, Other: project management manager Personal Items Disposition : Bedside PRETTY MAHER RN - 03/10/2021 16:28 EST documented in this encounter Plan of Treatment Not on file documented as of this encounter Visit Diagnoses Not on filedocumented in this encounter
--- OUTSIDE RECORDS SUMMARY | 2025-02-17 08:14 | XMS_ITS | Encounter Summary ---
Author Organization [employer] ([place], [place], [place], [place]) Address [address] [place] [address] Care Team Providers Care Cigarette Carton Sealer Name Role Phone Unavailable Primary Care Provider Unavailabl e Encounter Details Date Type Department Care Team (Late st Contact Info) Description 03/11/2021 Transcribed Document [facility] [place] Family Medicine [address] [place] [address] ProviderAlexis MD [address] [place] [address] Social History Tobacco Use Types [...] - Alexis ProviderMD - 03/11/2021 6:39 AM PATTERN PAINTER Patient: DAYANA BONILLA Age: 60 Years Sex: [...]
--- OUTSIDE RECORDS SUMMARY | 2025-02-17 08:14 | XMS_ITS | Encounter Summary ---
Author Organization [employer] ([place], [place], [place], [place]) Address [address] [place] [address] Care Team Providers Care Pulling Unit Operator Name Role Phone Unavailable Primary Care Provider Unavailabl e Encounter Details Date Type Department Care Team (Late st Contact Info) Description 03/10/2021 Transcribed Document [facility] [place] [facility] [place] [address] ProviderAlexis MD [facility] [place] [address] Social History Tobacco Use Types [...] Alexis Livingston MD - 03/10/2021 12:13 PM MEDICAL PHYSICS RESEARCHER [facility] Main OR IntraOp Summary Primary Physician: ARMANDO ZAVALA MD-PRO Finalized Date/Time: 03/12/21 13:01:41 Pt. Name: DAYANA BONILLA/Sex: 1960 Female Med Rec #: [id number] Physician: ARMANDO ZAVALA MD-PRO Financial #: [id number] Pt. Type: I Room/Bed: [facility]/ Admit/Disch: 03/10/21 16:14:00 - 03/11/21 14:54:00 Institution: [facility] IntraOp Case Attendance Entry 1 Entry 2 Entry 3 Case Attendee ARMANDO ZAVALA MD-PRO Noemi Saucedo Lewis, Robin A RN-PATIENT CARE BEDSIDE Preschool Assistant Teacher NON-EXEMPT Role Performed Surgeon/Proceduralist, Allergist, Second Scrub, First First Time In 03/10/21 [...] ST Pantano, Scott, SUNIL Role Performed Scrub, Well Cleaner, First Allergist, First Time In 03/10/21 11:41:00 03/10/21 11:41:00 [...] LOBO MURRAY, BAKARI COOPER, BRYAN Role Performed COAL CHUTE WORKER/Nurse Talent Acquisition Specialist Other Time In 03/10/21 11:41:00 03/10/21 11:41:00 Time Out 03/10/21 14:46:00 03/10/21 14:46:00 Procedure Colon Resection Low Colon Resection Low Anterior Robotic Anterior Robotic Other Attendee Superficial Wound Closed By: Last Modified By: Moustapha Hernadez, Moustapha Gan, SUNIL 03/10/21 14:47:28 03/10/21 14:47:28 [facility] IntraOp Case Attendance Audit 03/10/21 14:47:28 Tv Technician: [id number] Modifier: [email or web address] <+> Time Out 1 [...] Colon Resection Low Anterior Robotic 03/10/21 13:15:42 Tv Technician: [id number] Modifier: [id number] <+> Time Out 2 <*> Procedure Colon Resection Low Anterior Robotic 03/10/21 12:28:02 Tv Technician: [id number] Modifier: [id number] <+> 1 Procedure 2 <*> Procedure Colon Resection Low Anterior Robotic 3 <*> Procedure Colon Resection Low Anterior Robotic 4 <*> Procedure Colon Resection Low Anterior Robotic 5 <*> Procedure Colon Resection Low Anterior Robotic 6 <*> Procedure Colon Resection Low Anterior Robotic 7 <*> Procedure Colon Resection Low Anterior Robotic 8 <*> Procedure Colon Resection Low Anterior Robotic 03/10/21 12:20:54 Tv Technician: [id number] Modifier: [id number] <*> Procedure Colon Resection Low Anterior Robotic 3 <*> Procedure Colon Resection Low Anterior Robotic 4 <*> Procedure Colon Resection Low Anterior Robotic 5 <*> Procedure Colon Resection Low Anterior Robotic 6 <*> Procedure Colon Resection Low Anterior Robotic 7 <*> Procedure Colon Resection Low Anterior Robotic 8 <+> Time In 8 <*> Procedure Colon Resection Low Anterior Robotic 03/10/21 12:13:14 Tv Technician: [id number] Modifier: [id number] <+> 1 Time In 2 <+> Time [...] Role Performed <+> 8 Procedure 03/10/21 11:23:24 Tv Technician: [id number] Modifier: [id number] <+> 7 Case Attendee <+> 7 Role Performed <+> 7 Procedure [facility] IntraOp Case Times Entry 1 Patient In Room Time 03/10/21 11:41:00 Out Room Time 03/10/21 14:46:00 Anesthesia Start Time 03/10/21 11:41:00 Stop Time 03/10/21 14:46:00 Surgery / Procedure Times Start Time 03/10/21 12:13:00 Stop Time 03/10/21 14:35:00 Last Modified By: Moustapha Hernadez RN 03/10/21 14:46:30 [facility] IntraOp Case Times Audit 03/10/21 14:46:42 Tv Technician: PANTANOS Modifier: PANTANOS <+> 1 Out Room Time <+> 1 Stop Time 03/10/21 14:46:30 Tv Technician: [id number] Modifier: PANTANOS <+> 1 Stop Time 03/10/21 12:57:52 Tv Technician: [id number] Modifier: [id number] <+> 1 Start Time [facility] IntraOp Cautery Entry 1 ESU Identification Cautery Type Monopolar ESU ID Number [id number] ID Type Hospital Number Cautery Settings Cut [...] Saucedo RN-PATIENT CARE BEDSIDE NON-EXEMPT 03/10/21 11:22:43 [facility] IntraOp Communication Entry 1 Communication To Family/Significant other Communication By Noemi Saucedo RN-PATIENT CARE BEDSIDE NON-EXEMPT Date and Time 03/10/21 12:14:00 Last Modified By: Noemi Saucedo RN-PATIENT CARE BEDSIDE NON-EXEMPT 03/10/21 12:14:41 [facility] IntraOp Counts Verification Entry 1 Procedure Colon Resection Low Anterior Robotic Count Info Count Type Sponge, Sharps, Instrument, Miscellaneous Counts Verification Baseline/pre-procedure Sequence Counts Performed By Count Performed By NICHOLE ROBERTS (Scrub) Count Performed By Noemi Saucedo (RN) RN-PATIENT CARE BEDSIDE NON-EXEMPT Last Modified By: Noemi Saucedo RN-PATIENT CARE BEDSIDE NON-EXEMPT 03/10/21 11:22:13 [facility] IntraOp Counts Final Entry 1 Procedure Colon Resection Low Anterior Robotic Final Count Info Count Type Sponge, Sharps, Miscellaneous Counts Verification Skin Closure/end of Sequence procedure Count Results Correct, surgeon notified Counts Performed By Count Performed By Claus Casanova (Scrub) Preschool Assistant Teacher Count Performed By Moustapha Hernadez, RN (RN) Last Modified By: Noemi Saucedo RN-PATIENT CARE BEDSIDE NON-EXEMPT 03/10/21 12:14:28 [facility] IntraOp Counts Final Audit 03/10/21 14:18:29 Tv Technician: [id number] Modifier: ROSARaz Jeffery <*> Procedure Colon Resection Low Anterior Robotic [facility] IntraOp Cultures and Spec Summary Entry 1 Cultrures and Specimens Specimen Ordered: Yes Test(s) Routine/Path-Lab Requested/Final Disposition Last Modified By: Noemi Saucedo RN-PATIENT CARE BEDSIDE NON-EXEMPT 03/10/21 12:14:08 [facility] IntraOp Departure from OR Entry 1 Integumentary Assessment Integumentary WDL with patient Assessment WDL specific variances Patient's Normal Surgical incisions = Integumentary abdomen Variance(s) Transfer/Handoff Transfer to PACU Phase I Handoff Method Phone call Post-op Transport Stretcher/Gurney Via Patient Transport LOBO MURRAY NA, Accompanied by Vazquez Lisa ST Last Modified By: Noemi Saucedo RN-PATIENT CARE BEDSIDE NON-EXEMPT 03/10/21 12:14:56 [facility] IntraOp Dressing and Packing Entry 1 Type Dressing Location Abdomen Wound Dressing Item Skin Closure Glue Applied By Vazquez Lisa ST Other Comments Dermabond Prineo Last Modified By: Noemi Saucedo RN-PATIENT CARE BEDSIDE NON-EXEMPT 03/10/21 12:14:49 [facility] IntraOp Fire Risk Assessment Entry 1 Fire Info Surgical Site or 0- No Incision Above the Xyphoid Open O2 Source 0- No (Mask or Cannula) Available Ignition 1- Yes (ESU, Laser, Light Source) Fire Risk 1 Assessment Score Fire Score Fire Risk Yes Assessment Complete Fire Risk Moustapha Hernadez, mortgage loan counselor Verified By Fire Risk 03/10/21 12:11:00 Assessment Verified Date/Time Fire Risk Standard Fire Yes Safety Precautions Followed Last Modified By: Noemi Saucedo RN-PATIENT CARE BEDSIDE NON-EXEMPT 03/10/21 12:11:14 [facility] IntraOp General Case Lung Puller 1 Case Information OR OR 12 [facility] Case Level 1 Room Verified Yes Wound Class 2 - Clean-Contaminated Specialty Colorectal Anesthesia Type General ASA Class 2 Diagnosis Preop Diagnosis DIVERTICULITIS Postop Same As Preop Yes Postop Diagnosis DIVERTICULITIS Wound Class Definitions Last Modified By: Noemi Saucedo RN-PATIENT CARE BEDSIDE NON-EXEMPT 03/10/21 12:13:50 [facility] IntraOp General Case Data Audit 03/10/21 12:13:50 Tv Technician: [id number] Modifier: [id number] <+> 1 Specialty <+> 1 ASA Class <+> 1 Wound Class <+> 1 Anesthesia Type <+> 1 Postop Same As Preop <+> 1 Preop Diagnosis <+> 1 Postop Diagnosis <+> 1 Room Verified [facility] IntraOp Intraoperative Assessment Entry 1 Handoff [...] Saucedo RN-PATIENT CARE BEDSIDE NON-EXEMPT 03/10/21 12:15:08 [facility] IntraOp Intraoperative Equipment Entry 1 Type Monitoring Equipment Equipment Kurtis Suction System Intraop Monitoring Electrocardiogram Three lead placement (ECG) Electrode Placement Blood Pressure Non-Invasive BP Device Source Antiembolic Devices Scopes Photo/Video Documentation Photo No Video No Intraop Equipment Heparin 5000 units SC Comment administered in preoperative area. Last Modified By: Noemi Saucedo RN-PATIENT CARE BEDSIDE NON-EXEMPT 03/10/21 12:14:03 [facility] IntraOp Medication Admin Entry 1 Medication/Irrigant INDOCYANINE GREEN 25MG/VIAL Dose Dose 10 Unit of Measure ml Administered By LOBO MURRAY NA Procedure Irrigation Last Modified By: Noemi Saucedo RN-PATIENT CARE BEDSIDE NON-EXEMPT 03/10/21 12:16:29 [facility] IntraOp Patient Positioning Entry 1 Procedure [...] Saucedo RN-PATIENT CARE BEDSIDE NON-EXEMPT 03/10/21 12:20:44 [facility] IntraOp Sign In Entry 1 Patient, [...] Saucedo RN-PATIENT CARE BEDSIDE NON-EXEMPT 03/10/21 12:20:52 [facility] IntraOp Sign Out Entry 1 RN [...] Modified By: Moustapha Hernadez RN 03/10/21 14:47:26 [facility] IntraOp Sign Out Audit 03/10/21 14:47:26 Tv Technician: [email or web address] Modifier: PANTANOS <+> 1 Wound classification reviewed, verified and updated post case in both the General Case Data and Procedure segments 03/10/21 14:47:16 Tv Technician: [id number] Modifier: PANTANOS <+> 1 RN Sign Out Signature Date/Time [facility] IntraOp Skin Prep Entry 1 Procedure Colon Resection Low Anterior Robotic Prescribed Yes Pre-Surgical Prep Completed Prep Area Abdomen/KAYLEIGH ANAL/GENTINAL Intraop Prep Integumentary WDL Assessment WDL Prep Agents Chloraprep, Betadine scrub, Betadine solution Prep by Moustapha Hernadez RN Hair Removal Last Modified By: Noemi Saucedo RN-PATIENT CARE BEDSIDE NON-EXEMPT 03/10/21 12:13:59 [facility] IntraOp Surgical Procedures Entry 1 Procedure Colon Resection Low Anterior Robotic Additional (ROBOTIC LOW ANTERIOR Procedure COLON RESECTION) Description Primary Procedure Yes Primary Surgeon ARMANDO ZAVALA MD-PRO Start 03/10/21 12:13:00 Stop 03/10/21 14:35:00 Anesthesia Type General Specialty Colorectal Wound Class 2 - Clean-Contaminated Last Modified By: Noemi Saucedo RN-PATIENT CARE BEDSIDE NON-EXEMPT 03/10/21 12:28:02 [facility] IntraOp Surgical Procedures Audit 03/10/21 14:46:33 Tv Technician: [id number] Modifier: PANTANOS <+> 1 Start <+> 1 Stop [facility] IntraOp Temp Regulation Devices Entry 1 Temp Regulation Temperature Forced Air Warming Regulation Device device, Warm blankets, Room temperature Temperature Upper body Regulation Site Temperature LOBO MURRAY, MARILIA Regulation Device Applied by Temperature Patient's temperature Regulation Comment and forced air warming device settings monitored by anesthesia provider. Last Modified By: Noemi Saucedo RN-PATIENT CARE BEDSIDE NON-EXEMPT 03/10/21 12:20:58 [facility] IntraOP Time Out Entry 1 Procedure [...] Billing Electronically signed by Celestino Carvajal Conversion Job Placement Specialist Cerner at 08/19/2022 6:01 PM CDT documented in this encounter Plan of Treatment Not on file documented as of this encounter Visit Diagnoses Not on filedocumented in this encounter
--- OUTSIDE RECORDS SUMMARY | 2025-02-17 08:14 | XMS_ITS | Encounter Summary ---
Author Organization [employer] ([place], [place], [place], [place]) Address [address] [place] [address] Care Team Providers Care Financial Aid Administrator Name Role Phone Unavailable Primary Care Provider Unavailabl e Encounter Details Date Type Department Care Team (Late st Contact Info) Description 03/10/2021 Transcribed Document [facility] [place] [facility] [place] [address] ProviderAlexis MD [facility] [place] [address] Social History Tobacco Use Types [...] Alexis Livingston MD - 03/10/2021 10:28 AM REIMBURSEMENT COUNSELOR Peripheral Nerve Block Entered On: 03/10/2021 10:29 [...] - 03/10/2021 10:28 EST Electronically signed by [facility] Conversion Tar Heater Cerner at 08/19/2022 6:13 PM CDT documented in this encounter Plan of Treatment Not on file documented as of this encounter Visit Diagnoses Not on filedocumented in this encounter
--- OUTSIDE RECORDS SUMMARY | 2025-02-17 08:14 | XMS_ITS | Encounter Summary ---
Author Organization [employer] ([place], [place], [place], [place]) Address [address] [place] [address] Care Team Providers Care Academic Adviser Name Role Phone Unavailable Primary Care Provider Unavailabl e Encounter Details Date Type Department Care Team (Late st Contact Info) Description 03/11/2021 Transcribed Document [facility] [place] [facility] [place] [address] ProviderAlexis MD [facility] [place] [address] Social History Tobacco Use Types [...] Alexis Livingston MD - 03/11/2021 1:29 PM COMPONENTS ENGINEER Patient Resource Center Entered On: 03/11/2021 13:30 EST Performed On: 03/11/2021 13:29 EST by Angelique Pozo, Ore Feeder Patient Resource Center Provider Status : EST Other Established Provider Name : ARMANDO OWENS Patient Phone Number : [phone] Patient Insurance Type : Commercial (ex. [place] PPO, [employer] HMO) Source of Referral : [...] at ED : Other Primary Language : [place]an [facility] Comment : Patient needs follow up appointments. Called offices and scheduled appointments with Dr. England and Dr. Owens Follow Up Needed : No Angelique Pozo, Ore Feeder - 03/11/2021 13:29 EST documented in this encounter Plan of Treatment Not on file documented as of this encounter Visit Diagnoses Not on filedocumented in this encounter
--- OUTSIDE RECORDS SUMMARY | 2025-02-17 08:15 | XMS_ITS | Encounter Summary ---
Author Organization [employer] ([place], [place], [place], [place]) Address [address] [place] [address] Care Team Providers Care Carpenter Mate Name Role Phone Unavailable Primary Care Provider Unavailabl e Encounter Details Date Type Department Care Team (Late st Contact Info) Description 03/11/2021 Transcribed Document [facility] Radiology [address] [place] [address] Trinity Celaya MD [address] [place] [id number] Social History Tobacco Use Types Packs/Day [...] None Author: TRINITY CELAYA MD-INT Discharge dictated. #[id number]. documented in this encounter Plan of Treatment Not on file documented as of this encounter Visit Diagnoses Not on filedocumented in this encounter
--- OUTSIDE RECORDS SUMMARY | 2025-02-17 08:15 | XMS_ITS | Encounter Summary ---
Author Organization [employer] ([place], [place], [place], [place]) Address [address] [place] [address] Care Team Providers Care Junction Maker Name Role Phone Unavailable Primary Care Provider Unavailabl e Encounter Details Date Type Department Care Team (Late st Contact Info) Description 03/11/2021 Transcribed Document [facility] Radiology [address] [place] [address] Kiki Celaya MD [address] [place], [place] [id number] Social History Tobacco Use Types Packs/Day Years [...] of the above totals at 30 minutes. /[id number] Kiki Celaya MD VLS/AQ / VLS / MODL /[id number] documented in this encounter Plan of Treatment Not on file documented as of this encounter Visit Diagnoses Not on filedocumented in this encounter
--- OUTSIDE RECORDS SUMMARY | 2025-02-17 08:15 | XMS_ITS | Encounter Summary ---
Author Organization [employer] ([place], [place], [place], [place]) Address [address] [place] [address] Care Team Providers Care Interior Design Teacher Name Role Phone Unavailable Primary Care Provider Unavailabl e Encounter Details Date Type Department Care Team (Late st Contact Info) Description 03/11/2021 Transcribed Document [facility] [place] [facility] [place] [address] ProviderAlexis MD [facility] [place] [address] Social History Tobacco Use Types [...] Alexis Livingston MD - 03/11/2021 4:12 PM PROFESSOR OF JOURNALISM Final Discharge Planning Entered On: 03/11/2021 16:12 EST Performed On: 03/11/2021 16:12 EST by DERREK MASTERS RN-Online Publisher Final Discharge Planning Discharge Arrangements : Patient [...] Care Management : Home/Residential/Long-Term or Self Care - DERREK MASTERS RN-Online Publisher - 03/11/2021 16:12 EST Final Narrative Note Final Narrative Note : Discharged to home, agreeable. No needs. DERREK MASTERS RN-Online Publisher - 03/11/2021 16:12 EST Electronically signed by [facility] Conversion Lay Out And Detail Drafter Cerner at 08/19/2022 6:15 PM CDT documented in this encounter Plan of Treatment Not on file documented as of this encounter Visit Diagnoses Not on filedocumented in this encounter
--- OUTSIDE RECORDS SUMMARY | 2025-02-17 08:15 | XMS_ITS | Encounter Summary ---
Author Organization [employer] ([place], [place], [place], [place]) Address [address] [place] [address] Care Team Providers Care Cost Accountant Name Role Phone Unavailable Primary Care Provider Unavailabl e Encounter Details Date Type Department Care Team (Late st Contact Info) Description 03/11/2021 Transcribed Document [facility] [place] Family Medicine [address] [place] [address] Provider[place] [address] Social History Tobacco Use Types [...] - Historical ProviderMD - 03/11/2021 6:00 AM LEASING MANAGER Pain Assessment Entered On: 03/11/2021 8:25 EST [...]
--- OUTSIDE RECORDS SUMMARY | 2025-02-17 08:15 | XMS_ITS | Encounter Summary ---
Author Organization [employer] ([place], [place], [place], [place]) Address [address] [place] [address] Care Team Providers Care Fountain Brush Assembler Name Role Phone Unavailable Primary Care Provider Unavailabl e Encounter Details Date Type Department Care Team (Late st Contact Info) Description 03/11/2021 Transcribed Document [facility] [place] [facility] [place] [address] ProviderAlexis MD [facility] [place] [address] Social History Tobacco Use Types [...] - Alexis ProviderMD - 03/11/2021 9:10 AM TOOTH CUTTER PINION Initial Discharge Planning Entered On: 03/11/2021 9:12 EST Performed On: 03/11/2021 9:10 EST by DERREK MASTERS RN-Software Quality Manager Initial Assessment I Previously Documented Living Environment [...] Is Guardianship Needed : No DERREK MASTERS RN-Software Quality Manager - 03/11/2021 9:10 EST Initial Assessment II Sensory and Motor Deficits : None Current Home Treatments and Equipment : None DERREK MASTERS RN-Software Quality Manager - 03/11/2021 9:10 EST Discharge Needs I Anticipated Discharge Date : 03/13/2021 EST Anticipated Discharge To, CM : Home with family care Current Home Treatment/Equipment : Current Home Treatment/Equipment No qualifying data available. Post Acute/Home Treatments : None Documentation Status Complete : Yes DERREK MASTERS RN-Software Quality Manager - 03/11/2021 9:10 EST Discharge Needs II Professional Skilled Services : Professional Skilled Services No qualifying data available. Needs Assistance with Transportation : No Patient Discharge Goal : Home DERREK MASTERS RN-Software Quality Manager - 03/11/2021 9:10 EST Narrative Note Narrative [...] @ 27. CM will follow. DERREK MASTERS RN-Software Quality Manager - 03/11/2021 9:10 EST documented in this encounter Plan of Treatment Not on file documented as of this encounter Visit Diagnoses Not on filedocumented in this encounter
--- OUTSIDE RECORDS SUMMARY | 2025-02-17 08:15 | XMS_ITS | Encounter Summary ---
Author Organization [employer] ([place], [place], [place], [place]) Address [address] [place] [address] Care Team Providers Care Advanced Clinical Specialist Name Role Phone Unavailable Primary Care Provider Unavailabl e Encounter Details Date Type Department Care Team (Late st Contact Info) Description 03/11/2021 Transcribed Document [facility] Family Medicine [facility] [place] [address] ProviderAlexis MD [facility] [place] [address] Social History Tobacco Use Types [...] Alexis Livingston MD - 03/11/2021 1:36 PM PRECISION INSPECTOR [facility] [place] [address] DAYANA BONILLA :1960 Visit Time:03/10/2021 Your [...] Bring discharge instructions with you. Where: [address] [place] [address]- Follow Up with ARMANDO ZAVALA MD-PRO When 03/18/2021 02:00 PM EST Comments Colorectal Surgical follow up Appointment has been made. Bring discharge instructions with you. Where: [address] [facility] [address] [place] [id number]- Medications What How Much When Instructions Next Dose acetaminophen (acetaminophen 500 mg oral tablet) 2 Tablet(s) Oral Two Times A Day Duration: 5 Day(s) not to exceed 3000 mg/ day this evening acetaminophen-oxyCODONE (Percocet 5 mg-325 mg oral tablet) 1 Tablet(s) Oral Every 6 Hours as needed for as needed for pain Pickup at [facility] as needed baclofen (baclofen 5 mg [...] Oral At Bedtime at bedtime Pharmacy Information [facility]: [address] [address] [phone] Take your medications faithfully. Do NOT skip [...] are treated at home by: ??? Taking ttdm-cbq-ysvpgof pain medicines. ??? Following a clear liquid [...] these instructions at home: Medicines ??? Take fhkc-dtd-lrtammu and prescription medicines only as told by [...] provider. Document Revised: 01/27/2020 Document Reviewed: 01/27/2020 [employer] Patient Education ?? 2020 [employer] Minimally Invasive Total Colectomy, Care After [...] these instructions at home: Medicines ??? Take kfcm-dgy-njaokxo and prescription medicines only as told by [...] and water are not available, use hand pouncing lathe operator. ? Change your dressing as told by [...] provider. Document Revised: 03/25/2020 Document Reviewed: 03/25/2020 [employer] Patient Education ?? 2020 [employer] Low Residue Diet A low residue [...] than 7-10 grams of fiber per day. care home use of this diet may not [...] that you work with a diet and learning development specialist (dietitian). What are tips for following [...] made with white flour. Waffles, pancakes, and Kiswahili toast. Bagels. Pretzels. Elvia toast, zwieback, and matzoh. Cooked and dried cereals that do not contain whole grains, added fiber, seeds, or dried fruit. Cornmeal. [place]. Hot and cold cereals made with refined [...] Sports drinks. Herbal tea. Fats and oils [place] oil, canola oil, sunflower oil, flaxseed oil, [...] breads and crackers. Multigrain breads and crackers. Confluence bread. Whole grain or multigrain cereals. Cereals with nuts, raisins, or coconut. Bran. Coarse wheat cereals. Granola. High-fiber cereals. Cornmeal or corn bread. Whole grain pasta. Wild or brown rice. Quinoa. Popcorn. Buckwheat. Wheat germ. Vegetables Potato skins. Raw or undercooked vegetables. All beans and reyes sprouts. Cooked greens. [place]. Peas. Cabbage. Beets. Broccoli. Thurmond sprouts. Cauliflower. Mushrooms. Onions. Peppers. Parsnips. Okra. [...] are not allowed. Seasoning and other foods [place] tortilla chips. Soups made with vegetables or [...] provider. Document Revised: 08/09/2019 Document Reviewed: 06/20/2017 [employer] Patient Education ?? 2020 [employer] acetaminophen and oxycodone (a SEET a [...] may report side effects to FDA at 4-978-VBT-9868. What other drugs will affect acetaminophen and [...] affect acetaminophen and oxycodone, including prescription and dojk-wxo-jmsuewd medicines, vitamins, and herbal products. Not all [...] to ensure that the information provided by [employer]. ('Mult[employer]') is accurate, up-to-date, and complete, but no guarantee is made to that effect. Drug information contained herein may be time sensitive. [employer] information has been compiled for use by healthcare practitioners and consumers in the [place] and therefore [employer] does not warrant that uses outside of the [place] are appropriate, unless specifically indicated otherwise. [employer] drug information does not endorse drugs, diagnose patients or recommend therapy. [employer] drug information is an informational resource designed [...] effective or appropriate for any given patient. [employer] does not assume any responsibility for any aspect of healthcare administered with the aid of information [employer] provides. The information contained herein is not intended to cover all possible uses, directions, precautions, warnings, drug interactions, allergic reactions, or adverse effects. If you have questions about the drugs you are taking, check with your doctor, nurse or pharmacist. Copyright 8916-5202 [employer]. Version: .. Revision Date: 06/05/2020. acetaminophen (oral) (a SEET a MIN oh fen) Actamin, Anacin AF, Aurophen, Bromo Holladay, Children's Tylenol, Mapap, M-Pap, Pharbetol, Silapap Childrens, [...] may report side effects to FDA at 1-904-JQC-9703. What other drugs will affect acetaminophen? Other drugs may affect acetaminophen, including prescription and yhti-ldc-njzavck medicines, vitamins, and herbal products. Tell your [...] to ensure that the information provided by [employer]. ('[employer]') is accurate, up-to-date, and complete, but no guarantee is made to that effect. Drug information contained herein may be time sensitive. [employer] information has been compiled for use by healthcare practitioners and consumers in the [place] and therefore [employer] does not warrant that uses outside of the [place] are appropriate, unless specifically indicated otherwise. [employer] drug information does not endorse drugs, diagnose patients or recommend therapy. [employer] drug information is an informational resource designed [...] effective or appropriate for any given patient. [employer] does not assume any responsibility for any aspect of healthcare administered with the aid of information [employer] provides. The information contained herein is not intended to cover all possible uses, directions, precautions, warnings, drug interactions, allergic reactions, or adverse effects. If you have questions about the drugs you are taking, check with your doctor, nurse or pharmacist. Copyright 3451-6119 [employer]. Version: 22.01. Revision Date: 02/02/2021. Emergency Awareness [...] Assistance with quitting is available by contacting 6-896-AWKWNOW. This is a free resource providing counseling, [...] range between ( 0.0 and 7.0 ) [place] #: 0.41 K/uL -- Normal range between ( 0.16 and 1.00 ) Eos #: 0.00 x10(3)/uL -- Normal range between ( 0.00 and 0.80 ) [place] %: 3.3 % -- Normal range between [...] was given the opportunity to ask questions. Patient/Geospatial Scientist Name: Patient/Geospatial Scientist Signature: Relationship to Patient: Clinician/Hospital Geospatial Scientist Signature: Date: documented in this encounter Plan of Treatment Not on file documented as of this encounter Visit Diagnoses Not on filedocumented in this encounter
--- OUTSIDE RECORDS SUMMARY | 2025-02-17 08:15 | XMS_ITS | Encounter Summary ---
Author Organization [employer] ([place], [place], [place], [place]) Address [address] [place] [address] Care Team Providers Care Electrical Logging Operator Name Role Phone Unavailable Primary Care Provider Unavailabl e Encounter Details Date Type Department Care Team (Late st Contact Info) Description 03/11/2021 Transcribed Document [facility] [place] Medicine [place] [address] ProviderAlexis MD [place] [address] Social History Tobacco Use Types [...] - Alexis ProviderMD - 03/11/2021 6:00 AM CITRIX ENGINEER Pain Assessment Entered On: 03/11/2021 8:25 EST [...] form. Electronically signed by Sandor Carvajal Conversion Professional Programmer Analyst Cerner at 08/19/2022 6:15 PM CDT documented in this encounter Plan of Treatment Not on file documented as of this encounter Visit Diagnoses Not on filedocumented in this encounter
--- OUTSIDE RECORDS SUMMARY | 2025-02-17 08:15 | XMS_ITS | Encounter Summary ---
Author Organization [employer] ([place], [place], [place], [place]) Address [address] [place] [address] Care Team Providers Care Programs Assistant Name Role Phone Unavailable Primary Care Provider Unavailabl e Encounter Details Date Type Department Care Team (Late st Contact Info) Description 03/10/2021 Transcribed Document [facility] Family Medicine [address] [place] [address] ProviderAlexis MD [address] [place] [address] Social History Tobacco Use Types [...] - Alexis ProviderMD - 03/10/2021 6:00 PM TRANSFER AND PUMPHOUSE OPERATOR CHIEF Pain Assessment Entered On: 03/10/2021 18:18 EST [...]
--- OUTSIDE RECORDS SUMMARY | 2025-02-17 08:15 | XMS_ITS | Encounter Summary ---
Author Organization [employer] ([place], [place], [place], [place]) Address [address] [place] [address] Care Team Providers Care Coal Inspector Name Role Phone Unavailable Primary Care Provider Unavailabl e Encounter Details Date Type Department Care Team (Late st Contact Info) Description 03/11/2021 Transcribed Document [facility] [place] Medicine [address] [place] [address] ProviderAlexis MD Critical [place] [address] Social History Tobacco Use Types [...] - Historical ProviderMD - 03/11/2021 12:00 AM COMMUNITY ORGANIZER Pain Assessment Entered On: 03/11/2021 0:03 EST Performed On: 03/11/2021 0:18 EST by Krys Meyer Lpn Intervention Information: ketorolac Performed by Krys Meyer Lpn on 03/10/2021 23:48:00 EST ketorolac,15mg IV Push,Left Lower Forearm Pain Assessment Pain Assessment : Follow-up assessment Pain Scale Goal : 6 Pain Scale Used : 0-10 Scale Krys Meyer Lpn - 03/11/2021 0:02 EST Electronically signed by Sandor Carvajal Conversion Vp Director Of Creative Strategy Cerner at 08/19/2022 6:08 PM CDT documented in this encounter Plan of Treatment Not on file documented as of this encounter Visit Diagnoses Not on filedocumented in this encounter
--- OUTSIDE RECORDS SUMMARY | 2025-02-17 08:15 | XMS_ITS | Encounter Summary ---
Author Organization [employer] ([place], [place], [place], [place]) Address [address] [place] [address] Care Team Providers Care Computer Video Game Designer Name Role Phone Unavailable Primary Care Provider Unavailabl e Encounter Details Date Type Department Care Team (Late st Contact Info) Description 03/10/2021 Transcribed Document [facility] Family Medicine [address] [place] [address] ProviderAlexis MD [address] [place] [address] Social History Tobacco Use Types [...] - Historical ProviderMD - 03/10/2021 6:00 PM ACADEMIC MANAGER Pain Assessment Entered On: 03/10/2021 18:18 EST Performed On: 03/10/2021 17:45 EST by Gianna Branham RN Intervention Information: ketorolac Performed by Gianna Branham RN on 03/10/2021 17:15:00 EST ketorolac,15mg IV Push,Left Lower Forearm Pain Assessment Pain Assessment : Follow-up assessment Gianna Branham RN - 03/10/2021 18:18 EST Electronically signed by Wei [facility] Conversion Leather Goods I Assembler Cerner at 08/19/2022 5:59 PM CDT documented in this encounter Plan of Treatment Not on file documented as of this encounter Visit Diagnoses Not on filedocumented in this encounter
--- OUTSIDE RECORDS SUMMARY | 2025-02-17 08:16 | XMS_ITS | Encounter Summary ---
Author Organization [employer] ([place], [place], [place], [place]) Address [address] [place] [address] Care Team Providers Care Shoulder Joiner Name Role Phone Unavailable Primary Care Provider Unavailabl e Encounter Details Date Type Department Care Team (Late st Contact Info) Description 03/11/2021 Transcribed Document [facility] [place] [address] [place] [address] ProviderAlexis MD [address] [place] [address] Social History Tobacco Use Types [...] - Historical ProviderMD - 03/11/2021 2:33 PM REED WORKER Nursing Discharge Summary Entered On: 03/11/2021 14:33 EST Performed On: 03/11/2021 14:33 EST by Leanne Sahu Virtual day habilitation specialist Documentation Discharge Instructions Reviewed With, Opportunity For Questions Given : Patient Patient Education Completed : Yes Teaching Method : Explanation, Printed materials Teaching Evaluation : Verbalizes understanding Education Comment : Meds, follow ups, conditions, restrictions Leanne Sahu Virtual RN - 03/11/2021 14:33 EST Electronically signed by Wei [facility] Conversion Splitter Hand Cerner at 08/19/2022 6:24 PM CDT documented in this encounter Plan of Treatment Not on file documented as of this encounter Visit Diagnoses Not on filedocumented in this encounter
--- OUTSIDE RECORDS SUMMARY | 2025-02-17 08:16 | XMS_ITS | Encounter Summary ---
Author Organization [employer] ([place], [place], [place], [place]) Address [address] [place] [address] Care Team Providers Care Topographic Computator Name Role Phone Unavailable Primary Care Provider Unavailabl e Encounter Details Date Type Department Care Team (Late st Contact Info) Description 03/04/2021 Transcribed Document [facility] Family Medicine [facility] [place] [address] ProviderAlexis MD [facility] [place] [address] Social History Tobacco Use Types [...] Pain Scale Used : 0-10 Scale WM POTRILLO RN - 03/05/2021 15:25 EDT Height and Weight, Clinical Dosing Height Source : Measured Height Entry Format : [place] Height, Feet : 0 ft(Converted to: 0 cm, 0 Inch) Height, Inches : 63 Inch(Converted to: 5 ft 3 Inch, 160.02 cm) Clinical Height : 160.02 cm Weight Source : Standing scale Weight Entry Format : [place] Clinical Dosing Weight : 83.64 kg Weight, Pounds : 184 lb Body Surface Area (BSA) : 1.87 m2 Body Mass Index : 32.7 kg/m2 ([place]) [place] Body Weight : 52 kg WM PORTILLO [...] WM PORTILLO RN - 03/05/2021 15:25 EDT [place] Suicide Severity Rating Scale (C-SSRS) CSSRS Past [...] Verbalizes understanding Other : Verbalizes understanding (Comment: mki perez [WM PORTILLO RN - 03/05/2021 15:25 EDT] ) Responsible Adult Contact Information : Jeanmary jo Bonilla, spouse, WM PORTILLO RN - 03/05/2021 15:25 EDT General Info Arrived From : Home Mode of Arrival on Unit : Ambulatory Patient Arrival Date/Time : 03/10/2021 8:30 EST Legal Guardian : Spouse Information Obtained From : Patient Preferred Communication Mode : Verbal Director Corporate Needed : No Objects to Sharing Info w Family : No WM PORTILLO RN - 03/05/2021 15:25 EDT Want Family/Rep/Phys Notified of Admit : No Emergency Contact #1 : jean bonilla Emergency Contact #1 Emergency Contact #1 Relationship : spouse Emergency Contact #2 : , Emergency Contact #2 Phone Number : , Emergency Contact #2 Relationship : , Primary Language : Tanzanian Communication Barrier : None RICARDO MARTINS RN [...] form. Electronically signed by Sandor Carvajal Conversion Network Operations Specialist Cerner at 08/19/2022 6:08 PM CDT documented in this encounter Plan of Treatment Not on file documented as of this encounter Visit Diagnoses Not on filedocumented in this encounter
--- OUTSIDE RECORDS SUMMARY | 2025-02-17 08:16 | XMS_ITS | Encounter Summary ---
Author Organization [employer] ([place], [place], [place], [place]) Address [address] [place] [address] Care Team Providers Care Coal Washer Tender Name Role Phone Unavailable Primary Care Provider Unavailabl e Encounter Details Date Type Department Care Team (Late st Contact Info) Description 03/11/2021 Transcribed Document [facility] Family Medicine [address] [place] [address] ProviderAlexis MD [address] [place] [address] Social History Tobacco Use Types [...] - Historical ProviderMD - 03/11/2021 1:11 PM WASH OIL PUMP OPERATOR Stroke/Warfarin Instructions Entered On: 03/11/2021 13:12 EST Performed On: 03/11/2021 13:11 EST by Leanne Sahu Virtual RN Stroke/Warfarin Instructions Stroke/TIA Discharge Ins : N/A Warfarin Discharge Ins : N/A Leanne Sahu Virtual RN - 03/11/2021 13:11 EST Electronically signed by Wei [facility] Conversion Cdl Program Coordinator Cerner at 08/19/2022 6:21 PM CDT documented in this encounter Plan of Treatment Not on file documented as of this encounter Visit Diagnoses Not on filedocumented in this encounter
--- OUTSIDE RECORDS SUMMARY | 2025-02-17 08:16 | XMS_ITS | Encounter Summary ---
Author Organization [employer] ([place], [place], [place], [place]) Address [address] [place] [address] Care Team Providers Care Prop Worker Name Role Phone Unavailable Primary Care Provider Unavailabl e Encounter Details Date Type Department Care Team (Late st Contact Info) Description 03/15/2021 Transcribed Document [facility] [place] [address] [place] [address] ProviderAlexis MD [address] [place] [address] Social History Tobacco Use Types [...] Alexis Livingston MD - 03/15/2021 3:51 PM SCALE MECHANIC UM Authorization Entered On: 03/15/2021 15:51 EST Performed On: 03/15/2021 15:51 EST by Nette Pham, Cigarette Tipper Primary Insurance Authorization Authorization and Policy Numbers : Insurance 1 Health Plan: [facility] [employer] Policy Number: [id number] Authorization Number: [id number] Insurance Primary Name : [facility] Policy Number: [id number] Authorization Status-Primary : Approved Auth/Referral Contact Name-Primary : DC Authorization Number-Primary : [id number] Number of Days Authorized-Primary : 4 Day(s) Authorized Service Begin Date-Primary : 03/10/2021 EST Authorized Service End Date-Primary : 03/14/2021 EST Authorization Comments-Primary : Discharge date and summary faxed. Historical Authorization Comments-Primary : Comment 1: IP admit approved from 03/10 to 03/14 per [facility] website (CHRISTIAN ARMENTA RN 03/11/2021 08:09) Nette Pham, Cigarette Tipper - 03/15/2021 15:51 EST Electronically signed by Wei [facility] Conversion Spinning Lathe Operator Automatic Cerner at 08/19/2022 6:07 PM CDT documented in this encounter Plan of Treatment Not on file documented as of this encounter Visit Diagnoses Not on filedocumented in this encounter
[2025-02-17 08:52] LABS: Chloride 97 mmol/L (98-107)
[2025-02-17 08:53] LABS: Albumin Level 3.9 g/dl (3.5-5.0); Potassium 3.7 mmoL/L (3.5-5.1); Sodium 136 mmol/L (136-145)
[2025-02-17 08:55] LABS: Bilirubin,Unconjugated 0.3 mg/dL (0.0-1.1); Blood Urea Nitrogen 24 mg/dl (7-17); Creatinine,Serum 0.90 mg/dl (0.52-1.04); Estimated Glomerular Filt Rate 63 ml/min (>60); GFR (African American) 77 ML/MIN (>60)
[2025-02-17 08:56] LABS: Alanine Aminotransferase 16 U/L (12-78); Alkaline Phosphatase 74 U/L (38-126); Anion Gap 8.7 mEq/L (5-15); Aspartate Amino Transferase 25 U/L (14-36); Bilirubin,Direct 0.0 mg/dl (0.0-0.4); Bilirubin,Indirect 0.2 mg/dL (0.0-0.9); Bilirubin,Total 0.2 mg/dl (0.2-1.3); Calcium 8.9 mg/dl (8.4-10.2); Carbon Dioxide 34 mmol/L (22.0-30.0); Cholesterol 220 mg/dl (140-200); Glucose 97 mg/dl (74-100); HDL Cholesterol 92 mg/dl (40-60); Magnesium 1.8 mg/dl (1.6-2.3); Total Protein,Serum 6.7 g/dl (6.3-8.2); Triglycerides 78 mg/dl (30-150)
[2025-02-17 09:11] LABS: Free T4 (Free Thyroxine) 1.08 ng/dl (0.78-2.19)
[2025-02-17 09:24] LABS: Thyroid Stimulating Hormone 1.78 uIU/mL (0.465-4.68)
== END 2025-02-17 23:59 | disposition home or self-care (01) ==
LOC: LAB 07:52
PROVIDERS: PCP Internal Medicine; Visit Provider Nurse Practitioner Family
DX: I25.10 Atherosclerotic heart disease of native coronary artery without angina pectoris (principal); E78.5 Hyperlipidemia, unspecified; I10 Essential (primary) hypertension
CPT/HCPCS: 36415; 80048; 80061; 80076; 83735; 84439; 84443; 85025

== ENCOUNTER 2025-03-05 06:54 | Outpatient (CLI) | payer OTHER, SELFPAY ==
--- NOTE | 2025-03-05 | CA_ITS ---
APPROVED REPORT Exam: Pharmacologic Technologist: Mercy Fernando Stress Nurse: Skye RAMACHANDRAN, RN Ht: 5 ft 2 in Wt: 160 lbs BSA: 1.74 m2 HR: 57 bpm BP: 133/63 mmHg Indications: Angina, Dyspnea, Coronary Artery Disease. Stress Test Details Test: Lexiscan HR Resting HR: 57 bpm Max Heart Rate (APMHR): 157.664624 bpm Max HR Achieved: 82 bpm Target HR (85% APMHR): 133.008436 bpm % of APMHR: 52.23 Recovery HR: 68 bpm BP Resting BP: 133.0/63.0 mmHg Max BP: 159.0/134.0 mmHg Recovery BP: 133.0/81.0 mmHg ECG Resting ECG: Sinus rhythm Stress ECG Conclusion Symptoms: Nausea Arrhythmias/Ectopy: PAC ST-T Changes: Nondiagnostic ECG/Lexiscan Electronically signed by : Suad Smart MD 03/05/2025 12:33:17
--- OUTSIDE RECORDS SUMMARY | 2025-03-05 06:56 | XMS_ITS | Encounter Summary ---
Author Organization [employer] ([place], [place], [place], [place], [place]) Address [address] [place] [address] Care Team Providers Care Granulator Machine Operator Name Role Phone Unavailable Primary Care Provider Unavailabl e Encounter Details Date Type Department Care Team (Late st Contact Info) Description 03/10/2021 Transcribed Document [facility] Family Medicine [address] [place] [address] ProviderAlexis MD [address] [place] [address] Social History Tobacco Use Types [...] - Historical ProviderMD - 03/10/2021 2:33 PM DOUGHNUT DOUGH MIXER Consult Phone Call Documentation Entered On: 03/10/2021 16:27 EST Performed On: 03/10/2021 14:33 EST by Elodia Buck Patient Solar Photovoltaic Crew Lead Heladio Phone Call for Consults Consult Phone Call/Page Attempt : First call Consult Reason : assumption of care and medical management Physician Requesting Consult : ARMANDO ZAVALA MD-PRO Physician Covering for Consult : VALERIA LOPEZ MD-INT Date and Time Call Returned : 03/10/2021 16:27 EST Elodia Buck Patient Solar Photovoltaic Crew Lead I - 03/10/2021 16:27 EST Electronically signed by Celestino Carvajal Conversion Personal Financial Counselor Cerner at 08/19/2022 6:17 PM CDT documented in this encounter Plan of Treatment Not on file documented as of this encounter Visit Diagnoses Not on filedocumented in this encounter
--- OUTSIDE RECORDS SUMMARY | 2025-03-05 06:56 | XMS_ITS | Encounter Summary ---
Author Organization [employer] ([place], [place], [place], [place], [place]) Address [address] [place] [address] Care Team Providers Care Sole Ruffer Name Role Phone Unavailable Primary Care Provider Unavailabl e Encounter Details Date Type Department Care Team (Late st Contact Info) Description 03/10/2021 Transcribed Document [facility] [place] Family Medicine [address] [place] [address] ProviderAlexis MD [address] [place] [address] Social History Tobacco Use Types [...] - Historical ProviderMD - 03/10/2021 9:59 AM DROP WIRE ALIGNER Patient: DAYANA BONILLA Age: 60 years Sex: [...] Problems Anxiety and depression / SNOMED CT 649381066 / Confirmed Hyperlipidemia / SNOMED CT 40378062 / Confirmed Hiatal hernia / SNOMED CT 018246482 / Confirmed Cecal diverticulitis / SNOMED CT 9738982060 / Confirmed Corrosive esophagitis / SNOMED CT 67855873 / Confirmed At risk for sleep apnea / IMO [id number] / Confirmed Arthritis / SNOMED CT 2240564 / Confirmed, Active Problems (7) Anxiety and depression Arthritis At risk for sleep apnea Cecal diverticulitis Corrosive esophagitis Hiatal hernia Hyperlipidemia Histories Past Medical History: No active or resolved past medical history items have been selected or recorded. Family History: No family history items have been selected or recorded. Procedure history: Hysterectomy ([id number]) on 04/01/2001 at 40 Years. Tubal ligation ([id number]). lumpectomy. EGD (esophagogastroduodenoscopy) gastric outlet reduction ([id number]). colonoscopy. Social History Social & Psychosocial Habits [...] of motion, Normal strength. Integumentary: Warm, Dry, [place]. Neurologic: Alert, Oriented. Psychiatric: Cooperative, Appropriate mood [...]
--- OUTSIDE RECORDS SUMMARY | 2025-03-05 06:56 | XMS_ITS | Encounter Summary ---
Author Organization [employer] ([place], [place], [place], [place], [place]) Address [address] [place] [address] Care Team Providers Care Wilton Weaver Name Role Phone Unavailable Primary Care Provider Unavailabl e Encounter Details Date Type Department Care Team (Late st Contact Info) Description 03/10/2021 Transcribed Document [facility] [place] Family Medicine [facility] [place] [address] ProviderAlexis MD [address] [place] [address] Social History Tobacco Use [...] Alexis Livingston MD - 03/10/2021 2:34 PM PEDIATRIC INTENSIVE PHYSICIAN Patient: DAYANA BONILLA Age: 60 Years Sex: Female : 1960 CSGA Pre Op Diagnosis: Diverticulitis, possible appendicitis Post Op Diagnosis: Diverticulitis Procedure: Robotic low anterior resection. Yard Goods Salesperson: Vazquez Indications: This is a pleasant 60-year-old [...]
--- OUTSIDE RECORDS SUMMARY | 2025-03-05 06:57 | XMS_ITS | Referral Summary ---
Author Organization [employer] ([place], [place], [place], [place], [place]) Address [address] [place] [address] Care Team Providers Care Band Singer Name Role Phone Unavailable Primary Care Provider [...] Date Pelon rded Speak language other than Greenlandic at home Not on file 05/19/2023 Want [...]
--- OUTSIDE RECORDS SUMMARY | 2025-03-05 06:57 | XMS_ITS | Encounter Summary ---
Author Organization [employer] ([place], [place], [place], [place], [place]) Address [address] [place] [address] Care Team Providers Care Field Rep Name Role Phone Unavailable Primary Care Provider Unavailabl e Encounter Details Date Type Department Care Team (Late st Contact Info) Description 03/10/2021 Transcribed Document [facility] [place] Family Medicine [address] [place] [address] ProviderAlexis MD [address] [place] [address] Social History Tobacco Use Types [...] - Alexis ProviderMD - 03/10/2021 11:41 AM EXCELSIOR MACHINE OPERATOR Admission History, Adult Entered On: 03/10/2021 16:32 [...] : Spouse Current Home Treatments : None RPETTY MAHER RN - 03/10/2021 16:28 EST General [...] Mode : Verbal Communication Barrier : None Dairy Equipment Mechanic Needed : No Objects to Sharing Info [...] Scale Risk Level : 25-45 Medium Risk [place] Fall Interventions : Adequate lighting, Assistive [...] Source : Measured Height Entry Format : Mchenry Height, Feet : 0 ft(Converted to: 0 cm, 0 Inch) Height, Inches : 63 Inch(Converted to: 5 ft 3 Inch, 160.02 cm) Clinical Height : 160.02 cm Weight Source : Standing scale Weight Entry Format : Mchenry Clinical Dosing Weight : 83.64 kg Weight, Pounds : 184 lb Body Surface Area (BSA) : 1.87 m2 Body Mass Index : 32.7 kg/m2 (HI) [place] Body Weight : 52 kg PRETTY MAHER [...] PRETTY MAHER RN - 03/10/2021 16:28 EST [place] Suicide Severity Rating Scale (C-SSRS) CSSRS Past [...] Glasses Personal Items : Cell phone, Other: supervisor forming department Personal Items Disposition : Bedside PRETTY MAHER RN - 03/10/2021 16:28 EST Electronically signed by Sandor Carvajal Conversion River Transportation Worker Cerner at 08/19/2022 6:10 PM CDT documented in this encounter Plan of Treatment Not on file documented as of this encounter Visit Diagnoses Not on filedocumented in this encounter
--- OUTSIDE RECORDS SUMMARY | 2025-03-05 06:57 | XMS_ITS | Encounter Summary ---
Author Organization [employer] ([place], [place], [place], [place], [place]) Address [address] [place] [address] Care Team Providers Care Data Architect Name Role Phone Unavailable Primary Care Provider Unavailabl e Encounter Details Date Type Department Care Team (Late st Contact Info) Description 03/11/2021 Transcribed Document [facility] [place] Family Medicine [address] [place] [address] ProviderAlexis MD [address] [place] [address] Social History Tobacco Use Types [...] - Historical ProviderMD - 03/11/2021 12:00 AM HEAD CASHIER Pain Assessment Entered On: 03/11/2021 0:03 EST [...]
--- OUTSIDE RECORDS SUMMARY | 2025-03-05 06:57 | XMS_ITS | Encounter Summary ---
Author Organization [employer] ([place], [place], [place], [place], [place]) Address [address] [place] [address] Care Team Providers Care Plodding Machine Operator Name Role Phone Unavailable Primary Care Provider Unavailabl e Encounter Details Date Type Department Care Team (Late st Contact Info) Description 03/11/2021 Transcribed Document [facility] [place] [address] [place] [address] ProviderAlexis MD [address] [place] [address] Social History Tobacco Use Types [...] - Alexis ProviderMD - 03/11/2021 9:10 AM INSURANCE PREMIUM AUDITOR Initial Discharge Planning Entered On: 03/11/2021 9:12 EST Performed On: 03/11/2021 9:10 EST by DERREK MASTERS RN-Counselor Aide Initial Assessment I Previously Documented Living Environment [...] Is Guardianship Needed : No DERREK MASTERS RN-Counselor Aide - 03/11/2021 9:10 EST Initial Assessment II Sensory and Motor Deficits : None Current Home Treatments and Equipment : None DERREK MASTERS RN-Counselor Aide - 03/11/2021 9:10 EST Discharge Needs I Anticipated Discharge Date : 03/13/2021 EST Anticipated Discharge To, CM : Home with family care Current Home Treatment/Equipment : Current Home Treatment/Equipment No qualifying data available. Post Acute/Home Treatments : None Documentation Status Complete : Yes DERREK MASTERS RN-Counselor Aide - 03/11/2021 9:10 EST Discharge Needs II Professional Skilled Services : Professional Skilled Services No qualifying data available. Needs Assistance with Transportation : No Patient Discharge Goal : Home DERREK MASTERS RN-Counselor Aide - 03/11/2021 9:10 EST Narrative Note Narrative [...] @ 27. CM will follow. DERREK MASTERS RN-Counselor Aide - 03/11/2021 9:10 EST documented in this encounter Plan of Treatment Not on file documented as of this encounter Visit Diagnoses Not on filedocumented in this encounter
--- OUTSIDE RECORDS SUMMARY | 2025-03-05 06:57 | XMS_ITS | Encounter Summary ---
Author Organization [employer] ([place], [place], [place], [place], [place]) Address [address] [place] [address] Care Team Providers Care Machine Feller Name Role Phone Unavailable Primary Care Provider Unavailabl e Encounter Details Date Type Department Care Team (Late st Contact Info) Description 03/11/2021 Transcribed Document [facility] [place] Family Medicine [address] [place] [address] ProviderAlexis MD [address] [place] [address] Social History Tobacco Use Types [...] - Historical ProviderMD - 03/11/2021 1:11 PM FOUNTAIN ROLLER ASSEMBLER Stroke/Warfarin Instructions Entered On: 03/11/2021 13:12 EST Performed On: 03/11/2021 13:11 EST by Leanne Sahu Virtual RN Stroke/Warfarin Instructions Stroke/TIA Discharge Ins : N/A Warfarin Discharge Ins : N/A Leanne Sahu Virtual RN - 03/11/2021 13:11 EST Electronically signed by Wei [facility] Conversion Cake Press Operator Helper Cerner at 08/19/2022 6:21 PM CDT documented in this encounter Plan of Treatment Not on file documented as of this encounter Visit Diagnoses Not on filedocumented in this encounter
--- OUTSIDE RECORDS SUMMARY | 2025-03-05 06:57 | XMS_ITS | Encounter Summary ---
Author Organization [employer] ([place], [place], [place], [place], [place]) Address [address] [place] [address] Care Team Providers Care Boom Cat Operator Name Role Phone Unavailable Primary Care Provider Unavailabl e Encounter Details Date Type Department Care Team (Late st Contact Info) Description 03/10/2021 Transcribed Document [facility] [place] Family Medicine [address] [place] [address] ProviderAlexis MD [address] [place] [address] Social History Tobacco Use Types [...] - Alexis ProviderMD - 03/10/2021 12:13 PM INNER TUBE TUBER MACHINE OPERATOR [facility] Main OR IntraOp Summary Primary Physician: ARMANDO ZAVALA MD-PRO Finalized Date/Time: 03/12/21 13:01:41 Pt. Name: DAYANA BONILLA/Sex: 1960 Female Med Rec #: [id number] Physician: ARMANDO ZAVALA MD-PRO Financial #: [id number] Pt. Type: I Room/Bed: [facility]/1 Admit/Disch: 03/10/21 16:14:00 - 03/11/21 14:54:00 Institution: [facility] IntraOp Case Attendance Entry 1 Entry 2 Entry 3 Case Attendee ARMANDO ZAVALA MD-PRO Noemi Saucedo Lewis, Robin A RN-PATIENT CARE BEDSIDE Commercial Loan Coordinator NON-EXEMPT Role Performed Surgeon/Proceduralist, Rag Boiler, Second Scrub, First First Time In 03/10/21 [...] ST Pantano, Scott, SUNIL Role Performed Scrub, Director Of Design, First Rag Boiler, First Time In 03/10/21 11:41:00 03/10/21 11:41:00 [...] LOBO MURRAY, BAKARI COOPER, BRYAN Role Performed RETAIL SERVICE SPECIALIST/Nurse Analytical Consultant Other Time In 03/10/21 11:41:00 03/10/21 11:41:00 Time Out 03/10/21 14:46:00 03/10/21 14:46:00 Procedure Colon Resection Low Colon Resection Low Anterior Robotic Anterior Robotic Other Attendee Superficial Wound Closed By: Last Modified By: Moustapha Hernadez, Moustapha Gan, SUNIL 03/10/21 14:47:28 03/10/21 14:47:28 [facility] IntraOp Case Attendance Audit 03/10/21 14:47:28 Synchronizer: [id number] Modifier: [email or web address] 1 <+> Time Out 1 [...] Colon Resection Low Anterior Robotic 03/10/21 13:15:42 Synchronizer: [id number] Modifier: [id number] <+> Time Out 2 <*> Procedure Colon Resection Low Anterior Robotic 03/10/21 12:28:02 Synchronizer: [id number] Modifier: [id number] <+> 1 Procedure 2 <*> Procedure Colon Resection Low Anterior Robotic 3 <*> Procedure Colon Resection Low Anterior Robotic 4 <*> Procedure Colon Resection Low Anterior Robotic 5 <*> Procedure Colon Resection Low Anterior Robotic 6 <*> Procedure Colon Resection Low Anterior Robotic 7 <*> Procedure Colon Resection Low Anterior Robotic 8 <*> Procedure Colon Resection Low Anterior Robotic 03/10/21 12:20:54 Synchronizer: [id number] Modifier: [id number] <*> Procedure Colon Resection Low Anterior Robotic 3 <*> Procedure Colon Resection Low Anterior Robotic 4 <*> Procedure Colon Resection Low Anterior Robotic 5 <*> Procedure Colon Resection Low Anterior Robotic 6 <*> Procedure Colon Resection Low Anterior Robotic 7 <*> Procedure Colon Resection Low Anterior Robotic 8 <+> Time In 8 <*> Procedure Colon Resection Low Anterior Robotic 03/10/21 12:13:14 Synchronizer: [id number] Modifier: [id number] <+> 1 Time In 2 <+> Time [...] Role Performed <+> 8 Procedure 03/10/21 11:23:24 Synchronizer: [id number] Modifier: [id number] <+> 7 Case Attendee <+> 7 Role Performed <+> 7 Procedure [facility] IntraOp Case Times Entry 1 Patient In Room Time 03/10/21 11:41:00 Out Room Time 03/10/21 14:46:00 Anesthesia Start Time 03/10/21 11:41:00 Stop Time 03/10/21 14:46:00 Surgery / Procedure Times Start Time 03/10/21 12:13:00 Stop Time 03/10/21 14:35:00 Last Modified By: Moustapha Hernadez RN 03/10/21 14:46:30 [facility] IntraOp Case Times Audit 03/10/21 14:46:42 Synchronizer: PANTANOS Modifier: PANTANOS <+> 1 Out Room Time <+> 1 Stop Time 03/10/21 14:46:30 Synchronizer: [id number] Modifier: PANTANOS <+> 1 Stop Time 03/10/21 12:57:52 Synchronizer: [id number] Modifier: [id number] <+> 1 Start Time [facility] IntraOp Cautery Entry 1 ESU Identification Cautery Type Monopolar ESU ID Number [id number] ID Type Hospital Number Cautery Settings Cut [...] Saucedo RN-PATIENT CARE BEDSIDE NON-EXEMPT 03/10/21 11:22:43 [facility] IntraOp Communication Entry 1 Communication To Family/Significant other Communication By Noemi Saucedo RN-PATIENT CARE BEDSIDE NON-EXEMPT Date and Time 03/10/21 12:14:00 Last Modified By: Noemi Saucedo RN-PATIENT CARE BEDSIDE NON-EXEMPT 03/10/21 12:14:41 [facility] IntraOp Counts Verification Entry 1 Procedure Colon Resection Low Anterior Robotic Count Info Count Type Sponge, Sharps, Instrument, Miscellaneous Counts Verification Baseline/pre-procedure Sequence Counts Performed By Count Performed By NICHOLE ROBERTS (Scrub) Count Performed By Noemi Sauecdo, (RN) RN-PATIENT CARE BEDSIDE NON-EXEMPT Last Modified By: Noemi Saucedo RN-PATIENT CARE BEDSIDE NON-EXEMPT 03/10/21 11:22:13 [facility] IntraOp Counts Final Entry 1 Procedure Colon Resection Low Anterior Robotic Final Count Info Count Type Sponge, Sharps, Miscellaneous Counts Verification Skin Closure/end of Sequence procedure Count Results Correct, surgeon notified Counts Performed By Count Performed By Claus Casanova (Scrub) Commercial Loan Coordinator Count Performed By Moustapha Hernadez, RN (RN) Last Modified By: Noemi Saucedo RN-PATIENT CARE BEDSIDE NON-EXEMPT 03/10/21 12:14:28 [facility] IntraOp Counts Final Audit 03/10/21 14:18:29 Synchronizer: [id number] Modifier: ROSARaz Jeffery <*> Procedure Colon Resection Low Anterior Robotic [facility] IntraOp Cultures and Spec Summary Entry 1 Cultrures and Specimens Specimen Ordered: Yes Test(s) Routine/Path-Lab Requested/Final Disposition Last Modified By: Noemi Saucedo RN-PATIENT CARE BEDSIDE NON-EXEMPT 03/10/21 12:14:08 [facility] IntraOp Departure from OR Entry 1 Integumentary Assessment Integumentary WDL with patient Assessment WDL specific variances Patient's Normal Surgical incisions = Integumentary abdomen Variance(s) Transfer/Handoff Transfer to PACU Phase I Handoff Method Phone call Post-op Transport Stretcher/Gurney Via Patient Transport LOBO MURRAY NA, Accompanied by Vazquez Lisa ST Last Modified By: Noemi Saucedo RN-PATIENT CARE BEDSIDE NON-EXEMPT 03/10/21 12:14:56 [facility] IntraOp Dressing and Packing Entry 1 Type Dressing Location Abdomen Wound Dressing Item Skin Closure Glue Applied By Vazquez Lisa ST Other Comments Dermabond Prineo Last Modified By: Noemi Saucedo RN-PATIENT CARE BEDSIDE NON-EXEMPT 03/10/21 12:14:49 [facility] IntraOp Fire Risk Assessment Entry 1 Fire Info Surgical Site or 0- No Incision Above the Xyphoid Open O2 Source 0- No (Mask or Cannula) Available Ignition 1- Yes (ESU, Laser, Light Source) Fire Risk 1 Assessment Score Fire Score Fire Risk Yes Assessment Complete Fire Risk Moustapha Hernadez, global engineering manager Verified By Fire Risk 03/10/21 12:11:00 Assessment Verified Date/Time Fire Risk Standard Fire Yes Safety Precautions Followed Last Modified By: Noemi Saucedo RN-PATIENT CARE BEDSIDE NON-EXEMPT 03/10/21 12:11:14 [facility] IntraOp General Case Refuge Worker 1 Case Information OR OR 12 [facility] Case Level 1 Room Verified Yes Wound Class 2 - Clean-Contaminated Specialty Colorectal Anesthesia Type General ASA Class 2 Diagnosis Preop Diagnosis DIVERTICULITIS Postop Same As Preop Yes Postop Diagnosis DIVERTICULITIS Wound Class Definitions Last Modified By: Noemi Saucedo RN-PATIENT CARE BEDSIDE NON-EXEMPT 03/10/21 12:13:50 [facility] IntraOp General Case Data Audit 03/10/21 12:13:50 Synchronizer: [id number] Modifier: [id number] <+> 1 Specialty <+> 1 ASA Class <+> 1 Wound Class <+> 1 Anesthesia Type <+> 1 Postop Same As Preop <+> 1 Preop Diagnosis <+> 1 Postop Diagnosis <+> 1 Room Verified [facility] IntraOp Intraoperative Assessment Entry 1 Handoff Method Online nursing summary Valid History / Yes Physical in Chart Preoperative Yes Checklist Reviewed/Evaluated Allergies Reviewed Yes Patient is Latex No Sensitive Isolation Not applicable Precautions Noted Level of WDL Consciousness (WDL = Alert, Oriented to Person, Place, and Time) Skin Assessment No Verified Present Upon IVs Arrival to OR Last Modified By: Noemi aSucedo RN-PATIENT CARE BEDSIDE NON-EXEMPT 03/10/21 12:15:08 [facility] IntraOp Intraoperative Equipment Entry 1 Type Monitoring Equipment Equipment Kurtis Suction System Intraop Monitoring Electrocardiogram Three lead placement (ECG) Electrode Placement Blood Pressure Non-Invasive BP Device Source Antiembolic Devices Scopes Photo/Video Documentation Photo No Video No Intraop Equipment Heparin 5000 units SC Comment administered in preoperative area. Last Modified By: Noemi Saucedo RN-PATIENT CARE BEDSIDE NON-EXEMPT 03/10/21 12:14:03 [facility] IntraOp Medication Admin Entry 1 Medication/Irrigant INDOCYANINE GREEN 25MG/VIAL Dose Dose 10 Unit of Measure ml Administered By LOBO MURRAY NA Procedure Irrigation Last Modified By: Noemi Saucedo RN-PATIENT CARE BEDSIDE NON-EXEMPT 03/10/21 12:16:29 [facility] IntraOp Patient Positioning Entry 1 Procedure Colon [...] Saucedo RN-PATIENT CARE BEDSIDE NON-EXEMPT 03/10/21 12:20:44 [facility] IntraOp Sign In Entry 1 Patient, Site, [...] Saucedo RN-PATIENT CARE BEDSIDE NON-EXEMPT 03/10/21 12:20:52 [facility] IntraOp Sign Out Entry 1 RN Confirmation [...] Modified By: Moustapha Hernadez RN 03/10/21 14:47:26 [facility] IntraOp Sign Out Audit 03/10/21 14:47:26 Synchronizer: [email or web address] Modifier: PANTANOS <+> 1 Wound classification reviewed, verified and updated post case in both the General Case Data and Procedure segments 03/10/21 14:47:16 Synchronizer: [id number] Modifier: PANTANOS <+> 1 RN Sign Out Signature Date/Time [facility] IntraOp Skin Prep Entry 1 Procedure Colon Resection Low Anterior Robotic Prescribed Yes Pre-Surgical Prep Completed Prep Area Abdomen/KAYLEIGH ANAL/GENTINAL Intraop Prep Integumentary WDL Assessment WDL Prep Agents Chloraprep, Betadine scrub, Betadine solution Prep by Moustapha Hernadez RN Hair Removal Last Modified By: Noemi Saucedo RN-PATIENT CARE BEDSIDE NON-EXEMPT 03/10/21 12:13:59 [facility] IntraOp Surgical Procedures Entry 1 Procedure Colon Resection Low Anterior Robotic Additional (ROBOTIC LOW ANTERIOR Procedure COLON RESECTION) Description Primary Procedure Yes Primary Surgeon ARMANDO ZAVALA MD-PRO Start 03/10/21 12:13:00 Stop 03/10/21 14:35:00 Anesthesia Type General Specialty Colorectal Wound Class 2 - Clean-Contaminated Last Modified By: Noemi Saucedo RN-PATIENT CARE BEDSIDE NON-EXEMPT 03/10/21 12:28:02 [facility] IntraOp Surgical Procedures Audit 03/10/21 14:46:33 Synchronizer: [id number] Modifier: PANTANOS <+> 1 Start <+> 1 Stop [facility] IntraOp Temp Regulation Devices Entry 1 Temp Regulation Temperature Forced Air Warming Regulation Device device, Warm blankets, Room temperature Temperature Upper body Regulation Site Temperature LOBO MURRAY, MARILIA Regulation Device Applied by Temperature Patient's temperature Regulation Comment and forced air warming device settings monitored by anesthesia provider. Last Modified By: Noemi Saucedo RN-PATIENT CARE BEDSIDE NON-EXEMPT 03/10/21 12:20:58 [facility] IntraOP Time Out Entry 1 Procedure to [...] 13:00 WATTSDR Correct Billing Electronically signed by Wei [facility] Conversion Yard Person Cerner at 08/19/2022 6:01 PM CDT documented in this encounter Plan of Treatment Not on file documented as of this encounter Visit Diagnoses Not on filedocumented in this encounter
--- OUTSIDE RECORDS SUMMARY | 2025-03-05 06:57 | XMS_ITS | Clinical Summary ---
Author Organization [employer] ([place], [place], [place], [place], [place]) Address [address] [place] [address] Care Team Providers Care Encoding Machine Operator Name Role Phone Unavailable Primary [...] Date Pelon rded Speak language other than Argentine at home Not on file 05/19/2023 Want [...] Tdap) 02/19/2023 COVID-19 VACCINE (3 - season) 12/30/202406/2020, 07/08/2020 Influenza Vaccine (#1) 2024 05/18/2017 Respiratory Syncytial Virus (RSV) Adult or (1 - 1-dose 75+ series) 2036
--- OUTSIDE RECORDS SUMMARY | 2025-03-05 06:57 | XMS_ITS | Encounter Summary ---
Author Organization [employer] ([place], [place], [place], [place], [place]) Address [address] [place] [address] Care Team Providers Care Garment Steamer Name Role Phone Unavailable Primary Care Provider Unavailabl e Encounter Details Date Type Department Care Team (Late st Contact Info) Description 03/11/2021 Transcribed Document [facility] [place] [address] [place] [address] ProviderAlexis MD [address] [place] [address] Social History Tobacco Use Types [...] - Historical ProviderMD - 03/11/2021 12:00 PM COMMUNITY PHARMACIST Pain Assessment Entered On: 03/11/2021 14:43 EST [...] form. Electronically signed by Sandor Carvajal Conversion Retail Management Keyholder Cerner at 08/19/2022 5:58 PM CDT documented in this encounter Plan of Treatment Not on file documented as of this encounter Visit Diagnoses Not on filedocumented in this encounter
--- OUTSIDE RECORDS SUMMARY | 2025-03-05 06:57 | XMS_ITS | Encounter Summary ---
Author Organization [employer] ([place], [place], [place], [place], [place]) Address [address] [place] [address] Care Team Providers Care Nickel Plant Operator Name Role Phone Unavailable Primary Care Provider Unavailabl e Encounter Details Date Type Department Care Team (Late st Contact Info) Description 03/11/2021 Transcribed Document [facility] [place] [address] [place] [address] ProviderAlexis MD [address] [place] [address] Social History Tobacco Use Types [...] Historical ProviderMD - 03/11/2021 6:00 AM SENIOR MILITARY ANALYST Pain Assessment Entered On: 03/11/2021 8:25 EST [...] form. Electronically signed by Sandor Carvajal Conversion Technology Training Associate Cerner at 08/19/2022 6:20 PM CDT documented in this encounter Plan of Treatment Not on file documented as of this encounter Visit Diagnoses Not on filedocumented in this encounter
--- OUTSIDE RECORDS SUMMARY | 2025-03-05 06:57 | XMS_ITS | Encounter Summary ---
Author Organization [employer] ([place], [place], [place], [place], [place]) Address [address] [place] [address] Care Team Providers Care Income Tax Manager Name Role Phone Unavailable Primary Care Provider Unavailabl e Encounter Details Date Type Department Care Team (Late st Contact Info) Description 03/10/2021 Transcribed Document [facility] [place] [address] [place] [address] ProviderAlexis MD [address] [place] [address] Social History Tobacco Use Types [...] - Alexis ProviderMD - 03/10/2021 12:13 PM CORONER/MEDICAL EXAMINER [facility] Main OR Preop Summary Primary Physician: ARMANDO ZAVALA MD-PRO Finalized Date/Time: 03/10/21 14:06:34 Pt. Name: DAYANA BONILLA/Sex: 1960 Female Med Rec #: [id number] Physician: ARMANDO ZAVALA MD-PRO Financial #: [id number] Pt. Type: I Room/Bed: / Admit/Disch: 02/23/21 10:15:00 - Institution: [facility] PreOp Case Times Entry 1 In Preop 03/10/21 08:46:00 Ready for Holding n/a Room Patient Ready for 03/10/21 10:29:00 Surgery Patient Out of Preop 03/10/21 11:37:00 Patient Out of n/a Holding Room Last Modified By: Gi Berrios Rn 03/10/21 14:06:33 [facility] PreOp Case Times Audit 03/10/21 14:06:33 Chisel Mortiser Operator: [email or web address] Modifier: [email or web address] <+> 1 Patient Out of Preop Finalized By: Gi Berrios Rn Document Signatures Signed By: Gi Berrios Rn 03/10/21 14:06 Electronically signed by Wei [facility] Conversion Floor Covering Contractor Cerner at 08/19/2022 5:58 PM CDT documented in this encounter Plan of Treatment Not on file documented as of this encounter Visit Diagnoses Not on filedocumented in this encounter
--- OUTSIDE RECORDS SUMMARY | 2025-03-05 06:57 | XMS_ITS | Encounter Summary ---
Author Organization [employer] ([place], [place], [place], [place], [place]) Address [address] [place] [address] Care Team Providers Care Software Sales Executive Name Role Phone Unavailable Primary Care Provider Unavailabl e Encounter Details Date Type Department Care Team (Late st Contact Info) Description 03/10/2021 Transcribed Document [facility] [place] [address] [place] [address] ProviderAlexis MD [address] [place] [address] Social History Tobacco Use Types [...] - Alexis ProviderMD - 03/10/2021 6:00 PM HEATING WORKER Pain Assessment Entered On: 03/10/2021 18:18 EST [...]
--- OUTSIDE RECORDS SUMMARY | 2025-03-05 06:57 | XMS_ITS | Encounter Summary ---
Author Organization [employer] ([place], [place], [place], [place], [place]) Address [address] [place] [address] Care Team Providers Care Guardian Ad Litem Name Role Phone Unavailable Primary Care Provider Unavailabl e Encounter Details Date Type Department Care Team (Late st Contact Info) Description 03/11/2021 Transcribed Document [facility] [place] [address] [place] [address] ProviderAlexis MD [address] [place] [address] Social History Tobacco Use Types [...] - Historical ProviderMD - 03/11/2021 2:00 AM WOOD FORM BUILDER Icing Machine Operator Details Entered On: 03/11/2021 1:06 EST [...]
--- OUTSIDE RECORDS SUMMARY | 2025-03-05 06:57 | XMS_ITS | Encounter Summary ---
Author Organization [employer] ([place], [place], [place], [place], [place]) Address [address] [place] [address] Care Team Providers Care Membership Counselor Name Role Phone Unavailable Primary Care Provider Unavailabl e Encounter Details Date Type Department Care Team (Late st Contact Info) Description 03/11/2021 Transcribed Document [facility] [place] [address] [place] [address] ProviderAlexis MD [address] [place] [address] Social History Tobacco Use Types [...] Alexis Livingston MD - 03/11/2021 1:28 PM PRINCIPAL ARCHITECT Patient Education Materials Follows: Minimally Invasive Total [...] these instructions at home: Medicines ??? Take lcex-han-wcmtwuz and prescription medicines only as told by [...] and water are not available, use hand medical anthropology director. ? Change your dressing as told by [...] provider. Document Revised: 03/25/2020 Document Reviewed: 03/25/2020 ElseDeltagen Patient Education ? 2020 [employer] Inc. Low Residue Diet A low residue [...] than 7-10 grams of fiber per day. automatic mold sander use of this diet may not provide [...] are treated at home by: ??? Taking hjwj-ynl-trbomcf pain medicines. ??? Following a clear liquid [...] these instructions at home: Medicines ??? Take gvns-ehw-jyjptsz and prescription medicines only as told by [...] provider. Document Revised: 01/27/2020 Document Reviewed: 01/27/2020 [employer] Patient Education ? 2020 [employer] Inc. Low-Fiber Eating Plan Fiber is found [...] that you work with a diet and nutrition manager (dietitian). What are tips for following this [...] made with white flour. Waffles, pancakes, and [place]ic toast. Bagels. Pretzels. [place] toast, zwieback, and matzoh. Cooked and dried cereals that do not contain whole grains, added fiber, seeds, or dried fruit. Cornmeal. [place]. Hot and cold cereals made with refined [...] Sports drinks. Herbal tea. Fats and oils [place] oil, canola oil, sunflower oil, flaxseed oil, [...] breads and crackers. Multigrain breads and crackers. [place] bread. Whole grain or multigrain cereals. Cereals with nuts, raisins, or coconut. Bran. Coarse wheat cereals. Granola. High-fiber cereals. Cornmeal or corn bread. Whole grain pasta. Wild or brown rice. Quinoa. Popcorn. Buckwheat. Wheat germ. Vegetables Potato skins. Raw or undercooked vegetables. All beans and reyes sprouts. Cooked greens. [place]. Peas. Cabbage. Beets. Broccoli. [place] sprouts. Cauliflower. Mushrooms. Onions. Peppers. Parsnips. Okra. [...] are not allowed. Seasoning and other foods [place] tortilla chips. Soups made with vegetables or [...] Reviewed: 06/20/2017 Elsevier Patient Education ? 2020 [employer] Inc[employer] documented in this encounter Plan of Treatment Not on file documented as of this encounter Visit Diagnoses Not on filedocumented in this encounter
--- OUTSIDE RECORDS SUMMARY | 2025-03-05 06:57 | XMS_ITS | Encounter Summary ---
Author Organization [employer] ([place], [place], [place], [place], [place]) Address [address] [place] [address] Care Team Providers Care Multiskill Operator Name Role Phone Unavailable Primary Care Provider Unavailabl e Encounter Details Date Type Department Care Team (Late st Contact Info) Description 03/11/2021 Transcribed Document [facility] [place] [address] [place] [address] ProviderAlexis MD [address] [place] [address] Social History Tobacco Use Types [...] Alexis Livingston MD - 03/11/2021 1:29 PM SOLIDWORKS DESIGNER Patient Resource Center Entered On: 03/11/2021 13:30 EST Performed On: 03/11/2021 13:29 EST by Angelique Pozo, Job Training Specialist Patient Resource Center Provider Status : EST Other Established Provider Name : ARMANDO OWENS Patient Phone Number : [phone] Patient Insurance Type : Commercial (ex. [place] PPO, Cigna HMO) Source of Referral : [...] at ED : Other Primary Language : Stateless Patient Resource Center Comment : Patient needs follow up appointments. Called offices and scheduled appointments with Dr. England and Dr. Owens Follow Up Needed : No Angelique Pozo, Job Training Specialist - 03/11/2021 13:29 EST Electronically signed by [facility] Conversion Preliminary School Psychologist Cerner at 08/19/2022 6:06 PM CDT documented in this encounter Plan of Treatment Not on file documented as of this encounter Visit Diagnoses Not on filedocumented in this encounter
--- OUTSIDE RECORDS SUMMARY | 2025-03-05 06:57 | XMS_ITS | Encounter Summary ---
Author Organization [employer] ([place], [place], [place], [place], [place]) Address [address] [place] [address] Care Team Providers Care Chief Of Harbor Patrol Name Role Phone Unavailable Primary Care Provider Unavailabl e Encounter Details Date Type Department Care Team (Late st Contact Info) Description 03/11/2021 Transcribed Document [facility] Radiology [address] [place] [address] Trinity Celaya MD [address] [place] [address] Social History Tobacco Use Types Packs/Day [...] None Author: TRINITY CELAYA MD-INT Discharge dictated. #[id number]. documented in this encounter Plan of Treatment Not on file documented as of this encounter Visit Diagnoses Not on filedocumented in this encounter
--- OUTSIDE RECORDS SUMMARY | 2025-03-05 06:57 | XMS_ITS | Encounter Summary ---
Author Organization [employer] ([place], [place], [place], [place], [place]) Address [address] [place] [address] Care Team Providers Care Short Range Air Defense Artillery Name Role Phone Unavailable Primary Care Provider Unavailabl e Encounter Details Date Type Department Care Team (Late st Contact Info) Description 03/11/2021 Transcribed Document [facility] [place] [address] [place] [address] ProviderAlexis MD [address] [place] [address] Social History Tobacco Use Types [...] Alexis Livingston MD - 03/11/2021 4:12 PM RETRIMMER Final Discharge Planning Entered On: 03/11/2021 16:12 EST Performed On: 03/11/2021 16:12 EST by DERREK MASTERS RN-Cold Roll Operator Final Discharge Planning Discharge Arrangements : [...] : Yes Discharge To Care Management : Home/Residential/Alf or Self Care -01 DERREK MASTERS, RN-Cold Roll Operator - 03/11/2021 16:12 EST Final Narrative Note Final Narrative Note : Discharged to home, agreeable. No needs. DERREK MASTERS RN-Cold Roll Operator - 03/11/2021 16:12 EST Electronically signed by Wei [facility] Conversion Electrical Engineering Director Cerner at 08/19/2022 6:15 PM CDT documented in this encounter Plan of Treatment Not on file documented as of this encounter Visit Diagnoses Not on filedocumented in this encounter
--- OUTSIDE RECORDS SUMMARY | 2025-03-05 06:57 | XMS_ITS | Patient Health Record ---
Author Organization [facility] Address [address] [place] [id number] Care Team Providers Care Propellant Assembler Name Role Phone Yovany Mueller Primary Care Provider [phone] Allergies Allergen (clinical drug ingredient) Drug/Non Drug [...] Status W/U Status Risk Notes Problem Hypothyroidism (50488933) Hypothyroidism (acquired) (E03.9) Active confirmed Problem Diverticulitis (87163903) Diverticulitis (K57.92) Active confirmed Problem Osteopenia (043728902) Osteopenia (M85.80) Active confirmed Problem Mixed anxiety and depressive disorder (412852152) Depression with anxiety (F41.8) Active confirmed Problem BMI 30+ - obesity (605163668) BMI 32.0-32.9,adult (Z68.32) Active confirmed Problem Calcaneal spur of right foot (358458001964092) Calcaneal spur, right foot (M77.31) Active confirmed Problem Chronic pain (03519440) Other chronic pain (G89.29) Active confirmed Problem Mammography abnormal (000813251) Abnormal mammogram of left breast (R92.8) Active confirmed Problem Stenosis of left carotid artery (004450450037835) Stenosis of left carotid artery (I65.22) Active confirmed Problem Body mass index 30.0 0 to 34.99 (310453378648681) BMI 31.0-31.9,adult (Z68.31) Active confirmed Problem Hemorrhage of colon due to diverticulosis (895444242780083) Diverticulosis of large intestine with hemorrhage (K57.31) Active confirmed Problem Family history of ischemic heart disease (293795366) Family history of heart disease in female family member before age 65 (Z82.49) Active confirmed Problem Pure hypercholesterolemia (096494785) Pure hypercholesterolemia (E78.00) Active confirmed Problem History of excision of intestinal structure (580598662) S/P colon resection (Z90.49) Active confirmed Problem Temporomandibular joint disorder (31278771) TMJ (temporomandibular joint disorder) (M26.609) Active confirmed Problem Sacroiliac joint viky n (426238633) Sacroiliac joint pain (M53.3) Active confirmed Problem Osteopenia (284343389) Osteopenia, unspecified location (M85.80) Active confirmed Problem Seasonal allergic rhinitis (408272874) Chronic seasonal allergic rhinitis, unspecified trigger (J30.2) Active confirmed Problem Fibrocystic breast changes (57213056) Fibrocystic breast disease (FCBD), unspecified laterality (N60.19) Active confirmed Problem Aortic valve disorde r (2252550) Aortic valve stenosis, etiology of cardiac valve disease unspecified (I35.0) Active confirmed Problem Left carotid artery occlusion (645204028980335) Carotid stenosis, left (I65.22) Active confirmed Problem H/O tobacco use, presenting hazards to health (Z87.891) Active confirmed Plan Of Treatment No Information Insurance Providers Payer Name Payer Address Payer Phone Subscriber Number Group Number Insured Name Patient Relationship to Insured Coverage Start Date Coverage End Date [employer] [place] [address] [place], [place] [phone] [id number] Dayana Bonilla Self - patient is the [...]
--- OUTSIDE RECORDS SUMMARY | 2025-03-05 06:57 | XMS_ITS | Encounter Summary ---
Author Organization [employer] ([place], [place], [place], [place], [place]) Address [address] [place] [address] Care Team Providers Care Clinical Informatics Spec Name Role Phone Unavailable Primary Care Provider Unavailabl e Encounter Details Date Type Department Care Team (Late st Contact Info) Description 03/10/2021 Transcribed Document [facility] [place] Medicine [facility] [place] [address] ProviderAlexis MD [facility] [place] [address] Social History Tobacco Use Types [...] Alexis Livingston MD - 03/10/2021 6:10 PM SUPERINTENDENT NONSELLING Patient: DAYANA BONILLA Age: 60 Years Sex: Female : 1960 Chief Complaint Abdominal pain Primary Care Provider ARMANDO OWENS MD-[facility] History of Present Illness This is [...]
--- OUTSIDE RECORDS SUMMARY | 2025-03-05 06:57 | XMS_ITS | Encounter Summary ---
Author Organization [employer] ([place], [place], [place], [place], [place]) Address [address] [place] [address] Care Team Providers Care Manager Surgical Name Role Phone Unavailable Primary Care Provider Unavailabl e Encounter Details Date Type Department Care Team (Late st Contact Info) Description 03/11/2021 Transcribed Document [facility] [place] Family Medicine [address] [place] [address] ProviderAlexis MD [facility] [place] [address] Social History Tobacco Use Types [...] - Historical ProviderMD - 03/11/2021 6:00 AM HOT SAW OPERATOR Pain Assessment Entered On: 03/11/2021 8:25 EST [...] form. Electronically signed by Sandor Carvajal Conversion Missile Tracking Technician Cerner at 08/19/2022 6:15 PM CDT documented in this encounter Plan of Treatment Not on file documented as of this encounter Visit Diagnoses Not on filedocumented in this encounter
--- OUTSIDE RECORDS SUMMARY | 2025-03-05 06:57 | XMS_ITS | Encounter Summary ---
Author Organization [employer] ([place], [place], [place], [place], [place]) Address [address] [place] [address] Care Team Providers Care Preassembler And Inspector Name Role Phone Unavailable Primary Care Provider Unavailabl e Encounter Details Date Type Department Care Team (Late st Contact Info) Description 03/10/2021 Transcribed Document [facility] [address] [place] [address] ProviderAlexis MD [address] [place] [address] Social History Tobacco Use Types [...] - Historical ProviderMD - 03/10/2021 6:00 PM CHILD CARE COUNSELOR Pain Assessment Entered On: 03/10/2021 18:18 EST Performed On: 03/10/2021 17:45 EST by Gianna Branham RN Intervention Information: ketorolac Performed by Gianna Branham RN on 03/10/2021 17:15:00 EST ketorolac,15mg IV Push,Left Lower Forearm Pain Assessment Pain Assessment : Follow-up assessment Gianna Branham RN - 03/10/2021 18:18 EST Electronically signed by Wei [facility] Conversion Apartment Leasing Specialist Cerner at 08/19/2022 5:59 PM CDT documented in this encounter Plan of Treatment Not on file documented as of this encounter Visit Diagnoses Not on filedocumented in this encounter
--- OUTSIDE RECORDS SUMMARY | 2025-03-05 06:57 | XMS_ITS | Encounter Summary ---
Author Organization [employer] ([place], [place], [place], [place], [place]) Address [address] [place] [address] Care Team Providers Care Bleach Analyst Name Role Phone Unavailable Primary Care Provider Unavailabl e Encounter Details Date Type Department Care Team (Late st Contact Info) Description 03/11/2021 Transcribed Document [facility] [place] [address] [place] [address] ProviderAlexis MD [address] [place] [address] Social History Tobacco Use Types [...] - Alexis ProviderMD - 03/11/2021 12:00 PM CASH ON DELIVERY CLERK Pain Assessment Entered On: 03/11/2021 14:43 EST [...]
--- OUTSIDE RECORDS SUMMARY | 2025-03-05 06:57 | XMS_ITS | Encounter Summary ---
Author Organization [employer] ([place], [place], [place], [place], [place]) Address [address] [place] [address] Care Team Providers Care Sample Distributor Name Role Phone Unavailable Primary Care Provider Unavailabl e Encounter Details Date Type Department Care Team (Late st Contact Info) Description 03/11/2021 Transcribed Document [facility] [place] [address] [place] [address] ProviderAlexis MD [address] [place] [address] Social History Tobacco Use Types [...] Alexis Livingston MD - 03/11/2021 1:36 PM SUPERVISING APPRAISER [facility] [place] [id number] DAYANA CHEW :1960 Visit Time:03/10/2021 Your Visit Summary Your Care Team Admitting Physician - ARMANDO ZAVALA MD-PRO Attending Physician - TRINITY NAVA MD-INT Primary Care Physician - ARMANDO OWENS MD-FAM Referring Physician - ARMANDO OWENS MD-FAM Your [...] Bring discharge instructions with you. Where: [address] [place] [address]- Follow Up with ARMANDO ZAVALA MD-PRO When 03/18/2021 02:00 PM EST Comments Colorectal Surgical follow up Appointment has been made. Bring discharge instructions with you. Where: [address] [address]- Medications What How Much When Instructions Next Dose acetaminophen (acetaminophen 500 mg oral tablet) 2 Tablet(s) Oral Two Times A Day Duration: 5 Day(s) not to exceed 3000 mg/ day this evening acetaminophen-oxyCODONE (Percocet 5 mg-325 mg oral tablet) 1 Tablet(s) Oral Every 6 Hours as needed for as needed for pain Pickup at [facility] as needed baclofen (baclofen [...] Bedtime at bedtime Pharmacy Information [facility]: [address] [address] [phone] Take your medications faithfully. Do NOT skip [...] are treated at home by: ??? Taking lnry-zcp-zcoybvj pain medicines. ??? Following a clear liquid [...] these instructions at home: Medicines ??? Take arvl-enu-zaozeem and prescription medicines only as told by [...] provider. Document Revised: 01/27/2020 Document Reviewed: 01/27/2020 ElseCarmine Patient Education ?? 2020 [employer]. Minimally Invasive Total Colectomy, Care After [...] these instructions at home: Medicines ??? Take tgbv-flo-babjboq and prescription medicines only as told by [...] and water are not available, use hand supervisor ski production. ? Change your dressing as told by [...] provider. Document Revised: 03/25/2020 Document Reviewed: 03/25/2020 ElseCarmine Patient Education ?? 2020 State Inc. Low Residue Diet A low residue [...] 7-10 grams of fiber per day. terminal operations supervisor use of this diet may not provide [...] that you work with a diet and reservations specialist (dietitian). What are tips for following [...] made with white flour. Waffles, pancakes, and [place] toast. Bagels. Pretzels. [place] toast, zwieback, and matzoh. Cooked and dried cereals that do not contain whole grains, added fiber, seeds, or dried fruit. Cornmeal. [place]. Hot and cold cereals made with refined [...] Sports drinks. Herbal tea. Fats and oils [place] oil, canola oil, sunflower oil, flaxseed oil, [...] breads and crackers. Multigrain breads and crackers. [place] bread. Whole grain or multigrain cereals. Cereals with nuts, raisins, or coconut. Bran. Coarse wheat cereals. Granola. High-fiber cereals. Cornmeal or corn bread. Whole grain pasta. Wild or brown rice. Quinoa. Popcorn. Buckwheat. Wheat germ. Vegetables Potato skins. Raw or undercooked vegetables. All beans and reyes sprouts. Cooked greens. [place]. Peas. Cabbage. Beets. Broccoli. [place] sprouts. Cauliflower. Mushrooms. Onions. Peppers. Parsnips. Okra. [...] are not allowed. Seasoning and other foods [place] tortilla chips. Soups made with vegetables or [...] provider. Document Revised: 08/09/2019 Document Reviewed: 06/20/2017 State Patient Education ?? 2020 State Inc. acetaminophen and oxycodone (a SEET a [...] may report side effects to FDA at 1-166-SIE-2663. What other drugs will affect acetaminophen and [...] affect acetaminophen and oxycodone, including prescription and cwra-cqc-jskwbat medicines, vitamins, and herbal products. Not all [...] to ensure that the information provided by [employer]. ('Multum') is accurate, up-to-date, and complete, but no guarantee is made to that effect. Drug information contained herein may be time sensitive. [employer] information has been compiled for use by healthcare practitioners and consumers in the [place] and therefore [employer] does not warrant that uses outside of the [place] are appropriate, unless specifically indicated otherwise. [employer] drug information does not endorse drugs, diagnose patients or recommend therapy. [employer] drug information is an informational resource designed [...] effective or appropriate for any given patient. [employer] does not assume any responsibility for any aspect of healthcare administered with the aid of information [employer] provides. The information contained herein is not intended to cover all possible uses, directions, precautions, warnings, drug interactions, allergic reactions, or adverse effects. If you have questions about the drugs you are taking, check with your doctor, nurse or pharmacist. Copyright 6675-2927 [employer]. Version: .. Revision Date: 06/05/2020. acetaminophen (oral) (a SEET a MIN oh fen) Actamin, Anacin AF, Aurophen, Bromo [place], Children's Tylenol, Mapap, M-Pap, Pharbetol, Silapap Childrens, [...] may report side effects to FDA at 2-175-CQJ-5730. What other drugs will affect acetaminophen? Other drugs may affect acetaminophen, including prescription and mfmy-gio-kfihehy medicines, vitamins, and herbal products. Tell your [...] to ensure that the information provided by [employer]. ('Multum') is accurate, up-to-date, and complete, but no guarantee is made to that effect. Drug information contained herein may be time sensitive. [employer] information has been compiled for use by healthcare practitioners and consumers in the [place] and therefore [employer] does not warrant that uses outside of the [place] are appropriate, unless specifically indicated otherwise. [employer] drug information does not endorse drugs, diagnose patients or recommend therapy. [employer] drug information is an informational resource designed [...] effective or appropriate for any given patient. [employer] does not assume any responsibility for any aspect of healthcare administered with the aid of information [employer] provides. The information contained herein is not intended to cover all possible uses, directions, precautions, warnings, drug interactions, allergic reactions, or adverse effects. If you have questions about the drugs you are taking, check with your doctor, nurse or pharmacist. Copyright 7727-7486 [employer]. Version: 22.. Revision Date: 02/02/2021. Emergency Awareness and Preventative [...] Assistance with quitting is available by contacting 4-608-LHZZNOW. This is a free resource providing counseling, support, and referral. Or you may contact your personal physician. [place] Suicide Prevention Lifeline: The National Suicide Prevention [...] range between ( 0.0 and 7.0 ) [place]kinson #: 0.41 K/uL -- Normal range between ( 0.16 and 1.00 ) Eos #: 0.00 x10(3)/uL -- Normal range between ( 0.00 and 0.80 ) [place] %: 3.3 % -- Normal range between [...] Vws: CR Chest 2 Vws Patient Name:DAYANA CHEW I have received and understand this information and was given the opportunity to ask questions. Patient/Supervisor Pipe Manufacture Name: Patient/Supervisor Pipe Manufacture Signature: Relationship to Patient: Clinician/Hospital Supervisor Pipe Manufacture Signature: Date: documented in this encounter Plan of Treatment Not on file documented as of this encounter Visit Diagnoses Not on filedocumented in this encounter
--- OUTSIDE RECORDS SUMMARY | 2025-03-05 06:57 | XMS_ITS | Encounter Summary ---
Author Organization [employer] ([place], [place], [place], [place], [place]) Address [address] [place] [address] Care Team Providers Care Teaching Fellow Name Role Phone Unavailable Primary Care Provider Unavailabl e Encounter Details Date Type Department Care Team (Late st Contact Info) Description 03/10/2021 Transcribed Document [facility] [place] [address] [place] [address] ProviderAlexis MD [address] [place] [address] Social History Tobacco Use Types [...] - Alexis ProviderMD - 03/10/2021 12:13 PM SERVICES EXECUTIVE [facility] Main OR PACU Summary Primary Physician: ARMANDO ZAVALA MD- Finalized Date/Time: 03/10/21 16:08:59 Pt. Name: DAYANA BONILLA/Sex: 1960 Female Med Rec #: [id number] Physician: ARMANDO ZAVALA MD-PRO Financial #: [id number] Pt. Type: I Room/Bed: / Admit/Disch: 02/23/21 10:15:00 - Institution: [facility] Main OR PACU I Case Times Entry 1 In PACU I 03/10/21 14:50:00 Ready for PACU 03/10/21 16:05:00 Discharge Discharge from PACU 03/10/21 16:05:00 I Last Modified By: MISAEL AHUMADA RN 03/10/21 16:08:40 Finalized By: MISAEL AHUMADA, RN Document Signatures Signed By: MISAEL AHUMADA RN 03/10/21 16:08 Electronically signed by Wei [facility] Conversion Supervisor Roller Shop Cerner at 08/19/2022 6:05 PM CDT documented in this encounter Plan of Treatment Not on file documented as of this encounter Visit Diagnoses Not on filedocumented in this encounter
--- OUTSIDE RECORDS SUMMARY | 2025-03-05 06:57 | XMS_ITS | Encounter Summary ---
Author Organization [employer] ([place], [place], [place], [place], [place]) Address [address] [place] [address] Care Team Providers Care Acoustical Tile Drill Press Operator Name Role Phone Unavailable Primary Care Provider Unavailabl e Encounter Details Date Type Department Care Team (Late st Contact Info) Description 03/11/2021 Transcribed Document [facility] [place] [address] [place] [address] ProviderAlexis MD [address] [place] [address] Social History Tobacco Use Types [...] - Historical ProviderMD - 03/11/2021 12:00 AM INDUSTRIAL WELDER Pain Assessment Entered On: 03/11/2021 1:05 EST [...]
--- OUTSIDE RECORDS SUMMARY | 2025-03-05 06:57 | XMS_ITS | Encounter Summary ---
Author Organization [employer] ([place], [place], [place], [place], [place]) Address [address] [place] [address] Care Team Providers Care Customs Brokerage Manager Name Role Phone Unavailable Primary Care Provider Unavailabl e Encounter Details Date Type Department Care Team (Late st Contact Info) Description 03/11/2021 Transcribed Document [facility] [place] [address] [place] [address] ProviderAlexis MD [address] [place] [address] Social History Tobacco Use Types [...] - Alexis ProviderMD - 03/11/2021 6:39 AM SYNTHETIC FILAMENT SPINNER Patient: DAYANA BONILLA Age: 60 Years Sex: [...]
--- OUTSIDE RECORDS SUMMARY | 2025-03-05 06:57 | XMS_ITS | Encounter Summary ---
Author Organization [employer] ([place], [place], [place], [place], [place]) Address [address] [place] [address] Care Team Providers Care Chain Hooker Name Role Phone Unavailable Primary Care Provider Unavailabl e Encounter Details Date Type Department Care Team (Late st Contact Info) Description 03/11/2021 Transcribed Document [facility] [place] [address] [place] [address] ProviderAlexis MD [address] [place] [address] Social History Tobacco Use Types [...] - Historical ProviderMD - 03/11/2021 5:00 AM SPOOLER OPERATOR AUTOMATIC Chart Check - Review Order Profile Entered On: 03/11/2021 4:46 EST Performed On: 03/11/2021 5:00 EST by Krys Meyer Lpn Chart Check Powerplans Initiated/Discontinued as Appropriate : Yes All Active Orders Reviewed : Yes Krys Meyer Lpn - 03/11/2021 4:46 EST documented in this encounter Plan of Treatment Not on file documented as of this encounter Visit Diagnoses Not on filedocumented in this encounter
--- OUTSIDE RECORDS SUMMARY | 2025-03-05 06:57 | XMS_ITS | Encounter Summary ---
Author Organization [employer] ([place], [place], [place], [place], [place]) Address [address] [place] [address] Care Team Providers Care Performance Improvement Director Name Role Phone Unavailable Primary Care Provider Unavailabl e Encounter Details Date Type Department Care Team (Late st Contact Info) Description 03/10/2021 Transcribed Document [facility] [place] [address] [place] [address] ProviderAlexis MD [facility] [place] [address] Social History Tobacco Use Types [...] Alexis Livingston MD - 03/10/2021 10:28 AM MOLD HOLDER Peripheral Nerve Block Entered On: 03/10/2021 10:29 [...] - 03/10/2021 10:28 EST Electronically signed by [facility] Conversion Adolescent Counselor Cerner at 08/19/2022 6:13 PM CDT documented in this encounter Plan of Treatment Not on file documented as of this encounter Visit Diagnoses Not on filedocumented in this encounter
--- OUTSIDE RECORDS SUMMARY | 2025-03-05 06:57 | XMS_ITS | Encounter Summary ---
Author Organization [employer] ([place], [place], [place], [place], [place]) Address [address] [place] [address] Care Team Providers Care Studio Operations Engineer In Charge Name Role Phone Unavailable Primary Care Provider Unavailabl e Encounter Details Date Type Department Care Team (Late st Contact Info) Description 03/10/2021 Transcribed Document [facility] [place] [address] [place] [address] ProviderAlexis MD [address] [place] [address] Social History Tobacco Use Types [...] - Historical ProviderMD - 03/10/2021 5:00 PM AFRICAN HISTORY PROFESSOR Chart Check - Review Order Profile Entered On: 03/10/2021 18:18 EST Performed On: 03/10/2021 17:00 EST by Gianna Branham RN Chart Check Powerplans Initiated/Discontinued as Appropriate : Yes All Active Orders Reviewed : Yes Gianna Branham RN - 03/10/2021 18:18 EST Electronically signed by Wei [facility] Conversion Medical Office Manager Cerner at 08/19/2022 6:05 PM CDT documented in this encounter Plan of Treatment Not on file documented as of this encounter Visit Diagnoses Not on filedocumented in this encounter
--- OUTSIDE RECORDS SUMMARY | 2025-03-05 06:57 | XMS_ITS | Encounter Summary ---
Author Organization [employer] ([place], [place], [place], [place], [place]) Address [address] [place] [address] Care Team Providers Care Foot Roentgenologist Name Role Phone Unavailable Primary Care Provider Unavailabl e Encounter Details Date Type Department Care Team (Late st Contact Info) Description 03/11/2021 Transcribed Document [facility] [place] [address] [place] [address] ProviderAlexis MD [address] [place] [address] Social History Tobacco Use Types [...] Alexis Livingston MD - 03/11/2021 8:09 AM FBI SPECIAL AGENT UM Authorization Entered On: 03/11/2021 8:20 EST Performed On: 03/11/2021 8:09 EST by CHRISTIAN ARMENTA RN Primary Insurance Authorization Authorization and Policy Numbers : Insurance 1 Health Plan: [facility] [employer] Policy Number: [id number] Authorization Number: [id number] Insurance Primary Name : [facility] Policy Number: [id number] Authorization Status-Primary : Admit approved Number of Days Authorized-Primary : 4 Day(s) Authorized Service Begin Date-Primary : 03/10/2021 EST Authorized Service End Date-Primary : 03/14/2021 EST Authorization Comments-Primary : IP admit approved from 03/10 to 03/14 per [facility] website Historical Authorization Comments-Primary : No Authorization Comments Found CHRISTIAN ARMENTA RN - 03/11/2021 8:09 EST Electronically signed by Interface, [facility] Conversion Wet Plant Operator Cerner at 08/19/2022 6:10 PM CDT documented in this encounter Plan of Treatment Not on file documented as of this encounter Visit Diagnoses Not on filedocumented in this encounter
--- OUTSIDE RECORDS SUMMARY | 2025-03-05 06:57 | XMS_ITS | Encounter Summary ---
Author Organization [employer] ([place], [place], [place], [place], [place]) Address [address] [place] [address] Care Team Providers Care Senior Fire Protection Engineer Name Role Phone Unavailable Primary Care Provider Unavailabl e Encounter Details Date Type Department Care Team (Late st Contact Info) Description 03/11/2021 Transcribed Document [facility] Radiology [address] [place] [address] Kiki Celaya MD [facility] [address] [address] Social History Tobacco Use Types Packs/Day [...] of the above totals at 30 minutes. /[id number] Kiki Celaya MD VLS/AQ / VLS / MODL /[id number] documented in this encounter Plan of Treatment Not on file documented as of this encounter Visit Diagnoses Not on filedocumented in this encounter
--- OUTSIDE RECORDS SUMMARY | 2025-03-05 06:58 | XMS_ITS | Encounter Summary ---
Author Organization [employer] ([place], [place], [place], [place], [place]) Address [address] [place] [address] Care Team Providers Care Hospitality Job Titles Name Role Phone Unavailable Primary Care Provider Unavailabl e Encounter Details Date Type Department Care Team (Late st Contact Info) Description 03/04/2021 Transcribed Document [facility] [place] [address] [place] [address] ProviderAlexis MD [address] [place] [address] Social History Tobacco Use Types [...] Source : Measured Height Entry Format : [place] Height, Feet : 0 ft(Converted to: 0 cm, 0 Inch) Height, Inches : 63 Inch(Converted to: 5 ft 3 Inch, 160.02 cm) Clinical Height : 160.02 cm Weight Source : Standing scale Weight Entry Format : [place] Clinical Dosing Weight : 83.64 kg Weight, Pounds : 184 lb Body Surface Area (BSA) : 1.87 m2 Body Mass Index : 32.7 kg/m2 (HI) [place] Body Weight : 52 kg WM PORTILLO [...] WM PORTILLO RN - 03/05/2021 15:25 EDT [place] Suicide Severity Rating Scale (C-SSRS) CSSRS Past [...] ) Responsible Adult Contact Information : Jean Bonilla, spouse, WM PORTILLO RN - 03/05/2021 15:25 EDT General Info Arrived From : Home Mode of Arrival on Unit : Ambulatory Patient Arrival Date/Time : 03/10/2021 8:30 EST Legal Guardian : Spouse Information Obtained From : Patient Preferred Communication Mode : Verbal Repairer Welding Equipment Needed : No Objects to Sharing Info w Family : No WM PORTILLO RN - 03/05/2021 15:25 EDT Want Family/Rep/Phys Notified of Admit : No Emergency Contact #1 : jean bonilla Emergency Contact #1 Emergency Contact #1 Relationship : spouse Emergency Contact #2 : , Emergency Contact #2 Phone Number : , Emergency Contact #2 Relationship : , Primary Language : Andorran Communication Barrier : None RICARDO MARTINS RN [...]
--- OUTSIDE RECORDS SUMMARY | 2025-03-05 06:58 | XMS_ITS | Encounter Summary ---
Author Organization [employer] ([place], [place], [place], [place], [place]) Address [address] [place] [address] Care Team Providers Care Dancing Teacher Name Role Phone Unavailable Primary Care Provider Unavailabl e Encounter Details Date Type Department Care Team (Late st Contact Info) Description 03/11/2021 Transcribed Document [facility] [place] [address] [place] [address] ProviderAlexis MD [address] [place] [address] Social History Tobacco Use Types [...] - Historical ProviderMD - 03/11/2021 2:33 PM RECREATIONAL THERAPY TECHNICIAN Nursing Discharge Summary Entered On: 03/11/2021 14:33 EST Performed On: 03/11/2021 14:33 EST by Leanne Sahu Virtual sofa back upholsterer Documentation Discharge Instructions Reviewed With, Opportunity For Questions Given : Patient Patient Education Completed : Yes Teaching Method : Explanation, Printed materials Teaching Evaluation : Verbalizes understanding Education Comment : Meds, follow ups, conditions, restrictions Leanne Sahu Virtual RN - 03/11/2021 14:33 EST Electronically signed by Wei [facility] Conversion Creping Machine Operator Helper Cerner at 08/19/2022 6:24 PM CDT documented in this encounter Plan of Treatment Not on file documented as of this encounter Visit Diagnoses Not on filedocumented in this encounter
--- OUTSIDE RECORDS SUMMARY | 2025-03-05 06:58 | XMS_ITS | Encounter Summary ---
Author Organization [employer] ([place], [place], [place], [place], [place]) Address [address] [place] [address] Care Team Providers Care Person Investigator Name Role Phone Unavailable Primary Care Provider Unavailabl e Encounter Details Date Type Department Care Team (Late st Contact Info) Description 03/15/2021 Transcribed Document [facility] [place] [address] [place] [address] ProviderAlexis MD [address] [place] [address] Social History Tobacco Use Types [...] Alexis Livingston MD - 03/15/2021 3:51 PM SENIOR RUBY DEVELOPER UM Authorization Entered On: 03/15/2021 15:51 EST Performed On: 03/15/2021 15:51 EST by Nette Pham, Financial Representative Primary Insurance Authorization Authorization and Policy Numbers : Insurance 1 Health Plan: [facility] [employer] Policy Number: [id number] Authorization Number: [id number] Insurance Primary Name : [facility] Policy Number: [id number] Authorization Status-Primary : Approved Auth/Referral Contact Name-Primary : [place] Authorization Number-Primary : [id number] Number of Days Authorized-Primary : 4 Day(s) Authorized Service Begin Date-Primary : 03/10/2021 EST Authorized Service End Date-Primary : 03/14/2021 EST Authorization Comments-Primary : Discharge date and summary faxed. Historical Authorization Comments-Primary : Comment 1: IP admit approved from 03/10 to 03/14 per [facility] website (CHRISTIAN ARMENTA RN 03/11/2021 08:09) Nette Pham, Financial Representative - 03/15/2021 15:51 EST Electronically signed by Wei, [facility] Conversion Service Desk Specialist Cerner at 08/19/2022 6:07 PM CDT documented in this encounter Plan of Treatment Not on file documented as of this encounter Visit Diagnoses Not on filedocumented in this encounter
--- NOTE | 2025-03-05 07:00 | NM_ITS ---
APPROVED REPORT Exam: Nuclear Stress Test Indication: Chest pain, SOB, HTN, High cholesterol, CAD Patient Location: Outpatient Stress Tech: [facility] NM Tech:Tanja Oconnor, ARRT, RT (R)(N) Ht: 5 ft 2 in Wt: 160 lbs Bra Size: DDD HR: 57 bpm BP: 135/63 mmHg BSA: 1.74 m2 TID: 1.17 BMI: 29.2 History: Chest pain, SOB, HTN, High cholesterol, CAD Procedure: Patient received 0.4 mg of intravenous Lexiscan, resting heart rate 57 bpm, resting blood pressure 135/63 mmHg, with Lexiscan maximum heart rate achieved was 82 bpm which is % of the maximum predicted heart rate and blood pressure was 159/134 mmHg. With Lexiscan, patient denied any complaint of chest pain. Cardiac Stress and Resting SPECT Images: Cardiac Stress and Resting SPECT images were obtained using technetium 99m Myoview 30.3 mCi stress and 10.22 mCi at rest. Resting and stress imaging in supine and prone positions demonstrate no evidence of fixed or reversible perfusion defects. Gated imaging demonstrates normal global LV systolic function. LVEF is calculated at 64%. Conclusion: No evidence of fixed or reversible perfusion defects. Gated imaging demonstrates normal global LV systolic function. LVEF is calculated at 64%. Electronically signed by : Suad Smart MD 03/05/2025 12:27:26
[2025-03-05] MEDS: ISOTOPE MYOVIEW (PER STUDY) 1 DOSE IV (08:54)
[2025-03-05] MEDS: SODIUM CHLORIDE 0.9% 10ML SYR (RAD ONLY) 10 ML IV ×2 (08:54)
--- NOTE | 2025-03-05 09:30 | CA_ITS ---
APPROVED REPORT EXAM: Comprehensive 2D, Doppler, and color-flow Echocardiogram Flagsetter: Mary Anne Gómez CRT Ht: 5 ft 2 in Wt: 160lbs BSA: 1.74 BP: 118/53 mmHg Indications: Chest Pain, Shortness of Breath, Hyperlipidemia, Hypertension/HDD, AI 2D Dimensions LA Volume 22.80 mL LA Volume Index 12.80 mL/m2 (M/F) 16-34 M-Mode Dimensions RVDd 2.96 cm (0.9-2.6) LA Diam 3.26 cm (1.9-4.0) LVDd 4.71 cm (3.5-5.7) LVDs 2.78 cm (3.5-5.7) IVSd 1.39 cm (0.6-1.1) PWd 0.43 cm (0.6-1.1) EF (Teich) 71.80% FS 41.00% EDV (Teich) 102.90 mL TAPSE 1.98 (<1.7) ESV (Teich) 29.00 mL LV Diastology E Decel Time 237 (160-240 msec) E/A Ratio 0.86 MED A' 11.90 cm/s LAT A' 16.40 cm/s Aortic Valve EMILI Index 1.56 cm2/m2 AoV Peak Chuck. 196.0 (50-130 cm/s) AI PHT 528.00 ms AO Peak GR. 15.40 mmHg AO Mean GR. 8.00 (<5 mmHg) AO VTI 44.0 (18-25 cm) EMILI (VTI) 2.77 (2.5-4.5 cm2) Mitral Valve MV E Max Chuck. 76.0 (40-130 cm/s) MV A Velocity 88.0 (40-130 cm/s) E/A Ratio 0.86 MV PHT 69.0 ms Pulmonary Valve PV Peak Velocity 127.0 (50-150 cm/s) Tricuspid Valve TR P. Velocity 270.00 cm/s RAP Estimate 10.00 mmHg RVSP 39.10 mmHg Left Ventricle The left ventricle is normal size. Left ventricular systolic function is normal. The left ventricular ejection fraction is within the normal range. There is increased left ventricular wall thickness. There is normal LV segmental wall motion. The left ventricular diastolic function is indeterminate. LVEF is 55%. Right Ventricle The right ventricle is normal size. The right ventricular systolic function is normal. Atria The left atrium is mildly dilated. The right atrium is mildly dilated. There is no color Doppler evidence of interatrial shunt. Aortic Valve The aortic valve is mildly thickened. There is no hemodynamically significant aortic valvular stenosis. Moderate to severe aortic regurgitation is present. Mitral Valve The mitral valve is mildly thickened. No evidence of mitral valve stenosis. Mild mitral regurgitation is present. Tricuspid Valve The tricuspid valve leaflets are thin and pliable. Mild tricuspid regurgitation. RVSP is 20 to 25 mmHg. Pulmonic Valve The pulmonary valve is grossly normal in structure. Trace pulmonic valve regurgitation is present. Great Vessels The aortic root is normal in size. IVC is normal in size and collapses >50% with inspiration. Pericardium There is no pericardial effusion. Other Information Study Quality: Fair Conclusion Normal biventricular size and systolic function. Mild biatrial dilation. Moderate to severe AI. Mild MR, mild TR. In the setting of significant AI, further evaluation with cardiac MRI (cardiomyopathy/aortic valve protocol) is suggested. Early referral to interventional cardiology vs. surgical evaluation is also suggested. Electronically signed by : Suad Smart MD 03/17/2025 12:56:18
[2025-03-05 09:39] VITALS: BP 133/63; PULSE 57
[2025-03-05 09:57] VITALS: BMI 29.2
== END 2025-03-05 23:59 | disposition home or self-care (01) ==
LOC: RAD 06:55
PROVIDERS: PCP Internal Medicine; Visit Provider Nurse Practitioner Family
DX: I08.3 Combined rheumatic disorders of mitral, aortic and tricuspid valves (principal); I11.9 Hypertensive heart disease without heart failure; I49.1 Atrial premature depolarization; I25.118 Atherosclerotic heart disease of native coronary artery with other forms of angina pectoris; E78.00 Pure hypercholesterolemia, unspecified
CPT/HCPCS: 78452; 93017; 93018; 93306; A9502; J2785

== ENCOUNTER 2025-04-29 10:02 | Outpatient (CLI) | payer OTHER, SELFPAY ==
--- OUTSIDE RECORDS SUMMARY | 2025-04-29 10:20 | XMS_ITS | Encounter Summary ---
Author Organization [employer] ([place], [place], [place], [place], [place]) Address [address] [place] [address] Care Team Providers Care Trim Sawyer Name Role Phone Unavailable Primary Care Provider Unavailabl e Encounter Details Date Type Department Care Team (Late st Contact Info) Description 03/11/2021 Transcribed Document [facility] [place] [address] [place] [address] ProviderAlexis MD [address] [place] [address] Social History Tobacco Use Types [...] - Historical ProviderMD - 03/11/2021 2:00 AM LAMP INSPECTOR Orthopedic Coder Details Entered On: 03/11/2021 1:06 EST Performed [...]
--- OUTSIDE RECORDS SUMMARY | 2025-04-29 10:20 | XMS_ITS | Encounter Summary ---
Author Organization [employer] ([place], [place], [place], [place], [place]) Address [address] [place] [address] Care Team Providers Care Bobtailer Name Role Phone Unavailable Primary Care Provider Unavailabl e Encounter Details Date Type Department Care Team (Late st Contact Info) Description 03/10/2021 Transcribed Document [facility] [place] [facility] [place] [address] ProviderAlexis MD [facility] [place] [address] Social History Tobacco Use Types [...] Alexis Livingston MD - 03/10/2021 6:10 PM AGRICULTURE PROFESSOR Patient: DAYANA BONILLA Age: 60 Years Sex: Female : 1960 Chief Complaint Abdominal pain Primary Care Provider ARMANDO OWENS MD-[facility] History of Present Illness This is [...]
--- OUTSIDE RECORDS SUMMARY | 2025-04-29 10:20 | XMS_ITS | Encounter Summary ---
Author Organization [employer] ([place], [place], [place], [place], [place]) Address [address] [place] [address] Care Team Providers Care Denial Resolution Specialist Name Role Phone Unavailable Primary Care Provider Unavailabl e Encounter Details Date Type Department Care Team (Late st Contact Info) Description 03/11/2021 Transcribed Document [facility] [place] [address] [place] [address] ProviderAlexis MD [address] [place] [address] Social History Tobacco Use Types [...] - Historical ProviderMD - 03/11/2021 12:00 AM ELECTROPLATING TECHNICIAN Pain Assessment Entered On: 03/11/2021 1:05 EST [...]
--- OUTSIDE RECORDS SUMMARY | 2025-04-29 10:20 | XMS_ITS | Encounter Summary ---
Author Organization [employer] ([place], [place], [place], [place], [place]) Address [address] [place] [address] Care Team Providers Care Table Saw Operator Name Role Phone Unavailable Primary Care Provider Unavailabl e Encounter Details Date Type Department Care Team (Late st Contact Info) Description 03/11/2021 Transcribed Document [facility] [place] [address] [place] [address] ProviderAlexis MD [address] [place] [address] Social History Tobacco Use Types [...] - Historical ProviderMD - 03/11/2021 12:00 AM SCRAPER LOADER OPERATOR Pain Assessment Entered On: 03/11/2021 0:03 EST [...]
--- OUTSIDE RECORDS SUMMARY | 2025-04-29 10:20 | XMS_ITS | Clinical Summary ---
Author Organization [employer] ([place], [place], [place], [place], [place]) Address [address] [place] [address] Care Team Providers Care Structural Layout Worker Name Role Phone Unavailable Primary Care [...] Date Pelon rded Speak language other than Occitan at home Not on file 05/19/2023 Want [...]
--- OUTSIDE RECORDS SUMMARY | 2025-04-29 10:20 | XMS_ITS | Clinical Summary ---
Author Organization [facility] Address [address] [place] [address] Care Team Providers Care Automotive Paint Technician Name Role Phone Unavailable Primary Care Provider Unavailabl e Encounters Date Type Department Care Team Description 04/17/2025 Orders Only [facility] [address] [address] Justine Grande RN Nonrheumatic aortic valve insufficiency (Primary Dx) from Last 3 Months Social History Tobacco Use Types Packs/Day Years Used Date Smoking Tobacco: Never Assessed Comments Unknown Sex and Gender Information Value Date Recorded Sex Assigned at Not on file Legal Sex Female 7:37 PM EDT Gender Identity Not on file Sexual Orientation Not on file Plan of Treatment Upcoming Encounters Date Type Department Care Team (Late st Contact Info) Description 05/23/2025 9:30 AM EST Office Visit [facility] [address] [facility] [address] Leroy Padron MD [address] [place] [id number] Health Maintenance Due Date Last Done Comments [facility]-Depression Screening 1960 [facility]-HIV Screening 1960 [facility]-Hepatitis C Screening 1960 [facility]-Infant/Child/Adol SDOH Screenings 1960 [facility]- SDOH Screenings 10/31/1979 [facility]-Adult SDOH Screenings 10/31/1979 [facility]-Pap Smear 1982 [facility]-Cervical Cancer Screening 10/31/1991 [facility]-HPV/Cotest 10/31/1991 CT Colonography 2006 Colonoscopy 2006 FIT-DNA 2006 FIT 2006 FOBT 2006 Sigmoidoscopy 2006 [facility]-Colorectal Cancer Screening 2006 [facility]-Breast Cancer Screening 10/31/2011 [facility]-Pneumococcal Vaccine: 50 + Years (1 of 1 - PCV) 10/31/2011 [facility]-DTaP,Tdap,and Td Vaccine s (1 - Tdap) 02/20/2013 02/19/2013 [facility]-Zoster Vaccines (2 of 3) 10/16/2020 08/21/2020 [id number] Vaccine (3 - season) 2024 04/01/2021, 07/08/2020 [facility]-Influenza Vaccine (#1) 12/30/202405/16, 05/18/2017, 02/03/2014 [facility]-RSV Vaccine: 60+ Years o r (1 - 1-dose 75+ series) 2036 HPV Vaccines (No Doses Required) Completed [facility]-HIB Vaccines Aged Out No longer e ligible based on patient's age to complete this topic [facility]-Hepatitis A Vaccines Aged Out No longer eligible based on patient's age to complete this topic [facility]-IPV Vaccines Aged Out No longer e ligible based on patient's age to complete this topic [facility]-Rotavirus Vaccines Aged Out No lo nger eligible based on patient's age to complete this topic
--- OUTSIDE RECORDS SUMMARY | 2025-04-29 10:20 | XMS_ITS | Encounter Summary ---
Author Organization [employer] ([place], [place], [place], [place], [place]) Address [address] [place] [address] Care Team Providers Care Javascript Front End Developer Name Role Phone Unavailable Primary Care Provider Unavailabl e Encounter Details Date Type Department Care Team (Late st Contact Info) Description 03/11/2021 Transcribed Document [facility] Family Medicine [address] [place] [address] ProviderAlexis MD [address] [place] [address] Social History Tobacco Use Types [...] Alexis Livingston MD - 03/11/2021 1:36 PM GAS APPLIANCE ADJUSTER [facility] [place] [id number] DAYANA BONILLA :1960 Visit Time:03/10/2021 Your Visit [...] Bring discharge instructions with you. Where: [address] [place] [address]- Follow Up with ARMANDO ZAVALA MD-PRO When 03/18/2021 02:00 PM EST Comments Colorectal Surgical follow up Appointment has been made. Bring discharge instructions with you. Where: [address] [address]- Medications What How Much When Instructions Next Dose acetaminophen (acetaminophen 500 mg oral tablet) 2 Tablet(s) Oral Two Times A Day Duration: 5 Day(s) not to exceed 3000 mg/ day this evening acetaminophen-oxyCODONE (Percocet 5 mg-325 mg oral tablet) 1 Tablet(s) Oral Every 6 Hours as needed for as needed for pain Pickup at [facility] as needed baclofen (baclofen [...] Oral At Bedtime at bedtime Pharmacy Information [facility]: [address] [address] [phone] Take your medications faithfully. Do NOT skip [...] are treated at home by: ??? Taking oook-gto-xwmbftb pain medicines. ??? Following a clear liquid [...] these instructions at home: Medicines ??? Take hleq-rns-nnfqrnv and prescription medicines only as told by [...] provider. Document Revised: 01/27/2020 Document Reviewed: 01/27/2020 [employer] Patient Education ?? 2020 [employer] Minimally Invasive Total Colectomy, Care After [...] these instructions at home: Medicines ??? Take gwon-ltg-zlggdlk and prescription medicines only as told by [...] and water are not available, use hand color blender. ? Change your dressing as told by [...] provider. Document Revised: 03/25/2020 Document Reviewed: 03/25/2020 [employer] Patient Education ?? 2020 [employer] Low Residue Diet A low residue [...] than 7-10 grams of fiber per day. termite helper use of this diet may not provide [...] that you work with a diet and airborne sensor specialist (dietitian). What are tips for following [...] made with white flour. Waffles, pancakes, and Norwegian toast. Bagels. Pretzels. Elvia toast, zwieback, and matzoh. Cooked and dried cereals that do not contain whole grains, added fiber, seeds, or dried fruit. Cornmeal. [place]. Hot and cold cereals made with refined [...] Sports drinks. Herbal tea. Fats and oils [place] oil, canola oil, sunflower oil, flaxseed oil, [...] breads and crackers. Multigrain breads and crackers. [place] bread. Whole grain or multigrain cereals. Cereals with nuts, raisins, or coconut. Bran. Coarse wheat cereals. Granola. High-fiber cereals. Cornmeal or corn bread. Whole grain pasta. Wild or brown rice. Quinoa. Popcorn. Buckwheat. Wheat germ. Vegetables Potato skins. Raw or undercooked vegetables. All beans and reyes sprouts. Cooked greens. [place]. Peas. Cabbage. Beets. Broccoli. [place] sprouts. Cauliflower. Mushrooms. Onions. Peppers. Parsnips. Okra. [...] are not allowed. Seasoning and other foods [place] tortilla chips. Soups made with vegetables or [...] provider. Document Revised: 08/09/2019 Document Reviewed: 06/20/2017 [employer] Patient Education ?? 2020 [employer] acetaminophen and oxycodone (a SEET a [...] may report side effects to FDA at 8-193-UHT-4642. What other drugs will affect acetaminophen and [...] affect acetaminophen and oxycodone, including prescription and tdsb-aag-ytdxgqw medicines, vitamins, and herbal products. Not all [...] to ensure that the information provided by [employer]. ('[employer]') is accurate, up-to-date, and complete, but no guarantee is made to that effect. Drug information contained herein may be time sensitive. [employer] information has been compiled for use by healthcare practitioners and consumers in the [place] and therefore [employer] does not warrant that uses outside of the [place] are appropriate, unless specifically indicated otherwise. [employer] drug information does not endorse drugs, diagnose patients or recommend therapy. [employer] drug information is an informational resource designed [...] effective or appropriate for any given patient. [employer] does not assume any responsibility for any aspect of healthcare administered with the aid of information [employer] provides. The information contained herein is not intended to cover all possible uses, directions, precautions, warnings, drug interactions, allergic reactions, or adverse effects. If you have questions about the drugs you are taking, check with your doctor, nurse or pharmacist. Copyright 4664-1488 [employer]. Version: .. Revision Date: 06/05/2020. acetaminophen (oral) (a SEET a MIN oh fen) Actamin, Anacin AF, Aurophen, Bromo [place], Children's Tylenol, Mapap, M-Pap, Pharbetol, Silapap Childrens, [...] may report side effects to FDA at 6-036-QHY-7630. What other drugs will affect acetaminophen? Other drugs may affect acetaminophen, including prescription and kols-cbj-ysfxaqz medicines, vitamins, and herbal products. Tell your [...] to ensure that the information provided by [employer]. ('[employer]um') is accurate, up-to-date, and complete, but no guarantee is made to that effect. Drug information contained herein may be time sensitive. [employer] information has been compiled for use by healthcare practitioners and consumers in the [place] and therefore [employer] does not warrant that uses outside of the [place] are appropriate, unless specifically indicated otherwise. [employer] drug information does not endorse drugs, diagnose patients or recommend therapy. [employer] drug information is an informational resource designed [...] effective or appropriate for any given patient. [employer] does not assume any responsibility for any aspect of healthcare administered with the aid of information [employer] provides. The information contained herein is not intended to cover all possible uses, directions, precautions, warnings, drug interactions, allergic reactions, or adverse effects. If you have questions about the drugs you are taking, check with your doctor, nurse or pharmacist. Copyright 5250-6201 [employer]. Version: 22.. Revision Date: 02/02/2021. Emergency Awareness [...] Assistance with quitting is available by contacting 0-212-ZDYSNOW. This is a free resource providing counseling, support, and referral. Or you may contact your personal physician. [place] Suicide Prevention Lifeline: The National Suicide Prevention [...] range between ( 0.0 and 7.0 ) Christian #: 0.41 K/uL -- Normal range between ( 0.16 and 1.00 ) Eos #: 0.00 x10(3)/uL -- Normal range between ( 0.00 and 0.80 ) Christian %: 3.3 % -- Normal range between [...] was given the opportunity to ask questions. Patient/Bundler Name: Patient/Bundler Signature: Relationship to Patient: Clinician/Hospital Bundler Signature: Date: documented in this encounter Plan of Treatment Not on file documented as of this encounter Visit Diagnoses Not on filedocumented in this encounter
--- OUTSIDE RECORDS SUMMARY | 2025-04-29 10:20 | XMS_ITS | Encounter Summary ---
Author Organization [employer] ([place], [place], [place], [place], [place]) Address [address] [place] [address] Care Team Providers Care Parts Sales Associate Name Role Phone Unavailable Primary Care Provider Unavailabl e Encounter Details Date Type Department Care Team (Late st Contact Info) Description 03/11/2021 Transcribed Document [facility] Family Medicine [address] [place] [address] ProviderAlexis MD [address] [place] [address] Social History Tobacco Use Types [...] Alexis Livingston MD - 03/11/2021 4:12 PM FIREARMS INSPECTOR Final Discharge Planning Entered On: 03/11/2021 16:12 EST Performed On: 03/11/2021 16:12 EST by DERREK MASTERS RN-Master Steam Yacht Final Discharge Planning Discharge Arrangements : Patient [...] : Yes Discharge To Care Management : Home/Residential/Detention or Self Care -01 DERREK MASTERS, RN-Master Steam Yacht - 03/11/2021 16:12 EST Final Narrative Note Final Narrative Note : Discharged to home, agreeable. No needs. DERREK MASTERS RN-Master Steam Yacht - 03/11/2021 16:12 EST Electronically signed by Wei [facility] Conversion Mind Reader Cerner at 08/19/2022 6:15 PM CDT documented in this encounter Plan of Treatment Not on file documented as of this encounter Visit Diagnoses Not on filedocumented in this encounter
--- OUTSIDE RECORDS SUMMARY | 2025-04-29 10:20 | XMS_ITS | Encounter Summary ---
Author Organization [employer] ([place], [place], [place], [place], [place]) Address [address] [place] [address] Care Team Providers Care Truck Dispatcher Name Role Phone Unavailable Primary Care Provider Unavailabl e Encounter Details Date Type Department Care Team (Late st Contact Info) Description 03/10/2021 Transcribed Document [facility] [place] [address] [place] [address] ProviderAlexis MD [address] [place] [address] Social History Tobacco Use Types [...] - Alexis ProviderMD - 03/10/2021 12:13 PM CAR TESTER [facility] Main OR IntraOp Summary Primary Physician: ARMANDO ZAVALA MD-PRO Finalized Date/Time: 03/12/21 13:01:41 Pt. Name: DAYANA BONILLA/Sex: 1960 Female Med Rec #: [id number] Physician: ARMANDO ZAVALA MD-PRO Financial #: [id number] Pt. Type: I Room/Bed: [facility]/1 Admit/Disch: 03/10/21 16:14:00 - 03/11/21 14:54:00 Institution: [facility] IntraOp Case Attendance Entry 1 Entry 2 Entry 3 Case Attendee ARMANDO ZAVALA MD-PRO Noemi Saucedo Lewis, Robin A RN-PATIENT CARE BEDSIDE Meat Packager NON-EXEMPT Role Performed Surgeon/Proceduralist, Hide Sorter, Second Scrub, First First Time In 03/10/21 [...] ST Pantano, Scott, SUNIL Role Performed Scrub, Burn Center Nurse, First Hide Sorter, First Time In 03/10/21 11:41:00 03/10/21 11:41:00 [...] LOBO MURRAY, BAKARI COOPER, BRYAN Role Performed QUALITY REP/Nurse Human Relations Manager Other Time In 03/10/21 11:41:00 03/10/21 11:41:00 Time Out 03/10/21 14:46:00 03/10/21 14:46:00 Procedure Colon Resection Low Colon Resection Low Anterior Robotic Anterior Robotic Other Attendee Superficial Wound Closed By: Last Modified By: Moustapha Hernadez, Moustapha Gan, SUNIL 03/10/21 14:47:28 03/10/21 14:47:[address] [facility] IntraOp Case Attendance Audit 03/10/21 14:47:28 Faculty Neuropsychologist: [id number] Modifier: [email or web address] 1 <+> Time Out 1 [...] Colon Resection Low Anterior Robotic 03/10/21 13:15:42 Faculty Neuropsychologist: [id number] Modifier: [id number] <+> Time Out 2 <*> Procedure Colon Resection Low Anterior Robotic 03/10/21 12:28:02 Faculty Neuropsychologist: [id number] Modifier: [id number] <+> 1 Procedure 2 <*> Procedure Colon Resection Low Anterior Robotic 3 <*> Procedure Colon Resection Low Anterior Robotic 4 <*> Procedure Colon Resection Low Anterior Robotic 5 <*> Procedure Colon Resection Low Anterior Robotic 6 <*> Procedure Colon Resection Low Anterior Robotic 7 <*> Procedure Colon Resection Low Anterior Robotic 8 <*> Procedure Colon Resection Low Anterior Robotic 03/10/21 12:20:54 Faculty Neuropsychologist: [id number] Modifier: [id number] <*> Procedure Colon Resection Low Anterior Robotic 3 <*> Procedure Colon Resection Low Anterior Robotic 4 <*> Procedure Colon Resection Low Anterior Robotic 5 <*> Procedure Colon Resection Low Anterior Robotic 6 <*> Procedure Colon Resection Low Anterior Robotic 7 <*> Procedure Colon Resection Low Anterior Robotic 8 <+> Time In 8 <*> Procedure Colon Resection Low Anterior Robotic 03/10/21 12:13:14 Faculty Neuropsychologist: [id number] Modifier: [id number] <+> 1 Time In 2 <+> Time [...] Role Performed <+> 8 Procedure 03/10/21 11:23:24 Faculty Neuropsychologist: [id number] Modifier: [id number] <+> 7 Case Attendee <+> 7 Role Performed <+> [address] [facility] IntraOp Case Times Entry 1 Patient In Room Time 03/10/21 11:41:00 Out Room Time 03/10/21 14:46:00 Anesthesia Start Time 03/10/21 11:41:00 Stop Time 03/10/21 14:46:00 Surgery / Procedure Times Start Time 03/10/21 12:13:00 Stop Time 03/10/21 14:35:00 Last Modified By: Moustapha Hernadez RN 03/10/21 14:46:[address] [facility] IntraOp Case Times Audit 03/10/21 14:46:42 Faculty Neuropsychologist: PANTANOS Modifier: PANTANOS <+> 1 Out Room Time <+> 1 Stop Time 03/10/21 14:46:30 Faculty Neuropsychologist: [id number] Modifier: PANTANOS <+> 1 Stop Time 03/10/21 12:57:52 Faculty Neuropsychologist: [id number] Modifier: [id number] <+> 1 Start Time [facility] IntraOp Cautery Entry 1 ESU Identification Cautery Type Monopolar ESU ID Number [id number] ID Type Hospital Number Cautery Settings Cut [...] Saucedo RN-PATIENT CARE BEDSIDE NON-EXEMPT 03/10/21 11:22:[address] [facility] IntraOp Communication Entry 1 Communication To Family/Significant other Communication By Noemi Saucedo RN-PATIENT CARE BEDSIDE NON-EXEMPT Date and Time 03/10/21 12:14:00 Last Modified By: Noemi Saucedo RN-PATIENT CARE BEDSIDE NON-EXEMPT 03/10/21 12:14:[address] [facility] IntraOp Counts Verification Entry 1 Procedure Colon Resection Low Anterior Robotic Count Info Count Type Sponge, Sharps, Instrument, Miscellaneous Counts Verification Baseline/pre-procedure Sequence Counts Performed By Count Performed By NICHOLE ROBERTS (Scrub) Count Performed By Noemi Saucedo, (RN) RN-PATIENT CARE BEDSIDE NON-EXEMPT Last Modified By: Noemi Saucedo RN-PATIENT CARE BEDSIDE NON-EXEMPT 03/10/21 11:22:[address] [facility] IntraOp Counts Final Entry 1 Procedure Colon Resection Low Anterior Robotic Final Count Info Count Type Sponge, Sharps, Miscellaneous Counts Verification Skin Closure/end of Sequence procedure Count Results Correct, surgeon notified Counts Performed By Count Performed By Claus Casanova (Scrub) Meat Packager Count Performed By Moustapha Hernadez, RN (RN) Last Modified By: Noemi Saucedo RN-PATIENT CARE BEDSIDE NON-EXEMPT 03/10/21 12:14:[address] [facility] IntraOp Counts Final Audit 03/10/21 14:18:29 Faculty Neuropsychologist: [id number] Modifier: ROSARaz Jeffery <*> Procedure Colon Resection Low Anterior Robotic [facility] IntraOp Cultures and Spec Summary Entry 1 Cultrures and Specimens Specimen Ordered: Yes Test(s) Routine/Path-Lab Requested/Final Disposition Last Modified By: Noemi Saucedo RN-PATIENT CARE BEDSIDE NON-EXEMPT 03/10/21 12:14:[address] [facility] IntraOp Departure from OR Entry 1 Integumentary Assessment Integumentary WDL with patient Assessment WDL specific variances Patient's Normal Surgical incisions = Integumentary abdomen Variance(s) Transfer/Handoff Transfer to PACU Phase I Handoff Method Phone call Post-op Transport Stretcher/Gurney Via Patient Transport LOBO MURRAY NA, Accompanied by Vazquez Lisa ST Last Modified By: Noemi Saucedo RN-PATIENT CARE BEDSIDE NON-EXEMPT 03/10/21 12:14:[address] [facility] IntraOp Dressing and Packing Entry 1 Type Dressing Location Abdomen Wound Dressing Item Skin Closure Glue Applied By Vazquez Lisa ST Other Comments Dermabond Prineo Last Modified By: Noemi Saucedo RN-PATIENT CARE BEDSIDE NON-EXEMPT 03/10/21 12:14:[address] [facility] IntraOp Fire Risk Assessment Entry 1 Fire Info Surgical Site or 0- No Incision Above the Xyphoid Open O2 Source 0- No (Mask or Cannula) Available Ignition 1- Yes (ESU, Laser, Light Source) Fire Risk 1 Assessment Score Fire Score Fire Risk Yes Assessment Complete Fire Risk Moustapha Hernadez, brine tank tender Verified By Fire Risk 03/10/21 12:11:00 Assessment Verified Date/Time Fire Risk Standard Fire Yes Safety Precautions Followed Last Modified By: Noemi Saucedo RN-PATIENT CARE BEDSIDE NON-EXEMPT 03/10/21 12:11:[address] [facility] IntraOp General Case Network Security Consultant 1 Case Information OR OR [address] [facility] Case Level 1 Room Verified Yes Wound Class 2 - Clean-Contaminated Specialty Colorectal Anesthesia Type General ASA Class 2 Diagnosis Preop Diagnosis DIVERTICULITIS Postop Same As Preop Yes Postop Diagnosis DIVERTICULITIS Wound Class Definitions Last Modified By: Noemi Saucedo RN-PATIENT CARE BEDSIDE NON-EXEMPT 03/10/21 12:13:[address] [facility] IntraOp General Case Data Audit 03/10/21 12:13:50 Faculty Neuropsychologist: [id number] Modifier: [id number] <+> 1 Specialty <+> 1 ASA Class <+> 1 Wound Class <+> 1 Anesthesia Type <+> 1 Postop Same As Preop <+> 1 Preop Diagnosis <+> 1 Postop Diagnosis <+> 1 Room Verified [facility] IntraOp Intraoperative Assessment Entry 1 Handoff Method [...] Saucedo RN-PATIENT CARE BEDSIDE NON-EXEMPT 03/10/21 12:15:[address] [facility] IntraOp Intraoperative Equipment Entry 1 Type Monitoring Equipment Equipment Kurtis Suction System Intraop Monitoring Electrocardiogram Three lead placement (ECG) Electrode Placement Blood Pressure Non-Invasive BP Device Source Antiembolic Devices Scopes Photo/Video Documentation Photo No Video No Intraop Equipment Heparin 5000 units SC Comment administered in preoperative area. Last Modified By: Noemi Saucedo RN-PATIENT CARE BEDSIDE NON-EXEMPT 03/10/21 12:14:[address] [facility] IntraOp Medication Admin Entry 1 Medication/Irrigant INDOCYANINE GREEN 25MG/VIAL Dose Dose 10 Unit of Measure ml Administered By LOBO MURRAY NA Procedure Irrigation Last Modified By: Noemi Saucedo RN-PATIENT CARE BEDSIDE NON-EXEMPT 03/10/21 12:16:[address] [facility] IntraOp Patient Positioning Entry 1 Procedure Colon [...] Saucedo RN-PATIENT CARE BEDSIDE NON-EXEMPT 03/10/21 12:20:[address] [facility] IntraOp Sign In Entry 1 Patient, Site, [...] Saucedo RN-PATIENT CARE BEDSIDE NON-EXEMPT 03/10/21 12:20:[address] [facility] IntraOp Sign Out Entry 1 RN Confirmation [...] Modified By: Moustapha Hernadez RN 03/10/21 14:47:[address] [facility] IntraOp Sign Out Audit 03/10/21 14:47:26 Faculty Neuropsychologist: JENNIFER Modifier: PANTANOS <+> 1 Wound classification reviewed, verified and updated post case in both the General Case Data and Procedure segments 03/10/21 14:47:16 Faculty Neuropsychologist: [id number] Modifier: PANTANOS <+> 1 RN Sign Out Signature Date/Time [facility] IntraOp Skin Prep Entry 1 Procedure Colon Resection Low Anterior Robotic Prescribed Yes Pre-Surgical Prep Completed Prep Area Abdomen/KAYLEIGH ANAL/GENTINAL Intraop Prep Integumentary WDL Assessment WDL Prep Agents Chloraprep, Betadine scrub, Betadine solution Prep by Moustapha Hernadez RN Hair Removal Last Modified By: Noemi Saucedo RN-PATIENT CARE BEDSIDE NON-EXEMPT 03/10/21 12:13:[address] [facility] IntraOp Surgical Procedures Entry 1 Procedure Colon Resection Low Anterior Robotic Additional (ROBOTIC LOW ANTERIOR Procedure COLON RESECTION) Description Primary Procedure Yes Primary Surgeon ARMANDO ZAVALA MD-PRO Start 03/10/21 12:13:00 Stop 03/10/21 14:35:00 Anesthesia Type General Specialty Colorectal Wound Class 2 - Clean-Contaminated Last Modified By: Noemi Saucedo RN-PATIENT CARE BEDSIDE NON-EXEMPT 03/10/21 12:28:[address] [facility] IntraOp Surgical Procedures Audit 03/10/21 14:46:33 Faculty Neuropsychologist: [id number] Modifier: PANTANOS <+> 1 Start <+> [address] [facility] IntraOp Temp Regulation Devices Entry 1 Temp Regulation Temperature Forced Air Warming Regulation Device device, Warm blankets, Room temperature Temperature Upper body Regulation Site Temperature LOBO MURRAY, MARILIA Regulation Device Applied by Temperature Patient's temperature Regulation Comment and forced air warming device settings monitored by anesthesia provider. Last Modified By: Noemi Saucedo RN-PATIENT CARE BEDSIDE NON-EXEMPT 03/10/21 12:20:[address] [facility] IntraOP Time Out Entry 1 Procedure to [...] WATTSDR Correct Billing Electronically signed by Wei [facility] Conversion Tracer Powder Blender Cerner at 08/19/2022 6:01 PM CDT documented in this encounter Plan of Treatment Not on file documented as of this encounter Visit Diagnoses Not on filedocumented in this encounter
--- OUTSIDE RECORDS SUMMARY | 2025-04-29 10:20 | XMS_ITS | Patient Health Record ---
[facility] Address [address] [place] [id number] Care Team Providers Care Aerospace Stress Engineer Name Role Phone Yovany Mueller Primary Care [...] Status W/U Status Risk Notes Problem Hypothyroidism (02376605) Hypothyroidism (acquired) (E03.9) Active confirmed Problem Diverticulitis (08087605) Diverticulitis (K57.92) Active confirmed Problem Osteopenia (690627272) Osteopenia (M85.80) Active confirmed Problem Mixed anxiety and depressive disorder (170160375) Depression with anxiety (F41.8) Active confirmed Problem BMI 30+ - obesity (016207250) BMI 32.0-32.9,adult (Z68.32) Active confirmed Problem Calcaneal spur of right foot (807588716435289) Calcaneal spur, right foot (M77.31) Active confirmed Problem Chronic pain (33776215) Other chronic pain (G89.29) Active confirmed Problem Mammography abnormal (414232299) Abnormal mammogram of left breast (R92.8) Active confirmed Problem Stenosis of left carotid artery (456991737954229) Stenosis of left carotid artery (I65.22) Active confirmed Problem Body mass index 30.0 0 to 34.99 (052889169858042) BMI 31.0-31.9,adult (Z68.31) Active confirmed Problem Hemorrhage of colon due to diverticulosis (669644056005043) Diverticulosis of large intestine with hemorrhage (K57.31) Active confirmed Problem Family history of ischemic heart disease (563701964) Family history of heart disease in female family member before age 65 (Z82.49) Active confirmed Problem Pure hypercholesterolemia (503421990) Pure hypercholesterolemia (E78.00) Active confirmed Problem History of excision of intestinal structure (287582889) S/P colon resection (Z90.49) Active confirmed Problem Temporomandibular joint disorder (70121798) TMJ (temporomandibular joint disorder) (M26.609) Active confirmed Problem Sacroiliac joint viky n (229208402) Sacroiliac joint pain (M53.3) Active confirmed Problem Osteopenia (980851660) Osteopenia, unspecified location (M85.80) Active confirmed Problem Seasonal allergic rhinitis (673022427) Chronic seasonal allergic rhinitis, unspecified trigger (J30.2) Active confirmed Problem Fibrocystic breast changes (53932503) Fibrocystic breast disease (FCBD), unspecified laterality (N60.19) Active confirmed Problem Aortic valve disorde r (7564456) Aortic valve stenosis, etiology of cardiac valve disease unspecified (I35.0) Active confirmed Problem Left carotid artery occlusion (787467822331404) Carotid stenosis, left (I65.22) Active confirmed Problem H/O tobacco use, presenting hazards to health (Z87.891) Active confirmed Plan Of Treatment No Information Insurance Providers Payer Name Payer Address Payer Phone Subscriber Number Group Number Insured Name Patient Relationship to Insured Coverage Start Date Coverage End Date [employer] [facility] [address] [place], [place] [phone] [id number] Dayana Bonilla Self - patient is the [...]
--- OUTSIDE RECORDS SUMMARY | 2025-04-29 10:20 | XMS_ITS | Encounter Summary ---
Author Organization [employer] ([place], [place], [place], [place], [place]) Address [address] [place] [address] Care Team Providers Care Load Dropper Name Role Phone Unavailable Primary Care Provider Unavailabl e Encounter Details Date Type Department Care Team (Late st Contact Info) Description 03/10/2021 Transcribed Document [facility] [place] Family Medicine [address] [place] [address] ProviderAlexis MD [address] [place] [address] Social History Tobacco Use Types [...] - Alexis ProviderMD - 03/10/2021 12:13 PM DATA OPERATIONS LEADER [facility] Main OR Preop Summary Primary Physician: ARMANDO ZAVALA MD-PRO Finalized Date/Time: 03/10/21 14:06:34 Pt. Name: DAYANA BONILLA/Sex: 1960 Female Med Rec #: [id number] Physician: ARMANDO ZAVALA MD-PRO Financial #: [id number] Pt. Type: I Room/Bed: / Admit/Disch: 02/23/21 10:15:00 - Institution: [facility] PreOp Case Times Entry 1 In Preop 03/10/21 08:46:00 Ready for Holding n/a Room Patient Ready for 03/10/21 10:29:00 Surgery Patient Out of Preop 03/10/21 11:37:00 Patient Out of n/a Holding Room Last Modified By: Gi Berrios Rn 03/10/21 14:06:33 [facility] PreOp Case Times Audit 03/10/21 14:06:33 Table Maker: THERESA Modifier: MFWARD <+> 1 Patient Out of Preop Finalized By: Gi Berrios Rn Document Signatures Signed By: Gi Berrios Rn 03/10/21 14:06 documented in this encounter Plan of Treatment Not on file documented as of this encounter Visit Diagnoses Not on filedocumented in this encounter
--- OUTSIDE RECORDS SUMMARY | 2025-04-29 10:20 | XMS_ITS | Encounter Summary ---
Author Organization [employer] ([place], [place], [place], [place], [place]) Address [address] [place] [address] Care Team Providers Care Geoscience Professor Name Role Phone Unavailable Primary Care Provider Unavailabl e Encounter Details Date Type Department Care Team (Late st Contact Info) Description 03/11/2021 Transcribed Document [facility] Radiology [address] [place] [address] Kiki Celaya MD [facility] [address] [address] Social History Tobacco Use Types [...] of the above totals at 30 minutes. /[id number] Kiki Celaya MD VLS/AQ / VLS / MODL /[id number] documented in this encounter Plan of Treatment Not on file documented as of this encounter Visit Diagnoses Not on filedocumented in this encounter
--- OUTSIDE RECORDS SUMMARY | 2025-04-29 10:20 | XMS_ITS | Encounter Summary ---
Author Organization [employer] ([place], [place], [place], [place], [place]) Address [address] [place] [address] Care Team Providers Care Philosophy Faculty Member Name Role Phone Unavailable Primary Care Provider Unavailabl e Encounter Details Date Type Department Care Team (Late st Contact Info) Description 03/11/2021 Transcribed Document [facility] [place] [place] Family Medicine [address] [place] [address] ProviderAlexis MD [address] [place] [address] Social History Tobacco Use Types [...] Alexis Livingston MD - 03/11/2021 8:09 AM RECLAMATION WORKER UM Authorization Entered On: 03/11/2021 8:20 EST Performed On: 03/11/2021 8:09 EST by CHRISTIAN ARMENTA RN Primary Insurance Authorization Authorization and Policy Numbers : Insurance 1 Health Plan: [facility] [employer] Policy Number: [id number] Authorization Number: [id number] Insurance Primary Name : [facility] Policy Number: [id number] Authorization Status-Primary : Admit approved Number of Days Authorized-Primary : 4 Day(s) Authorized Service Begin Date-Primary : 03/10/2021 EST Authorized Service End Date-Primary : 03/14/2021 EST Authorization Comments-Primary : IP admit approved from 03/10 to 03/14 per [facility] website Historical Authorization Comments-Primary : No Authorization Comments Found CHRISTIAN ARMENTA RN - 03/11/2021 8:09 EST Electronically signed by Interface, [facility] Conversion Bank Vault Custodian Cerner at 08/19/2022 6:10 PM CDT documented in this encounter Plan of Treatment Not on file documented as of this encounter Visit Diagnoses Not on filedocumented in this encounter
--- OUTSIDE RECORDS SUMMARY | 2025-04-29 10:20 | XMS_ITS | Encounter Summary ---
Author Organization [employer] ([place], [place], [place], [place], [place]) Address [address] [place] [address] Care Team Providers Care Otologist Name Role Phone Unavailable Primary Care Provider Unavailabl e Encounter Details Date Type Department Care Team (Late st Contact Info) Description 03/10/2021 Transcribed Document [facility] [place] Family Medicine [address] [place] [address] ProviderAlexis MD [address] [place] [address] Social History Tobacco Use Types [...] - Historical ProviderMD - 03/10/2021 2:33 PM GLAZE WIPER Consult Phone Call Documentation Entered On: 03/10/2021 16:27 EST Performed On: 03/10/2021 14:33 EST by Elodia Buck Patient Product Handler Heladio Phone Call for Consults Consult Phone Call/Page Attempt : First call Consult Reason : assumption of care and medical management Physician Requesting Consult : ARMANDO ZAVALA MD-PRO Physician Covering for Consult : VALERIA LOPEZ MD-INT Date and Time Call Returned : 03/10/2021 16:27 EST Elodia Buck Patient Product Handler I - 03/10/2021 16:27 EST documented in this encounter Plan of Treatment Not on file documented as of this encounter Visit Diagnoses Not on filedocumented in this encounter
--- OUTSIDE RECORDS SUMMARY | 2025-04-29 10:20 | XMS_ITS | Encounter Summary ---
Author Organization [employer] ([place], [place], [place], [place], [place]) Address [address] [place] [address] Care Team Providers Care Software Specialist Name Role Phone Unavailable Primary Care Provider Unavailabl e Encounter Details Date Type Department Care Team (Late st Contact Info) Description 03/10/2021 Transcribed Document [facility] [facility] [place] [facility] [address] ProviderAlexis MD [address] [place] [address] Social History Tobacco Use Types [...] Alexis Livingston MD - 03/10/2021 2:34 PM CHILDREN'S MINISTER Patient: DAYANA BONILLA Age: 60 Years Sex: Female : 1960 CS[place] Pre Op Diagnosis: Diverticulitis, possible appendicitis Post Op Diagnosis: Diverticulitis Procedure: Robotic low anterior resection. Entry Level Recruiter: Vazquez Indications: This is a pleasant 60-year-old [...]
--- OUTSIDE RECORDS SUMMARY | 2025-04-29 10:20 | XMS_ITS | Encounter Summary ---
Author Organization [employer] ([place], [place], [place], [place], [place]) Address [address] [place] [address] Care Team Providers Care Websphere Portal Architect Name Role Phone Unavailable Primary Care Provider Unavailabl e Encounter Details Date Type Department Care Team (Late st Contact Info) Description 03/10/2021 Transcribed Document [facility] [place] [address] [place] [address] ProviderAlexis MD [address] [place] [address] Social History Tobacco Use Types [...] - Historical ProviderMD - 03/10/2021 9:59 AM EMPLOYMENT RECRUITER Patient: DAYANA BONILLA Age: 60 years Sex: [...] Problems Anxiety and depression / SNOMED CT 707422195 / Confirmed Hyperlipidemia / SNOMED CT 83476404 / Confirmed Hiatal hernia / SNOMED CT 190079282 / Confirmed Cecal diverticulitis / SNOMED CT 8093783569 / Confirmed Corrosive esophagitis / SNOMED CT 08969451 / Confirmed At risk for sleep apnea / IMO 37256333 / Confirmed Arthritis / SNOMED CT 0997126 / Confirmed, Active Problems (7) Anxiety and depression Arthritis At risk for sleep apnea Cecal diverticulitis Corrosive esophagitis Hiatal hernia Hyperlipidemia Histories Past Medical History: No active or resolved past medical history items have been selected or recorded. Family History: No family history items have been selected or recorded. Procedure history: Hysterectomy ([id number]) on 04/01/2001 at 40 Years. Tubal ligation ([id number]). lumpectomy. EGD (esophagogastroduodenoscopy) gastric outlet reduction ([id number]). colonoscopy. Social History Social & Psychosocial Habits [...] of motion, Normal strength. Integumentary: Warm, Dry, [place]. Neurologic: Alert, Oriented. Psychiatric: Cooperative, Appropriate mood [...] night. Electronically signed by Sandor Carvajal Conversion Customer Service Specialist Cerner at 08/19/2022 6:16 PM CDT documented in this encounter Plan of Treatment Not on file documented as of this encounter Visit Diagnoses Not on filedocumented in this encounter
--- OUTSIDE RECORDS SUMMARY | 2025-04-29 10:20 | XMS_ITS | Encounter Summary ---
Author Organization [employer] ([place], [place], [place], [place], [place]) Address [address] [place] [address] Care Team Providers Care Powerhouse Attendant Name Role Phone Unavailable Primary Care Provider Unavailabl e Encounter Details Date Type Department Care Team (Late st Contact Info) Description 03/10/2021 Transcribed Document [facility] [place] Family Medicine [address] [place] [address] ProviderAlexis MD [address] [place] [address] Social History Tobacco Use Types [...] - Alexis ProviderMD - 03/10/2021 11:41 AM SENSITIZED PAPER TESTER Admission History, Adult Entered On: 03/10/2021 16:32 [...] Obtained From : Patient Primary Language : Salvadorean Preferred Communication Mode : Verbal Communication Barrier : None Trim Mounter Needed : No Objects to Sharing Info [...] Scale Risk Level : 25-45 Medium Risk [place] Fall Interventions : Adequate lighting, Assistive devices [...] ago. (Last Updated: 12/11/2015 09:21:08 EDT by EDNNIS CORCORAN, RN) Alcohol: Alcohol Use History Yes. [...] Source : Measured Height Entry Format : [place] Height, Feet : 0 ft(Converted to: 0 cm, 0 Inch) Height, Inches : 63 Inch(Converted to: 5 ft 3 Inch, 160.02 cm) Clinical Height : 160.02 cm Weight Source : Standing scale Weight Entry Format : [place] Clinical Dosing Weight : 83.64 kg Weight, Pounds : 184 lb Body Surface Area (BSA) : 1.87 m2 Body Mass Index : 32.7 kg/m2 (HI) Conifer Body Weight : 52 kg PRETTY MAHER [...] PRETTY MAHER RN - 03/10/2021 16:28 EST [place] Suicide Severity Rating Scale (C-SSRS) CSSRS Past Month Wish to be : No CSSRS Past Month Suicidal Thoughts : No CSSRS Lifetime Suicide Behavior : No Suicide Severity Rating Score : 0 Suicide Severity Rating : No Additional Care Required at this time PRTETY MAHER RN - 03/10/2021 16:28 EST Psychosocial [...] Glasses Personal Items : Cell phone, Other: shop hand Personal Items Disposition : Bedside PRETTY MAHER RN - 03/10/2021 16:28 EST Electronically signed by Sandor Carvajal Conversion Refrigerated National Truck Driver Cerner at 08/19/2022 6:10 PM CDT documented in this encounter Plan of Treatment Not on file documented as of this encounter Visit Diagnoses Not on filedocumented in this encounter
--- OUTSIDE RECORDS SUMMARY | 2025-04-29 10:20 | XMS_ITS | Encounter Summary ---
Author Organization [facility] Address [address] [place] [address] Care Team Providers Care Flower Buncher Or Picker Name Role Phone Unavailable Primary Care Provider Unavailabl e Reason for Referral * Consultation (Routine) - Authorized Specialty Diagnoses / Procedures Referred By Contac t Referred To Contact Cardiology Diagnoses Nonrheumatic aortic valve insufficiency Elodia Mccloud APRN [address] [place] [address] Phone: tel: fax: Leroy Padron MD [address] [place] [address] Phone: tel: fax: Referral ID Status Reason Start Date Expiration Date Visits Requested Visits Authorized [id number] Authorized Specialty Services Required 5 10/17/2026 1 1 Encounter Details Date Type Department Care Team (Late st Contact Info) Description 04/17/2025 Orders Only [facility] [place] [facility] [address] [place] [address] Justine Grande RN [facility] - 6 [facility] None Nonrheumatic aortic valve insufficiency (Primary Dx) Social History Tobacco Use Types Packs/Day Years Used Date Smoking Tobacco: Never Assessed Comments Unknown Sex and Gender Information Value Date Recorded Sex Assigned at Not on file Legal Sex Female 7:37 PM EDT Gender Identity Not on file Sexual Orientation Not on file documented as of this encounter Plan of Treatment Upcoming Encounters Date Type Department Care Team (Late st Contact Info) Description 05/23/2025 9:30 AM EST Office Visit [facility] [facility] [address] [facility] [place] [address] Leroy Padron MD [address] [place] [address] Scheduled Referrals Name Type Priority Associated Diagnoses Orde r Schedule Ambulatory referral to Structural Heart Outpatient Referral Routine Nonrheumatic aortic valve insufficiency 1 Occurrences starting 04/17/2025 until 10/19/2026 documented as of this encounter Visit Diagnoses Diagnosis Nonrheumatic aortic valve insufficiency- Primary documented in this encounter
--- OUTSIDE RECORDS SUMMARY | 2025-04-29 10:21 | XMS_ITS | Encounter Summary ---
Author Organization [employer] ([place], [place], [place], [place], [place]) Address [address] [place] [address] Care Team Providers Care Wreath And Garland Maker Name Role Phone Unavailable Primary Care Provider Unavailabl e Encounter Details Date Type Department Care Team (Late st Contact Info) Description 03/10/2021 Transcribed Document [facility] [place] Family Medicine [address] [place] [address] ProviderAlexis MD [address] [place] [address] Social History Tobacco Use Types [...] - Historical ProviderMD - 03/10/2021 6:00 PM QUALITY CONTROL DIRECTOR Pain Assessment Entered On: 03/10/2021 18:18 EST Performed On: 03/10/2021 17:45 EST by Gianna Branham RN Intervention Information: ketorolac Performed by Gianna Branham RN on 03/10/2021 17:15:00 EST ketorolac,15mg IV Push,Left Lower Forearm Pain Assessment Pain Assessment : Follow-up assessment Gianna Branham RN - 03/10/2021 18:18 EST Electronically signed by Wei [facility] Conversion Chairman & Co Founder Cerner at 08/19/2022 5:59 PM CDT documented in this encounter Plan of Treatment Not on file documented as of this encounter Visit Diagnoses Not on filedocumented in this encounter
--- OUTSIDE RECORDS SUMMARY | 2025-04-29 10:21 | XMS_ITS | Encounter Summary ---
Author Organization [employer] ([place], [place], [place], [place], [place]) Address [address] [place] [address] Care Team Providers Care Video And Sound Recorder Name Role Phone Unavailable Primary Care Provider Unavailabl e Encounter Details Date Type Department Care Team (Late st Contact Info) Description 03/11/2021 Transcribed Document [facility] [place] Family Medicine [address] [place] [address] ProviderAlexis MD [address] [place] [address] Social History Tobacco Use Types [...] Alexis Livingston MD - 03/11/2021 1:29 PM AMERICANIZATION TEACHER Patient Resource Center Entered On: 03/11/2021 13:30 EST Performed On: 03/11/2021 13:29 EST by Angelique Pozo, Corn Breeder Patient Resource Center Provider Status : EST Other Established Provider Name : ARMANDO OWENS Patient Phone Number : [phone] Patient Insurance Type : Commercial (ex. [place] PPO, [employer] HMO) Source of Referral : [...] at ED : Other Primary Language : Mauritian Patient Resource Center Comment : Patient needs follow up appointments. Called offices and scheduled appointments with Dr. England and Dr. Owens Follow Up Needed : No Angelique Pozo, Corn Breeder - 03/11/2021 13:29 EST Electronically signed by [facility], [facility] Conversion Medical Bill Processor Cerner at 08/19/2022 6:06 PM CDT documented in this encounter Plan of Treatment Not on file documented as of this encounter Visit Diagnoses Not on filedocumented in this encounter
--- OUTSIDE RECORDS SUMMARY | 2025-04-29 10:21 | XMS_ITS | Encounter Summary ---
Author Organization [employer] ([place], [place], [place], [place], [place]) Address [address] [place] [address] Care Team Providers Care Rigging Up Worker Name Role Phone Unavailable Primary Care Provider Unavailabl e Encounter Details Date Type Department Care Team (Late st Contact Info) Description 03/15/2021 Transcribed Document [facility] [place] Family Medicine [address] [place] [address] ProviderAlexis MD [address] [place] [address] Social History Tobacco Use Types [...] Alexis Livingston MD - 03/15/2021 3:51 PM GRID TRIMMER UM Authorization Entered On: 03/15/2021 15:51 EST Performed On: 03/15/2021 15:51 EST by Nette Pham, Pattern Cleaner Primary Insurance Authorization Authorization and Policy Numbers : Insurance 1 Health Plan: [facility] [employer] Policy Number: [id number] Authorization Number: [id number] Insurance Primary Name : [facility] Policy Number: [id number] Authorization Status-Primary : Approved Auth/Referral Contact Name-Primary : DC Authorization Number-Primary : [id number] Number of Days Authorized-Primary : 4 Day(s) Authorized Service Begin Date-Primary : 03/10/2021 EST Authorized Service End Date-Primary : 03/14/2021 EST Authorization Comments-Primary : Discharge date and summary faxed. Historical Authorization Comments-Primary : Comment 1: IP admit approved from 03/10 to 03/14 per [facility] website (CHRISTIAN ARMENTA RN 03/11/2021 08:09) Nette Pham, Pattern Cleaner - 03/15/2021 15:51 EST Electronically signed by Wei, [facility] Conversion Dental Coordinator Cerner at 08/19/2022 6:07 PM CDT documented in this encounter Plan of Treatment Not on file documented as of this encounter Visit Diagnoses Not on filedocumented in this encounter
--- OUTSIDE RECORDS SUMMARY | 2025-04-29 10:21 | XMS_ITS | Encounter Summary ---
Author Organization [employer] ([place], [place], [place], [place], [place]) Address [address] [place] [address] Care Team Providers Care Lifeguard Name Role Phone Unavailable Primary Care Provider Unavailabl e Encounter Details Date Type Department Care Team (Late st Contact Info) Description 03/11/2021 Transcribed Document [facility] [place] Family Medicine [address] [place] [address] ProviderAlexis MD [address] [place] [address] Social History Tobacco Use Types [...] - Alexis ProviderMD - 03/11/2021 6:[address] INTERPRETER Patient: DAYANA BONILLA Age: 60 Years Sex: [...] chart. Electronically signed by Sandor Carvajal Conversion Vice President Corporate Communications Cerner at 08/19/2022 6:03 PM CDT documented in this encounter Plan of Treatment Not on file documented as of this encounter Visit Diagnoses Not on filedocumented in this encounter
--- OUTSIDE RECORDS SUMMARY | 2025-04-29 10:21 | XMS_ITS | Encounter Summary ---
Author Organization [employer] ([place], [place], [place], [place], [place]) Address [address] [place] [address] Care Team Providers Care Steel Hanger Name Role Phone Unavailable Primary Care Provider Unavailabl e Encounter Details Date Type Department Care Team (Late st Contact Info) Description 03/11/2021 Transcribed Document [facility] [place] [address] [place] [address] ProviderAlexis MD [address] [place] [address] Social History Tobacco Use Types [...] - Alexis ProviderMD - 03/11/2021 9:10 AM BOTTLE WASHER Initial Discharge Planning Entered On: 03/11/2021 9:12 EST Performed On: 03/11/2021 9:10 EST by DERREK MASTERS RN-Warp Knitting Machine Operator Initial Assessment I Previously Documented Living Environment [...] Is Guardianship Needed : No DERREK MASTERS RN-Warp Knitting Machine Operator - 03/11/2021 9:10 EST Initial Assessment II Sensory and Motor Deficits : None Current Home Treatments and Equipment : None DERREK MASTERS RN-Warp Knitting Machine Operator - 03/11/2021 9:10 EST Discharge Needs I Anticipated Discharge Date : 03/13/2021 EST Anticipated Discharge To, CM : Home with family care Current Home Treatment/Equipment : Current Home Treatment/Equipment No qualifying data available. Post Acute/Home Treatments : None Documentation Status Complete : Yes DERREK MASTERS RN-Warp Knitting Machine Operator - 03/11/2021 9:10 EST Discharge Needs II Professional Skilled Services : Professional Skilled Services No qualifying data available. Needs Assistance with Transportation : No Patient Discharge Goal : Home DERREK MASTERS RN-Warp Knitting Machine Operator - 03/11/2021 9:10 EST Narrative Note Narrative [...] @ 27. CM will follow. DERREK MASTERS RN-Warp Knitting Machine Operator - 03/11/2021 9:10 EST documented in this encounter Plan of Treatment Not on file documented as of this encounter Visit Diagnoses Not on filedocumented in this encounter
--- OUTSIDE RECORDS SUMMARY | 2025-04-29 10:21 | XMS_ITS | Encounter Summary ---
Author Organization [employer] ([place], [place], [place], [place], [place]) Address [address] [place] [address] Care Team Providers Care Painter Mirror Name Role Phone Unavailable Primary Care Provider Unavailabl e Encounter Details Date Type Department Care Team (Late st Contact Info) Description 03/10/2021 Transcribed Document [facility] [place] Family Medicine [address] [place] [address] ProviderAlexis MD [address] [place] [address] Social History Tobacco Use Types [...] - Historical ProviderMD - 03/10/2021 5:00 PM ORTHOPEDIC MECHANIC Chart Check - Review Order Profile Entered On: 03/10/2021 18:18 EST Performed On: 03/10/2021 17:00 EST by Gianna Branham RN Chart Check Powerplans Initiated/Discontinued as Appropriate : Yes All Active Orders Reviewed : Yes Gianna Branham RN - 03/10/2021 18:18 EST Electronically signed by Wei [facility] Conversion Staff Certified Nurse Midwife Cerner at 08/19/2022 6:05 PM CDT documented in this encounter Plan of Treatment Not on file documented as of this encounter Visit Diagnoses Not on filedocumented in this encounter
--- OUTSIDE RECORDS SUMMARY | 2025-04-29 10:21 | XMS_ITS | Encounter Summary ---
Author Organization [employer] ([place], [place], [place], [place], [place]) Address [address] [place] [address] Care Team Providers Care Agronomy Research Manager Name Role Phone Unavailable Primary Care Provider Unavailabl e Encounter Details Date Type Department Care Team (Late st Contact Info) Description 03/11/2021 Transcribed Document [facility] [place] Family Medicine [address] [place] [address] ProviderAlexis MD [facility] [place] [address] Social History Tobacco Use Types [...] - Historical ProviderMD - 03/11/2021 6:00 AM MANAGER DISH Pain Assessment Entered On: 03/11/2021 8:25 EST [...]
--- OUTSIDE RECORDS SUMMARY | 2025-04-29 10:21 | XMS_ITS | Encounter Summary ---
Author Organization [employer] ([place], [place], [place], [place], [place]) Address [address] [place] [address] Care Team Providers Care Surgical Supply Assistant Name Role Phone Unavailable Primary Care Provider Unavailabl e Encounter Details Date Type Department Care Team (Late st Contact Info) Description 03/11/2021 Transcribed Document [facility] [place] Family Medicine [address] [place] [address] ProviderAlexis MD [address] [place] [address] Social History Tobacco Use Types [...] Alexis Livingston MD - 03/11/2021 1:28 PM BREAD SLICER MACHINE Patient Education Materials Follows: Minimally Invasive Total [...] these instructions at home: Medicines ??? Take ebyd-sns-wkhinco and prescription medicines only as told by [...] and water are not available, use hand clinical services manager. ? Change your dressing as told by [...] provider. Document Revised: 03/25/2020 Document Reviewed: 03/25/2020 [employer] Patient Education ? 2020 [employer] Low Residue Diet A low residue [...] than 7-10 grams of fiber per day. penitentiary use of this diet may not provide [...] are treated at home by: ??? Taking swda-qlt-iqpocds pain medicines. ??? Following a clear liquid [...] these instructions at home: Medicines ??? Take gpjg-dlo-mvunzbd and prescription medicines only as told by [...] provider. Document Revised: 01/27/2020 Document Reviewed: 01/27/2020 [employer] Patient Education ? 2020 [employer] Low-Fiber Eating Plan Fiber is found [...] that you work with a diet and crop nutrition scientist (dietitian). What are tips for following this [...] made with white flour. Waffles, pancakes, and Slovak toast. Bagels. Pretzels. Shelbiana toast, zwieback, and matzoh. Cooked and dried cereals that do not contain whole grains, added fiber, seeds, or dried fruit. Cornmeal. Sarah. Hot and cold cereals made with refined [...] Sports drinks. Herbal tea. Fats and oils [place] oil, canola oil, sunflower oil, flaxseed oil, [...] breads and crackers. Multigrain breads and crackers. [place] bread. Whole grain or multigrain cereals. Cereals with nuts, raisins, or coconut. Bran. Coarse wheat cereals. Granola. High-fiber cereals. Cornmeal or corn bread. Whole grain pasta. Wild or brown rice. Quinoa. Popcorn. Buckwheat. Wheat germ. Vegetables Potato skins. Raw or undercooked vegetables. All beans and reyes sprouts. Cooked greens. [place]. Peas. Cabbage. Beets. Broccoli. Muse sprouts. Cauliflower. Mushrooms. Onions. Peppers. Parsnips. Okra. [...] are not allowed. Seasoning and other foods [place] tortilla chips. Soups made with vegetables [...] Reviewed: 06/20/2017 Elsevier Patient Education ? 2020 [employer] documented in this encounter Plan of Treatment Not on file documented as of this encounter Visit Diagnoses Not on filedocumented in this encounter
--- OUTSIDE RECORDS SUMMARY | 2025-04-29 10:21 | XMS_ITS | Encounter Summary ---
Author Organization [employer] ([place], [place], [place], [place], [place]) Address [address] [place] [address] Care Team Providers Care Chief Of Staff Doctor Name Role Phone Unavailable Primary Care Provider Unavailabl e Encounter Details Date Type Department Care Team (Late st Contact Info) Description 03/10/2021 Transcribed Document [facility] [place] Family Medicine [address] [place] [address] ProviderAlexis MD [address] [place] [address] Social History Tobacco Use Types [...] - Alexis ProviderMD - 03/10/2021 6:00 PM CARPENTER WOODEN TANK ERECTING Pain Assessment Entered On: 03/10/2021 18:18 EST Performed On: 03/10/2021 18:15 EST by Gianna Branham RN Intervention Information: acetaminophen Performed by Gianna Branham RN on 03/10/2021 17:15:00 EST acetaminophen,1000mg Oral Pain Assessment Pain Assessment : Follow-up assessment Gianna Branham RN - 03/10/2021 18:18 EST Electronically signed by Wei [facility] Conversion Rubber Cutting Machine Tender Cerner at 08/19/2022 6:01 PM CDT documented in this encounter Plan of Treatment Not on file documented as of this encounter Visit Diagnoses Not on filedocumented in this encounter
--- OUTSIDE RECORDS SUMMARY | 2025-04-29 10:21 | XMS_ITS | Encounter Summary ---
Author Organization [employer] ([place], [place], [place], [place], [place]) Address [address] [place] [address] Care Team Providers Care Forestry Hunter Name Role Phone Unavailable Primary Care Provider Unavailabl e Encounter Details Date Type Department Care Team (Late st Contact Info) Description 03/11/2021 Transcribed Document [facility] [place] Family Medicine [address] [place] [address] ProviderAlexis MD [address] [place] [address] Social History Tobacco Use Types [...] - Historical ProviderMD - 03/11/2021 5:00 AM NEWSPAPER COLUMNIST Chart Check - Review Order Profile Entered On: 03/11/2021 4:46 EST Performed On: 03/11/2021 5:00 EST by Krys Meyer Lpn Chart Check Powerplans Initiated/Discontinued as Appropriate : Yes All Active Orders Reviewed : Yes Krys Meyer Lpn - 03/11/2021 4:46 EST Electronically signed by Wei [facility] Conversion Electronic Gaming Device Supervisor Cerner at 08/19/2022 6:00 PM CDT documented in this encounter Plan of Treatment Not on file documented as of this encounter Visit Diagnoses Not on filedocumented in this encounter
--- OUTSIDE RECORDS SUMMARY | 2025-04-29 10:21 | XMS_ITS | Encounter Summary ---
Author Organization [employer] ([place], [place], [place], [place], [place]) Address [address] [place] [address] Care Team Providers Care Geotechnical Engineer Name Role Phone Unavailable Primary Care Provider Unavailabl e Encounter Details Date Type Department Care Team (Late st Contact Info) Description 03/11/2021 Transcribed Document [facility] [place] Family Medicine [address] [place] [address] ProviderAlexis MD [address] [place] [address] Social History Tobacco Use Types [...] - Historical ProviderMD - 03/11/2021 6:00 AM FLAVOR ROOM WORKER Pain Assessment Entered On: 03/11/2021 8:25 [...] form. Electronically signed by Sandor Carvajal Conversion Veterinary Virus Serum Inspector Cerner at 08/19/2022 6:20 PM CDT documented in this encounter Plan of Treatment Not on file documented as of this encounter Visit Diagnoses Not on filedocumented in this encounter
--- OUTSIDE RECORDS SUMMARY | 2025-04-29 10:21 | XMS_ITS | Encounter Summary ---
Author Organization [employer] ([place], [place], [place], [place], [place]) Address [address] [place] [address] Care Team Providers Care Internal Medicine Nurse Name Role Phone Unavailable Primary Care Provider Unavailabl e Encounter Details Date Type Department Care Team (Late st Contact Info) Description 03/11/2021 Transcribed Document [facility] [place] [place] Family Medicine [address] [place] [address] ProviderAlexis MD [address] [place] [address] Social History Tobacco Use Types [...] - Historical ProviderMD - 03/11/2021 1:11 PM ACREAGE REPORTER Stroke/Warfarin Instructions Entered On: 03/11/2021 13:12 EST Performed On: 03/11/2021 13:11 EST by Leanne Sahu Virtual RN Stroke/Warfarin Instructions Stroke/TIA Discharge Ins : N/A Warfarin Discharge Ins : N/A Leanne Sahu Virtual RN - 03/11/2021 13:11 EST Electronically signed by Wei [facility] Conversion Coat Repair Inspector Cerner at 08/19/2022 6:21 PM CDT documented in this encounter Plan of Treatment Not on file documented as of this encounter Visit Diagnoses Not on filedocumented in this encounter
--- OUTSIDE RECORDS SUMMARY | 2025-04-29 10:21 | XMS_ITS | Encounter Summary ---
Author Organization [employer] ([place], [place], [place], [place], [place]) Address [address] [place] [address] Care Team Providers Care Enrollment Processor Name Role Phone Unavailable Primary Care Provider Unavailabl e Encounter Details Date Type Department Care Team (Late st Contact Info) Description 03/11/2021 Transcribed Document [facility] [place] Family Medicine [address] [place] [address] ProviderAlexis MD [address] [place] [address] Social History Tobacco Use Types [...] - Historical ProviderMD - 03/11/2021 2:33 PM BODILY INJURY ADJUSTER Nursing Discharge Summary Entered On: 03/11/2021 14:33 EST Performed On: 03/11/2021 14:33 EST by Leanne Sahu Virtual cloth piecer Documentation Discharge Instructions Reviewed With, Opportunity For Questions Given : Patient Patient Education Completed : Yes Teaching Method : Explanation, Printed materials Teaching Evaluation : Verbalizes understanding Education Comment : Meds, follow ups, conditions, restrictions Leanne Shau Virtual RN - 03/11/2021 14:33 EST Electronically signed by Wei [facility] Conversion Stemmer Machine Cerner at 08/19/2022 6:24 PM CDT documented in this encounter Plan of Treatment Not on file documented as of this encounter Visit Diagnoses Not on filedocumented in this encounter
--- OUTSIDE RECORDS SUMMARY | 2025-04-29 10:21 | XMS_ITS | Encounter Summary ---
Author Organization [employer] ([place], [place], [place], [place], [place]) Address [address] [place] [address] Care Team Providers Care Financial Compliance Officer Name Role Phone Unavailable Primary Care Provider Unavailabl e Encounter Details Date Type Department Care Team (Late st Contact Info) Description 03/10/2021 Transcribed Document [facility] [place] Family Medicine [address] [place] [address] ProviderAlexis MD [address] [place] [address] Social History Tobacco Use Types [...] - Alexis ProviderMD - 03/10/2021 12:13 PM KARDEX CLERK [facility] Main OR PACU Summary Primary Physician: ARMANDO ZAVALA MD- Finalized Date/Time: 03/10/21 16:08:59 Pt. Name: DAYANA BONILLA/Sex: 1960 Female Med Rec #: [id number] Physician: ARMANDO ZAVALA MD-PRO Financial #: [id number] Pt. Type: I Room/Bed: / Admit/Disch: 02/23/21 10:15:00 - Institution: [facility] Main OR PACU I Case Times Entry 1 In PACU I 03/10/21 14:50:00 Ready for PACU 03/10/21 16:05:00 Discharge Discharge from PACU 03/10/21 16:05:00 I Last Modified By: MISAEL AHUMADA RN 03/10/21 16:08:40 Finalized By: MISAEL AHUMADA, RN Document Signatures Signed By: MISAEL AHUMADA RN 03/10/21 16:08 Electronically signed by Wei [facility] Conversion Furniture Upholsterer Apprentice Cerner at 08/19/2022 6:05 PM CDT documented in this encounter Plan of Treatment Not on file documented as of this encounter Visit Diagnoses Not on filedocumented in this encounter
--- OUTSIDE RECORDS SUMMARY | 2025-04-29 10:21 | XMS_ITS | Encounter Summary ---
Author Organization [employer] ([place], [place], [place], [place], [place]) Address [address] [place] [address] Care Team Providers Care Shop Router Name Role Phone Unavailable Primary Care Provider Unavailabl e Encounter Details Date Type Department Care Team (Late st Contact Info) Description 03/10/2021 Transcribed Document [facility] [place] Family Medicine [address] [place] [address] ProviderAlexis MD [facility] [place] [address] Social History Tobacco Use Types [...] Alexis Livingston MD - 03/10/2021 10:28 AM STRIPPER AND OPAQUER APPRENTICE Peripheral Nerve Block Entered On: 03/10/2021 10:29 [...] - 03/10/2021 10:28 EST Electronically signed by [facility] Conversion Senior Software Test Engineer Cerner at 08/19/2022 6:13 PM CDT documented in this encounter Plan of Treatment Not on file documented as of this encounter Visit Diagnoses Not on filedocumented in this encounter
--- OUTSIDE RECORDS SUMMARY | 2025-04-29 10:21 | XMS_ITS | Encounter Summary ---
Author Organization [employer] ([place], [place], [place], [place], [place]) Address [address] [place] [address] Care Team Providers Care Entry Level Electrician Name Role Phone Unavailable Primary Care Provider Unavailabl e Encounter Details Date Type Department Care Team (Late st Contact Info) Description 03/11/2021 Transcribed Document [facility] [place] Family Medicine [address] [place] [address] ProviderAlexis MD [address] [place] [address] Social History Tobacco Use Types [...] - Historical ProviderMD - 03/11/2021 12:00 PM PROPERTY CONTROLLER Pain Assessment Entered On: 03/11/2021 14:43 EST [...]
--- OUTSIDE RECORDS SUMMARY | 2025-04-29 10:21 | XMS_ITS | Encounter Summary ---
Author Organization [employer] ([place], [place], [place], [place], [place]) Address [address] [place] [address] Care Team Providers Care Stamp Maker Name Role Phone Unavailable Primary Care Provider Unavailabl e Encounter Details Date Type Department Care Team (Late st Contact Info) Description 03/04/2021 Transcribed Document [facility] [place] [address] [place] [address] ProviderAlexis MD [address] [place] [address] Social History Tobacco Use Types [...] Source : Measured Height Entry Format : [place] Height, Feet : 0 ft(Converted to: 0 cm, 0 Inch) Height, Inches : 63 Inch(Converted to: 5 ft 3 Inch, 160.02 cm) Clinical Height : 160.02 cm Weight Source : Standing scale Weight Entry Format : [place] Clinical Dosing Weight : 83.64 kg Weight, Pounds : 184 lb Body Surface Area (BSA) : 1.87 m2 Body Mass Index : 32.7 kg/m2 (HI) [place] Body Weight : 52 kg WM PORTILLO [...] WM PORTILLO RN - 03/05/2021 15:25 EDT [place] Suicide Severity Rating Scale (C-SSRS) CSSRS Past [...] : Patient Preferred Communication Mode : Verbal Electronic System Engineer Needed : No Objects to Sharing Info w Family : No WM PORTILLO RN - 03/05/2021 15:25 EDT Want Family/Rep/Phys Notified of Admit : No Emergency Contact #1 : jean bonilla Emergency Contact #1 Emergency Contact #1 Relationship : spouse Emergency Contact #2 : , Emergency Contact #2 Phone Number : , Emergency Contact #2 Relationship : , Primary Language : Kyrgyz Communication Barrier : None RICARDO MARTINS RN [...]
--- OUTSIDE RECORDS SUMMARY | 2025-04-29 10:21 | XMS_ITS | Encounter Summary ---
Author Organization [employer] ([place], [place], [place], [place], [place]) Address [address] [place] [address] Care Team Providers Care Ticket Agent Name Role Phone Unavailable Primary Care Provider Unavailabl e Encounter Details Date Type Department Care Team (Late st Contact Info) Description 03/11/2021 Transcribed Document [facility] [place] [address] [place] [address] ProviderAlexis MD [address] [place] [address] Social History Tobacco Use Types [...] - Alexis ProviderMD - 03/11/2021 12:00 PM SENIOR JAVA PROGRAMMER Pain Assessment Entered On: 03/11/2021 14:43 EST [...]
--- OUTSIDE RECORDS SUMMARY | 2025-04-29 10:21 | XMS_ITS | Encounter Summary ---
Author Organization [employer] ([place], [place], [place], [place], [place]) Address [address] [place] [address] Care Team Providers Care Senior Grants Officer Name Role Phone Unavailable Primary Care Provider Unavailabl e Encounter Details Date Type Department Care Team (Late st Contact Info) Description 03/11/2021 Transcribed Document [facility] Radiology [address] [place] [address] Trinity Celaya MD [address] [place] [address] Social History Tobacco Use Types Packs/Day [...] None Author: TRINITY CELAYA MD-INT Discharge dictated. #[id number]. documented in this encounter Plan of Treatment Not on file documented as of this encounter Visit Diagnoses Not on filedocumented in this encounter
--- OUTSIDE RECORDS SUMMARY | 2025-04-29 10:21 | XMS_ITS | Referral Summary ---
Author Organization [employer] ([place], [place], [place], [place], [place]) Address [address] [place] [address] Care Team Providers Care Wagon Driller Name Role Phone Unavailable Primary Care Provider [...] Date Pelon rded Speak language other than Kenyan at home Not on file 05/19/2023 Want [...]
[2025-04-29 10:50] LABS: Blood Urea Nitrogen 27 mg/dl (7-17); Creatinine,Serum 1.20 mg/dl (0.52-1.04); Estimated Glomerular Filt Rate 45 ml/min (>60); GFR (African American) 55 ML/MIN (>60)
[2025-04-29] MEDS: SODIUM CHLORIDE 0.9% 10ML SYR (RAD ONLY) 10 ML IV (12:22)
[2025-04-29] MEDS: 0.9 % SODIUM CHLORIDE 50 ML VIAL 20 ML IV (12:22)
[2025-04-29] MEDS: GADOTERIDOL INJ 20ML SYRINGE 18 ML IV (12:22)
== END 2025-04-29 23:59 | disposition home or self-care (01) ==
LOC: RAD 10:03
PROVIDERS: PCP Internal Medicine; Visit Provider Nurse Practitioner Family
DX: I35.1 Nonrheumatic aortic (valve) insufficiency (principal)
CPT/HCPCS: 36415; 75561; 82565; 84520; A9576